=== PATIENT | female | born 1955 | race Caucasian/White ===

== ENCOUNTER 2017-05-08 03:31 | Observation (INO) | payer MEDICAID ==
[2017-05-08] MEDS ORDERED: Albuterol/Ipratropium 3.0-0.5 MG/3 ML Neb Soln NEB ONE (03:39)
--- NOTE | 2017-05-08 03:39 | EDM.PDOC ---
ED HPI GENERAL MEDICAL PROBLEM - General Chief Complaint: Respiratory Problem Stated Complaint: COUGHING, HEADACHE, RETAINING FLUID Time Seen by Provider: 05/08/17 03:37 - History of Present Illness INITIAL COMMENTS - FREE TEXT/NARRATIVE: HISTORY AND PHYSICAL: History of present illness: Patient 61-year-old white female was longtime smoker who presents with a concern of shortness of breath patient states she has history of lymphedema and is on a water pill and potassium she denies any history of COPD asthma or other lung or heart problems she denies chest pain nausea vomiting fever or chills Review of systems: As per history of present illness and below otherwise all systems reviewed and negative. Past medical history: As per history of present illness and as reviewed below otherwise noncontributory. Surgical history: As per history of present illness and as reviewed below otherwise noncontributory. Social history: No reported history of drug or alcohol abuse. Family history: As per history of present illness and as reviewed below otherwise noncontributory. Physical exam: HEENT: Atraumatic, normocephalic, pupils reactive, negative for conjunctival pallor or scleral icterus, mucous membranes moist, throat clear, neck supple, nontender, trachea midline. Lungs: Diminished bilaterally rare next story wheezing, breath sounds equal bilaterally, chest nontender. Heart: S1S2, regular, negative for clicks, rubs, or JVD. Abdomen: Soft, nondistended, nontender. Negative for masses or hepatosplenomegaly. Negative for costovertebral tenderness. Pelvis: Stable nontender. Genitourinary: Deferred. Rectal: Deferred. Extremities: Atraumatic, negative for cords or calf pain. Neurovascular unremarkable. 2-3+ pretibial edema inferiorly Neuro: Awake, alert, oriented. Cranial nerves II through XII unremarkable. Cerebellum unremarkable. Motor and sensory unremarkable throughout. Exam nonfocal. Diagnostics: CBC CMP PT/INR troponin BNP chest x-ray EKG Therapeutics: IV O2 monitor albuterol ipratropium nebulized Impression: #1 dyspnea Definitive disposition and diagnosis as appropriate pending reevaluation and review of above. - Related Data Allergies Allergy/AdvReac Type Severity Reaction Status Date / Time No Known Allergies Allergy Verified 05/08/17 03:44 Home Meds: Home Meds Furosemide [Lasix] 20 mg PO BIDDIURETIC 05/08/17 [History] Potassium Gluconate [Potassium] 99 mg PO 05/08/17 [History] ED ROS GENERAL - Review of Systems Review Of Systems: ROS reveals no pertinent complaints other than HPI. ED EXAM, GENERAL - Physical Exam Exam: See Below (See dictation) Course - Vital Signs Last Recorded V/S: Last Vital Signs Temp 36.4 C 05/08/17 03:31 Pulse 97 05/08/17 03:31 Resp 16 05/08/17 03:31 BP 158/79 H 05/08/17 03:31 Pulse Ox 92 L 05/08/17 03:31 - Orders/Labs/Meds Orders: Active Orders 24 hr Category Date Time Status EKG Documentation Completion [RC] STAT Care 05/08/17 03:37 Active Oxygen Therapy [RC] ASDIRECTED Care 05/08/17 03:37 Active RT Aerosol Therapy [RC] ASDIRECTED Care 05/08/17 03:39 Active Chest 1V Frontal [CR] Stat Exams 05/08/17 03:37 Taken Nicotine [Habitrol] Med 05/08/17 04:30 Active 7 mg TRDERM DAILY Medication Orders Nicotine (Habitrol) 7 mg TRDERM DAILY MADAI Labs: Laboratory Tests 05/08/17 05/08/17 05/08/17 Range/Units 03:40 03:40 03:40 WBC 11.02 H (4.0-11.0) K/uL RBC 4.98 (4.30-5.90) M/uL Hgb 15.1 (12.0-16.0) g/dL Hct 46.5 H (36.0-46.0) % MCV 93.4 (80.0-98.0) fL MCH 30.3 (27.0-32.0) pg MCHC 32.5 (31.0-37.0) g/dL RDW Std Deviation 50.7 (28.0-62.0) fl RDW Coeff of Misty 15 (11.0-15.0) % Plt Count 263 (150-400) K/uL MPV 9.20 (7.40-12.00) fL Neut % (Auto) 66.4 (48.0-80.0) % Lymph % (Auto) 24.5 (16.0-40.0) % Maury % (Auto) 7.4 (0.0-15.0) % Eos % (Auto) 1.5 (0.0-7.0) % Baso % (Auto) 0.2 (0.0-1.5) % Neut # (Auto) 7.3 H (1.4-5.7) K/uL Lymph # (Auto) 2.7 H (0.6-2.4) K/uL Maury # (Auto) 0.8 (0.0-0.8) K/uL Eos # (Auto) 0.2 (0.0-0.7) K/uL Baso # (Auto) 0.0 (0.0-0.1) K/uL Nucleated RBC % 0.0 /100WBC Nucleated RBCs # 0 K/uL INR 0.93 (0.86-1.11) D-Dimer, Quantitative 0.27 (0.0-0.52) mg/LFEU Sodium 142 (136-146) mmol/L Potassium 4.5 (3.5-5.1) mmol/L Chloride 108 (98-110) mmol/L Carbon Dioxide 26 (21-31) mmol/L BUN 11 (6.0-23.0) mg/dL Creatinine 0.8 (0.6-1.5) mg/dL Est Cr Clr Drug Dosing 65.38 mL/min Estimated GFR (MDRD) > 60.0 ml/min Glucose 101 (60-110) mg/dL Calcium 8.6 L (8.8-10.8) mg/dL Total Bilirubin 0.3 (0.1-1.5) mg/dL AST 20 (5-40) IU/L ALT 24 (8-54) IU/L Alkaline Phosphatase 98 (40-150) Troponin I (0.0-0.29) NG/ML B-Natriuretic Peptide (<100) PG/ML Total Protein 6.9 (6.0-8.0) g/dL Albumin 3.9 (3.5-5.0) g/dL Globulin 3.0 (2.0-3.5) g/dL Albumin/Globulin Ratio 1.3 (1.3-2.8) Amylase 41 (10-90) U/L Lipase 12 (7-80) U/L 05/08/17 05/08/17 Range/Units 03:40 03:40 WBC (4.0-11.0) K/uL RBC (4.30-5.90) M/uL Hgb (12.0-16.0) g/dL Hct (36.0-46.0) % MCV (80.0-98.0) fL MCH (27.0-32.0) pg MCHC (31.0-37.0) g/dL RDW Std Deviation (28.0-62.0) fl RDW Coeff of Misty (11.0-15.0) % Plt Count (150-400) K/uL MPV (7.40-12.00) fL Neut % (Auto) (48.0-80.0) % Lymph % (Auto) (16.0-40.0) % Maury % (Auto) (0.0-15.0) % Eos % (Auto) (0.0-7.0) % Baso % (Auto) (0.0-1.5) % Neut # (Auto) (1.4-5.7) K/uL Lymph # (Auto) (0.6-2.4) K/uL Maury # (Auto) (0.0-0.8) K/uL Eos # (Auto) (0.0-0.7) K/uL Baso # (Auto) (0.0-0.1) K/uL Nucleated RBC % /100WBC Nucleated RBCs # K/uL INR (0.86-1.11) D-Dimer, Quantitative (0.0-0.52) mg/LFEU Sodium (136-146) mmol/L Potassium (3.5-5.1) mmol/L Chloride (98-110) mmol/L Carbon Dioxide (21-31) mmol/L BUN (6.0-23.0) mg/dL Creatinine (0.6-1.5) mg/dL Est Cr Clr Drug Dosing mL/min Estimated GFR (MDRD) ml/min Glucose (60-110) mg/dL Calcium (8.8-10.8) mg/dL Total Bilirubin (0.1-1.5) mg/dL AST (5-40) IU/L ALT (8-54) IU/L Alkaline Phosphatase (40-150) Troponin I < 0.10 (0.0-0.29) NG/ML B-Natriuretic Peptide 60 (<100) PG/ML Total Protein (6.0-8.0) g/dL Albumin (3.5-5.0) g/dL Globulin (2.0-3.5) g/dL Albumin/Globulin Ratio (1.3-2.8) Amylase (10-90) U/L Lipase (7-80) U/L Meds: Medications Generic Name Dose Route Start Last Admin Trade Name Freq PRN Reason Stop Dose Admin Nicotine 7 mg 05/08/17 04:30 Habitrol TRDERM DAILY MADAI Discontinued Medications Generic Name Dose Route Start Last Admin Trade Name Freq PRN Reason Stop Dose Admin Albuterol/Ipratropium 3 ml 05/08/17 03:39 05/08/17 03:44 Duoneb 3.0-0.5 Mg/3 Ml NEB 05/08/17 03:40 3 ml ONETIME ONE Administration Albuterol/Ipratropium Confirm 05/08/17 03:40 05/08/17 03:45 Duoneb 3.0-0.5 Mg/3 Ml Administered 05/08/17 03:41 Not Given Dose 3 ml .ROUTE .STK-MED ONE Furosemide 40 mg 05/08/17 03:45 05/08/17 03:56 Lasix IVPUSH 05/08/17 03:46 40 mg NOW ONE Administration Departure - Departure Time of Disposition: 04:32 Disposition: Refer to Observation Condition: good Clinical Impression: Dyspnea - Discharge Information Forms: ED Department Discharge - My Orders Last 24 Hours: My Active Orders 05/08/17 03:37 EKG Documentation Completion [RC] STAT Oxygen Therapy [RC] ASDIRECTED Chest 1V Frontal [CR] Stat 05/08/17 03:39 RT Aerosol Therapy [RC] ASDIRECTED 05/08/17 04:30 Nicotine [Habitrol] 7 mg TRDERM DAILY - Assessment/Plan Last 24 Hours: My Active Orders 05/08/17 03:37 EKG Documentation Completion [RC] STAT Oxygen Therapy [RC] ASDIRECTED Chest 1V Frontal [CR] Stat 05/08/17 03:39 RT Aerosol Therapy [RC] ASDIRECTED 05/08/17 04:30 Nicotine [Habitrol] 7 mg TRDERM DAILY
[2017-05-08] MEDS ORDERED: Albuterol/Ipratropium 3.0-0.5 MG/3 ML Neb Soln ONE (03:40)
[2017-05-08] MEDS ORDERED: Furosemide 40 MG/4 ML VIAL IVPUSH ONE (03:45)
[2017-05-08 04:18] LABS: CHLORIDE,CL 108 mmol/L (98-110); SODIUM,NA 142 mmol/L (136-146)
[2017-05-08] MEDS: Nicotine 7 MG/24 Hr Patch TRDERM SCH ×2 (04:59→09:32)
[2017-05-08] MEDS ORDERED: Polyethylene Glycol 3350 Powder 17 GM Packet PO PRN (09:35)
[2017-05-08] MEDS ORDERED: Acetaminophen 325 MG Tab PO PRN (09:35)
[2017-05-08] MEDS ORDERED: Ondansetron 4 MG Tab.DIS PO PRN (09:35)
[2017-05-08] MEDS ORDERED: Azithromycin 250 MG Tab PO ONE (10:03)
[2017-05-08] MEDS ORDERED: Calcium Carbonate 500 MG Tab.Chew PO ONE (10:04)
[2017-05-08] MEDS: Potassium Chloride 20 MEQ Tab.ER PO SCH (10:23)
[2017-05-08] MEDS: methylPREDNISolone Sodium Succinate 125 MG/2 ML SDV IVPUSH SCH ×3 (10:23→20:52)
[2017-05-08] MEDS: Enoxaparin 40 MG/0.4 ML Syringe SUBCUT SCH ×2 (10:23→10:30)
[2017-05-08] MEDS: Albuterol/Ipratropium 3.0-0.5 MG/3 ML Neb Soln NEB SCH ×4 (10:30→21:53)
--- NOTE | 2017-05-08 10:59 | CR ---
EXAM DATE: 05/08/17 PATIENT'S AGE: 61 Patient: BOB HERNANDEZ Facility: [place], [place] Site . Site : 1955 Study: XRay Chest [id number]/8/2017 4:07:41 AM Ordering Physician: Doctor Guadalupe Final Report: INDICATION: Shortness of breath, cough. TECHNIQUE: Chest radiograph 1 view COMPARISON: None FINDINGS: Study somewhat limited by patient body habitus. Faint asymmetric patchy opacification suspected in the right lower lung zone. Heart and mediastinal contours within normal limits. No definite pleural effusion or pneumothorax. IMPRESSION: 1. Possible infiltrate or bronchitis involving right lower lung zone. Dictated by Jarred Triana MD @ 05/08/2017 4:22:46 AM Dictated by: Jarred Triana MD @ 05/08/2017 04:22:52 (Electronic Signature) Report Signed by Proxy. [email or web address]
[2017-05-08] MEDS: Nicotine 21 MG/24 Hr Patch TRDERM SCH (11:25)
--- NOTE | 2017-05-08 12:19 | PCM.HP ---
H&P History of Present Illness - General Date of Service: 05/08/17 Admit Problem/Dx: Dyspnea Source of Information: Patient, Family - History of Present Illness Initial Comments - Free Text/Narative: 61 yo female admitted 05/08/17 for dyspnea with pmh of lymphedema and correction smoking. Patient was brought in by daughter. States since last weekend has had increasing shortness of breath. Some cough with yellowish sputum and sinus congestion. Has a 41 pack year history of smoking. No history as per patient of COPD, asthma, other lung disease, or heart problems. Does take lasix for lymphemdema. Denies any chest pain, palpitations, orthopnea, or nocturnal dyspnea. Does get swelling in legs bilaterally which was worse before current illness. From [place] and has been seeing physician's there for her lymphedema. Has had EKG but no echocardiogram. Has no history of hypertension or other cardiac disease. Denies fever, chills, nausea, vomiting, diarrhea, sore throat. In ED CXR showed possible inbiltrate or bronchits RLL. Borderline leukocytosis of 11.02, normal BNP and D-dimer. Was given Lasix 40 and duoneb with some improvment in SOB but still requiring 2 L nc to maintain sats over 92% - Related Data Allergies/Adverse Reactions: Allergies Allergy/AdvReac Type Severity Reaction Status Date / Time No Known Allergies Allergy Verified 05/08/17 03:44 Home Medications: Home Meds Furosemide [Lasix] 20 mg PO BIDDIURETIC 05/08/17 [History] Potassium Gluconate [Potassium] 99 mg PO 05/08/17 [History] Past Medical History HEENT History: Reports: None Cardiovascular History: Reports: None Respiratory History: Reports: None Gastrointestinal History: Reports: None Genitourinary History: Reports: None Musculoskeletal History: Reports: None Neurological History: Reports: None Psychiatric History: Reports: None Endocrine/Metabolic History: Reports: Other (See Below) Other Endocrine/Metabolic History: lymphodema Hematologic History: Reports: None Immunologic History: Reports: None Oncologic (Cancer) History: Reports: None Dermatologic History: Reports: None - Infectious Disease History Infectious Disease History: Reports: Chicken Pox - Past Surgical History Head Surgeries/Procedures: Reports: None Cardiovascular Surgical History: Reports: None Respiratory Surgical History: Reports: None Female Surgical History: Reports: None Social & Family History - Family History Family Medical History: Noncontributory HEENT: Reports: None Cardiac: Reports: None Respiratory: Reports: None GI: Reports: None : Reports: None OBGYN: Reports: None Musculoskeletal: Reports: None Neurological: Reports: None Psychiatric: Reports: None Endocrine/Metabolic: Reports: None Hematologic: Reports: None Immunologic: Reports: None Dermatologic: Reports: None Oncologic: Reports: None - Tobacco Use Smoking Status *Q: Current Every Day Smoker Years of Tobacco use: 41 Packs/Tins Daily: 1.5 Second Hand Smoke Exposure: No - Caffeine Use Caffeine Use: Reports: Coffee, Soda, Tea - Recreational Drug Use Recreational Drug Use: No H&P Review of Systems - Review of Systems: Review Of Systems: See Below General: Reports: Fatigue. Denies: Fever, Chills, Night Sweats Pulmonary: Reports: Shortness of Breath, Wheezing, Cough, Sputum. Denies: Pleuritic Chest Pain, Hemoptysis Cardiovascular: Reports: Edema. Denies: Chest Pain, Palpitations, Orthopnea, PND, Syncope, Blood Pressure Problem Gastrointestinal: Denies: Abdominal Pain, Black Stool, Bloody Stool Genitourinary: Denies: Dysuria Musculoskeletal: Denies: Neck Pain, Leg Pain Skin: Denies: Cyanosis Psychiatric: Denies: Confusion Neurological: Denies: Confusion, Dizziness, Headache Hematologic/Lymphatic: Denies: Anemia Exam - Exam Exam: See Below - Vital Signs Vital Signs: Last Vital Signs Temp 36.4 C 05/08/17 08:00 Pulse 77 05/08/17 08:00 Resp 16 05/08/17 08:00 BP 127/70 05/08/17 08:00 Pulse Ox 91 L 05/08/17 09:35 Weight: 124.1 kg - Exam Quality Assessment: Supplemental Oxygen, DVT Prophylaxis General: Alert, Oriented, Cooperative HEENT: Conjunctiva Clear, EACs Clear, EOMI, Hearing Intact, Mucosa Moist & Amonate , Nares Patent, Normal Nasal Septum, Posterior Pharynx Clear, PERRLA Neck: Supple, Trachea Midline, 2 Lungs: Normal Respiratory Effort, Crackles, Rales Cardiovascular: Regular Rate, Regular Rhythm, Normal S1, Normal S2, Systolic Murmur Abdomen: Normal Bowel Sounds, Soft, Distention. No: Guarding, Rigidity, Rebound , Tenderness Back Exam: Normal Inspection, Full Range of Motion. No: CVA Tenderness (L), CVA Tenderness (R) Extremities: Normal Inspection, Normal Pulses, Edema (+2 to knees bilaterally) Peripheral Pulses: 2+: Radial (L), Radial (R), Posterior Tibial (L), Posterior Tibial (R), Dorsalis Pedis (L), Dorsalis Pedis (R) Skin: Warm, Dry, Intact Neurological: Cranial Nerves Intact, Reflexes Equal Bilateral Neuro Extensive - Mental Status: Alert, Oriented x3, Normal Mood/Affect, Normal Cognition Neuro Extensive - Motor, Sensory, Reflexes: CN II-XII Intact, Normal Gait, Normal Reflexes Psychiatric: Alert, Normal Affect, Normal Mood - Patient Data Result Diagrams: 05/08/17 03:40 05/08/17 03:40 *Q Meaningful Use (ADM) - VTE *Q VTE Criteria *Q: - Stroke *Q Stroke Criteria *Q: - AMI *Q AMI Criteria *Q: - Problem List (1) Lymphedema SNOMED Code(s): 988591435 ICD Code: I89.0 - LYMPHEDEMA, NOT ELSEWHERE CLASSIFIED Status: Chronic Priority: Medium Current Visit: Yes (2) Dyspnea SNOMED Code(s): 101308655 ICD Code: R06.00 - DYSPNEA, UNSPECIFIED Status: Acute Priority: High Current Visit: Yes Qualifiers: Dyspnea type: shortness of breath Qualified Code(s): R06.02 - Shortness of breath Problem List Initiated/Reviewed/Updated: Yes Orders Last 24hrs: Active Orders 24 hr Category Date Time Status Patient Status [ADT] Routine ADT 05/08/17 09:35 Active Antiembolic Devices [RC] PER UNIT ROUTINE Care 05/08/17 09:40 Active Oxygen Therapy [RC] PRN Care 05/08/17 09:35 Active RT Aerosol Therapy [RC] ASDIRECTED Care 05/08/17 09:40 Active Telemetry Monitoring [Cardiac Monitoring] [RC] . Care 05/08/17 06:08 Active DIRECTED Up With Assistance [RC] ASDIRECTED Care 05/08/17 09:35 Active VTE/DVT Education [RC] PER UNIT ROUTINE Care 05/08/17 09:35 Active Vital Signs [RC] Q4H Care 05/08/17 09:35 Active 2 Gram Sodium Diet [DIET] Diet 05/08/17 Lunch Active Echo Comp wo Cont [US] Routine Exams 05/08/17 09:49 Ordered BASIC METABOLIC PANEL,BMP [CHEM] DAILY Lab 05/09/17 05:00 Ordered BASIC METABOLIC PANEL,BMP [CHEM] DAILY Lab 05/10/17 05:00 Ordered BASIC METABOLIC PANEL,BMP [CHEM] DAILY Lab 05/11/17 05:00 Ordered CBC WITH AUTO DIFF [HEME] DAILY Lab 05/09/17 05:00 Ordered CBC WITH AUTO DIFF [HEME] DAILY Lab 05/10/17 05:00 Ordered CBC WITH AUTO DIFF [HEME] DAILY Lab 05/11/17 05:00 Ordered CULTURE SPUTUM + SMEAR [RM] Stat Lab 05/08/17 09:05 Ordered Acetaminophen [Tylenol] Med 05/08/17 09:35 Active 650 mg PO Q4H PRN Albuterol/Ipratropium [DuoNeb 3.0-0.5 MG/3 ML] Med 05/08/17 10:00 Active 3 ml NEB Q4HRRT Azithromycin [Zithromax] Med 05/09/17 09:45 Active 250 mg PO Q24H Enoxaparin [Lovenox] Med 05/08/17 10:06 Active 40 mg SUBCUT DAILY Furosemide [Lasix] Med 05/08/17 14:00 Active 20 mg PO BIDDIURETIC Nicotine [Habitrol] Med 05/08/17 11:30 Active 21 mg TRDERM Q24H Ondansetron [Zofran ODT] Med 05/08/17 09:35 Active 4 mg PO Q4H PRN Polyethylene Glycol 3350 [MiraLAX] Med 05/08/17 09:35 Active 17 gm PO DAILY PRN Potassium Chloride [Klor-Con M20] Med 05/08/17 10:00 Active 40 meq PO DAILY methylPREDNISolone Sod Succ [Solu-MEDROL] Med 05/08/17 09:45 Active 125 mg IVPUSH Q6H Sequential Compression Device [OM.PC] Per Unit Routine Oth 05/08/17 09:39 Ordered Resuscitation Status Routine Resus Stat 05/08/17 09:35 Ordered Medication Orders Acetaminophen (Tylenol) 650 mg PO Q4H PRN PRN Reason: Pain (Mild 1-3)/fever Albuterol/Ipratropium (Duoneb 3.0-0.5 Mg/3 Ml) 3 ml NEB Q4HRRT MADAI Last Admin: 05/08/17 10:30 Dose: 3 ml Azithromycin (Zithromax) 250 mg PO Q24H [facility] Enoxaparin Sodium (Lovenox) 40 mg SUBCUT DAILY [facility] Last Admin: 05/08/17 10:30 Dose: Not Given Furosemide (Lasix) 20 mg PO BIDDIURETIC MADAI Methylprednisolone Sodium Succinate (Solu-Medrol) 125 mg IVPUSH Q6H [facility] Last Admin: 05/08/17 10:23 Dose: 125 mg Nicotine (Habitrol) 21 mg TRDERM Q24H [facility] Last Admin: 05/08/17 11:25 Dose: 21 mg Ondansetron HCl (Zofran Odt) 4 mg PO Q4H PRN PRN Reason: nausea, able to take PO Polyethylene Glycol (Miralax) 17 gm PO DAILY PRN PRN Reason: Constipation Potassium Chloride (Klor-Con M20) 40 meq PO DAILY [facility] Last Admin: 05/08/17 10:23 Dose: 40 meq Assessment/Plan Comment:: 61 yo female admitted 05/08/17 for dyspnea with pmh of lymphedema and correction smoking. Dypnea: Most likely COPD exacerbation with terminologist smoker. No previous history of lung disease or PFT's. Sputum culture ordered. Will treat with duo- nebs, solumedrol, and azithromycin secondary to mild leukocytosis. Will get echocardiogram secondary to heart murmur and pedal edema. Lymphedema: Patient states this at norm or better than previous Cont. home lasix bid, try to get records from [place]. VTE: Patient refusing SCD and any pharmacologic prevention. Risks of blood clot with possibilty of explained to patient and she is in understanding.
[2017-05-08] MEDS ORDERED: Furosemide 20 MG Tab PO SCH (14:00)
[2017-05-08] MEDS: Nystatin Topical Powder 15 GM Bottle TOP SCH ×2 (16:00→22:57)
[2017-05-09] MEDS: Albuterol/Ipratropium 3.0-0.5 MG/3 ML Neb Soln NEB SCH ×3 (02:25→10:17)
[2017-05-09] MEDS: methylPREDNISolone Sodium Succinate 125 MG/2 ML SDV IVPUSH SCH ×2 (04:06→09:00)
[2017-05-09 04:58] LABS: CHLORIDE,CL 108 mmol/L (98-110); SODIUM,NA 142 mmol/L (136-146)
[2017-05-09] MEDS: Nystatin Topical Powder 15 GM Bottle TOP SCH (06:59)
[2017-05-09] MEDS ORDERED: Furosemide 40 MG Tab PO SCH (08:00)
[2017-05-09] MEDS ORDERED: Azithromycin 250 MG Tab PO SCH ×2 (09:00→09:45)
[2017-05-09] MEDS ORDERED: methylPREDNISolone Sodium Succinate 125 MG/2 ML SDV IVPUSH SCH (09:00)
[2017-05-09] MEDS ORDERED: Nicotine 7 MG/24 Hr Patch TRDERM SCH (09:00)
[2017-05-09] MEDS: Potassium Chloride 20 MEQ Tab.ER PO SCH (10:25)
[2017-05-09] MEDS: Enoxaparin 40 MG/0.4 ML Syringe SUBCUT SCH (10:28)
[2017-05-09] MEDS: Nicotine 21 MG/24 Hr Patch TRDERM SCH (10:33)
[2017-05-09 12:13] VITALS: BP 103/55
--- NOTE | 2017-05-10 15:36 | PCM.DCSUM1 ---
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 Brief History: Patient was brought in by daughter. Stated since previous weekend had increasing shortness of breath. Some cough with yellowish sputum and sinus congestion. Has a 41 pack year history of smoking currently smoking. No history as per patient of COPD, asthma, other lung disease, or heart problems. Does take lasix for lymphemdema. Denied any chest pain, palpitations , orthopnea, or nocturnal dyspnea. Does get swelling in legs bilaterally which was worse before current illness. From [place] and has been seeing physician's there for her lymphedema. Has had EKG but no echocardiogram. Has no history of hypertension or other cardiac disease. Denies fever, chills, nausea, vomiting, diarrhea, sore throat. 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 Patient was brought in by daughter. Stated since previous weekend had increasing shortness of breath. Some cough with yellowish sputum and sinus congestion. Has a 41 pack year history of smoking currently smoking. No history as per patient of COPD, asthma, other lung disease, or heart problems. Does take lasix for lymphemdema. Denied any chest pain, palpitations, orthopnea , or nocturnal dyspnea. Does get swelling in legs bilaterally which was worse before current illness. From [place] and has been seeing physician's there for her lymphedema. Has had EKG but no echocardiogram. Has no history of hypertension or other cardiac disease. Denies fever, chills, nausea, vomiting, diarrhea, sore throat. In ED CXR showed possible inbiltrate or bronchits RLL. Borderline leukocytosis of 11.02, normal BNP and D-dimer. Was given Lasix 40 and duoneb with some improvment in SOB but still requiring 2 L nc to maintain sats over 92% Patient was admitted for dyspnea suspect COPD. Patient was treated with duo nebs, Solu-Medrol, and azithromycin. Echocardiogram was performed but results were unavailable at time of discharge. This was performed secondary to her generalized edema which she stated was from a previous diagnosis of lymphedema. She had previous cardiac workup which was negative without echo done in [place] as per patient and daughter. She had no previous known cardiac disease and improved with respiratory treatments but may have a cardiac component as well. Suggest further followup with primary care. Patient was very adamant during her stay about smoking cessation. She "will smoke until I ". Smoking cessation resources were offered. On day of discharge, 05/09/17, patient was 94% on room air. 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 She was also scheduled for PCP followup and instructed to return to ED if she had any future respiratory distress. - Patient Instructions Diet: Usual Diet as Tolerated Activity: Rest and Relax Today Driving: Do Not Drive Showering/Bathing: May Shower Notify Provider of: Fever, Increased Pain, Swelling and Redness, Drainage, Nausea and/or Vomiting - Discharge Plan Prescriptions/Med Rec: Albuterol Sulfate [Proair Hfa] 8.5 gm IH Q4HR PRN #1 hfa.aer.ad PRN Reason: Shortness Of Breath Albuterol/Ipratropium [DuoNeb 3.0-0.5 MG/3 ML] 3 ml NEB Q4HRRT PRN #14 neb PRN Reason: Shortness Of Breath Azithromycin [Zithromax] 250 mg PO Q24H #3 tablet Nystatin/Triamcin [Nystatin-Triamcinolone Cream] 30 gm TP BID #1 cream..g. Prednisone [IJD: predniSONE] 20 mg PO WITHBREAKFAST #10 tab Home Medications: Home Meds Furosemide [Lasix] 20 mg PO BIDDIURETIC 05/08/17 [History] Potassium Gluconate [Potassium] 99 mg PO 05/08/17 [History] Albuterol Sulfate [Proair Hfa] 8.5 gm IH Q4HR PRN #1 hfa.aer.ad 05/09/17 [Rx] Albuterol/Ipratropium [DuoNeb 3.0-0.5 MG/3 ML] 3 ml NEB Q4HRRT PRN #14 neb 05/09 [Rx] Azithromycin [Zithromax] 250 mg PO Q24H #3 tablet 05/09/17 [Rx] Nystatin/Triamcin [Nystatin-Triamcinolone Cream] 30 gm TP BID #1 cream..g. 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 Patient was brought in by daughter. Stated since previous weekend had increasing shortness of breath. Some cough with yellowish sputum and sinus congestion. Has a 41 pack year history of smoking currently smoking. No history as per patient of COPD, asthma, other lung disease, or heart problems. Does take lasix for lymphemdema. Denied any chest pain, palpitations, orthopnea , or nocturnal dyspnea. Does get swelling in legs bilaterally which was worse before current illness. From [place] and has been seeing physician's there for her lymphedema. Has had EKG but no echocardiogram. Has no history of hypertension or other cardiac disease. Denies fever, chills, nausea, vomiting, diarrhea, sore throat. In ED CXR showed possible inbiltrate or bronchits RLL. Borderline leukocytosis of 11.02, normal BNP and D-dimer. Was given Lasix 40 and duoneb with some improvment in SOB but still requiring 2 L nc to maintain sats over 92% Patient was admitted for dyspnea suspect COPD. Patient was treated with duo nebs, Solu-Medrol, and azithromycin. Echocardiogram was performed but results were unavailable at time of discharge. This was performed secondary to her generalized edema which she stated was from a previous diagnosis of lymphedema. She had previous cardiac workup which was negative without echo done in [place] as per patient and daughter. She had no previous known cardiac disease and improved with respiratory treatments but may have a cardiac component as well. Suggest further followup with primary care. Patient was very adamant during her stay about smoking cessation. She "will smoke until I ". Smoking cessation resources were offered. On day of discharge, 05/09/17, patient was 94% on room air. 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 She was also scheduled for PCP followup and instructed to return to ED if she had any future respiratory distress. - Patient Data Vitals - Most Recent: Last Vital Signs Temp 36.8 C 05/09/17 12:11 Pulse 90 05/09/17 12:11 Resp 18 05/09/17 12:11 BP 103/55 L 05/09/17 12:11 Pulse Ox 96 05/09/17 12:11 Weight - Most Recent: 124.1 kg MELI Results - Last 24 hrs: Microbiology 05/08/17 10:50 Gram Stain - Final Sputum - Expectorated Sputum Culture - Final NORMAL RESPIRATORY JACQUELINE 2 DAYS Med Orders - Current: Current Medications Discontinued Medications Acetaminophen (Tylenol) 650 mg PO Q4H PRN PRN Reason: Pain (Mild 1-3)/fever Albuterol/Ipratropium (Duoneb 3.0-0.5 Mg/3 Ml) 3 ml NEB ONETIME ONE Stop: 05/08/17 03:40 Last Admin: 05/08/17 03:44 Dose: 3 ml Albuterol/Ipratropium (Duoneb 3.0-0.5 Mg/3 Ml) Confirm Administered Dose 3 ml .ROUTE .STK-MED ONE Stop: 05/08/17 03:41 Last Admin: 05/08/17 03:45 Dose: Not Given Albuterol/Ipratropium (Duoneb 3.0-0.5 Mg/3 Ml) 3 ml NEB Q4HRRT [facility] Last Admin: 05/09/17 10:17 Dose: 3 ml Azithromycin (Zithromax) 500 mg PO ONETIME ONE Stop: 05/08/17 10:04 Last Admin: 05/08/17 10:23 Dose: 500 mg Azithromycin (Zithromax) 250 mg PO Q24H MADAI Azithromycin (Zithromax) 250 mg PO Q24H [facility] Last Admin: 05/09/17 10:27 Dose: 250 mg Calcium Carbonate/Glycine (Tums) 1,000 mg PO ONETIME ONE Stop: 05/08/17 10:05 Last Admin: 05/08/17 10:23 Dose: 1,000 mg Enoxaparin Sodium (Lovenox) 40 mg SUBCUT DAILY [facility] Last Admin: 05/09/17 10:28 Dose: Not Given Furosemide (Lasix) 40 mg IVPUSH NOW ONE Stop: 05/08/17 03:46 Last Admin: 05/08/17 03:56 Dose: 40 mg Furosemide (Lasix) 20 mg PO BIDDIURETIC [facility] Last Admin: 05/08/17 14:08 Dose: 20 mg Furosemide (Lasix) 40 mg PO BIDDIURETIC [facility] Last Admin: 05/09/17 08:31 Dose: 40 mg Methylprednisolone Sodium Succinate (Solu-Medrol) 125 mg IVPUSH Q6H [facility] Last Admin: 05/09/17 04:06 Dose: 125 mg Methylprednisolone Sodium Succinate (Solu-Medrol) 125 mg IVPUSH Q6H [facility] Last Admin: 05/09/17 09:00 Dose: 125 mg Nicotine (Habitrol) 7 mg TRDERM DAILY [facility] Last Admin: 05/08/17 09:32 Dose: Not Given Nicotine (Habitrol) 7 mg TRDERM DAILY [facility] Nicotine (Habitrol) 21 mg TRDERM Q24H [facility] Last Admin: 05/09/17 10:33 Dose: 21 mg Nystatin (Nystop) 0 gm TOP TID [facility] Last Admin: 05/09/17 06:59 Dose: 1 applic Ondansetron HCl (Zofran Odt) 4 mg PO Q4H PRN PRN Reason: nausea, able to take PO Polyethylene Glycol (Miralax) 17 gm PO DAILY PRN PRN Reason: Constipation Potassium Chloride (Klor-Con M20) 40 meq PO DAILY MADAI Last Admin: 05/09/17 10:25 Dose: 40 meq *Q Meaningful Use (DIS) - VTE *Q VTE Criteria *Q: - Stroke *Q Stroke Criteria *Q: - AMI *Q AMI Criteria *Q:
--- NOTE | 2017-05-12 13:07 | ECHO ---
EXAM DATE: 05/08/17 PATIENT'S AGE: 61 The echocardiogram report can be seen in this patient's EMR (Electronic Medical Record) in the Reports section. BETH
== END 2017-05-09 12:35 | disposition home or self-care (01) ==
LOC: MW.ED 03:31 → MW.MS 05:01
PROVIDERS: ADMIT Internal Medicine; ATTEND Internal Medicine
DX: I89.0 Lymphedema, not elsewhere classified (principal); R06.00 Dyspnea, unspecified; F17.210 Nicotine dependence, cigarettes, uncomplicated; Z79.899 Other long term (current) drug therapy
CPT/HCPCS: 36415; 71010; 80048; 80053; 82150; 83690; 83880; 84484; 85025; 85379; 85610; 87070; 87205; 93005; 93306; 94640; 96374; 99285; A9270; J1940; J2930; 96375; 96376; G0378; J1650

== ENCOUNTER 2019-10-27 11:04 | Inpatient (IN) | payer MEDICAID ==
[2019-10-27] MEDS ORDERED: Sodium Chloride 0.9% 1,000 ML IV ONE (11:27)
--- NOTE | 2019-10-27 11:52 | EDM.PDOC ---
ED HPI GENERAL MEDICAL PROBLEM - General Chief Complaint: General Stated Complaint: SWOLLEN LEGS, BLISTERS ON THEM Time Seen by Provider: 10/27/19 11:05 Source of Information: Reports: Patient History Limitations: Reports: No Limitations - History of Present Illness INITIAL COMMENTS - FREE TEXT/NARRATIVE: HISTORY AND PHYSICAL: History of present illness: Patient is a 63-year-old female who presents to the ED today with concern of increasing shortness of breath, increasing swelling of her feet, and blisters that started to form on her lower legs. Patient states she saw the noodle press operator Dr. Darby earlier today and he stated she needed to be seen/evaluated in the ED. Patient states she has worsening shortness of breath when she lays back and better when she sits up. Patient states she has not had any falls or any trauma. Patient denies any other symptoms or concerns. Patient denies fever, chills, chest pain, shortness of breath, or cough. Denies headache, neck stiff ness, change in vision, syncope, or near syncope. Denies nausea, vomiting, abdominal pain, diarrhea, constipation, or dysuria. Has not noted any blood in urine or stool. Patient has been eating and drinking appropriately. Review of systems: As per history of present illness and below otherwise all systems reviewed and negative. Past medical history: As per history of present illness and as reviewed below otherwise noncontributory. Surgical history: As per history of present illness and as reviewed below otherwise noncontributory. Social history: See social history for further information Family history: As per history of present illness and as reviewed below otherwise noncontributory. Physical exam: Physical exam is limited due to body habitus. General: Patient is alert, oriented, and in no acute distress. Patient sitting comfortably on exam table. HEENT: Atraumatic, normocephalic, pupils equal and reactive bilaterally, negative for conjunctival pallor or scleral icterus, mucous membranes dry, TMs normal bilaterally, throat clear, neck supple, nontender, trachea midline. No drooling or trismus noted. No meningeal signs. No hot potato voice noted. Lungs: Clear to auscultation, breath sounds equal bilaterally, chest nontender. Heart: S1S2, regular rate and rhythm without overt murmur Abdomen: Soft, nondistended, nontender. Negative for masses or hepatosplenomegaly. Negative for costovertebral tenderness. Pelvis: Stable nontender. Genitourinary: Deferred. Rectal: Deferred. Skin: Intact, warm, dry. No lesions or rashes noted. Extremities: Negative for cords or calf pain. Neurovascular unremarkable. There are multiple various ulcers in various stages of healing on the bilateral shins with surrounding moderate amount of erythema. No pus or drainage noted. This area is severely painful to the touch. Dorsalis pedis and posterior tibial pulses are grossly intact bilaterally with capillary refill less than 2 seconds. 2+ nonpitting edema of the lower extremities. Neuro: Awake, alert, oriented. Cranial nerves II through XII unremarkable. Cerebellum unremarkable. Motor and sensory unremarkable throughout. Exam nonfocal. Notes: Patient was 86% O2 on room air. 2 L nasal cannula placed and 94% Dr. Nichole consulted on patient and will admit to observation with telemetry. Voices understanding and is agreeable to plan of care. Denies any further questions or concerns at this time. Diagnostics: CBC, CMP, UA, EKG, chest x-ray, troponin, BNP, PT/INR, bilateral tib-fib x-ray Therapeutics: Saline, Solu-Medrol, DuoNeb Impression: Hypoxia H/O COPD H/O CHF Plan: 1. Admit to observation to Dr. Nichole with telemetry Definitive disposition and diagnosis as appropriate pending reevaluation and review of above. bilat lower legs Pain Score (Numeric/FACES): 10 - Related Data Allergies Allergy/AdvReac Type Severity Reaction Status Date / Time No Known Allergies Allergy Verified 10/27/19 11:18 Home Meds: Home Meds Furosemide [Lasix] 20 mg PO BIDDIURETIC 05/08/17 [History] Potassium Gluconate [Potassium] 99 mg PO ASDIRECTED 05/08/17 [History] Albuterol Sulfate [Proair Hfa] 8.5 gm IH Q4HR PRN #1 hfa.aer.ad 05/09/17 [Rx] Albuterol/Ipratropium [DuoNeb 3.0-0.5 MG/3 ML] 3 ml NEB Q4HRRT PRN #14 neb 05/09 [Rx] Nystatin/Triamcin [Nystatin-Triamcinolone Cream] 30 gm TP BID #1 cream..g. 05/09 [Rx] Prednisone [IJD: predniSONE] 20 mg PO WITHBREAKFAST #10 tab 05/09/17 [Rx] Glycopyrrolate/Formoterol Fum [Bevespi Aerosphere Inhaler] 1 puff ASDIRECTED [History] Past Medical History HEENT History: Reports: None Cardiovascular History: Reports: Heart Failure, SOB on Exertion Respiratory History: Reports: COPD Gastrointestinal History: Reports: None Genitourinary History: Reports: None Musculoskeletal History: Reports: None Neurological History: Reports: None Psychiatric History: Reports: None Endocrine/Metabolic History: Reports: Other (See Below) Other Endocrine/Metabolic History: lymphodema Hematologic History: Reports: None Immunologic History: Reports: None Oncologic (Cancer) History: Reports: None Dermatologic History: Reports: None - Infectious Disease History Infectious Disease History: Reports: Chicken Pox - Past Surgical History Head Surgeries/Procedures: Reports: None Cardiovascular Surgical History: Reports: None Respiratory Surgical History: Reports: None Female Surgical History: Reports: Hysterectomy, Salpingo-Oophorectomy, Tubal Ligation Social & Family History - Family History Family Medical History: Noncontributory HEENT: Reports: None Cardiac: Reports: None Respiratory: Reports: None GI: Reports: None : Reports: None OBGYN: Reports: None Musculoskeletal: Reports: None Neurological: Reports: None Psychiatric: Reports: None Endocrine/Metabolic: Reports: None Hematologic: Reports: None Immunologic: Reports: None Dermatologic: Reports: None Oncologic: Reports: None - Tobacco Use Smoking Status *Q: Current Every Day Smoker Years of Tobacco use: 53 Packs/Tins Daily: 0.5 - Caffeine Use Caffeine Use: Reports: Coffee, Soda, Tea - Recreational Drug Use Recreational Drug Use: No ED ROS GENERAL - Review of Systems Review Of Systems: Comprehensive ROS is negative, except as noted in HPI. ED EXAM, GENERAL - Physical Exam Exam: See Below (see dictation) Course - Vital Signs Last Recorded V/S: Last Vital Signs Temp 98.1 F 10/27/19 11:17 Pulse 75 10/27/19 13:37 Resp 20 10/27/19 13:37 BP 152/72 H 10/27/19 13:37 Pulse Ox 93 L 10/27/19 13:37 - Orders/Labs/Meds Orders: Active Orders 24 hr Category Date Time Status Admission Status [Patient Status] [ADT] Stat ADT 10/27/19 13:29 Active EKG Documentation Completion [RC] STAT Care 10/27/19 11:27 Active RT Aerosol Therapy [RC] ASDIRECTED Care 10/27/19 12:19 Active CULTURE BLOOD [BC] Stat Lab 10/27/19 11:35 Received CULTURE BLOOD [BC] Stat Lab 10/27/19 12:11 Received Blood Culture x2 Reflex Set [OM.PC] Stat Oth 10/27/19 11:28 Ordered Labs: Laboratory Tests 10/27/19 10/27/19 10/27/19 Range/Units 11:35 11:35 11:35 WBC 10.03 (4.0-11.0) K/uL RBC 5.26 (4.30-5.90) M/uL Hgb 15.8 (12.0-16.0) g/dL Hct 49.5 H (36.0-46.0) % MCV 94.1 (80.0-98.0) fL MCH 30.0 (27.0-32.0) pg MCHC 31.9 (31.0-37.0) g/dL RDW Std Deviation 56.4 (28.0-62.0) fl RDW Coeff of Misty 17 H (11.0-15.0) % Plt Count 277 (150-400) K/uL MPV 9.20 (7.40-12.00) fL Neut % (Auto) 69.9 (48.0-80.0) % Lymph % (Auto) 21.3 (16.0-40.0) % [place] % (Auto) 5.5 (0.0-15.0) % Eos % (Auto) 2.9 (0.0-7.0) % Baso % (Auto) 0.4 (0.0-1.5) % Neut # (Auto) 7.0 H (1.4-5.7) K/uL Lymph # (Auto) 2.1 (0.6-2.4) K/uL [place] # (Auto) 0.6 (0.0-0.8) K/uL Eos # (Auto) 0.3 (0.0-0.7) K/uL Baso # (Auto) 0.0 (0.0-0.1) K/uL Nucleated RBC % 0.0 /100WBC Nucleated RBCs # 0 K/uL Lactate 1.6 (0.20-2.00) mmol/L Sodium 140 (136-145) mmol/L Potassium 4.4 (3.5-5.1) mmol/L Chloride 103 (98-107) mmol/L Carbon Dioxide 32.5 H (21.0-32.0) mmol/L BUN 18 (7.0-18.0) mg/dL Creatinine 1.3 H (0.6-1.0) mg/dL Est Cr Clr Drug Dosing 39.24 mL/min Estimated GFR (MDRD) 41.6 ml/min Glucose 95 (74-106) mg/dL Calcium 9.1 (8.5-10.1) mg/dL Total Bilirubin 0.2 (0.2-1.0) mg/dL AST 19 (15-37) IU/L ALT 22 (14-63) IU/L Alkaline Phosphatase 99 (46-116) U/L B-Natriuretic Peptide (<100) PG/ML Total Protein 7.1 (6.4-8.2) g/dL Albumin 3.0 L (3.4-5.0) g/dL Globulin 4.1 H (2.6-4.0) g/dL Albumin/Globulin Ratio 0.7 L (0.9-1.6) Urine Color Urine Appearance Urine pH (5.0-8.0) Ur Specific [place] (1.001-1.035) Urine Protein (NEGATIVE) mg/dL Urine Glucose (UA) (NEGATIVE) mg/dL Urine Ketones (NEGATIVE) mg/dL Urine Occult Blood (NEGATIVE) Urine Nitrite (NEGATIVE) Urine Bilirubin (NEGATIVE) Urine Urobilinogen (<2.0) EU/dL Ur Leukocyte Esterase (NEGATIVE) 10/27/19 10/27/19 Range/Units 11:35 13:10 WBC (4.0-11.0) K/uL RBC (4.30-5.90) M/uL Hgb (12.0-16.0) g/dL Hct (36.0-46.0) % MCV (80.0-98.0) fL MCH (27.0-32.0) pg MCHC (31.0-37.0) g/dL RDW Std Deviation (28.0-62.0) fl RDW Coeff of Misty (11.0-15.0) % Plt Count (150-400) K/uL MPV (7.40-12.00) fL Neut % (Auto) (48.0-80.0) % Lymph % (Auto) (16.0-40.0) % [place] % (Auto) (0.0-15.0) % Eos % (Auto) (0.0-7.0) % Baso % (Auto) (0.0-1.5) % Neut # (Auto) (1.4-5.7) K/uL Lymph # (Auto) (0.6-2.4) K/uL [place] # (Auto) (0.0-0.8) K/uL Eos # (Auto) (0.0-0.7) K/uL Baso # (Auto) (0.0-0.1) K/uL Nucleated RBC % /100WBC Nucleated RBCs # K/uL Lactate (0.20-2.00) mmol/L Sodium (136-145) mmol/L Potassium (3.5-5.1) mmol/L Chloride (98-107) mmol/L Carbon Dioxide (21.0-32.0) mmol/L BUN (7.0-18.0) mg/dL Creatinine (0.6-1.0) mg/dL Est Cr Clr Drug Dosing mL/min Estimated GFR (MDRD) ml/min Glucose (74-106) mg/dL Calcium (8.5-10.1) mg/dL Total Bilirubin (0.2-1.0) mg/dL AST (15-37) IU/L ALT (14-63) IU/L Alkaline Phosphatase (46-116) U/L B-Natriuretic Peptide 17 (<100) PG/ML Total Protein (6.4-8.2) g/dL Albumin (3.4-5.0) g/dL Globulin (2.6-4.0) g/dL Albumin/Globulin Ratio (0.9-1.6) Urine Color YELLOW Urine Appearance CLEAR Urine pH 5.5 (5.0-8.0) Ur Specific [place] 1.025 (1.001-1.035) Urine Protein NEGATIVE (NEGATIVE) mg/dL Urine Glucose (UA) NEGATIVE (NEGATIVE) mg/dL Urine Ketones NEGATIVE (NEGATIVE) mg/dL Urine Occult Blood NEGATIVE (NEGATIVE) Urine Nitrite NEGATIVE (NEGATIVE) Urine Bilirubin NEGATIVE (NEGATIVE) Urine Urobilinogen 0.2 (<2.0) EU/dL Ur Leukocyte Esterase NEGATIVE (NEGATIVE) Meds: Medications Discontinued Medications Generic Name Dose Route Start Last Admin Trade Name Freq PRN Reason Stop Dose Admin Albuterol/Ipratropium 3 ml 10/27/19 12:19 10/27/19 12:40 Duoneb 3.0-0.5 Mg/3 Ml NEB 10/27/19 12:20 3 ml ONETIME ONE Administration Sodium Chloride 1,000 mls @ 999 mls/hr 10/27/19 11:27 10/27/19 11:50 Normal Saline IV 10/27/19 12:27 100 mls/hr BOLUS ONE Administration Ketorolac Tromethamine 30 mg 10/27/19 13:23 10/27/19 13:30 Toradol IVPUSH 10/27/19 13:24 30 mg ONETIME ONE Administration Methylprednisolone Sodium Succinate 125 mg 10/27/19 12:19 10/27/19 13:30 Solu-Medrol IVPUSH 10/27/19 12:20 125 mg ONETIME ONE Administration Departure - Departure Time of Disposition: 13:31 Disposition: Refer to Observation Clinical Impression: Hypoxia, History of COPD, History of CHF (congestive heart failure) - Discharge Information Referrals: Dave Metzger MD [Primary Care Provider] - Forms: ED Department Discharge - My Orders Last 24 Hours: My Active Orders 10/27/19 11:27 EKG Documentation Completion [RC] STAT 10/27/19 11:28 Blood Culture x2 Reflex Set [OM.PC] Stat 10/27/19 11:35 CULTURE BLOOD [BC] Stat 10/27/19 12:11 CULTURE BLOOD [BC] Stat 10/27/19 12:19 RT Aerosol Therapy [RC] ASDIRECTED 10/27/19 13:29 Admission Status [Patient Status] [ADT] Stat - Assessment/Plan Last 24 Hours: My Active Orders 10/27/19 11:27 EKG Documentation Completion [RC] STAT 10/27/19 11:28 Blood Culture x2 Reflex Set [OM.PC] Stat 10/27/19 11:35 CULTURE BLOOD [BC] Stat 10/27/19 12:11 CULTURE BLOOD [BC] Stat 10/27/19 12:19 RT Aerosol Therapy [RC] ASDIRECTED 10/27/19 13:29 Admission Status [Patient Status] [ADT] Stat
[2019-10-27 12:19] LABS: CARBON DIOXIDE,CO2 32.5 mmol/L (21.0-32.0); POTASSIUM,K 4.4 mmol/L (3.5-5.1)
[2019-10-27] MEDS ORDERED: methylPREDNISolone Sodium Succinate 125 MG/2 ML SDV IVPUSH ONE (12:19)
[2019-10-27] MEDS ORDERED: Albuterol/Ipratropium 3.0-0.5 MG/3 ML Neb Soln NEB ONE (12:19)
--- NOTE | 2019-10-27 12:51 | CR ---
EXAM DATE: 10/27/19 PATIENT'S AGE: 63 Right tibia and fibula: Two views of the right tibia and fibula were obtained. Comparison: No previous study. Plantar spur is seen. Spur is noted at the attachment of the Achilles tendon to the calcaneus. No fracture or other bony abnormality is seen. Impression: 1. Calcaneal spurs. 2. No additional abnormality is appreciated on right tibia and fibula study. Diagnostic code #2 This report was dictated in [place] Standard Time Report Signed by Proxy. BETH
--- NOTE | 2019-10-27 13:02 | CR ---
EXAM DATE: 10/27/19 PATIENT'S AGE: 63 Chest: Portable view of the chest was obtained. Comparison: Prior chest x-ray of 05/08/17. Heart size and mediastinum are normal. Lungs show no acute parenchymal change. Bony structures are grossly intact. Impression: 1. Nothing acute is appreciated on portable chest x-ray. Diagnostic code #1 This report was dictated in [place] Standard Time Report Signed by Proxy. [facility]
--- NOTE | 2019-10-27 13:04 | CR ---
EXAM DATE: 10/27/19 PATIENT'S AGE: 63 Left tibia and fibula: Two views of the left tibia and fibula were obtained. Comparison: No prior left tibia and fibula exam. Spur is noted off the plantar margin the calcaneus. Smaller spur noted at the attachment of the Achilles tendon to the calcaneus. Spurring is also noted at the tarsometatarsal joint which is seen on the lateral view. No fracture or other bony abnormality is appreciated. Impression: 1. Calcaneal spurs. Spurring at the tarsometatarsal joints. 2. Left tibia and fibula study is otherwise unremarkable. Diagnostic code #2 This report was dictated in [place] Standard Time Report Signed by Proxy. BETH
[2019-10-27] MEDS ORDERED: Ketorolac 30 MG/ML SDV IVPUSH ONE (13:23)
[2019-10-27] MEDS ORDERED: Acetaminophen 325 MG Tab PO PRN (14:57)
[2019-10-27] MEDS ORDERED: Ondansetron 4 MG/2 ML SDV IVPUSH PRN (14:57)
[2019-10-27] MEDS ORDERED: Furosemide 40 MG/4 ML VIAL IVPUSH ONE (15:11)
[2019-10-27] MEDS ORDERED: cefTRIAXone 1 GM in Premix Bag 1 BAG IV SCH (15:15)
--- NOTE | 2019-10-27 15:15 | PCM.HP.2 ---
<Taylor Batista M - Last Filed: 10/27/19 18:51> H&P History of Present Illness - General Date of Service: 10/27/19 Admit Problem/Dx: Admission Diagnosis/Problem Admission Diagnosis/Problem Hypoxia Source of Information: Patient History Limitations: Reports: No Limitations - History of Present Illness Initial Comments - Free Text/Narative: This 63 year old female with pmh of COPD, morbid obesity venous insufficiency, and tobacco dependence presented to the ED today with complaints of worsening shortness of breath. She reports she was at Dr Castano office today for debridement of her leg ulcers and they noticed she had worsened SOB and they urged her to be evaluated in the ED. She reports she had a cold about 1 month ago, with significant phlegm production, color was yellow to green and towards the end of her cold she noted some blood streaked phlegm but none for a while. She notes she had a fever then, but has been ok now. Reports she gets SOB with lying flat, which is a normal for her. She is not on oxygen at home. Uses inhalers for COPD as prescribed. Reports she was started on Lasix for leg edema , but has not taken it today. Feels legs are more swollen than normal. She denies recent fevers or chills, no chest pain. Reports shortness of breath is slightly worse. Cough is at baseline, productive with yellow sputum. She denies abdominal pain or urinary concerns. She reports she continues to smoke, 1/3-1/2 ppd. No alcohol or recreational drug use, no vaping. In the ED, CBC WNL. BUN 18 Cr 1.3, Bicarb 32.5. CXR negative. EKG SR with PAC, no ST segment changes. She was given Duonebs and Solu-medrol in the ED. Tib/fib xrays bilaterally obtained, no acute concerns. I spoke with Dr Harrison, who feels she may also have cellulitis of her left lower extremity. He recommended dressing changes daily with Silvadene along with antibiotics. He returns to town Friday if he is needed for further cares. bilat lower legs Pain Score (Numeric/FACES): 10 - Related Data Allergies/Adverse Reactions: Allergies Allergy/AdvReac Type Severity Reaction Status Date / Time No Known Allergies Allergy Verified 10/27/19 15:17 Home Medications: Home Meds Furosemide [Lasix] 60 mg PO BIDDIURETIC 05/08/17 [History] Albuterol Sulfate [Proair Hfa] 8.5 gm IH BID PRN 10/27/19 [History] Albuterol/Ipratropium [DuoNeb 3.0-0.5 MG/3 ML] 3 ml NEB BID 10/27/19 [History] Glycopyrrolate/Formoterol Fum [Bevespi Aerosphere Inhaler] 1 puff BID 10/27/19 [ History] predniSONE [Prednisone] 99 mg PO DAILY 10/27/19 [History] Past Medical History HEENT History: Reports: None Cardiovascular History: Reports: Heart Failure, PVD, SOB on Exertion. Denies: Afib, Blood Clots/VTE/DVT Respiratory History: Reports: COPD. Denies: Sleep Apnea Gastrointestinal History: Reports: None. Denies: GERD, GI Bleed Genitourinary History: Reports: None Musculoskeletal History: Reports: None Neurological History: Reports: None. Denies: CVA Psychiatric History: Reports: None Endocrine/Metabolic History: Reports: Other (See Below) Other Endocrine/Metabolic History: lymphedema Hematologic History: Reports: None Immunologic History: Reports: None Oncologic (Cancer) History: Reports: None Dermatologic History: Reports: None - Infectious Disease History Infectious Disease History: Reports: Chicken Pox - Past Surgical History Head Surgeries/Procedures: Reports: None Cardiovascular Surgical History: Reports: None Respiratory Surgical History: Reports: None Female Surgical History: Reports: Hysterectomy, Salpingo-Oophorectomy, Tubal Ligation Social & Family History - Family History Family Medical History: Noncontributory HEENT: Reports: None Cardiac: Reports: None Respiratory: Reports: None GI: Reports: None : Reports: None OBGYN: Reports: None Musculoskeletal: Reports: None Neurological: Reports: None Psychiatric: Reports: None Endocrine/Metabolic: Reports: None Hematologic: Reports: None Immunologic: Reports: None Dermatologic: Reports: None Oncologic: Reports: None - Tobacco Use Smoking Status *Q: Current Every Day Smoker Years of Tobacco use: 53 Packs/Tins Daily: 0.5 - Caffeine Use Caffeine Use: Reports: Coffee, Soda, Tea - Alcohol Use Alcohol Use History: No - Recreational Drug Use Recreational Drug Use: No - Living Situation & Occupation Living situation: Reports: H&P Review of Systems - Review of Systems: Review Of Systems: See Below General: Reports: No Symptoms. Denies: Fever, Chills, Malaise Pulmonary: Reports: Shortness of Breath, Wheezing, Cough Cardiovascular: Reports: Edema (legs). Denies: Chest Pain, Palpitations Gastrointestinal: Reports: No Symptoms Genitourinary: Reports: No Symptoms. Denies: Dysuria, Frequency Musculoskeletal: Reports: No Symptoms. Denies: Neck Pain Skin: Reports: No Symptoms Psychiatric: Reports: No Symptoms Neurological: Reports: No Symptoms Hematologic/Lymphatic: Reports: No Symptoms Immunologic: Reports: No Symptoms Exam - Exam Exam: See Below - Vital Signs Vital Signs: Last Vital Signs Temp 97.1 F 10/27/19 14:59 Pulse 79 10/27/19 14:59 Resp 17 10/27/19 14:59 BP 139/71 10/27/19 14:59 Pulse Ox 92 L 10/27/19 14:59 Weight: 129.274 kg - Exam General: Alert, Oriented HEENT: Conjunctiva Clear, Mucosa Moist & [place], Posterior Pharynx Clear Neck: JVD Lungs: Decreased Breath Sounds, Crackles, Wheezing. No: Normal Respiratory Effort (dyspnea) Cardiovascular: Regular Rate, Regular Rhythm GI/Abdominal Exam: Normal Bowel Sounds, Soft, Non-Tender Extremities: Normal Range of Motion, Pedal Edema (+2 non pitting edema, L greater than R) Skin: Wound (lateral zafar and lower anterior zafar. Anterior zafar appears to have some purulence with surrounding erythema.) Neuro Extensive - Mental Status: Alert, Oriented x3 Neuro Extensive - Motor, Sensory, Reflexes: CN II-XII Intact Psychiatric: Alert, Normal Affect, Normal Mood - Patient Data Lab Results Last 24 hrs: Laboratory Results - last 24 hr 10/27/19 10/27/19 10/27/19 Range/Units 11:35 11:35 11:35 WBC 10.03 (4.0-11.0) K/uL RBC 5.26 (4.30-5.90) M/uL Hgb 15.8 (12.0-16.0) g/dL Hct 49.5 H (36.0-46.0) % MCV 94.1 (80.0-98.0) fL MCH 30.0 (27.0-32.0) pg MCHC 31.9 (31.0-37.0) g/dL RDW Std Deviation 56.4 (28.0-62.0) fl RDW Coeff of Misty 17 H (11.0-15.0) % Plt Count 277 (150-400) K/uL MPV 9.20 (7.40-12.00) fL Neut % (Auto) 69.9 (48.0-80.0) % Lymph % (Auto) 21.3 (16.0-40.0) % [place] % (Auto) 5.5 (0.0-15.0) % Eos % (Auto) 2.9 (0.0-7.0) % Baso % (Auto) 0.4 (0.0-1.5) % Neut # (Auto) 7.0 H (1.4-5.7) K/uL Lymph # (Auto) 2.1 (0.6-2.4) K/uL [place] # (Auto) 0.6 (0.0-0.8) K/uL Eos # (Auto) 0.3 (0.0-0.7) K/uL Baso # (Auto) 0.0 (0.0-0.1) K/uL Nucleated RBC % 0.0 /100WBC Nucleated RBCs # 0 K/uL Lactate 1.6 (0.20-2.00) mmol/L Sodium 140 (136-145) mmol/L Potassium 4.4 (3.5-5.1) mmol/L Chloride 103 (98-107) mmol/L Carbon Dioxide 32.5 H (21.0-32.0) mmol/L BUN 18 (7.0-18.0) mg/dL Creatinine 1.3 H (0.6-1.0) mg/dL Est Cr Clr Drug Dosing 39.24 mL/min Estimated GFR (MDRD) 41.6 ml/min Glucose 95 (74-106) mg/dL Calcium 9.1 (8.5-10.1) mg/dL Total Bilirubin 0.2 (0.2-1.0) mg/dL AST 19 (15-37) IU/L ALT 22 (14-63) IU/L Alkaline Phosphatase 99 (46-116) U/L B-Natriuretic Peptide (<100) PG/ML Total Protein 7.1 (6.4-8.2) g/dL Albumin 3.0 L (3.4-5.0) g/dL Globulin 4.1 H (2.6-4.0) g/dL Albumin/Globulin Ratio 0.7 L (0.9-1.6) Urine Color Urine Appearance Urine pH (5.0-8.0) Ur Specific [place] (1.001-1.035) Urine Protein (NEGATIVE) mg/dL Urine Glucose (UA) (NEGATIVE) mg/dL Urine Ketones (NEGATIVE) mg/dL Urine Occult Blood (NEGATIVE) Urine Nitrite (NEGATIVE) Urine Bilirubin (NEGATIVE) Urine Urobilinogen (<2.0) EU/dL Ur Leukocyte Esterase (NEGATIVE) 10/27/19 10/27/19 Range/Units 11:35 13:10 WBC (4.0-11.0) K/uL RBC (4.30-5.90) M/uL Hgb (12.0-16.0) g/dL Hct (36.0-46.0) % MCV (80.0-98.0) fL MCH (27.0-32.0) pg MCHC (31.0-37.0) g/dL RDW Std Deviation (28.0-62.0) fl RDW Coeff of Misty (11.0-15.0) % Plt Count (150-400) K/uL MPV (7.40-12.00) fL Neut % (Auto) (48.0-80.0) % Lymph % (Auto) (16.0-40.0) % [place] % (Auto) (0.0-15.0) % Eos % (Auto) (0.0-7.0) % Baso % (Auto) (0.0-1.5) % Neut # (Auto) (1.4-5.7) K/uL Lymph # (Auto) (0.6-2.4) K/uL [place] # (Auto) (0.0-0.8) K/uL Eos # (Auto) (0.0-0.7) K/uL Baso # (Auto) (0.0-0.1) K/uL Nucleated RBC % /100WBC Nucleated RBCs # K/uL Lactate (0.20-2.00) mmol/L Sodium (136-145) mmol/L Potassium (3.5-5.1) mmol/L Chloride (98-107) mmol/L Carbon Dioxide (21.0-32.0) mmol/L BUN (7.0-18.0) mg/dL Creatinine (0.6-1.0) mg/dL Est Cr Clr Drug Dosing mL/min Estimated GFR (MDRD) ml/min Glucose (74-106) mg/dL Calcium (8.5-10.1) mg/dL Total Bilirubin (0.2-1.0) mg/dL AST (15-37) IU/L ALT (14-63) IU/L Alkaline Phosphatase (46-116) U/L B-Natriuretic Peptide 17 (<100) PG/ML Total Protein (6.4-8.2) g/dL Albumin (3.4-5.0) g/dL Globulin (2.6-4.0) g/dL Albumin/Globulin Ratio (0.9-1.6) Urine Color YELLOW Urine Appearance CLEAR Urine pH 5.5 (5.0-8.0) Ur Specific [place] 1.025 (1.001-1.035) Urine Protein NEGATIVE (NEGATIVE) mg/dL Urine Glucose (UA) NEGATIVE (NEGATIVE) mg/dL Urine Ketones NEGATIVE (NEGATIVE) mg/dL Urine Occult Blood NEGATIVE (NEGATIVE) Urine Nitrite NEGATIVE (NEGATIVE) Urine Bilirubin NEGATIVE (NEGATIVE) Urine Urobilinogen 0.2 (<2.0) EU/dL Ur Leukocyte Esterase NEGATIVE (NEGATIVE) Result Diagrams: 10/27/19 11:35 10/27/19 11:35 EKG INTERPRETATION EKG Date: 10/27/19 Rate (Beats/Min): 70 P-Wave: Present QRS: Normal ST-T: Normal QT: Normal - Problem List (1) Acute respiratory failure SNOMED Code(s): 81125557 ICD Code: J96.00 - ACUTE RESPIRATORY FAILURE, UNSP W HYPOXIA OR HYPERCAPNIA Status: Acute Current Visit: Yes Qualifiers: Respiratory failure complication: hypoxia Qualified Code(s): J96.01 - Acute respiratory failure with hypoxia (2) CHF exacerbation SNOMED Code(s): 662441335, 50609158069590 ICD Code: I50.9 - HEART FAILURE, UNSPECIFIED Status: Acute Current Visit : Yes Qualifiers: Heart failure type: unspecified Qualified Code(s): I50.9 - Heart failure, unspecified (3) COPD (chronic obstructive pulmonary disease) SNOMED Code(s): 75630676 ICD Code: J44.9 - CHRONIC OBSTRUCTIVE PULMONARY DISEASE, UNSPECIFIED Status : Acute Current Visit: Yes (4) Cellulitis SNOMED Code(s): 287580425 ICD Code: L03.90 - CELLULITIS, UNSPECIFIED Status: Acute Current Visit: Yes Qualifiers: Site of cellulitis: extremity Laterality: left (5) Hypoxia SNOMED Code(s): 374323560 ICD Code: R09.02 - HYPOXEMIA Status: Acute Current Visit: Yes (6) Tobacco dependence SNOMED Code(s): 86264525 ICD Code: F17.200 - NICOTINE DEPENDENCE, UNSPECIFIED, UNCOMPLICATED Status : Chronic Current Visit: Yes (7) Obesity SNOMED Code(s): 501865029, 747361568 ICD Code: E66.9 - OBESITY, UNSPECIFIED Status: Chronic Current Visit: Yes Problem List Initiated/Reviewed/Updated: Yes Orders Last 24hrs: Active Orders 24 hr Category Date Time Status Admission Status [Patient Status] [ADT] Stat ADT 10/27/19 13:29 Active Height and Weight [RC] DAILY Care 10/27/19 14:57 Ordered Intake and Output Strict [RC] ASDIRECTED Care 10/27/19 14:57 Ordered Oxygen Therapy [RC] PRN Care 10/27/19 14:57 Ordered RT Aerosol Therapy [RC] ASDIRECTED Care 10/27/19 12:19 Active RT Aerosol Therapy [RC] ASDIRECTED Care 10/27/19 15:07 Ordered Telemetry Monitoring [Cardiac Monitoring] [RC] . Care 10/27/19 14:15 Ordered DIRECTED Up With Assistance [RC] ASDIRECTED Care 10/27/19 14:57 Ordered VTE/DVT Education [RC] PER UNIT ROUTINE Care 10/27/19 14:57 Ordered Vital Signs [RC] Q4H Care 10/27/19 14:57 Ordered 2 Gram Sodium Diet [DIET] Diet 10/27/19 Lunch Ordered Echo Comp wo Cont [US] Urgent Exams 10/27/19 14:44 Ordered Venous Doppler Lwr Ext Bi [US] Urgent Exams 10/27/19 14:44 Ordered BASIC METABOLIC PANEL,BMP [CHEM] AM Lab 10/28/19 05:11 Ordered CBC WITH AUTO DIFF [HEME] AM Lab 10/28/19 05:11 Ordered CULTURE BLOOD [BC] Stat Lab 10/27/19 11:35 Received CULTURE BLOOD [BC] Stat Lab 10/27/19 12:11 Received CULTURE SPUTUM + SMEAR [RM] Stat Lab 10/27/19 14:57 Ordered MAGNESIUM [CHEM] AM Lab 10/28/19 05:11 Ordered Acetaminophen [Tylenol] Med 10/27/19 14:57 Ordered 650 mg PO Q4H PRN Albuterol/Ipratropium [DuoNeb 3.0-0.5 MG/3 ML] Med 10/27/19 18:00 Ordered 3 ml NEB Q4HRRT Azithromycin [Zithromax] Med 10/27/19 15:15 Ordered 500 mg PO Q24H Furosemide [Lasix] Med 10/27/19 15:11 Once 40 mg IVPUSH NOW ONE Ondansetron [Zofran] Med 10/27/19 14:57 Ordered 4 mg IVPUSH Q4H PRN cefTRIAXone [Rocephin in Dextrose,Iso-Osm 1 GM/50 ML] 1 Med 10/27/19 15:15 Ordered gm Premix Bag 1 bag IV Q24H methylPREDNISolone Sod Succ [Solu-MEDROL] Med 10/27/19 20:30 Ordered 40 mg IVPUSH Q8H Blood Culture x2 Reflex Set [OM.PC] Stat Oth 10/27/19 11:28 Ordered Resuscitation Status Routine Resus Stat 10/27/19 14:57 Ordered Medication Orders Acetaminophen (Tylenol) 650 mg PO Q4H PRN PRN Reason: Pain (Mild 1-3)/fever Albuterol/Ipratropium (Duoneb 3.0-0.5 Mg/3 Ml) 3 ml NEB Q4HRRT MADAI Azithromycin (Zithromax) 500 mg PO Q24H [facility]AD[facility] Furosemide (Lasix) 40 mg IVPUSH NOW ONE Stop: 10/27/19 15:12 Ceftriaxone Sodium/Dextrose 1 (gm/ Premix) 50 mls @ 100 mls/hr IV Q24H [facility]AD[facility] Methylprednisolone Sodium Succinate (Solu-Medrol) 40 mg IVPUSH Q8H MDAAI Ondansetron HCl (Zofran) 4 mg IVPUSH Q4H PRN PRN Reason: Nausea Assessment/Plan Comment:: This 63 year old female admitted with acute hypoxic respiratory failure secondary to CHF and COPD exacerbation along with cellulitis of L lower extremity. 1.CHF: acute on chronic. Worsening swelling, will give Lasix 40 mg IV now and monitor diuresis. Strict I/O, daily weights, Low Na diet. Will obtain ECHO and monitor. Mild elevation in Cr, may be due to fluid overload. Monitor in am. Monitor on telemetry. 2.COPD exacerbation: Last O2 room air at baseline in clinic was 86% in May. 86 % on arrival to ED, may be acute on chronic respiratory failure. Oxygen to supplement, keep sats 88%. Add Solu-medrol 40 mg IV Q8hr, Duonebs every 4 hours. Encourage IS. CXR clear, will add Azithromycin PO. Continue home inhalers. 3.Cellulitis L lower extremity: Worsening edema and erythema. Will Add Vancomycin for now BC pending from ED. No leukocytosis. Obtain Doppler studies bilaterally to rule out DVT. Obtain A1c. VTE prophylaxis: Heparin. Dispo: 2 days - Mortality Measure Prognosis:: Good <Lynette Nichole - Last Filed: 10/28/19 20:09> H&P History of Present Illness - General Admit Problem/Dx: Admission Diagnosis/Problem Admission Diagnosis/Problem Hypoxia Exam - Vital Signs Vital Signs: Last Vital Signs Temp 36.7 C 10/28/19 16:00 Pulse 92 10/28/19 16:00 Resp 18 10/28/19 16:00 BP 124/60 10/28/19 16:00 Pulse Ox 94 L 10/28/19 16:00 - Patient Data Lab Results Last 24 hrs: Laboratory Results - last 24 hr 10/28/19 10/28/19 10/28/19 Range/Units 05:31 05:31 05:31 WBC 15.23 H (4.0-11.0) K/uL RBC 5.56 (4.30-5.90) M/uL Hgb 16.8 H (12.0-16.0) g/dL Hct 53.5 H (36.0-46.0) % MCV 96.2 (80.0-98.0) fL MCH 30.2 (27.0-32.0) pg MCHC 31.4 (31.0-37.0) g/dL RDW Std Deviation 57.2 (28.0-62.0) fl RDW Coeff of Misty 16 H (11.0-15.0) % Plt Count 266 (150-400) K/uL MPV 9.30 (7.40-12.00) fL Neut % (Auto) 91.8 H (48.0-80.0) % Lymph % (Auto) 5.9 L (16.0-40.0) % [place] % (Auto) 2.2 (0.0-15.0) % Eos % (Auto) 0.0 (0.0-7.0) % Baso % (Auto) 0.1 (0.0-1.5) % Neut # (Auto) 14.0 H (1.4-5.7) K/uL Lymph # (Auto) 0.9 (0.6-2.4) K/uL [place] # (Auto) 0.3 (0.0-0.8) K/uL Eos # (Auto) 0.0 (0.0-0.7) K/uL Baso # (Auto) 0.0 (0.0-0.1) K/uL Nucleated RBC % 0.0 /100WBC Nucleated RBCs # 0 K/uL Sodium 141 (136-145) mmol/L Potassium 4.6 (3.5-5.1) mmol/L Chloride 104 (98-107) mmol/L Carbon Dioxide 27.5 (21.0-32.0) mmol/L BUN 24 H (7.0-18.0) mg/dL Creatinine 1.3 H (0.6-1.0) mg/dL Est Cr Clr Drug Dosing 40.89 mL/min Estimated GFR (MDRD) 41.6 ml/min Glucose 152 H (74-106) mg/dL Hemoglobin A1c 5.6 (4.5-6.2) % Calcium 8.9 (8.5-10.1) mg/dL Magnesium 2.3 (1.8-2.4) mg/dL Triglycerides 78 (0-200) mg/dL Cholesterol 197 (50-200) mg/dL LDL Cholesterol, Calc 118 (60-180) mg/dL VLDL Cholesterol 15 (5-55) mg/dL HDL Cholesterol 63 H (40-60) mg/dL Cholesterol/HDL Ratio 3.1 L (3.3-6.0) Vancomycin Trough (5.0-10.0) ug/mL 10/28/19 Range/Units 15:20 WBC (4.0-11.0) K/uL RBC (4.30-5.90) M/uL Hgb (12.0-16.0) g/dL Hct (36.0-46.0) % MCV (80.0-98.0) fL MCH (27.0-32.0) pg MCHC (31.0-37.0) g/dL RDW Std Deviation (28.0-62.0) fl RDW Coeff of Misty (11.0-15.0) % Plt Count (150-400) K/uL MPV (7.40-12.00) fL Neut % (Auto) (48.0-80.0) % Lymph % (Auto) (16.0-40.0) % [place] % (Auto) (0.0-15.0) % Eos % (Auto) (0.0-7.0) % Baso % (Auto) (0.0-1.5) % Neut # (Auto) (1.4-5.7) K/uL Lymph # (Auto) (0.6-2.4) K/uL [place] # (Auto) (0.0-0.8) K/uL Eos # (Auto) (0.0-0.7) K/uL Baso # (Auto) (0.0-0.1) K/uL Nucleated RBC % /100WBC Nucleated RBCs # K/uL Sodium (136-145) mmol/L Potassium (3.5-5.1) mmol/L Chloride (98-107) mmol/L Carbon Dioxide (21.0-32.0) mmol/L BUN (7.0-18.0) mg/dL Creatinine (0.6-1.0) mg/dL Est Cr Clr Drug Dosing mL/min Estimated GFR (MDRD) ml/min Glucose (74-106) mg/dL Hemoglobin A1c (4.5-6.2) % Calcium (8.5-10.1) mg/dL Magnesium (1.8-2.4) mg/dL Triglycerides (0-200) mg/dL Cholesterol (50-200) mg/dL LDL Cholesterol, Calc (60-180) mg/dL VLDL Cholesterol (5-55) mg/dL HDL Cholesterol (40-60) mg/dL Cholesterol/HDL Ratio (3.3-6.0) Vancomycin Trough 9.7 (5.0-10.0) ug/mL Result Diagrams: 10/28/19 05:31 10/28/19 05:31 Joe Results Last 24 hrs: Microbiology 10/27/19 12:11 Aerobic Blood Culture - Preliminary Blood - Venous - Lab Draw NO GROWTH AFTER 1 DAY Anaerobic Blood Culture - Preliminary NO GROWTH AFTER 1 DAY 10/27/19 11:35 Aerobic Blood Culture - Preliminary Blood - Venous NO GROWTH AFTER 1 DAY Anaerobic Blood Culture - Preliminary NO GROWTH AFTER 1 DAY 10/27/19 17:40 Gram Stain - Preliminary Sputum - Expectorated Orders Last 24hrs: Active Orders 24 hr Category Date Time Status Wound Care [RC] BID Care 10/28/19 21:00 Active Consult to Physical Therapy [PT Evaluation and Cons 10/28/19 11:07 Active Treatment] [CONS] Routine Echo Comp wo Cont [US] Urgent Exams 10/28/19 Taken CBC WITH AUTO DIFF [HEME] AM Lab 10/29/19 05:11 Ordered COMPREHENSIVE METABOLIC PN,CMP [CHEM] AM Lab 10/29/19 05:11 Ordered VANCOMYCIN TROUGH [CHEM] Timed Lab 10/30/19 16:15 Ordered Albuterol/Ipratropium [DuoNeb 3.0-0.5 MG/3 ML] Med 10/28/19 18:00 Active 3 ml NEB Q6HRRT Furosemide [Lasix] Med 10/28/19 14:00 Active 40 mg PO BIDDIURETIC Morphine Med 10/28/19 11:06 Active 2 mg IVPUSH Q6H PRN Patient's Own Medication [Ptom] Med 10/27/19 21:00 Active 1 each INH BID Piperacillin/Tazobactam [Piperacil-Tazobact] 3.375 gm Med 10/28/19 11:00 Active Sodium Chloride 0.9% [Normal Saline] 50 ml IV Q8H methylPREDNISolone Sod Succ [Solu-MEDROL] Med 10/28/19 21:00 Active 40 mg IVPUSH BID Medication Orders Acetaminophen (Tylenol) 650 mg PO Q4H PRN PRN Reason: Pain (Mild 1-3)/fever Last Admin: 10/28/19 10:12 Dose: 650 mg Albuterol/Ipratropium (Duoneb 3.0-0.5 Mg/3 Ml) 3 ml NEB Q6HRRT [facility] Last Admin: 10/28/19 17:14 Dose: 3 ml Azithromycin (Zithromax) 500 mg PO Q24H [facility] Last Admin: 10/28/19 14:47 Dose: 500 mg Admin: 10/27/19 15:48 Dose: 500 mg Furosemide (Lasix) 40 mg PO BIDDIURETIC [facility] Last Admin: 10/28/19 14:47 Dose: 40 mg Vancomycin HCl 1.25 gm/ Sodium (Chloride) 250 mls @ 166.667 mls/hr IV Q12H [facility] Last Admin: 10/28/19 17:07 Dose: 166.667 mls/hr Infusion: 10/28/19 06:11 Dose: 166.667 mls/hr Admin: 10/28/19 04:41 Dose: 166.667 mls/hr Infusion: 10/27/19 18:04 Dose: 166.667 mls/hr Admin: 10/27/19 16:34 Dose: 166.667 mls/hr Piperacillin Sod/Tazobactam (Sod 3.375 gm/ Sodium Chloride) 50 mls @ 100 mls/ hr IV Q8H [facility] Last Admin: 10/28/19 19:15 Dose: 100 mls/hr Infusion: 10/28/19 11:52 Dose: 100 mls/hr Admin: 10/28/19 11:22 Dose: 100 mls/hr Methylprednisolone Sodium Succinate (Solu-Medrol) 40 mg IVPUSH BID [facility] Morphine Sulfate (Morphine) 2 mg IVPUSH Q6H PRN PRN Reason: Pain Nicotine (Habitrol) 14 mg TRDERM DAILY [facility] Last Admin: 10/28/19 08:05 Dose: 14 mg Admin: 10/27/19 16:34 Dose: 14 mg Ondansetron HCl (Zofran) 4 mg IVPUSH Q4H PRN PRN Reason: Nausea Glycopyrrolate/Formoterol Fum [ Bevespi Aerosphere Inhaler] 1 each INH BID [facility] Last Admin: 10/28/19 08:23 Dose: 1 each Admin: 10/27/19 21:15 Dose: 1 each Silver Sulfadiazine (Silvadene 1% Cream 400 Gm) 0 gm TOP DAILY [facility] Last Admin: 10/28/19 08:04 Dose: 400 g Admin: 10/27/19 17:04 Dose: 400 g Vancomycin HCl (Pharmacy To Dose - Vancomycin) 1 dose .XX ASDIRECTED MADAI
[2019-10-27] MEDS: Azithromycin 250 MG Tab PO SCH (15:48)
[2019-10-27] MEDS: Nicotine 14 MG/24 Hr Patch TRDERM SCH (16:34)
--- NOTE | 2019-10-27 17:03 | US ---
INDICATION: Edema and erythema TECHNIQUE: : Ultrasound venous duplex lower extremity bilateral. Compression venous exam was performed using duenas-scale, color Doppler, and spectral Doppler imaging. COMPARISON: None available FINDINGS: Some of the grayscale images are limited. Sonographic imaging demonstrates the common femoral, deep femoral, superficial femoral, popliteal, posterior tibial and greater saphenous veins to be fully compressible with normal color Doppler blood flow in both lower extremities. IMPRESSION: No definite sonographic evidence of a deep venous thrombosis in the bilateral lower extremities. Dictated by Darryl Saavedra MD @ 10/27/2019 5:01:46 PM Dictated by: Darryl Saavedra MD @ 10/27/2019 17:02:02 (Electronically Signed)
[2019-10-27] MEDS: Silver Sulfadiazine 1% Crm 400 GM Jar TOP SCH (17:04)
[2019-10-27] MEDS: Albuterol/Ipratropium 3.0-0.5 MG/3 ML Neb Soln NEB SCH ×2 (17:18→21:16)
[2019-10-27] MEDS: methylPREDNISolone Sodium Succinate 40 MG/1 ML SDV IVPUSH SCH ×2 (21:04→21:05)
[2019-10-27] MEDS: Glycopyrrolate/Formoterol Fum [Bevespi Aerosphere Inhaler] INH SCH (21:15)
[2019-10-28] MEDS: Albuterol/Ipratropium 3.0-0.5 MG/3 ML Neb Soln NEB SCH ×4 (01:43→17:14)
[2019-10-28] MEDS: methylPREDNISolone Sodium Succinate 40 MG/1 ML SDV IVPUSH SCH ×2 (04:37→22:12)
[2019-10-28 06:03] LABS: CARBON DIOXIDE,CO2 27.5 mmol/L (21.0-32.0); POTASSIUM,K 4.6 mmol/L (3.5-5.1)
[2019-10-28 06:06] LABS: HEMOGLOBIN A1C 5.6 % (4.5-6.2)
[2019-10-28] MEDS: Glycopyrrolate/Formoterol Fum [Bevespi Aerosphere Inhaler] INH SCH ×3 (08:04→22:17)
[2019-10-28] MEDS: Silver Sulfadiazine 1% Crm 400 GM Jar TOP SCH (08:04)
[2019-10-28] MEDS: Nicotine 14 MG/24 Hr Patch TRDERM SCH (08:05)
[2019-10-28] MEDS ORDERED: Morphine 2 MG/ML Syringe IVPUSH PRN (11:06)
[2019-10-28] MEDS: Piperacillin/Tazobactam 3.375 GM in Sodium Chloride 0.9% 50 ML IV SCH ×2 (11:22→19:15)
[2019-10-28] MEDS: Azithromycin 250 MG Tab PO SCH (14:47)
[2019-10-28] MEDS: Furosemide 40 MG Tab PO SCH (14:47)
--- NOTE | 2019-10-28 17:02 | PCM.PN ---
<Trell Darling M - Last Filed: 10/28/19 16:56> - General Info Date of Service: 10/28/19 Subjective Update: Reports feeling better this morning and shortness of breath improving. Tolerating PO diet well and having bowel movements yesterday. Per nurse, large amount of drainage noted during wound dressing changes. - Patient Data Vitals - Most Recent: Last Vital Signs Temp 97.4 F 10/28/19 12:00 Pulse 83 10/28/19 12:00 Resp 20 10/28/19 12:00 BP 140/64 10/28/19 12:00 Pulse Ox 94 L 10/28/19 12:00 Weight - Most Recent: 134.8 kg I&O - Last 24 Hours: Intake & Output 10/28/19 10/28/19 10/28/19 06:59 14:59 22:59 Intake Total 250 50 Balance 250 50 Lab Results Last 24 Hours: Laboratory Results - last 24 hr 10/28/19 10/28/19 10/28/19 Range/Units 05:31 05:31 05:31 WBC 15.23 H (4.0-11.0) K/uL RBC 5.56 (4.30-5.90) M/uL Hgb 16.8 H (12.0-16.0) g/dL Hct 53.5 H (36.0-46.0) % MCV 96.2 (80.0-98.0) fL MCH 30.2 (27.0-32.0) pg MCHC 31.4 (31.0-37.0) g/dL RDW Std Deviation 57.2 (28.0-62.0) fl RDW Coeff of Misty 16 H (11.0-15.0) % Plt Count 266 (150-400) K/uL MPV 9.30 (7.40-12.00) fL Neut % (Auto) 91.8 H (48.0-80.0) % Lymph % (Auto) 5.9 L (16.0-40.0) % [place] % (Auto) 2.2 (0.0-15.0) % Eos % (Auto) 0.0 (0.0-7.0) % Baso % (Auto) 0.1 (0.0-1.5) % Neut # (Auto) 14.0 H (1.4-5.7) K/uL Lymph # (Auto) 0.9 (0.6-2.4) K/uL [place] # (Auto) 0.3 (0.0-0.8) K/uL Eos # (Auto) 0.0 (0.0-0.7) K/uL Baso # (Auto) 0.0 (0.0-0.1) K/uL Nucleated RBC % 0.0 /100WBC Nucleated RBCs # 0 K/uL Sodium 141 (136-145) mmol/L Potassium 4.6 (3.5-5.1) mmol/L Chloride 104 (98-107) mmol/L Carbon Dioxide 27.5 (21.0-32.0) mmol/L BUN 24 H (7.0-18.0) mg/dL Creatinine 1.3 H (0.6-1.0) mg/dL Est Cr Clr Drug Dosing 40.89 mL/min Estimated GFR (MDRD) 41.6 ml/min Glucose 152 H (74-106) mg/dL Hemoglobin A1c 5.6 (4.5-6.2) % Calcium 8.9 (8.5-10.1) mg/dL Magnesium 2.3 (1.8-2.4) mg/dL Triglycerides 78 (0-200) mg/dL Cholesterol 197 (50-200) mg/dL LDL Cholesterol, Calc 118 (60-180) mg/dL VLDL Cholesterol 15 (5-55) mg/dL HDL Cholesterol 63 H (40-60) mg/dL Cholesterol/HDL Ratio 3.1 L (3.3-6.0) Joe Results Last 24 Hours: Microbiology 10/27/19 12:11 Aerobic Blood Culture - Preliminary Blood - Venous - Lab Draw NO GROWTH AFTER 1 DAY Anaerobic Blood Culture - Preliminary NO GROWTH AFTER 1 DAY 10/27/19 11:35 Aerobic Blood Culture - Preliminary Blood - Venous NO GROWTH AFTER 1 DAY Anaerobic Blood Culture - Preliminary NO GROWTH AFTER 1 DAY 10/27/19 17:40 Gram Stain - Preliminary Sputum - Expectorated Med Orders - Current: Current Medications Acetaminophen (Tylenol) 650 mg PO Q4H PRN PRN Reason: Pain (Mild 1-3)/fever Last Admin: 10/28/19 10:12 Dose: 650 mg Albuterol/Ipratropium (Duoneb 3.0-0.5 Mg/3 Ml) 3 ml NEB Q6HRRT [facility] Azithromycin (Zithromax) 500 mg PO Q24H [facility] Last Admin: 10/28/19 14:47 Dose: 500 mg Furosemide (Lasix) 40 mg PO BIDDIURETIC [facility] Last Admin: 10/28/19 14:47 Dose: 40 mg Vancomycin HCl 1.25 gm/ Sodium (Chloride) 250 mls @ 166.667 mls/hr IV Q12H [facility] Last Admin: 10/28/19 04:41 Dose: 166.667 mls/hr Piperacillin Sod/Tazobactam (Sod 3.375 gm/ Sodium Chloride) 50 mls @ 100 mls/ hr IV Q8H [facility] Last Admin: 10/28/19 11:22 Dose: 100 mls/hr Methylprednisolone Sodium Succinate (Solu-Medrol) 40 mg IVPUSH BID [facility] Morphine Sulfate (Morphine) 2 mg IVPUSH Q6H PRN PRN Reason: Pain Nicotine (Habitrol) 14 mg TRDERM DAILY [facility] Last Admin: 10/28/19 08:05 Dose: 14 mg Ondansetron HCl (Zofran) 4 mg IVPUSH Q4H PRN PRN Reason: Nausea Glycopyrrolate/Formoterol Fum [ Bevespi Aerosphere Inhaler] 1 each INH BID [facility] Last Admin: 10/28/19 08:23 Dose: 1 each Silver Sulfadiazine (Silvadene 1% Cream 400 Gm) 0 gm TOP DAILY [facility] Last Admin: 10/28/19 08:04 Dose: 400 g Vancomycin HCl (Pharmacy To Dose - Vancomycin) 1 dose .XX ASDIRECTED [facility] Discontinued Medications Albuterol/Ipratropium (Duoneb 3.0-0.5 Mg/3 Ml) 3 ml NEB ONETIME ONE Stop: 10/27/19 12:20 Last Admin: 10/27/19 12:40 Dose: 3 ml Albuterol/Ipratropium (Duoneb 3.0-0.5 Mg/3 Ml) 3 ml NEB Q4HRRT [facility] Last Admin: 10/28/19 09:13 Dose: 3 ml Furosemide (Lasix) 40 mg IVPUSH NOW ONE Stop: 10/27/19 15:12 Last Admin: 10/27/19 15:48 Dose: 40 mg Sodium Chloride (Normal Saline) 1,000 mls @ 999 mls/hr IV BOLUS ONE Stop: 10/27/19 12:27 Last Admin: 10/27/19 11:50 Dose: 100 mls/hr Ceftriaxone Sodium/Dextrose 1 (gm/ Premix) 50 mls @ 100 mls/hr IV Q24H [facility] Last Admin: 10/27/19 15:47 Dose: Not Given Ketorolac Tromethamine (Toradol) 30 mg IVPUSH ONETIME ONE Stop: 10/27/19 13:24 Last Admin: 10/27/19 13:30 Dose: 30 mg Methylprednisolone Sodium Succinate (Solu-Medrol) 125 mg IVPUSH ONETIME ONE Stop: 10/27/19 12:20 Last Admin: 10/27/19 13:30 Dose: 125 mg Methylprednisolone Sodium Succinate (Solu-Medrol) 40 mg IVPUSH Q8H [facility] Last Admin: 10/28/19 04:37 Dose: 40 mg - Exam General: Alert, Oriented, Cooperative, No Acute Distress Lungs: Crackles (mild) Cardiovascular: Regular Rate, Regular Rhythm GI/Abdominal Exam: Normal Bowel Sounds, Soft, Non-Tender, Other (morbid obesity) Extremities: Other (ulcer dressings c/d/i bilaterally.) - Problem List Review Problem List Initiated/Reviewed/Updated: Yes - My Orders Last 24 Hours: My Active Orders 10/28/19 11:00 Piperacillin/Tazobactam [Piperacil-Tazobact] 3.375 gm Sodium Chloride 0.9% [ Normal Saline] 50 ml IV Q8H 10/28/19 11:06 Morphine 2 mg IVPUSH Q6H PRN 10/28/19 11:07 Consult to Physical Therapy [PT Evaluation and Treatment] [CONS] Routine 10/28/19 14:00 Furosemide [Lasix] 40 mg PO BIDDIURETIC 10/28/19 18:00 Albuterol/Ipratropium [DuoNeb 3.0-0.5 MG/3 ML] 3 ml NEB Q6HRRT 10/28/19 21:00 methylPREDNISolone Sod Succ [Solu-MEDROL] 40 mg IVPUSH BID 10/29/19 05:11 CBC WITH AUTO DIFF [HEME] AM COMPREHENSIVE METABOLIC PN,CMP [CHEM] AM - Plan Plan:: Assessment: 1. Acute hypoxic respiratory failure 2. COPD exacerbation in the setting of #1. 3. CHF exacerbation in the setting of #1. 4. Cellulitis of left lower extremity. Plan: 1. For acute hypoxic respiratory failure, this appears to be more likely secondary to COPD exacerbation, however, patient does have clinical findings of CHF exacerbation. Will start lasix IV 40 mg BID, low salt diet, fluid restrict. ECHO pending. Will also continue supplemental oxygen to maintain O2 sat > 88%. IV solumedrol 40mg BID, duonebs q6h, incentive spirometry. Attempt to wean off oxygen. Continue azithromycin. 2. For cellulitis L lower extremity, will continue vancomycin and add zosyn for broad spectrum coverage of chronic venous ulcers. Blood cultures negative.Ultrasound ruled out DVT. <Lynette Nichole - Last Filed: 10/28/19 20:13> - Patient Data Vitals - Most Recent: Last Vital Signs Temp 36.7 C 10/28/19 16:00 Pulse 92 10/28/19 16:00 Resp 18 10/28/19 16:00 BP 124/60 10/28/19 16:00 Pulse Ox 94 L 10/28/19 16:00 I&O - Last 24 Hours: Intake & Output 10/28/19 10/28/19 10/28/19 06:59 14:59 22:59 Intake Total 581 56 6720 Output Total 1200 Balance 250 50 460 Lab Results Last 24 Hours: Laboratory Results - last 24 hr 10/28/19 10/28/19 10/28/19 Range/Units 05:31 05:31 05:31 WBC 15.23 H (4.0-11.0) K/uL RBC 5.56 (4.30-5.90) M/uL Hgb 16.8 H (12.0-16.0) g/dL Hct 53.5 H (36.0-46.0) % MCV 96.2 (80.0-98.0) fL MCH 30.2 (27.0-32.0) pg MCHC 31.4 (31.0-37.0) g/dL RDW Std Deviation 57.2 (28.0-62.0) fl RDW Coeff of Misty 16 H (11.0-15.0) % Plt Count 266 (150-400) K/uL MPV 9.30 (7.40-12.00) fL Neut % (Auto) 91.8 H (48.0-80.0) % Lymph % (Auto) 5.9 L (16.0-40.0) % [place] % (Auto) 2.2 (0.0-15.0) % Eos % (Auto) 0.0 (0.0-7.0) % Baso % (Auto) 0.1 (0.0-1.5) % Neut # (Auto) 14.0 H (1.4-5.7) K/uL Lymph # (Auto) 0.9 (0.6-2.4) K/uL [place] # (Auto) 0.3 (0.0-0.8) K/uL Eos # (Auto) 0.0 (0.0-0.7) K/uL Baso # (Auto) 0.0 (0.0-0.1) K/uL Nucleated RBC % 0.0 /100WBC Nucleated RBCs # 0 K/uL Sodium 141 (136-145) mmol/L Potassium 4.6 (3.5-5.1) mmol/L Chloride 104 (98-107) mmol/L Carbon Dioxide 27.5 (21.0-32.0) mmol/L BUN 24 H (7.0-18.0) mg/dL Creatinine 1.3 H (0.6-1.0) mg/dL Est Cr Clr Drug Dosing 40.89 mL/min Estimated GFR (MDRD) 41.6 ml/min Glucose 152 H (74-106) mg/dL Hemoglobin A1c 5.6 (4.5-6.2) % Calcium 8.9 (8.5-10.1) mg/dL Magnesium 2.3 (1.8-2.4) mg/dL Triglycerides 78 (0-200) mg/dL Cholesterol 197 (50-200) mg/dL LDL Cholesterol, Calc 118 (60-180) mg/dL VLDL Cholesterol 15 (5-55) mg/dL HDL Cholesterol 63 H (40-60) mg/dL Cholesterol/HDL Ratio 3.1 L (3.3-6.0) Vancomycin Trough (5.0-10.0) ug/mL 10/28/19 Range/Units 15:20 WBC (4.0-11.0) K/uL RBC (4.30-5.90) M/uL Hgb (12.0-16.0) g/dL Hct (36.0-46.0) % MCV (80.0-98.0) fL MCH (27.0-32.0) pg MCHC (31.0-37.0) g/dL RDW Std Deviation (28.0-62.0) fl RDW Coeff of Misty (11.0-15.0) % Plt Count (150-400) K/uL MPV (7.40-12.00) fL Neut % (Auto) (48.0-80.0) % Lymph % (Auto) (16.0-40.0) % [place] % (Auto) (0.0-15.0) % Eos % (Auto) (0.0-7.0) % Baso % (Auto) (0.0-1.5) % Neut # (Auto) (1.4-5.7) K/uL Lymph # (Auto) (0.6-2.4) K/uL [place] # (Auto) (0.0-0.8) K/uL Eos # (Auto) (0.0-0.7) K/uL Baso # (Auto) (0.0-0.1) K/uL Nucleated RBC % /100WBC Nucleated RBCs # K/uL Sodium (136-145) mmol/L Potassium (3.5-5.1) mmol/L Chloride (98-107) mmol/L Carbon Dioxide (21.0-32.0) mmol/L BUN (7.0-18.0) mg/dL Creatinine (0.6-1.0) mg/dL Est Cr Clr Drug Dosing mL/min Estimated GFR (MDRD) ml/min Glucose (74-106) mg/dL Hemoglobin A1c (4.5-6.2) % Calcium (8.5-10.1) mg/dL Magnesium (1.8-2.4) mg/dL Triglycerides (0-200) mg/dL Cholesterol (50-200) mg/dL LDL Cholesterol, Calc (60-180) mg/dL VLDL Cholesterol (5-55) mg/dL HDL Cholesterol (40-60) mg/dL Cholesterol/HDL Ratio (3.3-6.0) Vancomycin Trough 9.7 (5.0-10.0) ug/mL Joe Results Last 24 Hours: Microbiology 10/27/19 12:11 Aerobic Blood Culture - Preliminary Blood - Venous - Lab Draw NO GROWTH AFTER 1 DAY Anaerobic Blood Culture - Preliminary NO GROWTH AFTER 1 DAY 10/27/19 11:35 Aerobic Blood Culture - Preliminary Blood - Venous NO GROWTH AFTER 1 DAY Anaerobic Blood Culture - Preliminary NO GROWTH AFTER 1 DAY 10/27/19 17:40 Gram Stain - Preliminary Sputum - Expectorated Med Orders - Current: Current Medications Acetaminophen (Tylenol) 650 mg PO Q4H PRN PRN Reason: Pain (Mild 1-3)/fever Last Admin: 10/28/19 10:12 Dose: 650 mg Albuterol/Ipratropium (Duoneb 3.0-0.5 Mg/3 Ml) 3 ml NEB Q6HRRT [facility] Last Admin: 10/28/19 17:14 Dose: 3 ml Azithromycin (Zithromax) 500 mg PO Q24H [facility] Last Admin: 10/28/19 14:47 Dose: 500 mg Furosemide (Lasix) 40 mg PO BIDDIURETIC [facility] Last Admin: 10/28/19 14:47 Dose: 40 mg Vancomycin HCl 1.25 gm/ Sodium (Chloride) 250 mls @ 166.667 mls/hr IV Q12H [facility] Last Admin: 10/28/19 17:07 Dose: 166.667 mls/hr Piperacillin Sod/Tazobactam (Sod 3.375 gm/ Sodium Chloride) 50 mls @ 100 mls/ hr IV Q8H [facility] Last Admin: 10/28/19 19:15 Dose: 100 mls/hr Methylprednisolone Sodium Succinate (Solu-Medrol) 40 mg IVPUSH BID [facility] Morphine Sulfate (Morphine) 2 mg IVPUSH Q6H PRN PRN Reason: Pain Nicotine (Habitrol) 14 mg TRDERM DAILY [facility] Last Admin: 10/28/19 08:05 Dose: 14 mg Ondansetron HCl (Zofran) 4 mg IVPUSH Q4H PRN PRN Reason: Nausea Glycopyrrolate/Formoterol Fum [ Bevespi Aerosphere Inhaler] 1 each INH BID [facility] Last Admin: 10/28/19 08:23 Dose: 1 each Silver Sulfadiazine (Silvadene 1% Cream 400 Gm) 0 gm TOP DAILY [facility] Last Admin: 10/28/19 08:04 Dose: 400 g Vancomycin HCl (Pharmacy To Dose - Vancomycin) 1 dose .XX ASDIRECTED [facility] Discontinued Medications Albuterol/Ipratropium (Duoneb 3.0-0.5 Mg/3 Ml) 3 ml NEB ONETIME ONE Stop: 10/27/19 12:20 Last Admin: 10/27/19 12:40 Dose: 3 ml Albuterol/Ipratropium (Duoneb 3.0-0.5 Mg/3 Ml) 3 ml NEB Q4HRRT [facility] Last Admin: 10/28/19 09:13 Dose: 3 ml Furosemide (Lasix) 40 mg IVPUSH NOW ONE Stop: 10/27/19 15:12 Last Admin: 10/27/19 15:48 Dose: 40 mg Sodium Chloride (Normal Saline) 1,000 mls @ 999 mls/hr IV BOLUS ONE Stop: 10/27/19 12:27 Last Admin: 10/27/19 11:50 Dose: 100 mls/hr Ceftriaxone Sodium/Dextrose 1 (gm/ Premix) 50 mls @ 100 mls/hr IV Q24H [facility] Last Admin: 10/27/19 15:47 Dose: Not Given Ketorolac Tromethamine (Toradol) 30 mg IVPUSH ONETIME ONE Stop: 10/27/19 13:24 Last Admin: 10/27/19 13:30 Dose: 30 mg Methylprednisolone Sodium Succinate (Solu-Medrol) 125 mg IVPUSH ONETIME ONE Stop: 10/27/19 12:20 Last Admin: 10/27/19 13:30 Dose: 125 mg Methylprednisolone Sodium Succinate (Solu-Medrol) 40 mg IVPUSH Q8H [facility] Last Admin: 10/28/19 04:37 Dose: 40 mg - Plan Plan:: I have seen and evaluated the patient and agree with the residents note unless specified in my note
[2019-10-29] MEDS: Albuterol/Ipratropium 3.0-0.5 MG/3 ML Neb Soln NEB SCH ×3 (00:31→23:51)
[2019-10-29] MEDS ORDERED: HYDROmorphone 1 MG/ML Syringe IVPUSH ONE (01:26)
[2019-10-29] MEDS: Piperacillin/Tazobactam 3.375 GM in Sodium Chloride 0.9% 50 ML IV SCH ×3 (03:15→19:36)
[2019-10-29 07:07] LABS: CARBON DIOXIDE,CO2 28.2 mmol/L (21.0-32.0)
[2019-10-29] MEDS: Furosemide 40 MG Tab PO SCH ×2 (08:54→13:45)
[2019-10-29] MEDS: methylPREDNISolone Sodium Succinate 40 MG/1 ML SDV IVPUSH SCH (08:54)
[2019-10-29] MEDS: Nicotine 14 MG/24 Hr Patch TRDERM SCH (08:55)
[2019-10-29] MEDS: oxyCODONE 5 MG Tab PO PRN ×2 (09:04→19:34)
[2019-10-29] MEDS: Silver Sulfadiazine 1% Crm 400 GM Jar TOP SCH (09:07)
[2019-10-29] MEDS: Glycopyrrolate/Formoterol Fum [Bevespi Aerosphere Inhaler] INH SCH ×2 (10:08→21:05)
--- NOTE | 2019-10-29 11:33 | PCM.PN ---
- General Info Date of Service: 10/29/19 Admission Dx/Problem (Free Text): Admission Diagnosis/Problem Admission Diagnosis/Problem Hypoxia Subjective Update: Doing better today, breathing has improved and is near baseline. Legs are better but continue to have pain especially with dressing changes. No chest pain. Functional Status: Reports: Tolerating Diet, Ambulating, Urinating. Denies: Pain Controlled - Review of Systems HEENT: Reports: No Symptoms. Denies: Headaches, Sore Throat Pulmonary: Reports: Shortness of Breath (at baseline.) Cardiovascular: Reports: Edema. Denies: Chest Pain Gastrointestinal: Reports: No Symptoms. Denies: Abdominal Pain, Nausea, Vomiting Genitourinary: Reports: No Symptoms. Denies: Dysuria, Frequency Skin: Reports: Other (leg wounds) Neurological: Reports: No Symptoms Psychiatric: Reports: No Symptoms - Patient Data Vitals - Most Recent: Last Vital Signs Temp 97.3 F 10/29/19 08:00 Pulse 86 10/29/19 08:00 Resp 16 10/29/19 08:00 BP 147/67 H 10/29/19 08:00 Pulse Ox 92 L 10/29/19 08:00 Weight - Most Recent: 138.3 kg I&O - Last 24 Hours: Intake & Output 10/28/19 10/29/19 10/29/19 22:59 06:59 14:59 Intake Total 1660 1090 50 Output Total 1200 1250 Balance 460 -160 50 Lab Results Last 24 Hours: Laboratory Results - last 24 hr 10/28/19 10/29/19 10/29/19 Range/Units 15:20 06:21 06:21 WBC 13.45 H (4.0-11.0) K/uL RBC 4.83 (4.30-5.90) M/uL Hgb 14.3 (12.0-16.0) g/dL Hct 46.4 H (36.0-46.0) % MCV 96.1 (80.0-98.0) fL MCH 29.6 (27.0-32.0) pg MCHC 30.8 L (31.0-37.0) g/dL RDW Std Deviation 59.6 (28.0-62.0) fl RDW Coeff of Misty 17 H (11.0-15.0) % Plt Count 249 (150-400) K/uL MPV 9.00 (7.40-12.00) fL Neut % (Auto) 88.3 H (48.0-80.0) % Lymph % (Auto) 7.6 L (16.0-40.0) % [place] % (Auto) 4.0 (0.0-15.0) % Eos % (Auto) 0.0 (0.0-7.0) % Baso % (Auto) 0.1 (0.0-1.5) % Neut # (Auto) 11.9 H (1.4-5.7) K/uL Lymph # (Auto) 1.0 (0.6-2.4) K/uL [place] # (Auto) 0.5 (0.0-0.8) K/uL Eos # (Auto) 0.0 (0.0-0.7) K/uL Baso # (Auto) 0.0 (0.0-0.1) K/uL Nucleated RBC % 0.0 /100WBC Nucleated RBCs # 0 K/uL Sodium 139 (136-145) mmol/L Potassium 5.0 (3.5-5.1) mmol/L Chloride 104 (98-107) mmol/L Carbon Dioxide 28.2 (21.0-32.0) mmol/L BUN 26 H (7.0-18.0) mg/dL Creatinine 1.2 H (0.6-1.0) mg/dL Est Cr Clr Drug Dosing 44.30 mL/min Estimated GFR (MDRD) 45.7 ml/min Glucose 176 H (74-106) mg/dL Calcium 8.0 L (8.5-10.1) mg/dL Total Bilirubin 0.2 (0.2-1.0) mg/dL AST 15 (15-37) IU/L ALT 27 (14-63) IU/L Alkaline Phosphatase 89 (46-116) U/L Total Protein 6.6 (6.4-8.2) g/dL Albumin 2.8 L (3.4-5.0) g/dL Globulin 3.8 (2.6-4.0) g/dL Albumin/Globulin Ratio 0.7 L (0.9-1.6) Vancomycin Trough 9.7 (5.0-10.0) ug/mL Joe Results Last 24 Hours: Microbiology 10/27/19 17:40 Gram Stain - Final Sputum - Expectorated Sputum Culture - Final Normal Respiratory Laury 10/27/19 12:11 Aerobic Blood Culture - Preliminary Blood - Venous - Lab Draw NO GROWTH AFTER 1 DAY Anaerobic Blood Culture - Preliminary NO GROWTH AFTER 1 DAY 10/27/19 11:35 Aerobic Blood Culture - Preliminary Blood - Venous NO GROWTH AFTER 1 DAY Anaerobic Blood Culture - Preliminary NO GROWTH AFTER 1 DAY Med Orders - Current: Current Medications Acetaminophen (Tylenol) 650 mg PO Q4H PRN PRN Reason: Pain (Mild 1-3)/fever Last Admin: 10/28/19 10:12 Dose: 650 mg Albuterol/Ipratropium (Duoneb 3.0-0.5 Mg/3 Ml) 3 ml NEB Q6HRRT [facility] Last Admin: 10/29/19 06:11 Dose: 3 ml Azithromycin (Zithromax) 500 mg PO Q24H [facility] Last Admin: 10/28/19 14:47 Dose: 500 mg Furosemide (Lasix) 40 mg PO BIDDIURETIC [facility] Last Admin: 10/29/19 08:54 Dose: 40 mg Hydromorphone HCl (Dilaudid) 0.5 mg IVPUSH Q6H PRN PRN Reason: severe pain Vancomycin HCl 1.25 gm/ Sodium (Chloride) 250 mls @ 166.667 mls/hr IV Q12H [facility] Last Admin: 10/29/19 03:57 Dose: 166.667 mls/hr Piperacillin Sod/Tazobactam (Sod 3.375 gm/ Sodium Chloride) 50 mls @ 100 mls/ hr IV Q8H [facility] Last Admin: 10/29/19 10:35 Dose: 100 mls/hr Methylprednisolone Sodium Succinate (Solu-Medrol) 40 mg IVPUSH BID [facility] Last Admin: 10/29/19 08:54 Dose: 40 mg Nicotine (Habitrol) 14 mg TRDERM DAILY [facility] Last Admin: 10/29/19 08:55 Dose: 14 mg Ondansetron HCl (Zofran) 4 mg IVPUSH Q4H PRN PRN Reason: Nausea Oxycodone HCl (Oxycodone) 5 - 10 mg PO Q4H PRN PRN Reason: Pain Last Admin: 10/29/19 09:04 Dose: 10 mg Glycopyrrolate/Formoterol Fum [ Bevespi Aerosphere Inhaler] 1 each INH BID [facility] Last Admin: 10/29/19 10:08 Dose: 1 each Silver Sulfadiazine (Silvadene 1% Cream 400 Gm) 0 gm TOP DAILY [facility] Last Admin: 10/29/19 09:07 Dose: 400 g Vancomycin HCl (Pharmacy To Dose - Vancomycin) 1 dose .XX ASDIRECTED [facility] Discontinued Medications Albuterol/Ipratropium (Duoneb 3.0-0.5 Mg/3 Ml) 3 ml NEB ONETIME ONE Stop: 10/27/19 12:20 Last Admin: 10/27/19 12:40 Dose: 3 ml Albuterol/Ipratropium (Duoneb 3.0-0.5 Mg/3 Ml) 3 ml NEB Q4HRRT [facility] Last Admin: 10/28/19 09:13 Dose: 3 ml Furosemide (Lasix) 40 mg IVPUSH NOW ONE Stop: 10/27/19 15:12 Last Admin: 10/27/19 15:48 Dose: 40 mg Hydromorphone HCl (Dilaudid) 1 mg IVPUSH ONETIME ONE Stop: 10/29/19 01:27 Last Admin: 10/29/19 02:28 Dose: 1 mg Sodium Chloride (Normal Saline) 1,000 mls @ 999 mls/hr IV BOLUS ONE Stop: 10/27/19 12:27 Last Admin: 10/27/19 11:50 Dose: 100 mls/hr Ceftriaxone Sodium/Dextrose 1 (gm/ Premix) 50 mls @ 100 mls/hr IV Q24H [facility] Last Admin: 10/27/19 15:47 Dose: Not Given Ketorolac Tromethamine (Toradol) 30 mg IVPUSH ONETIME ONE Stop: 10/27/19 13:24 Last Admin: 10/27/19 13:30 Dose: 30 mg Methylprednisolone Sodium Succinate (Solu-Medrol) 125 mg IVPUSH ONETIME ONE Stop: 10/27/19 12:20 Last Admin: 10/27/19 13:30 Dose: 125 mg Methylprednisolone Sodium Succinate (Solu-Medrol) 40 mg IVPUSH Q8H [facility] Last Admin: 10/28/19 04:37 Dose: 40 mg Morphine Sulfate (Morphine) 2 mg IVPUSH Q6H PRN PRN Reason: Pain Last Admin: 10/28/19 22:20 Dose: 2 mg - Exam Quality Assessment: Supplemental Oxygen General: Alert, Oriented, Cooperative, No Acute Distress Lungs: Clear to Auscultation, Normal Respiratory Effort, Wheezing (scant wheezing) Cardiovascular: Regular Rate, Regular Rhythm GI/Abdominal Exam: Normal Bowel Sounds, Soft, Non-Tender, Other (obeses abdomen) Extremities: Normal Inspection, Pedal Edema (+1 non pitting edema, shiny taught skin.) Wound/Incisions: Erythema Improving (Bilateral lower legs improving slowly, drainage to ulcers improved today with expanded coverage. Continue dressing changes.) Neurological: No New Focal Deficit Psy/Mental Status: Alert, Normal Affect, Normal Mood - Problem List & Annotations (1) Cellulitis SNOMED Code(s): 370602241 Code(s): L03.90 - CELLULITIS, UNSPECIFIED Status: Acute Current Visit: Yes Qualifiers: Site of cellulitis: extremity Laterality: unspecified laterality (2) Acute respiratory failure SNOMED Code(s): 09210109 Code(s): J96.00 - ACUTE RESPIRATORY FAILURE, UNSP W HYPOXIA OR HYPERCAPNIA Status: Resolved Current Visit: Yes Qualifiers: Respiratory failure complication: hypoxia Qualified Code(s): J96.01 - Acute respiratory failure with hypoxia (3) CHF exacerbation SNOMED Code(s): 229675991, 69955893514995 Code(s): I50.9 - HEART FAILURE, UNSPECIFIED Status: Resolved Current Visit: Yes Qualifiers: Heart failure type: unspecified Qualified Code(s): I50.9 - Heart failure, unspecified (4) COPD (chronic obstructive pulmonary disease) SNOMED Code(s): 81067200 Code(s): J44.9 - CHRONIC OBSTRUCTIVE PULMONARY DISEASE, UNSPECIFIED Status : Chronic Current Visit: Yes (5) Hypoxia SNOMED Code(s): 415197306 Code(s): R09.02 - HYPOXEMIA Status: Acute Current Visit: Yes (6) Tobacco dependence SNOMED Code(s): 57644066 Code(s): F17.200 - NICOTINE DEPENDENCE, UNSPECIFIED, UNCOMPLICATED Status: Chronic Current Visit: Yes (7) Obesity SNOMED Code(s): 502346098, [id number] Code(s): E66.9 - OBESITY, UNSPECIFIED Status: Chronic Current Visit: Yes - Problem List Review Problem List Initiated/Reviewed/Updated: Yes - My Orders Last 24 Hours: My Active Orders 10/28/19 21:00 Wound Care [RC] BID 10/29/19 08:42 oxyCODONE 5 - 10 mg PO Q4H PRN 10/29/19 08:43 HYDROmorphone [Dilaudid] 0.5 mg IVPUSH Q6H PRN 10/29/19 09:13 Patient Status [ADT] Stat Consult to Wound Care Services [CONS] Routine - Plan Plan:: This 63 year old female admitted with acute hypoxic respiratory failure secondary to CHF and COPD exacerbation along with cellulitis of L lower extremity. 1. Cellulitis L lower extremity: IMprovement today, but needs more IV antibiotics and daily dressing changes. Continue Vancomycin fand ZOsyn. Monitor. BC negative. Leukocytosis likely secondary to steroids. NO DM. Consult wound care. 2.COPD exacerbation: reports breathing is at baseline, reports she came to the ED because her legs NOT due to her breathing and was confused why we made such a big deal out of her breathing. She again feels at baseline. Past oxygen sats in clinic at baseline have been 86%, she likely needs home O2. Oxygen to supplement, keep sats 88%. PO Prednisone. Duonebs every 4 hours. Encourage IS. Continue Azithromycin PO for today. Continue home inhalers. 3. CHF: Stable. Continue Lasix PO BID. Strict I/O, daily weights, Low Na diet. ECHO pending. Monitor on telemetry. VTE prophylaxis: Heparin. Dispo: Make inpatient due to continued need of IV antibiotics and dressing changes., likely 2 -3 days
[2019-10-29] MEDS: Heparin Sodium 5,000 Units/ML Vial SUBCUT SCH ×2 (12:12→18:57)
[2019-10-29] MEDS: Azithromycin 250 MG Tab PO SCH (14:54)
[2019-10-29] MEDS: HYDROmorphone 1 MG/ML Syringe IVPUSH PRN (23:44)
[2019-10-30] MEDS: Albuterol/Ipratropium 3.0-0.5 MG/3 ML Neb Soln NEB SCH ×2 (01:51→06:37)
[2019-10-30] MEDS: oxyCODONE 5 MG Tab PO PRN (03:19)
[2019-10-30] MEDS: Piperacillin/Tazobactam 3.375 GM in Sodium Chloride 0.9% 50 ML IV SCH (03:20)
[2019-10-30] MEDS: Heparin Sodium 5,000 Units/ML Vial SUBCUT SCH ×3 (03:21→20:30)
[2019-10-30 06:52] LABS: CARBON DIOXIDE,CO2 31.4 mmol/L (21.0-32.0); POTASSIUM,K 3.8 mmol/L (3.5-5.1)
[2019-10-30] MEDS: Nicotine 14 MG/24 Hr Patch TRDERM SCH (08:20)
[2019-10-30] MEDS: predniSONE 20 MG Tab PO SCH (08:20)
[2019-10-30] MEDS: Furosemide 40 MG Tab PO SCH ×2 (08:20→14:13)
--- NOTE | 2019-10-30 09:16 | PCM.PN ---
<Trell Darling - Last Filed: 10/30/19 12:13> - General Info Date of Service: 10/30/19 Subjective Update: Denies shortness of breath, tolerating PO, has been ambulating. - Patient Data Vitals - Most Recent: Last Vital Signs Temp 97.0 F 10/30/19 03:57 Pulse 65 10/30/19 03:57 Resp 19 10/30/19 03:57 BP 128/71 10/30/19 03:57 Pulse Ox 94 L 10/30/19 03:57 Weight - Most Recent: 138.3 kg I&O - Last 24 Hours: Intake & Output 10/29/19 10/30/19 10/30/19 22:59 06:59 14:59 Intake Total 300 800 Output Total 1900 Balance 300 -1100 Lab Results Last 24 Hours: Laboratory Results - last 24 hr 10/30/19 10/30/19 Range/Units 06:20 06:20 WBC 11.90 H (4.0-11.0) K/uL RBC 4.95 (4.30-5.90) M/uL Hgb 14.5 (12.0-16.0) g/dL Hct 47.1 H (36.0-46.0) % MCV 95.2 (80.0-98.0) fL MCH 29.3 (27.0-32.0) pg MCHC 30.8 L (31.0-37.0) g/dL RDW Std Deviation 58.5 (28.0-62.0) fl RDW Coeff of Misty 17 H (11.0-15.0) % Plt Count 243 (150-400) K/uL MPV 9.10 (7.40-12.00) fL Neut % (Auto) 65.5 (48.0-80.0) % Lymph % (Auto) 26.1 (16.0-40.0) % [place] % (Auto) 7.4 (0.0-15.0) % Eos % (Auto) 0.8 (0.0-7.0) % Baso % (Auto) 0.2 (0.0-1.5) % Neut # (Auto) 7.8 H (1.4-5.7) K/uL Lymph # (Auto) 3.1 H (0.6-2.4) K/uL [place] # (Auto) 0.9 H (0.0-0.8) K/uL Eos # (Auto) 0.1 (0.0-0.7) K/uL Baso # (Auto) 0.0 (0.0-0.1) K/uL Nucleated RBC % 0.0 /100WBC Nucleated RBCs # 0 K/uL Sodium 142 (136-145) mmol/L Potassium 3.8 (3.5-5.1) mmol/L Chloride 104 (98-107) mmol/L Carbon Dioxide 31.4 (21.0-32.0) mmol/L BUN 24 H (7.0-18.0) mg/dL Creatinine 1.1 H (0.6-1.0) mg/dL Est Cr Clr Drug Dosing 48.33 mL/min Estimated GFR (MDRD) 50.5 ml/min Glucose 101 (74-106) mg/dL Calcium 8.1 L (8.5-10.1) mg/dL Joe Results Last 24 Hours: Microbiology 10/27/19 12:11 Aerobic Blood Culture - Preliminary Blood - Venous - Lab Draw NO GROWTH AFTER 2 DAYS Anaerobic Blood Culture - Preliminary NO GROWTH AFTER 2 DAYS 10/27/19 11:35 Aerobic Blood Culture - Preliminary Blood - Venous NO GROWTH AFTER 2 DAYS Anaerobic Blood Culture - Preliminary NO GROWTH AFTER 2 DAYS 10/27/19 17:40 Gram Stain - Final Sputum - Expectorated Sputum Culture - Final Normal Respiratory Laury Med Orders - Current: Current Medications Acetaminophen (Tylenol) 650 mg PO Q4H PRN PRN Reason: Pain (Mild 1-3)/fever Last Admin: 10/28/19 10:12 Dose: 650 mg Albuterol/Ipratropium (Duoneb 3.0-0.5 Mg/3 Ml) 3 ml NEB Q6HRRT [facility] Last Admin: 10/30/19 06:37 Dose: 3 ml Azithromycin (Zithromax) 500 mg PO Q24H [facility] Last Admin: 10/29/19 14:54 Dose: 500 mg Furosemide (Lasix) 40 mg PO BIDDIURETIC [facility] Last Admin: 10/30/19 08:20 Dose: 40 mg Heparin Sodium (Porcine) (Heparin Sodium) 5,000 units SUBCUT Q8H [facility] Last Admin: 10/30/19 03:21 Dose: 5,000 units Hydromorphone HCl (Dilaudid) 0.5 mg IVPUSH Q6H PRN PRN Reason: severe pain Last Admin: 10/29/19 23:44 Dose: 0.5 mg Vancomycin HCl 1.25 gm/ Sodium (Chloride) 250 mls @ 166.667 mls/hr IV Q12H [facility] Last Admin: 10/30/19 04:08 Dose: 166.667 mls/hr Piperacillin Sod/Tazobactam (Sod 3.375 gm/ Sodium Chloride) 50 mls @ 100 mls/ hr IV Q8H [facility] Last Admin: 10/30/19 03:20 Dose: 100 mls/hr Nicotine (Habitrol) 14 mg TRDERM DAILY [facility] Last Admin: 10/30/19 08:20 Dose: 14 mg Ondansetron HCl (Zofran) 4 mg IVPUSH Q4H PRN PRN Reason: Nausea Oxycodone HCl (Oxycodone) 5 - 10 mg PO Q4H PRN PRN Reason: Pain Last Admin: 10/30/19 03:19 Dose: 10 mg Glycopyrrolate/Formoterol Fum [ Bevespi Aerosphere Inhaler] 1 each INH BID [facility] Last Admin: 10/29/19 21:05 Dose: 1 each Prednisone (Prednisone) 40 mg PO WITHBREAKFAST [facility] Last Admin: 10/30/19 08:20 Dose: 40 mg Silver Sulfadiazine (Silvadene 1% Cream 400 Gm) 0 gm TOP DAILY [facility] Last Admin: 10/29/19 09:07 Dose: 400 g Vancomycin HCl (Pharmacy To Dose - Vancomycin) 1 dose .XX ASDIRECTED [facility] Discontinued Medications Albuterol/Ipratropium (Duoneb 3.0-0.5 Mg/3 Ml) 3 ml NEB ONETIME ONE Stop: 10/27/19 12:20 Last Admin: 10/27/19 12:40 Dose: 3 ml Albuterol/Ipratropium (Duoneb 3.0-0.5 Mg/3 Ml) 3 ml NEB Q4HRRT [facility] Last Admin: 10/28/19 09:13 Dose: 3 ml Furosemide (Lasix) 40 mg IVPUSH NOW ONE Stop: 10/27/19 15:12 Last Admin: 10/27/19 15:48 Dose: 40 mg Hydromorphone HCl (Dilaudid) 1 mg IVPUSH ONETIME ONE Stop: 10/29/19 01:27 Last Admin: 10/29/19 02:28 Dose: 1 mg Sodium Chloride (Normal Saline) 1,000 mls @ 999 mls/hr IV BOLUS ONE Stop: 10/27/19 12:27 Last Admin: 10/27/19 11:50 Dose: 100 mls/hr Ceftriaxone Sodium/Dextrose 1 (gm/ Premix) 50 mls @ 100 mls/hr IV Q24H [facility] Last Admin: 10/27/19 15:47 Dose: Not Given Ketorolac Tromethamine (Toradol) 30 mg IVPUSH ONETIME ONE Stop: 10/27/19 13:24 Last Admin: 10/27/19 13:30 Dose: 30 mg Methylprednisolone Sodium Succinate (Solu-Medrol) 125 mg IVPUSH ONETIME ONE Stop: 10/27/19 12:20 Last Admin: 10/27/19 13:30 Dose: 125 mg Methylprednisolone Sodium Succinate (Solu-Medrol) 40 mg IVPUSH Q8H [facility] Last Admin: 10/28/19 04:37 Dose: 40 mg Methylprednisolone Sodium Succinate (Solu-Medrol) 40 mg IVPUSH BID [facility] Last Admin: 10/29/19 08:54 Dose: 40 mg Morphine Sulfate (Morphine) 2 mg IVPUSH Q6H PRN PRN Reason: Pain Last Admin: 10/28/19 22:20 Dose: 2 mg - Exam General: Alert, Oriented, Cooperative, No Acute Distress Lungs: Clear to Auscultation Cardiovascular: Regular Rate, Regular Rhythm GI/Abdominal Exam: Normal Bowel Sounds, Soft, Non-Tender, No Distention Extremities: Other (dressings on bilateral legs c/d/i) - Problem List Review Problem List Initiated/Reviewed/Updated: Yes - Plan Plan:: Assessment and Plan: 1. Cellulitis of bilateral lower extremities: Discontinue Vancomycin and zosyn. Will start PO clindamycin. Dressing changes BID. Wound care on board. Blood cultures were negative. Leukocytosis has improved. 2. COPD exacerbation: Supplemental oxygen to maintain oxygen sat > 88%. Continue PO Prednisone, duonebs prn and IS. Continue Azithromycin PO. Continue home inhalers. Will do home oxygen evaluation. 3. CHF: Patient on lasix PO 40 BID. Continue strict I/O, daily weights. ECHO is pending. VTE prophylaxis: Heparin. <Lynette Nichole - Last Filed: 10/31/19 13:23> - Patient Data Vitals - Most Recent: Last Vital Signs Temp 36.6 C 10/31/19 12:00 Pulse 74 10/31/19 12:00 Resp 18 10/31/19 12:00 BP 116/66 10/31/19 12:00 Pulse Ox 93 L 10/31/19 12:00 I&O - Last 24 Hours: Intake & Output 10/30/19 10/31/19 10/31/19 22:59 06:59 14:59 Intake Total 490 Output Total 1400 Balance -910 Lab Results Last 24 Hours: Laboratory Results - last 24 hr 10/30/19 10/31/19 10/31/19 Range/Units 16:20 05:50 05:50 WBC 11.36 H (4.0-11.0) K/uL RBC 4.79 (4.30-5.90) M/uL Hgb 14.3 (12.0-16.0) g/dL Hct 45.8 (36.0-46.0) % MCV 95.6 (80.0-98.0) fL MCH 29.9 (27.0-32.0) pg MCHC 31.2 (31.0-37.0) g/dL RDW Std Deviation 58.1 (28.0-62.0) fl RDW Coeff of Misty 17 H (11.0-15.0) % Plt Count 251 (150-400) K/uL MPV 9.20 (7.40-12.00) fL Neut % (Auto) 63.6 (48.0-80.0) % Lymph % (Auto) 26.8 (16.0-40.0) % [place] % (Auto) 8.1 (0.0-15.0) % Eos % (Auto) 1.2 (0.0-7.0) % Baso % (Auto) 0.3 (0.0-1.5) % Neut # (Auto) 7.2 H (1.4-5.7) K/uL Lymph # (Auto) 3.0 H (0.6-2.4) K/uL [place] # (Auto) 0.9 H (0.0-0.8) K/uL Eos # (Auto) 0.1 (0.0-0.7) K/uL Baso # (Auto) 0.0 (0.0-0.1) K/uL Nucleated RBC % 0.0 /100WBC Nucleated RBCs # 0 K/uL Sodium 143 (136-145) mmol/L Potassium 4.1 (3.5-5.1) mmol/L Chloride 104 (98-107) mmol/L Carbon Dioxide 33.3 H (21.0-32.0) mmol/L BUN 28 H (7.0-18.0) mg/dL Creatinine 1.1 H (0.6-1.0) mg/dL Est Cr Clr Drug Dosing 48.33 mL/min Estimated GFR (MDRD) 50.5 ml/min Glucose 82 (74-106) mg/dL Calcium 8.2 L (8.5-10.1) mg/dL Vancomycin Trough 15.1 H (5.0-10.0) ug/mL Joe Results Last 24 Hours: Microbiology 10/27/19 12:11 Aerobic Blood Culture - Preliminary Blood - Venous - Lab Draw NO GROWTH AFTER 4 DAYS Anaerobic Blood Culture - Preliminary NO GROWTH AFTER 4 DAYS 10/27/19 11:35 Aerobic Blood Culture - Preliminary Blood - Venous NO GROWTH AFTER 4 DAYS Anaerobic Blood Culture - Preliminary NO GROWTH AFTER 4 DAYS Med Orders - Current: Current Medications Acetaminophen (Tylenol) 650 mg PO Q4H PRN PRN Reason: Pain (Mild 1-3)/fever Last Admin: 10/28/19 10:12 Dose: 650 mg Albuterol (Ventolin Hfa) 0 gm INH BID PRN PRN Reason: Shortness of Breath Albuterol/Ipratropium (Duoneb 3.0-0.5 Mg/3 Ml) 3 ml NEB Q6HRRT PRN PRN Reason: Shortness of Breath Last Admin: 10/30/19 11:54 Dose: 3 ml Azithromycin (Zithromax) 500 mg PO Q24H [facility] Last Admin: 10/30/19 15:19 Dose: 500 mg Clindamycin HCl (Cleocin) 450 mg PO Q6H [facility] Last Admin: 10/31/19 10:40 Dose: 450 mg Furosemide (Lasix) 40 mg PO BIDDIURETIC [facility] Last Admin: 10/31/19 08:40 Dose: 40 mg Heparin Sodium (Porcine) (Heparin Sodium) 5,000 units SUBCUT Q8H [facility] Last Admin: 10/31/19 12:19 Dose: 5,000 units Hydromorphone HCl (Dilaudid) 0.5 mg IVPUSH Q6H PRN PRN Reason: severe pain Last Admin: 10/30/19 22:43 Dose: 0.5 mg Nicotine (Habitrol) 14 mg TRDERM DAILY [facility] Last Admin: 10/31/19 08:40 Dose: 14 mg Ondansetron HCl (Zofran) 4 mg IVPUSH Q4H PRN PRN Reason: Nausea Oxycodone HCl (Oxycodone) 5 - 10 mg PO Q4H PRN PRN Reason: Pain Last Admin: 10/31/19 09:08 Dose: 5 mg Glycopyrrolate/Formoterol Fum [ Bevespi Aerosphere Inhaler] 1 each INH BID [facility] Last Admin: 10/31/19 08:43 Dose: 1 each Prednisone (Prednisone) 40 mg PO WITHBREAKFAST [facility] Last Admin: 10/31/19 08:40 Dose: 40 mg Silver Sulfadiazine (Silvadene 1% Cream 400 Gm) 0 gm TOP DAILY [facility] Last Admin: 10/31/19 09:10 Dose: 1 g Discontinued Medications Albuterol/Ipratropium (Duoneb 3.0-0.5 Mg/3 Ml) 3 ml NEB ONETIME ONE Stop: 10/27/19 12:20 Last Admin: 10/27/19 12:40 Dose: 3 ml Albuterol/Ipratropium (Duoneb 3.0-0.5 Mg/3 Ml) 3 ml NEB Q4HRRT [facility] Last Admin: 10/28/19 09:13 Dose: 3 ml Albuterol/Ipratropium (Duoneb 3.0-0.5 Mg/3 Ml) 3 ml NEB Q6HRRT [facility] Last Admin: 10/30/19 06:37 Dose: 3 ml Furosemide (Lasix) 40 mg IVPUSH NOW ONE Stop: 10/27/19 15:12 Last Admin: 10/27/19 15:48 Dose: 40 mg Hydromorphone HCl (Dilaudid) 1 mg IVPUSH ONETIME ONE Stop: 10/29/19 01:27 Last Admin: 10/29/19 02:28 Dose: 1 mg Sodium Chloride (Normal Saline) 1,000 mls @ 999 mls/hr IV BOLUS ONE Stop: 10/27/19 12:27 Last Admin: 10/27/19 11:50 Dose: 100 mls/hr Ceftriaxone Sodium/Dextrose 1 (gm/ Premix) 50 mls @ 100 mls/hr IV Q24H [facility] Last Admin: 10/27/19 15:47 Dose: Not Given Vancomycin HCl 1.25 gm/ Sodium (Chloride) 250 mls @ 166.667 mls/hr IV Q12H [facility] Last Admin: 10/30/19 04:08 Dose: 166.667 mls/hr Piperacillin Sod/Tazobactam (Sod 3.375 gm/ Sodium Chloride) 50 mls @ 100 mls/ hr IV Q8H [facility] Last Admin: 10/30/19 03:20 Dose: 100 mls/hr Ketorolac Tromethamine (Toradol) 30 mg IVPUSH ONETIME ONE Stop: 10/27/19 13:24 Last Admin: 10/27/19 13:30 Dose: 30 mg Methylprednisolone Sodium Succinate (Solu-Medrol) 125 mg IVPUSH ONETIME ONE Stop: 10/27/19 12:20 Last Admin: 10/27/19 13:30 Dose: 125 mg Methylprednisolone Sodium Succinate (Solu-Medrol) 40 mg IVPUSH Q8H [facility] Last Admin: 10/28/19 04:37 Dose: 40 mg Methylprednisolone Sodium Succinate (Solu-Medrol) 40 mg IVPUSH BID [facility] Last Admin: 10/29/19 08:54 Dose: 40 mg Morphine Sulfate (Morphine) 2 mg IVPUSH Q6H PRN PRN Reason: Pain Last Admin: 10/28/19 22:20 Dose: 2 mg Vancomycin HCl (Pharmacy To Dose - Vancomycin) 1 dose .XX ASDIRECTED [facility] - Problem List & Annotations (1) Cellulitis SNOMED Code(s): 236870937 Code(s): L03.90 - CELLULITIS, UNSPECIFIED Status: Acute Current Visit: Yes Qualifiers: Site of cellulitis: extremity Laterality: unspecified laterality (2) History of CHF (congestive heart failure) SNOMED Code(s): 790866080 Code(s): Z86.79 - PERSONAL HISTORY OF OTHER DISEASES OF THE CIRCULATORY SYSTEM Status: Acute Current Visit: Yes (3) History of COPD SNOMED Code(s): 676781450 Code(s): Z87.09 - PERSONAL HISTORY OF OTHER DISEASES OF THE RESPIRATORY SYSTEM Status: Acute Current Visit: Yes (4) Obesity SNOMED Code(s): 046240077, 110784222 Code(s): E66.9 - OBESITY, UNSPECIFIED Status: Chronic Current Visit: Yes (5) Tobacco dependence SNOMED Code(s): 04895864 Code(s): F17.200 - NICOTINE DEPENDENCE, UNSPECIFIED, UNCOMPLICATED Status: Chronic Current Visit: Yes (6) Acute respiratory failure SNOMED Code(s): 04561690 Code(s): J96.00 - ACUTE RESPIRATORY FAILURE, UNSP W HYPOXIA OR HYPERCAPNIA Status: Resolved Current Visit: Yes Qualifiers: Respiratory failure complication: hypoxia Qualified Code(s): J96.01 - Acute respiratory failure with hypoxia - My Orders Last 24 Hours: My Active Orders 10/31/19 11:52 Ready for Discharge [RC] PER UNIT ROUTINE - Plan Plan:: I have seen and evaluated the patient and agree with the residents note unless specified in my note
[2019-10-30] MEDS ORDERED: Albuterol/Ipratropium 3.0-0.5 MG/3 ML Neb Soln NEB PRN (10:33)
[2019-10-30] MEDS ORDERED: Albuterol 8 GM Inhaler INH PRN (10:38)
[2019-10-30] MEDS: HYDROmorphone 1 MG/ML Syringe IVPUSH PRN ×2 (10:45→22:43)
[2019-10-30] MEDS: Silver Sulfadiazine 1% Crm 400 GM Jar TOP SCH (11:13)
[2019-10-30] MEDS: Glycopyrrolate/Formoterol Fum [Bevespi Aerosphere Inhaler] INH SCH ×2 (11:14→20:31)
[2019-10-30] MEDS: Clindamycin HCl 150 MG Cap PO SCH ×3 (11:16→22:40)
[2019-10-30] MEDS: Azithromycin 250 MG Tab PO SCH (15:19)
[2019-10-31] MEDS: Heparin Sodium 5,000 Units/ML Vial SUBCUT SCH ×2 (02:48→12:19)
[2019-10-31] MEDS: oxyCODONE 5 MG Tab PO PRN ×2 (02:55→09:08)
[2019-10-31] MEDS: Clindamycin HCl 150 MG Cap PO SCH ×2 (03:57→10:40)
[2019-10-31 06:46] LABS: CARBON DIOXIDE,CO2 33.3 mmol/L (21.0-32.0); POTASSIUM,K 4.1 mmol/L (3.5-5.1)
[2019-10-31] MEDS: Furosemide 40 MG Tab PO SCH ×2 (08:40→13:41)
[2019-10-31] MEDS: predniSONE 20 MG Tab PO SCH (08:40)
[2019-10-31] MEDS: Nicotine 14 MG/24 Hr Patch TRDERM SCH (08:40)
[2019-10-31] MEDS: Glycopyrrolate/Formoterol Fum [Bevespi Aerosphere Inhaler] INH SCH (08:43)
[2019-10-31] MEDS: Silver Sulfadiazine 1% Crm 400 GM Jar TOP SCH (09:10)
--- NOTE | 2019-10-31 11:19 | PCM.DCSUM1 ---
Discharge Summary - Hospital Course Free Text/Narrative:: This 63 year old female with pmh of COPD, morbid obesity venous insufficiency, and tobacco dependence presented to the ED today with complaints of worsening shortness of breath. She reports she was at Dr Castano office today for debridement of her leg ulcers and they noticed she had worsened SOB and they urged her to be evaluated in the ED.In the ED, CBC WNL. BUN 18 Cr 1.3, Bicarb 32.5. CXR negative. EKG SR with PAC, no ST segment changes. She was given Duonebs and Solu-medrol in the ED. Tib/fib X-rays bilaterally obtained, no acute concerns. Patient was started on board spectrum antibiotics due to concern of worsening b/l leg wounds with foul smelling purulent drainage. Patient was also treated for mild exacerbation of COPD with steroids and breathing treatments. Patient was evaluated for home O2 for which she qualified. Patients wounds have significantly improved, with improvement in her WBC count as well. and was switched to PO clindamycin. Patient is being discharged to home with home health for frequent wound care. - Discharge Data Discharge Date: 10/31/19 Discharge Disposition: Home, W Home Health Agency 06 Condition: Fair - Referral to Home Health Date of Face to Face Encounter: 10/31/19 (discharged on weekend so face to face not possible) Reason for Homebound Status: b/l lower extremity wounds, obesity Primary Care Physician: Dave Metzger MD Skilled Need: wound care - Discharge Diagnosis/Problem(s) (1) Cellulitis SNOMED Code(s): 037530105 ICD Code: L03.90 - CELLULITIS, UNSPECIFIED Status: Acute Current Visit: Yes Qualifiers: Site of cellulitis: extremity Laterality: unspecified laterality (2) History of CHF (congestive heart failure) SNOMED Code(s): 134205865 ICD Code: Z86.79 - PERSONAL HISTORY OF OTHER DISEASES OF THE CIRCULATORY SYSTEM Status: Acute Current Visit: Yes (3) History of COPD SNOMED Code(s): 527647749 ICD Code: Z87.09 - PERSONAL HISTORY OF OTHER DISEASES OF THE RESPIRATORY SYSTEM Status: Acute Current Visit: Yes (4) Obesity SNOMED Code(s): 910755900, 221170656 ICD Code: E66.9 - OBESITY, UNSPECIFIED Status: Chronic Current Visit: Yes (5) Tobacco dependence SNOMED Code(s): 87060011 ICD Code: F17.200 - NICOTINE DEPENDENCE, UNSPECIFIED, UNCOMPLICATED Status : Chronic Current Visit: Yes (6) Acute respiratory failure SNOMED Code(s): 19549432 ICD Code: J96.00 - ACUTE RESPIRATORY FAILURE, UNSP W HYPOXIA OR HYPERCAPNIA Status: Resolved Current Visit: Yes Qualifiers: Respiratory failure complication: hypoxia Qualified Code(s): J96.01 - Acute respiratory failure with hypoxia - Patient Summary/Data Consults: Consultations 10/28/19 11:07 Consult to Physical Therapy [PT Evaluation and Treatment] [CONS] Routine 10/29/19 09:13 Consult to Wound Care Services [CONS] Routine - Patient Instructions Diet: Heart Healthy Diet Fluid Restriction: 1500 mL Activity: As Tolerated Driving: May Drive Today Showering/Bathing: Shower in AM (keep dressing and wounds dry ) Wound/Incision Care: Keep Operative Site/Wound Site Clean and Dry, Change Dressing Daily Notify Provider of: Fever, Increased Pain, Swelling and Redness, Drainage, Nausea and/or Vomiting - Discharge Plan *PRESCRIPTION DRUG MONITORING PROGRAM REVIEWED*: Not Applicable *COPY OF PRESCRIPTION DRUG MONITORING REPORT IN PATIENT DAGMAR: Not Applicable Prescriptions/Med Rec: Acetaminophen [Tylenol] 650 mg PO Q4H PRN #30 tablet PRN Reason: Pain (Mild 1-3)/fever Clindamycin HCl [Cleocin] 450 mg PO Q6H #10 cap Nicotine [Habitrol] 14 mg TRDERM DAILY #15 patch Home Medications: Home Meds Furosemide [Lasix] 60 mg PO BIDDIURETIC 05/08/17 [History] Albuterol Sulfate [Proair Hfa] 8.5 gm IH BID PRN 10/27/19 [History] Albuterol/Ipratropium [DuoNeb 3.0-0.5 MG/3 ML] 3 ml NEB BID 10/27/19 [History] Glycopyrrolate/Formoterol Fum [Bevespi Aerosphere Inhaler] 1 puff BID 10/27/19 [ History] predniSONE [Prednisone] 99 mg PO DAILY 10/27/19 [History] Acetaminophen [Tylenol] 650 mg PO Q4H PRN #30 tablet 10/31/19 [Rx] Clindamycin HCl [Cleocin] 450 mg PO Q6H #10 cap 10/31/19 [Rx] Nicotine [Habitrol] 14 mg TRDERM DAILY #15 patch 10/31/19 [Rx] Patient Handouts: Hypoxia, Clindamycin capsules, Acetaminophen tablets or caplets, Nicotine skin patches Referrals: Dave Metzger MD [Primary Care Provider] - (Follow up in 1 week.Please call clinic on Friday11/01/19.) - Discharge Summary/Plan Comment DC Time >30 min.: No - Patient Data Vitals - Most Recent: Last Vital Signs Temp 36.2 C 10/31/19 08:00 Pulse 62 10/31/19 08:00 Resp 18 10/31/19 08:00 BP 127/70 10/31/19 08:00 Pulse Ox 93 L 10/31/19 08:00 Weight - Most Recent: 138.289 kg I&O - Last 24 hours: Intake & Output 10/30/19 10/31/19 10/31/19 22:59 06:59 14:59 Intake Total 490 Output Total 1400 Balance -910 Lab Results - Last 24 hrs: Laboratory Results - last 24 hr 10/30/19 10/31/19 10/31/19 Range/Units 16:20 05:50 05:50 WBC 11.36 H (4.0-11.0) K/uL RBC 4.79 (4.30-5.90) M/uL Hgb 14.3 (12.0-16.0) g/dL Hct 45.8 (36.0-46.0) % MCV 95.6 (80.0-98.0) fL MCH 29.9 (27.0-32.0) pg MCHC 31.2 (31.0-37.0) g/dL RDW Std Deviation 58.1 (28.0-62.0) fl RDW Coeff of Misty 17 H (11.0-15.0) % Plt Count 251 (150-400) K/uL MPV 9.20 (7.40-12.00) fL Neut % (Auto) 63.6 (48.0-80.0) % Lymph % (Auto) 26.8 (16.0-40.0) % [place] % (Auto) 8.1 (0.0-15.0) % Eos % (Auto) 1.2 (0.0-7.0) % Baso % (Auto) 0.3 (0.0-1.5) % Neut # (Auto) 7.2 H (1.4-5.7) K/uL Lymph # (Auto) 3.0 H (0.6-2.4) K/uL [place] # (Auto) 0.9 H (0.0-0.8) K/uL Eos # (Auto) 0.1 (0.0-0.7) K/uL Baso # (Auto) 0.0 (0.0-0.1) K/uL Nucleated RBC % 0.0 /100WBC Nucleated RBCs # 0 K/uL Sodium 143 (136-145) mmol/L Potassium 4.1 (3.5-5.1) mmol/L Chloride 104 (98-107) mmol/L Carbon Dioxide 33.3 H (21.0-32.0) mmol/L BUN 28 H (7.0-18.0) mg/dL Creatinine 1.1 H (0.6-1.0) mg/dL Est Cr Clr Drug Dosing 48.33 mL/min Estimated GFR (MDRD) 50.5 ml/min Glucose 82 (74-106) mg/dL Calcium 8.2 L (8.5-10.1) mg/dL Vancomycin Trough 15.1 H (5.0-10.0) ug/mL [facility] Results - Last 24 hrs: Microbiology 10/27/19 12:11 Aerobic Blood Culture - Preliminary Blood - Venous - Lab Draw NO GROWTH AFTER 3 DAYS Anaerobic Blood Culture - Preliminary NO GROWTH AFTER 3 DAYS 10/27/19 11:35 Aerobic Blood Culture - Preliminary Blood - Venous NO GROWTH AFTER 3 DAYS Anaerobic Blood Culture - Preliminary NO GROWTH AFTER 3 DAYS Med Orders - Current: Current Medications Acetaminophen (Tylenol) 650 mg PO Q4H PRN PRN Reason: Pain (Mild 1-3)/fever Last Admin: 10/28/19 10:12 Dose: 650 mg Albuterol (Ventolin Hfa) 0 gm INH BID PRN PRN Reason: Shortness of Breath Albuterol/Ipratropium (Duoneb 3.0-0.5 Mg/3 Ml) 3 ml NEB Q6HRRT PRN PRN Reason: Shortness of Breath Last Admin: 10/30/19 11:54 Dose: 3 ml Azithromycin (Zithromax) 500 mg PO Q24H [facility] Last Admin: 10/30/19 15:19 Dose: 500 mg Clindamycin HCl (Cleocin) 450 mg PO Q6H [facility] Last Admin: 10/31/19 10:40 Dose: 450 mg Furosemide (Lasix) 40 mg PO BIDDIURETIC [facility] Last Admin: 10/31/19 08:40 Dose: 40 mg Heparin Sodium (Porcine) (Heparin Sodium) 5,000 units SUBCUT Q8H [facility] Last Admin: 10/31/19 02:48 Dose: 5,000 units Hydromorphone HCl (Dilaudid) 0.5 mg IVPUSH Q6H PRN PRN Reason: severe pain Last Admin: 10/30/19 22:43 Dose: 0.5 mg Nicotine (Habitrol) 14 mg TRDERM DAILY [facility] Last Admin: 10/31/19 08:40 Dose: 14 mg Ondansetron HCl (Zofran) 4 mg IVPUSH Q4H PRN PRN Reason: Nausea Oxycodone HCl (Oxycodone) 5 - 10 mg PO Q4H PRN PRN Reason: Pain Last Admin: 10/31/19 09:08 Dose: 5 mg Glycopyrrolate/Formoterol Fum [ Bevespi Aerosphere Inhaler] 1 each INH BID [facility] Last Admin: 10/31/19 08:43 Dose: 1 each Prednisone (Prednisone) 40 mg PO WITHBREAKFAST [facility] Last Admin: 10/31/19 08:40 Dose: 40 mg Silver Sulfadiazine (Silvadene 1% Cream 400 Gm) 0 gm TOP DAILY [facility] Last Admin: 10/31/19 09:10 Dose: 1 g Discontinued Medications Albuterol/Ipratropium (Duoneb 3.0-0.5 Mg/3 Ml) 3 ml NEB ONETIME ONE Stop: 10/27/19 12:20 Last Admin: 10/27/19 12:40 Dose: 3 ml Albuterol/Ipratropium (Duoneb 3.0-0.5 Mg/3 Ml) 3 ml NEB Q4HRRT [facility] Last Admin: 10/28/19 09:13 Dose: 3 ml Albuterol/Ipratropium (Duoneb 3.0-0.5 Mg/3 Ml) 3 ml NEB Q6HRRT [facility] Last Admin: 10/30/19 06:37 Dose: 3 ml Furosemide (Lasix) 40 mg IVPUSH NOW ONE Stop: 10/27/19 15:12 Last Admin: 10/27/19 15:48 Dose: 40 mg Hydromorphone HCl (Dilaudid) 1 mg IVPUSH ONETIME ONE Stop: 10/29/19 01:27 Last Admin: 10/29/19 02:28 Dose: 1 mg Sodium Chloride (Normal Saline) 1,000 mls @ 999 mls/hr IV BOLUS ONE Stop: 10/27/19 12:27 Last Admin: 10/27/19 11:50 Dose: 100 mls/hr Ceftriaxone Sodium/Dextrose 1 (gm/ Premix) 50 mls @ 100 mls/hr IV Q24H [facility] Last Admin: 10/27/19 15:47 Dose: Not Given Vancomycin HCl 1.25 gm/ Sodium (Chloride) 250 mls @ 166.667 mls/hr IV Q12H [facility] Last Admin: 10/30/19 04:08 Dose: 166.667 mls/hr Piperacillin Sod/Tazobactam (Sod 3.375 gm/ Sodium Chloride) 50 mls @ 100 mls/ hr IV Q8H [facility] Last Admin: 10/30/19 03:20 Dose: 100 mls/hr Ketorolac Tromethamine (Toradol) 30 mg IVPUSH ONETIME ONE Stop: 10/27/19 13:24 Last Admin: 10/27/19 13:30 Dose: 30 mg Methylprednisolone Sodium Succinate (Solu-Medrol) 125 mg IVPUSH ONETIME ONE Stop: 10/27/19 12:20 Last Admin: 10/27/19 13:30 Dose: 125 mg Methylprednisolone Sodium Succinate (Solu-Medrol) 40 mg IVPUSH Q8H [facility] Last Admin: 10/28/19 04:37 Dose: 40 mg Methylprednisolone Sodium Succinate (Solu-Medrol) 40 mg IVPUSH BID [facility] Last Admin: 10/29/19 08:54 Dose: 40 mg Morphine Sulfate (Morphine) 2 mg IVPUSH Q6H PRN PRN Reason: Pain Last Admin: 10/28/19 22:20 Dose: 2 mg Vancomycin HCl (Pharmacy To Dose - Vancomycin) 1 dose .XX ASDIRECTED [facility]
[2019-10-31 12:52] VITALS: BP 116/66; PULSE 74
--- NOTE | 2019-11-02 16:42 | ECHO ---
The echocardiogram repot can be seen in this patient's EMR (Electronic Medical Record) in the REPORTS section. The echocardiogram report has also been scanned into PACS and can be seen there as well. [facility]
== END 2019-10-31 14:00 | disposition home health service (06) | DRG 602 ==
LOC: MW.ED 11:04 → MW.MS 13:50 → OBSVTOIN 10-29 09:13 → MW.MS 10-29 10:33
PROVIDERS: ADMIT Student in an Organized Health Care Education/Training Program; ATTEND Student in an Organized Health Care Education/Training Program
DX: L03.116 Cellulitis of left lower limb (principal); J96.01 Acute respiratory failure with hypoxia; L97.929 Non-pressure chronic ulcer of unspecified part of left lower leg with unspecified severity; J44.1 Chronic obstructive pulmonary disease with (acute) exacerbation; Z68.43 Body mass index [BMI] 50.0-59.9, adult; L97.919 Non-pressure chronic ulcer of unspecified part of right lower leg with unspecified severity; L03.115 Cellulitis of right lower limb; I50.9 Heart failure, unspecified; E66.01 Morbid (severe) obesity due to excess calories; I87.2 Venous insufficiency (chronic) (peripheral); F17.210 Nicotine dependence, cigarettes, uncomplicated; I73.9 Peripheral vascular disease, unspecified; I89.0 Lymphedema, not elsewhere classified; Z90.710 Acquired absence of both cervix and uterus; Z98.51 Tubal ligation status; Z79.52 Long term (current) use of systemic steroids; Z79.899 Other long term (current) drug therapy; Z99.81 Dependence on supplemental oxygen
CPT/HCPCS: 36415; 71045; 71045-26; 73590-26-LT; 73590-26-RT; 73590-LT; 73590-RT; 80048; 80053; 80061; 80202; 81003; 83036; 83605; 83735; 83880; 85025; 87040; 87070; 87205; 93005; 93306; 93970; 93970-26; 94640; 96374; 96375; 97161-GP; 99285; 99285-25; A9270-GY; J1170; J1644; J1885; J1940; J2270; J2543; J2920; J2930; J3370; J7030; J7050; J7620-GY

== ENCOUNTER 2020-03-21 09:24 | Emergency (ER) | payer MEDICAID ==
[2020-03-21 10:32] LABS: CARBON DIOXIDE,CO2 34.5 mmol/L (21.0-32.0); POTASSIUM,K 4.2 mmol/L (3.5-5.1)
--- NOTE | 2020-03-21 10:45 | EDM.PDOC ---
ED HPI GENERAL MEDICAL PROBLEM - General Chief Complaint: General Stated Complaint: INFECTION Time Seen by Provider: 03/21/20 09:30 Source of Information: Reports: Patient History Limitations: Reports: No Limitations - History of Present Illness INITIAL COMMENTS - FREE TEXT/NARRATIVE: 64-year-old female presents to the emergency room complaining of pain in her mastectomy sites. Patient states it is not draining like she did before. Patient concerned with possible infection. Onset: Today Location: Reports: Head Severity: Mild Worsens with: Reports: None Associated Symptoms: Reports: No Other Symptoms bilateral breast Pain Score (Numeric/FACES): 9 - Related Data Allergies Allergy/AdvReac Type Severity Reaction Status Date / Time latex Allergy Rash Verified 03/21/20 09:44 Home Meds: Home Meds Furosemide [Lasix] 60 mg PO BIDDIURETIC 05/08/17 [History] Albuterol Sulfate [Proair Hfa] 8.5 gm IH BID PRN 10/27/19 [History] Albuterol/Ipratropium [DuoNeb 3.0-0.5 MG/3 ML] 3 ml NEB BID 10/27/19 [History] Glycopyrrolate/Formoterol Fum [Bevespi Aerosphere Inhaler] 1 puff BID 10/27/19 [ History] predniSONE [Prednisone] 99 mg PO DAILY 10/27/19 [History] Acetaminophen [Tylenol] 650 mg PO Q4H PRN #30 tablet 10/31/19 [Rx] Nicotine [Habitrol] 14 mg TRDERM DAILY #15 patch 10/31/19 [Rx] clindamycin HCL [Cleocin] 450 mg PO Q6H #10 cap 10/31/19 [Rx] Past Medical History HEENT History: Reports: None Cardiovascular History: Reports: Heart Failure, PVD, SOB on Exertion Respiratory History: Reports: COPD Gastrointestinal History: Reports: None Genitourinary History: Reports: None SEED ANALYST History: Reports: Other SEED ANALYST History: tubali ligation, 3 pregnancies Musculoskeletal History: Reports: None Neurological History: Reports: None Psychiatric History: Reports: None Endocrine/Metabolic History: Reports: Other (See Below) Other Endocrine/Metabolic History: lymphedema Hematologic History: Reports: None Immunologic History: Reports: None Oncologic (Cancer) History: Reports: None Dermatologic History: Reports: None Other Dermatologic History: lower leg open ulcers - Infectious Disease History Infectious Disease History: Reports: None - Past Surgical History Head Surgeries/Procedures: Reports: None Cardiovascular Surgical History: Reports: None Respiratory Surgical History: Reports: None Female Surgical History: Reports: Hysterectomy, Mastectomy, Salpingo- Oophorectomy, Tubal Ligation Social & Family History - Family History Family Medical History: Noncontributory HEENT: Reports: None Cardiac: Reports: None Respiratory: Reports: None Other Respiratory Family Hisory: Aunt, hardening of the lungs. GI: Reports: None : Reports: None OBGYN: Reports: None Musculoskeletal: Reports: None Other Musculoskeletal Family History: Mother, aunt Neurological: Reports: None Psychiatric: Reports: None Endocrine/Metabolic: Reports: None Hematologic: Reports: None Immunologic: Reports: None Dermatologic: Reports: None Oncologic: Reports: None - Tobacco Use Smoking Status *Q: Current Every Day Smoker Years of Tobacco use: 40 Packs/Tins Daily: 0.2 - Caffeine Use Caffeine Use: Reports: Coffee, Soda, Tea Other Caffeine Use: 3 cups - Recreational Drug Use Recreational Drug Use: No - Living Situation & Occupation Living situation: Reports: ED ROS GENERAL - Review of Systems Review Of Systems: See Below Constitutional: Reports: No Symptoms HEENT: Reports: No Symptoms Respiratory: Reports: No Symptoms, Cough Cardiovascular: Reports: No Symptoms Endocrine: Reports: No Symptoms GI/Abdominal: Reports: No Symptoms : Reports: No Symptoms Musculoskeletal: Reports: No Symptoms Skin: Reports: No Symptoms, Erythema, Wound (Wound is healing) Neurological: Reports: No Symptoms Psychiatric: Reports: No Symptoms Hematologic/Lymphatic: Reports: No Symptoms Immunologic: Reports: No Symptoms ED EXAM, GENERAL - Physical Exam Exam: See Below Exam Limited By: No Limitations General Appearance: Alert, WD/WN, No Apparent Distress Eye Exam: Bilateral Eye: Normal Fundi, Normal Inspection Ears: Normal External Exam, Normal Canal, Hearing Grossly Normal, Normal TMs Ear Exam: Bilateral Ear: Auricle Normal, Canal Normal, TM normal Nose: Normal Inspection, Normal Mucosa, No Blood Throat/Mouth: Normal Inspection, Normal Lips, Normal Teeth, Normal Oropharynx, Normal Voice Head: Atraumatic, Normocephalic Neck: Normal Inspection, Supple, Non-Tender Respiratory/Chest: No Respiratory Distress, Lungs Clear Cardiovascular: Normal Peripheral Pulses, Regular Rate, Rhythm, No JVD GI/Abdominal: No Distention (Female) Exam: Deferred Neurological: Alert, Oriented, CN II-XII Intact, Normal Cognition, Normal Gait, Normal Reflexes Psychiatric: Normal Affect, Normal Mood Skin Exam: Warm, Dry, Intact, Normal Color Lymphatic: No Adenopathy Course - Vital Signs Text/Narrative:: Patient's wounds appear to be healing well. No signs of infection patient has a normal CBC. I have discussed the case with the patient's surgeon. Have arranged an appointment to see Dr. Darling on Friday for follow-up. I have talking to the patient's daughter about her case. Patient will be discharged home. Healing wounds VAC responding correctly Last Recorded V/S: Last Vital Signs Temp 96.9 F 03/21/20 09:46 Pulse 85 03/21/20 09:46 Resp 18 03/21/20 09:46 BP 147/86 H 03/21/20 09:46 Pulse Ox 97 03/21/20 09:46 - Orders/Labs/Meds Labs: Laboratory Tests 03/21/20 03/21/20 Range/Units 09:59 09:59 WBC 10.44 (4.0-11.0) K/uL RBC 4.08 L (4.30-5.90) M/uL Hgb 12.3 (12.0-16.0) g/dL Hct 40.1 (36.0-46.0) % MCV 98.3 H (80.0-98.0) fL MCH 30.1 (27.0-32.0) pg MCHC 30.7 L (31.0-37.0) g/dL RDW Std Deviation 55.2 (28.0-62.0) fl RDW Coeff of Misty 15 (11.0-15.0) % Plt Count 329 (150-400) K/uL MPV 9.30 (7.40-12.00) fL Neut % (Auto) 63.5 (48.0-80.0) % Lymph % (Auto) 26.5 (16.0-40.0) % Milam % (Auto) 7.3 (0.0-15.0) % Eos % (Auto) 2.4 (0.0-7.0) % Baso % (Auto) 0.3 (0.0-1.5) % Neut # (Auto) 6.6 H (1.4-5.7) K/uL Lymph # (Auto) 2.8 H (0.6-2.4) K/uL Milam # (Auto) 0.8 (0.0-0.8) K/uL Eos # (Auto) 0.3 (0.0-0.7) K/uL Baso # (Auto) 0.0 (0.0-0.1) K/uL Nucleated RBC % 0.0 /100WBC Nucleated RBCs # 0 K/uL Sodium 145 (136-145) mmol/L Potassium 4.2 (3.5-5.1) mmol/L Chloride 104 (98-107) mmol/L Carbon Dioxide 34.5 H (21.0-32.0) mmol/L BUN 13 (7.0-18.0) mg/dL Creatinine 1.1 H (0.6-1.0) mg/dL Est Cr Clr Drug Dosing 45.79 mL/min Estimated GFR (MDRD) 50.3 ml/min Glucose 169 H (74-106) mg/dL Calcium 8.7 (8.5-10.1) mg/dL Total Bilirubin 0.3 (0.2-1.0) mg/dL AST 16 (15-37) IU/L ALT 25 (14-63) IU/L Alkaline Phosphatase 96 (46-116) U/L Total Protein 6.6 (6.4-8.2) g/dL Albumin 2.8 L (3.4-5.0) g/dL Globulin 3.8 (2.6-4.0) g/dL Albumin/Globulin Ratio 0.7 L (0.9-1.6) Departure - Departure Time of Disposition: 10:51 Disposition: Home, Self-Care 01 Condition: Good Clinical Impression: Encounter for post surgical wound check - Discharge Information Instructions: Sutured Wound Care Referrals: Madelyn Frazier MD [Physician] - 03/27/20 9:30 am Forms: ED Department Discharge Additional Instructions: 1. Patient is to follow-up with Dr. Darling on Friday. Her graph II. Return to the emergency room for fever chills shortness of breath. Sepsis Event Note - Evaluation Sepsis Screening Result: No Definite Risk - Focused Exam Vital Signs: Vital Signs Temp Pulse Resp BP Pulse Ox 03/21/20 09:46 96.9 F 85 18 147/86 H 97 Date Exam was Performed: 03/21/20 Time Exam was Performed: 10:38
[2020-03-21 14:48] VITALS: BP 110/64; PULSE 72
== END 2020-03-21 11:15 | disposition home or self-care (01) ==
LOC: MW.ED 09:24
DX: Z48.817 Encounter for surgical aftercare following surgery on the skin and subcutaneous tissue (principal); F17.210 Nicotine dependence, cigarettes, uncomplicated; Z91.040 Latex allergy status; J44.9 Chronic obstructive pulmonary disease, unspecified
CPT/HCPCS: 36415; 80053; 85025; 99282; 99283

== ENCOUNTER 2020-04-23 08:34 | Emergency (ER) | payer MEDICAID ==
--- NOTE | 2020-04-23 08:51 | EDM.PDOC ---
ED HPI GENERAL MEDICAL PROBLEM - General Chief Complaint: General Stated Complaint: BLOCKAGE IN WOUND PUMP Time Seen by Provider: 04/23/20 08:37 Source of Information: Reports: Patient History Limitations: Reports: No Limitations - History of Present Illness INITIAL COMMENTS - FREE TEXT/NARRATIVE: 64-year-old female with history of breast cancer status post bilateral mastectomy and left sided wound VAC presents with wound vac pump malfunction today. Pump was reading "blockage" today. She feels like there is a leak. She normally has wound VAC dressing change Friday/Friday/Friday with physical therapy, her last dressing change was Friday. Her next dressing changes on Friday due to . ROS: A 10-point review of systems, other than pertinent positives and negatives as stated per HPI, is otherwise negative PHYSICAL EXAM General: AOx4, GCS = 15, No distress, obese HEENT: dry mucous membrane Neck: supple, no meningismus, no Kernig or Brudzinski Cardiac: S1S2 RRR Chest wall: wound vac to left midaxillary space; separate Allevyn dressing to left mastectomy site poorly adhesed at the lateral edge. Respiratory: CTAB, no crackles or rales, no wheezing Abdomen: Soft, nontender, no rebound or guarding, nondistended, no pulsatile mass. Back: nontender Musculoskeletal: NVI distally, no deformity Neuro: No focal deficits. MEDICAL DECISION MAKING: I reviewed the patients past medical records, lab and radiographic findings. I discussed the case with family members. My differential diagnosis included: wound vac pump malfunction, post op infection. Onset: Today under arms, thighs bilaterally Pain Score (Numeric/FACES): 7 - Related Data Allergies Allergy/AdvReac Type Severity Reaction Status Date / Time latex Allergy Rash Verified 04/23/20 08:42 Home Meds: Home Meds Furosemide [Lasix] 60 mg PO BIDDIURETIC 05/08/17 [History] Albuterol Sulfate [Proair Hfa] 8.5 gm IH BID PRN 10/27/19 [History] Albuterol/Ipratropium [DuoNeb 3.0-0.5 MG/3 ML] 3 ml NEB BID 10/27/19 [History] Glycopyrrolate/Formoterol Fum [Bevespi Aerosphere Inhaler] 1 puff BID 10/27/19 [ History] Acetaminophen [Tylenol] 650 mg PO Q4H PRN #30 tablet 10/31/19 [Rx] Nicotine [Habitrol] 14 mg TRDERM DAILY #15 patch 10/31/19 [Rx] Budesonide/Formoterol Fumarate [Symbicort 160-4.5 Mcg Inhaler] 6 gm INH ASDIRECTED 04/23/20 [History] Past Medical History HEENT History: Reports: None Cardiovascular History: Reports: Heart Failure, PVD, SOB on Exertion Respiratory History: Reports: COPD Gastrointestinal History: Reports: None Genitourinary History: Reports: None CONFERENCE ASSISTANT History: Reports: Other CONFERENCE ASSISTANT History: tubali ligation, 3 pregnancies Musculoskeletal History: Reports: None Neurological History: Reports: None Psychiatric History: Reports: None Endocrine/Metabolic History: Reports: Other (See Below) Other Endocrine/Metabolic History: lymphedema Hematologic History: Reports: None Immunologic History: Reports: None Oncologic (Cancer) History: Reports: Breast Dermatologic History: Reports: None Other Dermatologic History: lower leg open ulcers - Infectious Disease History Infectious Disease History: Reports: None - Past Surgical History Female Surgical History: Reports: Hysterectomy, Mastectomy, Salpingo- Oophorectomy, Tubal Ligation Oncologic Surgical History: Reports: Mastectomy Social & Family History - Family History Family Medical History: Noncontributory HEENT: Reports: None Cardiac: Reports: None Respiratory: Reports: None Other Respiratory Family Hisory: Aunt, hardening of the lungs. GI: Reports: None : Reports: None OBGYN: Reports: None Musculoskeletal: Reports: None Other Musculoskeletal Family History: Mother, aunt Neurological: Reports: None Psychiatric: Reports: None Endocrine/Metabolic: Reports: None Hematologic: Reports: None Immunologic: Reports: None Dermatologic: Reports: None Oncologic: Reports: None - Caffeine Use Caffeine Use: Reports: Coffee, Soda, Tea Other Caffeine Use: 3 cups - Living Situation & Occupation Living situation: Reports: ED ROS GENERAL - Review of Systems Review Of Systems: See Below (See dictation) ED EXAM, GENERAL - Physical Exam Exam: See Below (See dictation) Course - Vital Signs Last Recorded V/S: Last Vital Signs Temp 95.4 F L 04/23/20 08:45 Pulse 97 04/23/20 08:45 Resp 20 04/23/20 08:45 BP 137/71 04/23/20 08:45 Pulse Ox 97 04/23/20 08:45 - Re-Assessments/Exams Free Text/Narrative Re-Assessment/Exam: 04/23/20 10:19 After vac dressing reenforcement and allevyn dressing change, and a prolonged observation period in the ER, the patient improved clinically and is stable for discharge. I performed a repeat examination and the patient has not demonstrated any new abnormal findings. Patient exhibits normal vital signs and has exhibited a normal gait. I advised the patient to return to the ER for reevaluation if symptoms worsened, and to follow up with PT for wound care on Friday. Departure - Departure Time of Disposition: 10:20 Disposition: Home, Self-Care 01 Condition: Good Clinical Impression: Encounter for management of wound VAC, Encounter for wound care - Discharge Information *PRESCRIPTION DRUG MONITORING PROGRAM REVIEWED*: No *COPY OF PRESCRIPTION DRUG MONITORING REPORT IN PATIENT DAGMAR: No Instructions: Negative Pressure Wound Therapy Dressing Care Referrals: Dave Metzger MD [Primary Care Provider] - Forms: ED Department Discharge Additional Instructions: The following information is given to patients seen in the emergency department who are being discharged to home. This information is to outline your options for follow-up care. We provide all patients seen in our emergency department with a follow-up referral. The need for follow-up, as well as the timing and circumstances, are variable depending upon the specifics of your emergency department visit. If you don't have a primary care physician on staff, we will provide you with a referral. We always advise you to contact your personal physician following an emergency department visit to inform them of the circumstance of the visit and for follow-up with them and/or the need for any referrals to a consulting specialist. The emergency department will also refer you to a specialist when appropriate. This referral assures that you have the opportunity for follow-up care with a specialist. All of these measure are taken in an effort to provide you with optimal care, which includes your follow-up. Under all circumstances we always encourage you to contact your private physician who remains a resource for coordinating your care. When calling for follow-up care, please make the office aware that this follow-up is from your recent emergency room visit. If for any reason you are refused follow-up, please contact the Emergency Department at and asked to speak to the emergency department charge nurse. Care Plan Goals: Please follow-up with wound care [place]. If you have any questions or concerns return to the Emergency room. It is okay to reinforce dressing as needed. Sepsis Event Note - Focused Exam Vital Signs: Vital Signs Temp Pulse Resp BP Pulse Ox 04/23/20 08:45 95.4 F L 97 20 137/71 97 Date Exam was Performed: 04/23/20 Time Exam was Performed: 10:19
[2020-04-23 10:35] VITALS: BP 138/78; PULSE 78
== END 2020-04-23 10:15 | disposition home or self-care (01) ==
LOC: MW.ED 08:34
DX: T85.698A Other mechanical complication of other specified internal prosthetic devices, implants and grafts, initial encounter (principal); J44.9 Chronic obstructive pulmonary disease, unspecified; I50.9 Heart failure, unspecified; Z91.040 Latex allergy status; Z79.899 Other long term (current) drug therapy
CPT/HCPCS: 99282

== ENCOUNTER 2021-05-31 17:11 | Inpatient (IN) | payer MEDICAID ==
[2021-05-31] MEDS ORDERED: Albuterol/Ipratropium 3.0-0.5 MG/3 ML Neb Soln ONE (17:28)
[2021-05-31] MEDS ORDERED: methylPREDNISolone Sodium Succinate 125 MG/2 ML SDV IVPUSH ONE (17:33)
[2021-05-31] MEDS ORDERED: Albuterol/Ipratropium 3.0-0.5 MG/3 ML Neb Soln NEB ONE ×5 (17:34→19:17)
--- NOTE | 2021-05-31 18:23 | CR ---
Indication: Hypoxia Technique: Chest 1 view Comparison: N October 27, 2019 one Findings/Impression: Cardiovascular and mediastinum: Heart size and vasculature are normal in caliber and appearance. Mediastinum is within normal limits. Lungs and pleural space: Slightly increased interstitial markings may reflect edema or infection. No sign of pleural effusion. No pneumothorax. Bones and soft tissues: No significant findings. Dictated by Amanda Motley MD @ 05/31/2021 6:21:[address] Amanda Motley @ May 31 2021 6:21PM
[2021-05-31 18:27] LABS: BLOOD UREA NITROGEN,BUN 14 mg/dL (7.0-18.0); CARBON DIOXIDE,CO2 33.2 mmol/L (21.0-32.0); CHLORIDE,CL 104 mmol/L (98-107); GLUCOSE RANDOM 107 mg/dL (74-106); POTASSIUM,K 3.7 mmol/L (3.5-5.1); SODIUM,NA 142 mmol/L (136-145)
[2021-05-31] MEDS ORDERED: Azithromycin 250 MG Tab PO STA (19:17)
[2021-05-31] MEDS ORDERED: Furosemide 20 MG/2 ML VIAL IVPUSH ONE (19:18)
--- NOTE | 2021-05-31 21:15 | EDM.PDOC ---
ED HPI GENERAL MEDICAL PROBLEM - General Chief Complaint: Respiratory Problem Stated Complaint: UNKOWN TAKEN BACK RIGHT AWAY Time Seen by Provider: 05/31/21 17:31 - History of Present Illness INITIAL COMMENTS - FREE TEXT/NARRATIVE: CHIEF COMPLAINT(S): "Not getting enough air." HISTORY OF PRESENT ILLNESS: This is a 65-year-old and with a past medical history of COPD on 4 L nasal cannula, CHF who comes to the emergency department with a chief complaint of "not getting enough air. The patient states that for the last 2 weeks she has been increasingly getting more short of breath. She states that she has been taking her Lasix however there is swelling in her abdomen and her lower extremity seems to be worsening. She states that she has had increased production of cough. She denies any chest pain, abdominal pain, nausea or vomiting. She states that she is still smoking tobacco. She denies any recent travel, recent surgery, prior history of DVT or PE. She states that she has increased exertional dyspnea, orthopnea. She denies any other symptoms. REVIEW OF SYSTEMS: Constitutional: Denies fever, chills. Eyes: Denies eye pain Ears, Nose, Mouth, & Throat: Denies earache Cardiovascular: Positive for increased edema. Denies chest pain Respiratory: Positive for shortness of breath and increased productive cough. Gastrointestinal: Denies Nausea, vomiting, diarrhea, hematochezia. Genitourinary: Denies hematuria Skin:Denies a rash MSK: Denies joint pain Neurological: Denies blurred vision, numbness, tingling, weakness psychiatric: Denies depression PAST MEDICAL HISTORY: As per history of present illness and as reviewed below otherwise noncontributory. SURGICAL HISTORY: As per history of present illness and as reviewed below otherwise noncontributory. SOCIAL HISTORY: As per history of present illness and as reviewed below otherwise noncontributory. FAMILY HISTORY: As per history of present illness and as reviewed below otherwise noncontributory. EXAMINATION OF ORGAN SYSTEMS/BODY AREAS: Constitutional: Blood pressure was 140/60, heart rate 73, respiratory rate 24 with an oxygen saturation of 73% on room air. General: Morbidly obese woman who is in a moderate amount of respiratory di stress Psychiatric: Appropriate mood and affect. Eyes: No scleral icterus or conjunctival erythema ENMT: Moist mucous membranes. No pharyngeal erythema Cardiovascular: Regular, rate, and rhythm. No gallops, murmurs, or rubs. Bilateral upper extremity pulses symmetric and intact. 3+ bilateral lower extremity pitting edema up to the abdomen Respiratory: The patient is speaking in 1-2 word sentences. Minimal breath sounds heard. Mild expiratory wheezing. Gastrointestinal: Obese abdomen with edema of the abdomen wall. Nontender. No rebound or guarding. Normoactive bowel sounds Genitourinary: No suprapubic tenderness Musculoskeletal: Normal range of motion. Skin: Bilateral lower extremity legs are weeping given the edema Neurological: Alert, GCS 15 MEDICAL DECISION MAKING AND COURSE IN THE ED WITH INTERPRETATION/REVIEW OF DIAGNOSTIC STUDIES: This is a 65-year-old woman with a past medical he of COPD on 3 to 4 L nasal cannula, CHF who comes to the emergency department with wors ening dyspnea who is severely edematous, hypoxic on room air, tachypneic with minimal breath sounds. At this time we will provide the patient with 1 DuoNeb treatment, Solu-Medrol, and azithromycin. Patient was placed on surveillance monitor and pulse oximetry. monitor and storage bin tender at this time did reveal sinus rhythm and pulse oximetry with good waveform with 4 L nasal cannula was 88%. We did obtain an EKG which did not reveal any acute signs of ischemia. At this time we will obtain CBC, BMP, troponin, BNP and Covid swab. Will obtain a chest x-ray. We will reevaluate after initial DuoNeb treatment. After initial DuoNeb treatment the patient still was having difficulty breathing. Therefore at this time I did discuss with her that I would like to place her on BiPAP. She was amenable to this plan. We will provide her with an additional 2 DuoNeb's via BiPAP. Will obtain an ABG. AB.39/62/30/38 : Likely venous sample with normal pH otherwise. Laboratory: CBC reveals a leukocytosis of 11.14 otherwise unremarkable. CMP reveals metabolic alkalosis with a bicarbonate of 33.2 and an elevated creatinine at 1.1. Hyperglycemia at 107. Troponin is negative. BNP is 51. Covid is positive. The radiological images were viewed by myself along with reading the report from the radiologist. Chest x-ray reveals slightly increased interstitial markings which may reflect edema or infection. Otherwise no acute cardiopulmonary process. After additional 2 DuoNeb treatments the patient's oxygen on BiPAP was now 100% with good waveform. We will keep the patient on BiPAP at this time and reevaluate for work of breathing. After period of observation the patient was able to be transitioned off of BiPAP and on 4 L nasal cannula the patient's oxygen was 94 to 95%. This is the patient's home oxygen level. I did discuss with her at this time that given the edema I would like to provide her with 40 mg of IV Lasix as I do believe this is a mixed picture. She was amenable to this plan. I did discuss with her that I like to admit her to the hospital for COPD exacerbation and CHF exacerbation. She was amenable to this plan. I contacted Dr. Zendejas who accepted the patient for admission DISPOSITION: The patient was admitted to the hospital in stable yet serious condition CONDITION: Serious PROCEDURES: Cardiac monitoring interpretation, pulse oximetry interpretation FINAL IMPRESSION(S)/DIAGNOSES: Acute hypoxic respiratory failure requiring noninvasive positive pressure ventilation secondary to COPD versus CHF 2. Acute COPD exacerbation 3. Acute CHF exacerbation 3. Acute COVID-19 infection Critical Care Procedure Note Authorized and performed by: Romario Hughes M.D. Critical Care Time: 80 minutes Due to a high probability of clinically significant, life threatening deterioration, the patient required my highest level of preparedness to intervene emergently and I personally spent this critical care time directly and personally managing the patient. This critical care time included obtaining a history, examining the patient, pulse oximetry; ordering and review of studies; arranging urgent treatment with development of a management plan; evaluation of a patients reponse to treatment; frequent assessment; and discussions with other providers. This critical care time was performed to assess and manage the high probability of imminent, life threatening deterioration that could result in multiorgan failure. It was exclusive of separate billable procedures and treating other patients. Please see MDM section and rest of the note for further information on patient assessment and treatment. Please see MDM section and rest of the note for further information on patient assessment and treatment. Romario Hughes M.D. legs Pain Score (Numeric/FACES): 8 - Related Data Allergies Allergy/AdvReac Type Severity Reaction Status Date / Time latex Allergy Mild Rash Verified 06/01/21 06:50 Home Meds: Home Meds Furosemide [Lasix] 60 mg PO BIDDIURETIC 05/08/17 [History] Albuterol Sulfate [Proair Hfa] 8.5 gm IH BID PRN 10/27/19 [History] Albuterol/Ipratropium [DuoNeb 3.0-0.5 MG/3 ML] 3 ml NEB BID 10/27/19 [History] Glycopyrrolate/Formoterol Fum [Bevespi Aerosphere Inhaler] 1 puff BID 10/27/19 [History] Acetaminophen [Tylenol] 650 mg PO Q4H PRN #30 tablet 10/31/19 [Rx] Nicotine [Habitrol] 14 mg TRDERM DAILY #15 patch 10/31/19 [Rx] Budesonide/Formoterol Fumarate [Symbicort 160-4.5 Mcg Inhaler] 6 gm INH ASDIRECTED 04/23/20 [History] Past Medical History HEENT History: Reports: None Cardiovascular History: Reports: Heart Failure, PVD, SOB on Exertion Respiratory History: Reports: COPD Gastrointestinal History: Reports: None Genitourinary History: Reports: None FERMENTOLOGIST History: Reports: Other FERMENTOLOGIST History: tubali ligation, 3 pregnancies Musculoskeletal History: Reports: None Neurological History: Reports: None Psychiatric History: Reports: None Endocrine/Metabolic History: Reports: Other (See Below) Other Endocrine/Metabolic History: lymphedema Hematologic History: Reports: None Immunologic History: Reports: None Oncologic (Cancer) History: Reports: Breast Dermatologic History: Reports: None Other Dermatologic History: lower leg open ulcers - Infectious Disease History Infectious Disease History: Reports: FAP-Ohzghvsisn-Opaivzjpo Enterobacteriaceae, Measles, Mumps, Rubella - Past Surgical History Head Surgeries/Procedures: Reports: None Cardiovascular Surgical History: Reports: None Respiratory Surgical History: Reports: None Female Surgical History: Reports: Hysterectomy, Mastectomy, Salpingo- Oophorectomy, Tubal Ligation Endocrine Surgical History: Reports: None Oncologic Surgical History: Reports: Mastectomy Social & Family History - Family History Family Medical History: No Pertinent Family History HEENT: Reports: None Cardiac: Reports: None Respiratory: Reports: None Other Respiratory Family Hisory: Aunt, hardening of the lungs. GI: Reports: None : Reports: None OBGYN: Reports: None Musculoskeletal: Reports: None Other Musculoskeletal Family History: Mother, aunt Neurological: Reports: None Psychiatric: Reports: None Endocrine/Metabolic: Reports: None Hematologic: Reports: None Immunologic: Reports: None Dermatologic: Reports: None Oncologic: Reports: None - Caffeine Use Caffeine Use: Reports: Coffee, Soda, Tea Other Caffeine Use: 3 cups - Living Situation & Occupation Living situation: Reports: ED ROS GENERAL - Review of Systems Review Of Systems: See Below ED EXAM, GENERAL - Physical Exam Exam: See Below Course - Vital Signs Last Recorded V/S: Last Vital Signs Temp 36.3 C 06/01/21 05:00 Pulse 85 05/31/21 22:01 Resp 23 H 06/01/21 06:00 BP 125/75 06/01/21 05:00 Pulse Ox 90 L 06/01/21 07:00 - Orders/Labs/Meds Orders: Active Orders 24 hr Category Date Time Status Admission Status [Patient Status] [ADT] Stat ADT 05/31/21 20:13 Active Medication Orders Albuterol/Ipratropium (Albuterol/Ipratropium 3.0-0.5 Mg/3 Ml Neb Soln) 3 ml NEB BID MADAI Albuterol/Ipratropium (Albuterol/Ipratropium 3.0-0.5 Mg/3 Ml Neb Soln) 3 ml NEB Q4HRRT [facility] Last Admin: 06/01/21 05:05 Dose: 3 ml Documented by: Admin: 06/01/21 01:38 Dose: 3 ml Documented by: JORGELEVA Azithromycin (Azithromycin 250 Mg Tab) 500 mg PO Q24H [facility] Budesonide/Formoterol Fumarate (Budesonide/Formoterol 160-4.5 Mcg/Puff 6 Gm Inhaler) 0 gm INH DAILY [facility] Furosemide (Furosemide 40 Mg/4 Ml Vial) 60 mg IVPUSH BIDDIURETIC MADAI Heparin Sodium (Porcine) (Heparin Sodium 5,000 Units/Ml Vial) 5,000 units SUBCUT Q8H [facility] Last Admin: 06/01/21 01:44 Dose: Not Given Documented by: APOLEVA Methylprednisolone Sodium Succinate (Methylprednisolone Sodium Succinate 125 Mg/2 Ml Sdv) 125 mg IVPUSH Q8H MADAI Nicotine (Nicotine 14 Mg/24 Hr Patch) 14 mg TRDERM DAILY [facility] Last Admin: 06/01/21 01:33 Dose: 14 mg Documented by: JORGELEANAT Nystatin (Nystatin Topical Powder 15 Gm Bottle) 1 gm TOP TID [facility] Last Admin: 06/01/21 05:03 Dose: 1 applic Documented by: JOAN Labs: Laboratory Tests 05/31/21 05/31/21 05/31/21 Range/Units 17:58 17:58 17:58 WBC 11.14 H (4.0-11.0) K/uL RBC 4.41 (4.30-5.90) M/uL Hgb 12.8 (12.0-16.0) g/dL Hct 41.9 (36.0-46.0) % MCV 95.0 (80.0-98.0) fL MCH 29.0 (27.0-32.0) pg MCHC 30.5 L (31.0-37.0) g/dL RDW Std Deviation 60.5 (28.0-62.0) fl RDW Coeff of Misty 18 H (11.0-15.0) % Plt Count 264 (150-400) K/uL MPV 9.80 (7.40-12.00) fL Neut % (Auto) 73.4 (48.0-80.0) % Lymph % (Auto) 17.6 (16.0-40.0) % [place] % (Auto) 7.7 (0.0-15.0) % Eos % (Auto) 1.0 (0.0-7.0) % Baso % (Auto) 0.3 (0.0-1.5) % Neut # (Auto) 8.2 H (1.4-5.7) K/uL Lymph # (Auto) 2.0 (0.6-2.4) K/uL [place] # (Auto) 0.9 H (0.0-0.8) K/uL Eos # (Auto) 0.1 (0.0-0.7) K/uL Baso # (Auto) 0.0 (0.0-0.1) K/uL Nucleated RBC % 0.0 /100WBC Nucleated RBCs # 0 K/uL ABG pH (7.35-7.45) ABG pCO2 (35-45) mmHG ABG pO2 (80-105) mmHG ABG HCO3 (22-26) mEq/L ABG Total CO2 (23-27) mmol/L ABG Base Excess (-2.0-3.0) Sodium 142 (136-145) mmol/L Potassium 3.7 (3.5-5.1) mmol/L Chloride 104 (98-107) mmol/L Carbon Dioxide 33.2 H (21.0-32.0) mmol/L BUN 14 (7.0-18.0) mg/dL Creatinine 1.1 H (0.6-1.0) mg/dL Est Cr Clr Drug Dosing 45.20 mL/min Estimated GFR (MDRD) 50.2 ml/min Glucose 107 H (74-106) mg/dL Calcium 8.5 (8.5-10.1) mg/dL Magnesium 2.2 (1.8-2.4) mg/dL Troponin I < 0.050 (0.000-0.056) ng/mL B-Natriuretic Peptide 51 (<100) PG/ML SARS-CoV-2 RNA (WENDY) (NEGATIVE) 05/31/21 05/31/21 Range/Units 18:10 19:35 WBC (4.0-11.0) K/uL RBC (4.30-5.90) M/uL Hgb (12.0-16.0) g/dL Hct (36.0-46.0) % MCV (80.0-98.0) fL MCH (27.0-32.0) pg MCHC (31.0-37.0) g/dL RDW Std Deviation (28.0-62.0) fl RDW Coeff of Misty (11.0-15.0) % Plt Count (150-400) K/uL MPV (7.40-12.00) fL Neut % (Auto) (48.0-80.0) % Lymph % (Auto) (16.0-40.0) % [place] % (Auto) (0.0-15.0) % Eos % (Auto) (0.0-7.0) % Baso % (Auto) (0.0-1.5) % Neut # (Auto) (1.4-5.7) K/uL Lymph # (Auto) (0.6-2.4) K/uL [place] # (Auto) (0.0-0.8) K/uL Eos # (Auto) (0.0-0.7) K/uL Baso # (Auto) (0.0-0.1) K/uL Nucleated RBC % /100WBC Nucleated RBCs # K/uL ABG pH 7.39 (7.35-7.45) ABG pCO2 62 H (35-45) mmHG ABG pO2 < 30 L* (80-105) mmHG ABG HCO3 38 H (22-26) mEq/L ABG Total CO2 34.4 H (23-27) mmol/L ABG Base Excess 10.2 H (-2.0-3.0) Sodium (136-145) mmol/L Potassium (3.5-5.1) mmol/L Chloride (98-107) mmol/L Carbon Dioxide (21.0-32.0) mmol/L BUN (7.0-18.0) mg/dL Creatinine (0.6-1.0) mg/dL Est Cr Clr Drug Dosing mL/min Estimated GFR (MDRD) ml/min Glucose (74-106) mg/dL Calcium (8.5-10.1) mg/dL Magnesium (1.8-2.4) mg/dL Troponin I (0.000-0.056) ng/mL B-Natriuretic Peptide (<100) PG/ML SARS-CoV-2 RNA (WENDY) POSITIVE H (NEGATIVE) Meds: Medications Generic Name Dose Route Start Last Admin Trade Name Freq PRN Reason Stop Dose Admin Albuterol/Ipratropium 3 ml 06/01/21 09:00 Albuterol/Ipratropium 3.0-0.5 Mg/3 Ml Neb Soln NEB BID MADAI Albuterol/Ipratropium 3 ml 06/01/21 02:00 06/01/21 05:05 Albuterol/Ipratropium 3.0-0.5 Mg/3 Ml Neb Soln NEB 3 ml Q4HRRT MADAI Administration Azithromycin 500 mg 06/01/21 19:00 Azithromycin 250 Mg Tab PO Q24H MADAI Budesonide/Formoterol Fumarate 0 gm 06/01/21 09:00 Budesonide/Formoterol 160-4.5 Mcg/Puff 6 Gm Inhaler INH DAILY MADAI Furosemide 60 mg 06/01/21 08:00 Furosemide 40 Mg/4 Ml Vial IVPUSH BIDDIURETIC MADAI Heparin Sodium (Porcine) 5,000 units 06/01/21 01:00 06/01/21 01:44 Heparin Sodium 5,000 Units/Ml Vial SUBCUT Not Given Q8H MADAI Methylprednisolone Sodium Succinate 125 mg 06/01/21 09:00 Methylprednisolone Sodium Succinate 125 Mg/2 Ml Sdv IVPUSH Q8H MADAI Nicotine 14 mg 06/01/21 00:45 06/01/21 01:33 Nicotine 14 Mg/24 Hr Patch TRDERM 14 mg DAILY MADAI Administration Nystatin 1 gm 06/01/21 06:00 06/01/21 05:03 Nystatin Topical Powder 15 Gm Bottle TOP 1 applic TID MADAI Administration Discontinued Medications Generic Name Dose Route Start Last Admin Trade Name Jono PRN Reason Stop Dose Admin Albuterol/Ipratropium Confirm 05/31/21 17:28 05/31/21 18:00 Albuterol/Ipratropium 3.0-0.5 Mg/3 Ml Neb Soln Administered 05/31/21 17:29 3 ml Dose Administration 3 ml .ROUTE .STK-MED ONE Albuterol/Ipratropium 3 ml 05/31/21 17:34 05/31/21 18:00 Albuterol/Ipratropium 3.0-0.5 Mg/3 Ml Neb Soln NEB 05/31/21 17:35 3 ml ONETIME ONE Administration Albuterol/Ipratropium 3 ml 05/31/21 17:46 05/31/21 18:01 Albuterol/Ipratropium 3.0-0.5 Mg/3 Ml Neb Soln NEB 05/31/21 17:47 3 ml ONETIME ONE Administration Albuterol/Ipratropium 3 ml 05/31/21 17:47 05/31/21 18:01 Albuterol/Ipratropium 3.0-0.5 Mg/3 Ml Neb Soln NEB 05/31/21 17:48 Not Given ONETIME ONE Albuterol/Ipratropium 3 ml 05/31/21 17:47 05/31/21 18:01 Albuterol/Ipratropium 3.0-0.5 Mg/3 Ml Neb Soln NEB 05/31/21 17:48 3 ml ONETIME ONE Administration Albuterol/Ipratropium 3 ml 05/31/21 19:17 05/31/21 19:37 Albuterol/Ipratropium 3.0-0.5 Mg/3 Ml Neb Soln NEB 05/31/21 19:18 3 ml ONETIME ONE Administration Azithromycin 500 mg 05/31/21 19:17 05/31/21 19:36 Azithromycin 250 Mg Tab PO 05/31/21 19:18 500 mg ONETIME STA Administration Furosemide 40 mg 05/31/21 19:18 05/31/21 19:37 Furosemide 20 Mg/2 Ml Vial IVPUSH 05/31/21 19:19 40 mg ONETIME ONE Administration Methylprednisolone Sodium Succinate 125 mg 05/31/21 17:33 05/31/21 17:59 Methylprednisolone Sodium Succinate 125 Mg/2 Ml Sdv IVPUSH 05/31/21 17:34 125 mg ONETIME ONE Administration Methylprednisolone Sodium Succinate 125 mg 06/01/21 01:00 06/01/21 01:35 Methylprednisolone Sodium Succinate 125 Mg/2 Ml Sdv IVPUSH 06/01/21 01:01 125 mg NOW ONE Administration Departure - Departure Time of Disposition: 20:13 Disposition: Admitted As Inpatient 68 Condition: Poor Clinical Impression: COPD exacerbation, CHF exacerbation, COVID - Discharge Information *PRESCRIPTION DRUG MONITORING PROGRAM REVIEWED*: No *COPY OF PRESCRIPTION DRUG MONITORING REPORT IN PATIENT DAGMAR: No Sepsis Event Note (ED) - Evaluation Sepsis Screening Result: No Definite Risk - My Orders Last 24 Hours: My Active Orders 05/31/21 20:13 Admission Status [Patient Status] [ADT] Stat - Assessment/Plan Last 24 Hours: My Active Orders 05/31/21 20:13 Admission Status [Patient Status] [ADT] Stat
--- NOTE | 2021-06-01 00:56 | PCM.HP.2 ---
H&P History of Present Illness - General Date of Service: 06/01/21 Admit Problem/Dx: Admission Diagnosis/Problem Admission Diagnosis/Problem Exacerbation of chronic obstructive pulmonary disease associated with volcanic smog exposure - History of Present Illness Initial Comments - Free Text/Narative: 65 yo female with pmh of COPD, CHF, on home O2 who presents to the ED with several week history of worsening shortness of breath, wheezing, and productive cough. Patient reports increased swelling of her legs. She stopped taking all of her medications a few weeks ago except her lasix which she takes 80mg once a day at 3 am. Patient denies any fevers, myalgias, or nausea. Initially patient was sating in the 70s and was in some respiratory distress. She was given duonebs, solumedrol, and BIPAP with improvement in her breathing and she was placed back on simple nasal canula. CXR showed no acute pathology. Patient has been vaccinated in March. She tested positive for COVID today. Patient does not believe she is infected with COVID as she has no fever. legs Pain Score (Numeric/FACES): 8 - Related Data Allergies/Adverse Reactions: Allergies Allergy/AdvReac Type Severity Reaction Status Date / Time latex Allergy Mild Rash Verified 06/01/21 06:50 Home Medications: Home Meds Furosemide [Lasix] 60 mg PO BIDDIURETIC 05/08/17 [History] Albuterol Sulfate [Proair Hfa] 8.5 gm IH BID PRN 10/27/19 [History] Albuterol/Ipratropium [DuoNeb 3.0-0.5 MG/3 ML] 3 ml NEB BID 10/27/19 [History] Glycopyrrolate/Formoterol Fum [Bevespi Aerosphere Inhaler] 1 puff BID 10/27/19 [History] Acetaminophen [Tylenol] 650 mg PO Q4H PRN #30 tablet 10/31/19 [Rx] Nicotine [Habitrol] 14 mg TRDERM DAILY #15 patch 10/31/19 [Rx] Budesonide/Formoterol Fumarate [Symbicort 160-4.5 Mcg Inhaler] 6 gm INH ASDIRECTED 04/23/20 [History] Past Medical History HEENT History: Reports: None Other HEENT History: uses reading glasses Cardiovascular History: Reports: Heart Failure, PVD, SOB on Exertion Respiratory History: Reports: COPD, Other (See Below) Other Respiratory History: home O2 3-4 L via [place] Gastrointestinal History: Reports: None Genitourinary History: Reports: None, UTI, Recurrent 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: Other OB/BYN History: tubali ligation, 3 pregnancies Musculoskeletal History: Reports: None Neurological History: Reports: None Psychiatric History: Reports: Depression Endocrine/Metabolic History: Reports: Obesity/BMI 30+, Other (See Below) Other Endocrine/Metabolic History: lymphedema Hematologic History: Reports: None Immunologic History: Reports: None Oncologic (Cancer) History: Reports: Breast Dermatologic History: Reports: None Other Dermatologic History: lower leg open ulcers - Infectious Disease History Infectious Disease History: Reports: MLL-Komtmyolpn-Gsewisbsu Enterobacteriaceae, Measles, Mumps, Rubella - Past Surgical History Head Surgeries/Procedures: Reports: None Cardiovascular Surgical History: Reports: None Respiratory Surgical History: Reports: None Female Surgical History: Reports: Hysterectomy, Mastectomy, Salpingo- Oophorectomy, Tubal Ligation Endocrine Surgical History: Reports: None Oncologic Surgical History: Reports: Mastectomy Social & Family History - Family History Family Medical History: No Pertinent Family History HEENT: Reports: None Cardiac: Reports: None Respiratory: Reports: None Other Respiratory Family Hisory: Aunt, hardening of the lungs. GI: Reports: None : Reports: None OBGYN: Reports: None Musculoskeletal: Reports: None Other Musculoskeletal Family History: Mother, aunt Neurological: Reports: None Psychiatric: Reports: None Endocrine/Metabolic: Reports: None Hematologic: Reports: None Immunologic: Reports: None Dermatologic: Reports: None Oncologic: Reports: None - Tobacco Use Tobacco Use Status *Q: Current Every Day Tobacco User Years of Tobacco use: 45 Packs/Tins Daily: 0.5 Used Tobacco, but Quit: No Second Hand Smoke Exposure: No - Caffeine Use Caffeine Use: Reports: Soda Other Caffeine Use: 3 cups - Recreational Drug Use Recreational Drug Use: No - Living Situation & Occupation Living situation: Reports: H&P Review of Systems - Review of Systems: Review Of Systems: Comprehensive ROS is negative, except as noted in HPI. Exam - Exam Exam: See Below - Vital Signs Vital Signs: Last Vital Signs Temp 37.9 C 05/31/21 17:26 Pulse 85 05/31/21 22:01 Resp 18 05/31/21 22:01 BP 142/66 H 05/31/21 22:01 Pulse Ox 92 L 05/31/21 22:01 Weight: 136 kg - Exam General: Alert, Oriented HEENT: Mucosa Moist & [place] Lungs: Decreased Breath Sounds, Wheezing Cardiovascular: Regular Rate, Regular Rhythm GI/Abdominal Exam: Normal Bowel Sounds, Soft, Non-Tender Extremities: Non-Tender, Pedal Edema (+2), Other (venous stasis changes) Skin: Rash (canadial rash under abdominal panus) Neurological: No: Focal Deficit - Patient Data Lab Results Last 24 hrs: Laboratory Results - last 24 hr 05/31/21 05/31/21 05/31/21 Range/Units 17:58 17:58 17:58 WBC 11.14 H (4.0-11.0) K/uL RBC 4.41 (4.30-5.90) M/uL Hgb 12.8 (12.0-16.0) g/dL Hct 41.9 (36.0-46.0) % MCV 95.0 (80.0-98.0) fL MCH 29.0 (27.0-32.0) pg MCHC 30.5 L (31.0-37.0) g/dL RDW Std Deviation 60.5 (28.0-62.0) fl RDW Coeff of Misty 18 H (11.0-15.0) % Plt Count 264 (150-400) K/uL MPV 9.80 (7.40-12.00) fL Neut % (Auto) 73.4 (48.0-80.0) % Lymph % (Auto) 17.6 (16.0-40.0) % [place] % (Auto) 7.7 (0.0-15.0) % Eos % (Auto) 1.0 (0.0-7.0) % Baso % (Auto) 0.3 (0.0-1.5) % Neut # (Auto) 8.2 H (1.4-5.7) K/uL Lymph # (Auto) 2.0 (0.6-2.4) K/uL [place] # (Auto) 0.9 H (0.0-0.8) K/uL Eos # (Auto) 0.1 (0.0-0.7) K/uL Baso # (Auto) 0.0 (0.0-0.1) K/uL Nucleated RBC % 0.0 /100WBC Nucleated RBCs # 0 K/uL ABG pH (7.35-7.45) ABG pCO2 (35-45) mmHG ABG pO2 (80-105) mmHG ABG HCO3 (22-26) mEq/L ABG Total CO2 (23-27) mmol/L ABG Base Excess (-2.0-3.0) Sodium 142 (136-145) mmol/L Potassium 3.7 (3.5-5.1) mmol/L Chloride 104 (98-107) mmol/L Carbon Dioxide 33.2 H (21.0-32.0) mmol/L BUN 14 (7.0-18.0) mg/dL Creatinine 1.1 H (0.6-1.0) mg/dL Est Cr Clr Drug Dosing 45.20 mL/min Estimated GFR (MDRD) 50.2 ml/min Glucose 107 H (74-106) mg/dL Calcium 8.5 (8.5-10.1) mg/dL Magnesium 2.2 (1.8-2.4) mg/dL Troponin I < 0.050 (0.000-0.056) ng/mL B-Natriuretic Peptide 51 (<100) PG/ML SARS-CoV-2 RNA (WENDY) (NEGATIVE) 05/31/21 05/31/21 Range/Units 18:10 19:35 WBC (4.0-11.0) K/uL RBC (4.30-5.90) M/uL Hgb (12.0-16.0) g/dL Hct (36.0-46.0) % MCV (80.0-98.0) fL MCH (27.0-32.0) pg MCHC (31.0-37.0) g/dL RDW Std Deviation (28.0-62.0) fl RDW Coeff of Misty (11.0-15.0) % Plt Count (150-400) K/uL MPV (7.40-12.00) fL Neut % (Auto) (48.0-80.0) % Lymph % (Auto) (16.0-40.0) % [place] % (Auto) (0.0-15.0) % Eos % (Auto) (0.0-7.0) % Baso % (Auto) (0.0-1.5) % Neut # (Auto) (1.4-5.7) K/uL Lymph # (Auto) (0.6-2.4) K/uL [place] # (Auto) (0.0-0.8) K/uL Eos # (Auto) (0.0-0.7) K/uL Baso # (Auto) (0.0-0.1) K/uL Nucleated RBC % /100WBC Nucleated RBCs # K/uL ABG pH 7.39 (7.35-7.45) ABG pCO2 62 H (35-45) mmHG ABG pO2 < 30 L* (80-105) mmHG ABG HCO3 38 H (22-26) mEq/L ABG Total CO2 34.4 H (23-27) mmol/L ABG Base Excess 10.2 H (-2.0-3.0) Sodium (136-145) mmol/L Potassium (3.5-5.1) mmol/L Chloride (98-107) mmol/L Carbon Dioxide (21.0-32.0) mmol/L BUN (7.0-18.0) mg/dL Creatinine (0.6-1.0) mg/dL Est Cr Clr Drug Dosing mL/min Estimated GFR (MDRD) ml/min Glucose (74-106) mg/dL Calcium (8.5-10.1) mg/dL Magnesium (1.8-2.4) mg/dL Troponin I (0.000-0.056) ng/mL B-Natriuretic Peptide (<100) PG/ML SARS-CoV-2 RNA (WENDY) POSITIVE H (NEGATIVE) Result Diagrams: 06/01/21 05:02 06/01/21 05:02 Sepsis Event Note - Evaluation Sepsis Screening Result: No Definite Risk - Focused Exam Vital Signs: Vital Signs Temp Pulse Resp BP Pulse Ox 05/31/21 22:01 85 18 142/66 H 92 L 05/31/21 20:45 76 20 150/71 H 94 L 05/31/21 18:36 72 18 137/68 95 05/31/21 17:26 37.9 C 73 24 H 140/60 73 L Problem List Initiated/Reviewed/Updated: Yes Orders Last 24hrs: Active Orders 24 hr Category Date Time Status Admission Status [Patient Status] [ADT] Stat ADT 05/31/21 20:13 Active Nurse Communication: Isolation [RC] ASDIRECTED Care 05/31/21 23:37 Active RT Aerosol Therapy [RC] ASDIRECTED Care 06/01/21 00:44 Ordered RT Aerosol Therapy [RC] ASDIRECTED Care 06/01/21 00:45 Ordered RT BiPAP/CPAP [RC] ASDIRECTED Care 05/31/21 18:13 Active RT Post Treatment Assessment [RC] Click to Edit Care 06/01/21 00:44 Ordered RT Pre-Treatment Assessment [RC] Click to Edit Care 06/01/21 00:44 Ordered Telemetry Monitoring [Cardiac Monitoring] [RC] . Care 05/31/21 22:19 Active DIRECTED Albuterol/Ipratropium [DuoNeb 3.0-0.5 MG/3 ML] Med 06/01/21 09:00 Ordered 3 ml NEB BID Albuterol/Ipratropium [DuoNeb 3.0-0.5 MG/3 ML] Med 06/01/21 02:00 Ordered 3 ml NEB Q4HRRT Azithromycin [Zithromax] Med 06/01/21 19:00 Ordered 500 mg PO Q24H Budesonide/Formoterol [Symbicort 160-4.5 MCG] Med 06/01/21 09:00 Ordered 6 gm INH DAILY Nicotine [Habitrol] Med 06/01/21 00:45 Ordered 14 mg TRDERM DAILY methylPREDNISolone Sod Succ [Solu-MEDROL] Med 06/01/21 00:45 Ordered 125 mg IVPUSH Q8H Isolation [COMM] Routine Oth 05/31/21 23:37 Active Medication Orders Albuterol/Ipratropium (Albuterol/Ipratropium 3.0-0.5 Mg/3 Ml Neb Soln) 3 ml NEB BID MADAI Albuterol/Ipratropium (Albuterol/Ipratropium 3.0-0.5 Mg/3 Ml Neb Soln) 3 ml NEB Q4HRRT MADAI Budesonide/Formoterol Fumarate (Budesonide/Formoterol 160-4.5 Mcg/Puff 6 Gm Inhaler) 0 gm INH DAILY MADAI Nicotine (Nicotine 14 Mg/24 Hr Patch) 14 mg TRDERM DAILY MADAI Assessment/Plan Comment:: 65 yo female admitted for acute on chronic respiratory failure from COPD exacerbation and CHF exacerbation. Acute respiratory failure: Patient desats when sleeping: will place on BiPAP overnight COPD exacerbation: treated with solumedrol, duonebs, and azithromycin CHF exacerbation: will get echocardiogram, lasix IV BID Positive COVID test: I explained to the patient that given her vaccination she may not be as symptomatic from the infection. I explained that it is better to start treatment for COVID early but she refuses all treatment for COVID. She also refuses retesting to confirm diagnosis. Patient is quite discerning over which therapies she is willing to take even for non covid related issues. Will order CT of the chest.
[2021-06-01] MEDS ORDERED: methylPREDNISolone Sodium Succinate 125 MG/2 ML SDV IVPUSH ONE (01:00)
[2021-06-01] MEDS: Nicotine 14 MG/24 Hr Patch TRDERM SCH ×2 (01:33→10:00)
[2021-06-01] MEDS: Albuterol/Ipratropium 3.0-0.5 MG/3 ML Neb Soln NEB SCH ×6 (01:38→21:13)
[2021-06-01] MEDS: Heparin Sodium 5,000 Units/ML Vial SUBCUT SCH ×3 (01:44→16:57)
[2021-06-01] MEDS: Nystatin Topical Powder 15 GM Bottle TOP SCH ×3 (05:03→21:13)
--- NOTE | 2021-06-01 05:32 | PN ---
[facility] Physician - Brief Progress [id number]/02/2021 05:20[facility] Vaishnavi nicolas, [place] - MWN (SHARA) - MWN BOB HAGERDate of Service 06/01/2021 05:20HPI/Events of Note Brief eICU Admit [id number] yof with hx of COPD, CHF Presents with SOB, Hypoxemia, COVID +veO/E Seen on cameraVSS, NADO2 sat 86% on BiPAPDVT Prophylaxis: Hep SQGI Prophylaxis: n/aIssuesCOPD excerb ationChronic hypercapneic respiratory failureAcute HypoxemiaCOVID +veCT chest ordered (pt refusing Rx ), was vaccinatedAbx, Inhalers, steroidsBiPAP - FiO2 to be adjustedVery hypoxemicCT angio - needed to excluded PEGet dopplers of legs (won't need CT if positive)Would strongly consider empiric anticoagu lation - pt hesitant to therapies (already refused Hep SQ) - bedside to consent / orderHx of CHFPt is DNR/DNICase reviewed with bedside teamCall with questionsWill followInterventions Major-Respiratory failure - evaluation and management
--- NOTE | 2021-06-01 05:39 | PCM.EKG ---
#1 Interpretation EKG Date: 05/31/21 Time: 17:22 Rhythm: Other (Sinus Arrythmia) Rate (Beats/Min): 83 [place]: Normal P-Wave: Present QRS: Normal ST-T: Normal QT: Normal Comparison: No Change (10/27/19) EKG Interpretation Comments: Sinus Arrhythmia
[2021-06-01 06:27] LABS: CARBON DIOXIDE,CO2 35.6 mmol/L (21.0-32.0); POTASSIUM,K 4.3 mmol/L (3.5-5.1)
[2021-06-01] MEDS: Furosemide 40 MG/4 ML VIAL IVPUSH SCH ×2 (07:58→14:46)
[2021-06-01] MEDS: methylPREDNISolone Sodium Succinate 125 MG/2 ML SDV IVPUSH SCH ×2 (08:03→16:14)
[2021-06-01] MEDS ORDERED: Albuterol/Ipratropium 3.0-0.5 MG/3 ML Neb Soln NEB SCH (09:00)
[2021-06-01] MEDS ORDERED: Budesonide/Formoterol 160-4.5 MCG/Puff 6 GM Inhaler INH SCH (09:00)
--- NOTE | 2021-06-01 12:25 | PCM.PN ---
- General Info Date of Service: 06/01/21 - Review of Systems Systems Review Comment:: patient reports shortness of breath, report embarassment as wet the floor as unable to get to toilet after given lasix. - Patient Data Vitals - Most Recent: Last Vital Signs Temp 36 C L 06/01/21 12:00 Pulse 85 05/31/21 22:01 Resp 18 06/01/21 12:00 BP 105/69 06/01/21 12:00 Pulse Ox 93 L 06/01/21 12:00 Weight - Most Recent: 134.626 kg I&O - Last 24 Hours: Intake & Output 05/31/21 06/01/21 06/01/21 22:59 06:59 14:59 Intake Total 400 Output Total 350 Balance 50 Lab Results Last 24 Hours: Laboratory Results - last 24 hr 05/31/21 05/31/21 05/31/21 Range/Units 17:58 17:58 17:58 WBC 11.14 H (4.0-11.0) K/uL RBC 4.41 (4.30-5.90) M/uL Hgb 12.8 (12.0-16.0) g/dL Hct 41.9 (36.0-46.0) % MCV 95.0 (80.0-98.0) fL MCH 29.0 (27.0-32.0) pg MCHC 30.5 L (31.0-37.0) g/dL RDW Std Deviation 60.5 (28.0-62.0) fl RDW Coeff of Misty 18 H (11.0-15.0) % Plt Count 264 (150-400) K/uL MPV 9.80 (7.40-12.00) fL Neut % (Auto) 73.4 (48.0-80.0) % Lymph % (Auto) 17.6 (16.0-40.0) % [place] % (Auto) 7.7 (0.0-15.0) % Eos % (Auto) 1.0 (0.0-7.0) % Baso % (Auto) 0.3 (0.0-1.5) % Neut # (Auto) 8.2 H (1.4-5.7) K/uL Lymph # (Auto) 2.0 (0.6-2.4) K/uL [place]atte # (Auto) 0.9 H (0.0-0.8) K/uL Eos # (Auto) 0.1 (0.0-0.7) K/uL Baso # (Auto) 0.0 (0.0-0.1) K/uL Nucleated RBC % 0.0 /100WBC Nucleated RBCs # 0 K/uL ABG pH (7.35-7.45) ABG pCO2 (35-45) mmHG ABG pO2 (80-105) mmHG ABG HCO3 (22-26) mEq/L ABG Total CO2 (23-27) mmol/L ABG Base Excess (-2.0-3.0) Sodium 142 (136-145) mmol/L Potassium 3.7 (3.5-5.1) mmol/L Chloride 104 (98-107) mmol/L Carbon Dioxide 33.2 H (21.0-32.0) mmol/L BUN 14 (7.0-18.0) mg/dL Creatinine 1.1 H (0.6-1.0) mg/dL Est Cr Clr Drug Dosing 45.20 mL/min Estimated GFR (MDRD) 50.2 ml/min Glucose 107 H (74-106) mg/dL Calcium 8.5 (8.5-10.1) mg/dL Magnesium 2.2 (1.8-2.4) mg/dL Total Bilirubin (0.2-1.0) mg/dL AST (15-37) IU/L ALT (14-63) IU/L Alkaline Phosphatase (46-116) U/L Troponin I < 0.050 (0.000-0.056) ng/mL B-Natriuretic Peptide 51 (<100) PG/ML Total Protein (6.4-8.2) g/dL Albumin (3.4-5.0) g/dL Globulin (2.6-4.0) g/dL Albumin/Globulin Ratio (0.9-1.6) SARS-CoV-2 RNA (WENDY) (NEGATIVE) 05/31/21 05/31/21 06/01/21 Range/Units 18:10 19:35 05:02 WBC 10.48 (4.0-11.0) K/uL RBC 4.67 (4.30-5.90) M/uL Hgb 13.5 (12.0-16.0) g/dL Hct 45.2 (36.0-46.0) % MCV 96.8 (80.0-98.0) fL MCH 28.9 (27.0-32.0) pg MCHC 29.9 L (31.0-37.0) g/dL RDW Std Deviation 61.7 (28.0-62.0) fl RDW Coeff of Misty 18 H (11.0-15.0) % Plt Count 272 (150-400) K/uL MPV 9.90 (7.40-12.00) fL Neut % (Auto) 91.4 H (48.0-80.0) % Lymph % (Auto) 6.0 L (16.0-40.0) % [place] % (Auto) 2.5 (0.0-15.0) % Eos % (Auto) 0.0 (0.0-7.0) % Baso % (Auto) 0.1 (0.0-1.5) % Neut # (Auto) 9.6 H (1.4-5.7) K/uL Lymph # (Auto) 0.6 (0.6-2.4) K/uL [place] # (Auto) 0.3 (0.0-0.8) K/uL Eos # (Auto) 0.0 (0.0-0.7) K/uL Baso # (Auto) 0.0 (0.0-0.1) K/uL Nucleated RBC % 0.5 /100WBC Nucleated RBCs # 0 K/uL ABG pH 7.39 (7.35-7.45) ABG pCO2 62 H (35-45) mmHG ABG pO2 < 30 L* (80-105) mmHG ABG HCO3 38 H (22-26) mEq/L ABG Total CO2 34.4 H (23-27) mmol/L ABG Base Excess 10.2 H (-2.0-3.0) Sodium (136-145) mmol/L Potassium (3.5-5.1) mmol/L Chloride (98-107) mmol/L Carbon Dioxide (21.0-32.0) mmol/L BUN (7.0-18.0) mg/dL Creatinine (0.6-1.0) mg/dL Est Cr Clr Drug Dosing mL/min Estimated GFR (MDRD) ml/min Glucose (74-106) mg/dL Calcium (8.5-10.1) mg/dL Magnesium (1.8-2.4) mg/dL Total Bilirubin (0.2-1.0) mg/dL AST (15-37) IU/L ALT (14-63) IU/L Alkaline Phosphatase (46-116) U/L Troponin I (0.000-0.056) ng/mL B-Natriuretic Peptide (<100) PG/ML Total Protein (6.4-8.2) g/dL Albumin (3.4-5.0) g/dL Globulin (2.6-4.0) g/dL Albumin/Globulin Ratio (0.9-1.6) SARS-CoV-2 RNA (WENDY) POSITIVE H (NEGATIVE) 06/01/21 Range/Units 05:02 WBC (4.0-11.0) K/uL RBC (4.30-5.90) M/uL Hgb (12.0-16.0) g/dL Hct (36.0-46.0) % MCV (80.0-98.0) fL MCH (27.0-32.0) pg MCHC (31.0-37.0) g/dL RDW Std Deviation (28.0-62.0) fl RDW Coeff of Misty (11.0-15.0) % Plt Count (150-400) K/uL MPV (7.40-12.00) fL Neut % (Auto) (48.0-80.0) % Lymph % (Auto) (16.0-40.0) % [place] % (Auto) (0.0-15.0) % Eos % (Auto) (0.0-7.0) % Baso % (Auto) (0.0-1.5) % Neut # (Auto) (1.4-5.7) K/uL Lymph # (Auto) (0.6-2.4) K/uL [place]atte # (Auto) (0.0-0.8) K/uL Eos # (Auto) (0.0-0.7) K/uL Baso # (Auto) (0.0-0.1) K/uL Nucleated RBC % /100WBC Nucleated RBCs # K/uL ABG pH (7.35-7.45) ABG pCO2 (35-45) mmHG ABG pO2 (80-105) mmHG ABG HCO3 (22-26) mEq/L ABG Total CO2 (23-27) mmol/L ABG Base Excess (-2.0-3.0) Sodium 144 (136-145) mmol/L Potassium 4.3 (3.5-5.1) mmol/L Chloride 104 (98-107) mmol/L Carbon Dioxide 35.6 H (21.0-32.0) mmol/L BUN 17 (7.0-18.0) mg/dL Creatinine 1.4 H (0.6-1.0) mg/dL Est Cr Clr Drug Dosing 35.52 mL/min Estimated GFR (MDRD) 38.0 ml/min Glucose 160 H (74-106) mg/dL Calcium 8.6 (8.5-10.1) mg/dL Magnesium (1.8-2.4) mg/dL Total Bilirubin 0.3 (0.2-1.0) mg/dL AST 21 (15-37) IU/L ALT 58 (14-63) IU/L Alkaline Phosphatase 108 (46-116) U/L Troponin I (0.000-0.056) ng/mL B-Natriuretic Peptide (<100) PG/ML Total Protein 6.9 (6.4-8.2) g/dL Albumin 2.7 L (3.4-5.0) g/dL Globulin 4.2 H (2.6-4.0) g/dL Albumin/Globulin Ratio 0.6 L (0.9-1.6) SARS-CoV-2 RNA (WENDY) (NEGATIVE) Med Orders - Current: Current Medications Albuterol/Ipratropium (Albuterol/Ipratropium 3.0-0.5 Mg/3 Ml Neb Soln) 3 ml NEB Q4HRRT [facility] Last Admin: 06/01/21 10:00 Dose: 3 ml Documented by: Azithromycin (Azithromycin 250 Mg Tab) 500 mg PO Q24H [facility] Furosemide (Furosemide 40 Mg/4 Ml Vial) 60 mg IVPUSH BIDDIURETIC [facility]AD[facility] Last Admin: 06/01/21 07:58 Dose: 60 mg Documented by: Heparin Sodium (Porcine) (Heparin Sodium 5,000 Units/Ml Vial) 5,000 units SUBCUT Q8H [facility] Last Admin: 06/01/21 08:02 Dose: Not Given Documented by: Methylprednisolone Sodium Succinate (Methylprednisolone Sodium Succinate 125 Mg/2 Ml Sdv) 125 mg IVPUSH Q8H [facility] Last Admin: 06/01/21 08:03 Dose: 125 mg Documented by: Nicotine (Nicotine 14 Mg/24 Hr Patch) 14 mg TRDERM DAILY [facility] Last Admin: 06/01/21 10:00 Dose: 14 mg Documented by: Nystatin (Nystatin Topical Powder 15 Gm Bottle) 1 gm TOP TID [facility] Last Admin: 06/01/21 05:03 Dose: 1 applic Documented by: Budesonide/Formoterol 160-4.5 Mcg/Puff 6 Gm Inhaler 1 each INH DAILY [facility] Discontinued Medications Albuterol/Ipratropium (Albuterol/Ipratropium 3.0-0.5 Mg/3 Ml Neb Soln) Confirm Administered Dose 3 ml .ROUTE .STK-MED ONE Stop: 05/31/21 17:29 Last Admin: 05/31/21 18:00 Dose: 3 ml Documented by: Albuterol/Ipratropium (Albuterol/Ipratropium 3.0-0.5 Mg/3 Ml Neb Soln) 3 ml NEB ONETIME ONE Stop: 05/31/21 17:35 Last Admin: 05/31/21 18:00 Dose: 3 ml Documented by: Albuterol/Ipratropium (Albuterol/Ipratropium 3.0-0.5 Mg/3 Ml Neb Soln) 3 ml NEB ONETIME ONE Stop: 05/31/21 17:47 Last Admin: 05/31/21 18:01 Dose: 3 ml Documented by: Albuterol/Ipratropium (Albuterol/Ipratropium 3.0-0.5 Mg/3 Ml Neb Soln) 3 ml NEB ONETIME ONE Stop: 05/31/21 17:48 Last Admin: 05/31/21 18:01 Dose: Not Given Documented by: Albuterol/Ipratropium (Albuterol/Ipratropium 3.0-0.5 Mg/3 Ml Neb Soln) 3 ml NEB ONETIME ONE Stop: 05/31/21 17:48 Last Admin: 05/31/21 18:01 Dose: 3 ml Documented by: Albuterol/Ipratropium (Albuterol/Ipratropium 3.0-0.5 Mg/3 Ml Neb Soln) 3 ml NEB ONETIME ONE Stop: 05/31/21 19:18 Last Admin: 05/31/21 19:37 Dose: 3 ml Documented by: Albuterol/Ipratropium (Albuterol/Ipratropium 3.0-0.5 Mg/3 Ml Neb Soln) 3 ml NEB BID [facility] Last Admin: 06/01/21 10:24 Dose: Not Given Documented by: Azithromycin (Azithromycin 250 Mg Tab) 500 mg PO ONETIME STA Stop: 05/31/21 19:18 Last Admin: 05/31/21 19:36 Dose: 500 mg Documented by: Budesonide/Formoterol Fumarate (Budesonide/Formoterol 160-4.5 Mcg/Puff 6 Gm Inhaler) 0 gm INH DAILY [facility] Last Admin: 06/01/21 10:25 Dose: Not Given Documented by: Furosemide (Furosemide 20 Mg/2 Ml Vial) 40 mg IVPUSH ONETIME ONE Stop: 05/31/21 19:19 Last Admin: 05/31/21 19:37 Dose: 40 mg Documented by: Methylprednisolone Sodium Succinate (Methylprednisolone Sodium Succinate 125 Mg /2 Ml Sdv) 125 mg IVPUSH ONETIME ONE Stop: 05/31/21 17:34 Last Admin: 05/31/21 17:59 Dose: 125 mg Documented by: Methylprednisolone Sodium Succinate (Methylprednisolone Sodium Succinate 125 Mg/2 Ml Sdv) 125 mg IVPUSH NOW ONE Stop: 06/01/21 01:01 Last Admin: 06/01/21 01:35 Dose: 125 mg Documented by: - Exam General: Alert, Oriented Lungs: Decreased Breath Sounds, Wheezing GI/Abdominal Exam: Soft, Non-Tender, No Distention Extremities: Non-Tender, No Pedal Edema Skin: Warm, Dry, Intact Neurological: No New Focal Deficit - Patient Data Lab Results Last 24 hrs: Laboratory Results - last 24 hr 05/31/21 05/31/21 05/31/21 Range/Units 17:58 17:58 17:58 WBC 11.14 H (4.0-11.0) K/uL RBC 4.41 (4.30-5.90) M/uL Hgb 12.8 (12.0-16.0) g/dL Hct 41.9 (36.0-46.0) % MCV 95.0 (80.0-98.0) fL MCH 29.0 (27.0-32.0) pg MCHC 30.5 L (31.0-37.0) g/dL RDW Std Deviation 60.5 (28.0-62.0) fl RDW Coeff of Misty 18 H (11.0-15.0) % Plt Count 264 (150-400) K/uL MPV 9.80 (7.40-12.00) fL Neut % (Auto) 73.4 (48.0-80.0) % Lymph % (Auto) 17.6 (16.0-40.0) % [place] % (Auto) 7.7 (0.0-15.0) % Eos % (Auto) 1.0 (0.0-7.0) % Baso % (Auto) 0.3 (0.0-1.5) % Neut # (Auto) 8.2 H (1.4-5.7) K/uL Lymph # (Auto) 2.0 (0.6-2.4) K/uL [place] # (Auto) 0.9 H (0.0-0.8) K/uL Eos # (Auto) 0.1 (0.0-0.7) K/uL Baso # (Auto) 0.0 (0.0-0.1) K/uL Nucleated RBC % 0.0 /100WBC Nucleated RBCs # 0 K/uL ABG pH (7.35-7.45) ABG pCO2 (35-45) mmHG ABG pO2 (80-105) mmHG ABG HCO3 (22-26) mEq/L ABG Total CO2 (23-27) mmol/L ABG Base Excess (-2.0-3.0) Sodium 142 (136-145) mmol/L Potassium 3.7 (3.5-5.1) mmol/L Chloride 104 (98-107) mmol/L Carbon Dioxide 33.2 H (21.0-32.0) mmol/L BUN 14 (7.0-18.0) mg/dL Creatinine 1.1 H (0.6-1.0) mg/dL Est Cr Clr Drug Dosing 45.20 mL/min Estimated GFR (MDRD) 50.2 ml/min Glucose 107 H (74-106) mg/dL Calcium 8.5 (8.5-10.1) mg/dL Magnesium 2.2 (1.8-2.4) mg/dL Total Bilirubin (0.2-1.0) mg/dL AST (15-37) IU/L ALT (14-63) IU/L Alkaline Phosphatase (46-116) U/L Troponin I < 0.050 (0.000-0.056) ng/mL B-Natriuretic Peptide 51 (<100) PG/ML Total Protein (6.4-8.2) g/dL Albumin (3.4-5.0) g/dL Globulin (2.6-4.0) g/dL Albumin/Globulin Ratio (0.9-1.6) SARS-CoV-2 RNA (WENDY) (NEGATIVE) 05/31/21 05/31/21 06/01/21 Range/Units 18:10 19:35 05:02 WBC 10.48 (4.0-11.0) K/uL RBC 4.67 (4.30-5.90) M/uL Hgb 13.5 (12.0-16.0) g/dL Hct 45.2 (36.0-46.0) % MCV 96.8 (80.0-98.0) fL MCH 28.9 (27.0-32.0) pg MCHC 29.9 L (31.0-37.0) g/dL RDW Std Deviation 61.7 (28.0-62.0) fl RDW Coeff of Misty 18 H (11.0-15.0) % Plt Count 272 (150-400) K/uL MPV 9.90 (7.40-12.00) fL Neut % (Auto) 91.4 H (48.0-80.0) % Lymph % (Auto) 6.0 L (16.0-40.0) % [place] % (Auto) 2.5 (0.0-15.0) % Eos % (Auto) 0.0 (0.0-7.0) % Baso % (Auto) 0.1 (0.0-1.5) % Neut # (Auto) 9.6 H (1.4-5.7) K/uL Lymph # (Auto) 0.6 (0.6-2.4) K/uL [place] # (Auto) 0.3 (0.0-0.8) K/uL Eos # (Auto) 0.0 (0.0-0.7) K/uL Baso # (Auto) 0.0 (0.0-0.1) K/uL Nucleated RBC % 0.5 /100WBC Nucleated RBCs # 0 K/uL ABG pH 7.39 (7.35-7.45) ABG pCO2 62 H (35-45) mmHG ABG pO2 < 30 L* (80-105) mmHG ABG HCO3 38 H (22-26) mEq/L ABG Total CO2 34.4 H (23-27) mmol/L ABG Base Excess 10.2 H (-2.0-3.0) Sodium (136-145) mmol/L Potassium (3.5-5.1) mmol/L Chloride (98-107) mmol/L Carbon Dioxide (21.0-32.0) mmol/L BUN (7.0-18.0) mg/dL Creatinine (0.6-1.0) mg/dL Est Cr Clr Drug Dosing mL/min Estimated GFR (MDRD) ml/min Glucose (74-106) mg/dL Calcium (8.5-10.1) mg/dL Magnesium (1.8-2.4) mg/dL Total Bilirubin (0.2-1.0) mg/dL AST (15-37) IU/L ALT (14-63) IU/L Alkaline Phosphatase (46-116) U/L Troponin I (0.000-0.056) ng/mL B-Natriuretic Peptide (<100) PG/ML Total Protein (6.4-8.2) g/dL Albumin (3.4-5.0) g/dL Globulin (2.6-4.0) g/dL Albumin/Globulin Ratio (0.9-1.6) SARS-CoV-2 RNA (WENDY) POSITIVE H (NEGATIVE) 06/01/21 Range/Units 05:02 WBC (4.0-11.0) K/uL RBC (4.30-5.90) M/uL Hgb (12.0-16.0) g/dL Hct (36.0-46.0) % MCV (80.0-98.0) fL MCH (27.0-32.0) pg MCHC (31.0-37.0) g/dL RDW Std Deviation (28.0-62.0) fl RDW Coeff of Misty (11.0-15.0) % Plt Count (150-400) K/uL MPV (7.40-12.00) fL Neut % (Auto) (48.0-80.0) % Lymph % (Auto) (16.0-40.0) % [place] % (Auto) (0.0-15.0) % Eos % (Auto) (0.0-7.0) % Baso % (Auto) (0.0-1.5) % Neut # (Auto) (1.4-5.7) K/uL Lymph # (Auto) (0.6-2.4) K/uL [place]atte # (Auto) (0.0-0.8) K/uL Eos # (Auto) (0.0-0.7) K/uL Baso # (Auto) (0.0-0.1) K/uL Nucleated RBC % /100WBC Nucleated RBCs # K/uL ABG pH (7.35-7.45) ABG pCO2 (35-45) mmHG ABG pO2 (80-105) mmHG ABG HCO3 (22-26) mEq/L ABG Total CO2 (23-27) mmol/L ABG Base Excess (-2.0-3.0) Sodium 144 (136-145) mmol/L Potassium 4.3 (3.5-5.1) mmol/L Chloride 104 (98-107) mmol/L Carbon Dioxide 35.6 H (21.0-32.0) mmol/L BUN 17 (7.0-18.0) mg/dL Creatinine 1.4 H (0.6-1.0) mg/dL Est Cr Clr Drug Dosing 35.52 mL/min Estimated GFR (MDRD) 38.0 ml/min Glucose 160 H (74-106) mg/dL Calcium 8.6 (8.5-10.1) mg/dL Magnesium (1.8-2.4) mg/dL Total Bilirubin 0.3 (0.2-1.0) mg/dL AST 21 (15-37) IU/L ALT 58 (14-63) IU/L Alkaline Phosphatase 108 (46-116) U/L Troponin I (0.000-0.056) ng/mL B-Natriuretic Peptide (<100) PG/ML Total Protein 6.9 (6.4-8.2) g/dL Albumin 2.7 L (3.4-5.0) g/dL Globulin 4.2 H (2.6-4.0) g/dL Albumin/Globulin Ratio 0.6 L (0.9-1.6) SARS-CoV-2 RNA (WENDY) (NEGATIVE) Result Diagrams: 06/01/21 05:02 06/01/21 05:02 Sepsis Event Note - Evaluation Sepsis Screening Result: No Definite Risk - Focused Exam Vital Signs: Vital Signs Temp Resp BP BP Pulse Ox Pulse Ox Pulse Ox 06/01/21 12:00 36 C L 18 105/69 93 L 06/01/21 11:00 20 106/59 L 06/01/21 10:00 19 113/89 92 L 06/01/21 09:00 16 115/99 H 92 L 06/01/21 08:00 36.1 C 20 132/71 92 L 06/01/21 07:00 90 L 06/01/21 06:00 23 H 93 L 06/01/21 05:00 36.3 C 19 125/75 89 L 06/01/21 04:00 19 94 L 06/01/21 03:00 20 96 06/01/21 02:00 17 94 L 06/01/21 01:24 96 06/01/21 01:00 36.4 C 24 H 116/44 L 85 L 85 L - Problem List Review Problem List Initiated/Reviewed/Updated: Yes - My Orders Last 24 Hours: My Active Orders 05/31/21 22:19 Telemetry Monitoring [Cardiac Monitoring] [RC] Q8H 05/31/21 23:37 Isolation [COMM] Routine 06/01/21 00:44 RT Post Treatment Assessment [RC] Click to Edit RT Pre-Treatment Assessment [RC] Click to Edit 06/01/21 00:45 RT Aerosol Therapy [RC] ASDIRECTED Nicotine [Habitrol] 14 mg TRDERM DAILY 06/01/21 01:00 Up ad Adelita [RC] ASDIRECTED VTE/DVT Education [RC] PER UNIT ROUTINE Vital Signs [RC] Q1H Heparin Sodium 5,000 units SUBCUT Q8H Sequential Compression Device [OM.PC] Per Unit Routine Resuscitation Status Routine 06/01/21 01:01 Antiembolic Devices [RC] Q12H 06/01/21 01:02 Echo Comp wo Cont [US] Routine 06/01/21 01:05 Transfer Patient (Change bed) [ADT] Routine Chest PE [Ang Chest] [CT] Stat 06/01/21 01:24 RT BiPAP/CPAP [RC] ASDIRECTED Supplemental O2 [Oxygen Therapy] [RC] ASDIRECTED 06/01/21 02:00 Albuterol/Ipratropium [DuoNeb 3.0-0.5 MG/3 ML] 3 ml NEB Q4HRRT 06/01/21 06:00 Nystatin [Nystop] 1 gm TOP TID 06/01/21 Breakfast Regular Diet [DIET] 06/01/21 08:00 Furosemide [Lasix] 60 mg IVPUSH BIDDIURETIC 06/01/21 09:00 methylPREDNISolone Sod Succ [Solu-MEDROL] 125 mg IVPUSH Q8H 06/01/21 09:16 Patient's Own Medication [Ptom] 1 each INH DAILY 06/01/21 19:00 Azithromycin [Zithromax] 500 mg PO Q24H - Plan Plan:: 65 yo female admitted for acute on chronic respiratory failure from COPD exacerbation and CHF exacerbation. Acute respiratory failure: on heated high flow COPD exacerbation: treated with solumedrol, duonebs, and azithromycin CHF exacerbation: echocardiogram pending, lasix IV BID Positive COVID test: patient still refusing treatment for COVID Patient has a phobia of needles and has been refusing dvt ppx, patient had refused CT angio of the chest due to requiring larger IV. She does agree to CT scan now but was visibly trembling due to her fear. After some encouragement she appears to be relaxed now.
--- NOTE | 2021-06-01 13:48 | US ---
INDICATION: Leg pain and swelling. TECHNIQUE: Ultrasound venous duplex lower extremity bilateral. Compression venous exam was performed using duenas-scale, color Doppler, and spectral Doppler imaging. COMPARISON: 10/27/2019 FINDINGS: Sonographic imaging demonstrates the common femoral, deep femoral, superficial femoral, popliteal, posterior tibial and greater saphenous veins to be fully compressible with normal color Doppler blood flow in both lower extremities. IMPRESSION: Normal bilateral lower extremity venous ultrasound, no sign of deep venous thrombosis. Dictated by Cass Spencer MD @ 06/01/2021 1:47:[address] Cass Spencer @ Jun 01 2021 1:47PM
[2021-06-01] MEDS ORDERED: Iopamidol 755 MG/ML 500 ML Multipack Bottle IVPUSH ONE (14:24)
--- NOTE | 2021-06-01 14:57 | CT ---
INDICATION: COPD. COVID positive. COMPARISON: May 08, 2020 TECHNIQUE: : CT examination of the chest was performed with the uneventful intravenous administration of 68 cc of Isovue 370 while thin axial sections were obtained from above the apices of the lungs to the lung bases. Please note that all CT scans at this facility use dose modulation, iterative reconstruction, and/or weight-based dosing when appropriate to reduce radiation dose to as low as reasonably achievable. FINDINGS: : HEART and MEDIASTINUM: Heart size normal. Prominent mediastinal lymph nodes more notable due to their number than their size. Stable since May 08, 2020. These are likely benign/reactive. No significant pericardial fluid PULMONARY ARTERIAL CIRCULATION: There is no visible intraluminal filling defect to suggest pulmonary embolus. LUNGS: Minimal biapical pleural parenchymal nodularity which is unchanged and likely fibrotic. There is bibasilar atelectasis best seen posteriorly at the bases but also involving the right middle lobe and lingula. There is patchy ground-glass. This appears somewhat favors multifocal atelectasis due to hypoventilation. The possibility of this representing COVID related lung disease or another inflammatory disorder is not excluded but felt less likely. There is no focal consolidation, infiltrate or mass PLEURAL SPACES: There is no pleural effusion, pneumothorax or pleural based mass. VISUALIZED UPPER ABDOMEN: Hepatic steatosis. 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 OSSEOUS STRUCTURES: Age-appropriate appearance. No acute fracture or destructive process. TUBES and LINES: None. IMPRESSION: 1. There is no finding of pulmonary embolus. 2. Prominent mediastinal lymph nodes unchanged, likely reactive. 3. Patchy multifocal ground-glass. This is mild and favored to represent multifocal atelectasis in the setting of hypoventilation rather than a diffuse inflammatory process. No focal consolidation, infiltrate or mass. No pleural effusion. Minimal linear basilar atelectasis 4. Hepatic steatosis. 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 Dictated by Austin Lawson MD @ 06/01/2021 2:56:[address] Austin Lawson @ Jun 01 2021 2:56PM
[2021-06-01 15:16] VITALS: PULSE 78
[2021-06-01] MEDS: Azithromycin 250 MG Tab PO SCH (18:39)
[2021-06-02] MEDS: methylPREDNISolone Sodium Succinate 125 MG/2 ML SDV IVPUSH SCH ×2 (00:50→08:00)
[2021-06-02] MEDS: Albuterol/Ipratropium 3.0-0.5 MG/3 ML Neb Soln NEB SCH ×6 (01:06→21:01)
[2021-06-02] MEDS: Heparin Sodium 5,000 Units/ML Vial SUBCUT SCH ×3 (01:07→18:05)
[2021-06-02] MEDS: Nystatin Topical Powder 15 GM Bottle TOP SCH ×3 (05:05→21:09)
[2021-06-02 05:38] LABS: CARBON DIOXIDE,CO2 34.9 mmol/L (21.0-32.0); POTASSIUM,K 3.9 mmol/L (3.5-5.1)
[2021-06-02] MEDS: Furosemide 40 MG/4 ML VIAL IVPUSH SCH ×2 (08:00→13:32)
[2021-06-02] MEDS: Budesonide/Formoterol 160-4.5 MCG/Puff 6 GM Inhaler INH SCH (08:02)
[2021-06-02] MEDS: Nicotine 14 MG/24 Hr Patch TRDERM SCH (09:03)
[2021-06-02] MEDS ORDERED: 50% Dextrose in Water 50 ML Syringe IVPUSH PRN (11:54)
[2021-06-02] MEDS ORDERED: Glucagon,Human Recombinant 1 MG Vial IM PRN (11:54)
--- NOTE | 2021-06-02 11:57 | PCM.PN ---
- General Info Date of Service: 06/02/21 - Review of Systems Systems Review Comment:: feeling better, shortness of breath has improved - Patient Data Vitals - Most Recent: Last Vital Signs Temp 36.6 C 06/02/21 08:00 Pulse 78 06/01/21 14:15 Resp 13 06/02/21 09:00 BP 100/65 06/02/21 08:00 Pulse Ox 94 L 06/02/21 09:00 Weight - Most Recent: 134.626 kg I&O - Last 24 Hours: Intake & Output 06/01/21 06/02/21 06/02/21 22:59 06:59 14:59 Intake Total 1700 620 Output Total 1500 1200 Balance 200 -580 Lab Results Last 24 Hours: Laboratory Results - last 24 hr 06/02/21 06/02/21 Range/Units 05:10 05:10 WBC 14.07 H (4.0-11.0) K/uL RBC 4.61 (4.30-5.90) M/uL Hgb 13.3 (12.0-16.0) g/dL Hct 44.1 (36.0-46.0) % MCV 95.7 (80.0-98.0) fL MCH 28.9 (27.0-32.0) pg MCHC 30.2 L (31.0-37.0) g/dL RDW Std Deviation 58.7 (28.0-62.0) fl RDW Coeff of Misty 17 H (11.0-15.0) % Plt Count 271 (150-400) K/uL MPV 9.80 (7.40-12.00) fL Neut % (Auto) 91.0 H (48.0-80.0) % Lymph % (Auto) 5.1 L (16.0-40.0) % Hanson % (Auto) 3.9 (0.0-15.0) % Eos % (Auto) 0.0 (0.0-7.0) % Baso % (Auto) 0.0 (0.0-1.5) % Neut # (Auto) 12.8 H (1.4-5.7) K/uL Lymph # (Auto) 0.7 (0.6-2.4) K/uL Hanson # (Auto) 0.6 (0.0-0.8) K/uL Eos # (Auto) 0.0 (0.0-0.7) K/uL Baso # (Auto) 0.0 (0.0-0.1) K/uL Nucleated RBC % 0.0 /100WBC Nucleated RBCs # 0 K/uL Sodium 138 (136-145) mmol/L Potassium 3.9 (3.5-5.1) mmol/L Chloride 101 (98-107) mmol/L Carbon Dioxide 34.9 H (21.0-32.0) mmol/L BUN 28 H (7.0-18.0) mg/dL Creatinine 1.1 H (0.6-1.0) mg/dL Est Cr Clr Drug Dosing 45.20 mL/min Estimated GFR (MDRD) 50.2 ml/min Glucose 250 H (74-106) mg/dL Calcium 8.6 (8.5-10.1) mg/dL Total Bilirubin 0.2 (0.2-1.0) mg/dL AST 15 (15-37) IU/L ALT 46 (14-63) IU/L Alkaline Phosphatase 118 H (46-116) U/L Total Protein 6.5 (6.4-8.2) g/dL Albumin 2.6 L (3.4-5.0) g/dL Globulin 3.9 (2.6-4.0) g/dL Albumin/Globulin Ratio 0.7 L (0.9-1.6) Med Orders - Current: Current Medications Albuterol/Ipratropium (Albuterol/Ipratropium 3.0-0.5 Mg/3 Ml Neb Soln) 3 ml NEB Q4HRRT [facility] Last Admin: 06/02/21 09:55 Dose: 3 ml Documented by: Azithromycin (Azithromycin 250 Mg Tab) 500 mg PO Q24H [facility] Last Admin: 06/01/21 18:39 Dose: 500 mg Documented by: Dextrose/Water (50% Dextrose In Water 50 Ml Syringe) 50 ml IVPUSH ASDIRECTED PRN PRN Reason: Hypoglycemia Furosemide (Furosemide 40 Mg/4 Ml Vial) 60 mg IVPUSH BIDDIURETIC [facility] Last Admin: 06/02/21 08:00 Dose: 60 mg Documented by: Glucagon (Glucagon,Human Recombinant 1 Mg Vial) 1 mg IM ASDIRECTED PRN PRN Reason: Hypoglycemia Heparin Sodium (Porcine) (Heparin Sodium 5,000 Units/Ml Vial) 5,000 units SUBCUT Q8H [facility] Last Admin: 06/02/21 08:35 Dose: Not Given Documented by: Insulin Aspart (Insulin Aspart 100 Units/Ml 3 Ml Pen) 0 unit SUBCUT TIDAC [facility]; Protocol Methylprednisolone Sodium Succinate (Methylprednisolone Sodium Succinate 125 Mg/2 Ml Sdv) 125 mg IVPUSH DAILY [facility] Nicotine (Nicotine 14 Mg/24 Hr Patch) 14 mg TRDERM DAILY [facility] Last Admin: 06/02/21 09:03 Dose: 14 mg Documented by: Nystatin (Nystatin Topical Powder 15 Gm Bottle) 1 gm TOP TID [facility] Last Admin: 06/02/21 05:05 Dose: 1 applic Documented by: Budesonide/Formoterol 160-4.5 Mcg/Puff 6 Gm Inhaler 1 each INH DAILY [facility] Last Admin: 06/02/21 08:02 Dose: 1 each Documented by: Discontinued Medications Albuterol/Ipratropium (Albuterol/Ipratropium 3.0-0.5 Mg/3 Ml Neb Soln) Confirm Administered Dose 3 ml .ROUTE .STK-MED ONE Stop: 05/31/21 17:29 Last Admin: 05/31/21 18:00 Dose: 3 ml Documented by: Albuterol/Ipratropium (Albuterol/Ipratropium 3.0-0.5 Mg/3 Ml Neb Soln) 3 ml NEB ONETIME ONE Stop: 05/31/21 17:35 Last Admin: 05/31/21 18:00 Dose: 3 ml Documented by: Albuterol/Ipratropium (Albuterol/Ipratropium 3.0-0.5 Mg/3 Ml Neb Soln) 3 ml NEB ONETIME ONE Stop: 05/31/21 17:47 Last Admin: 05/31/21 18:01 Dose: 3 ml Documented by: Albuterol/Ipratropium (Albuterol/Ipratropium 3.0-0.5 Mg/3 Ml Neb Soln) 3 ml NEB ONETIME ONE Stop: 05/31/21 17:48 Last Admin: 05/31/21 18:01 Dose: Not Given Documented by: Albuterol/Ipratropium (Albuterol/Ipratropium 3.0-0.5 Mg/3 Ml Neb Soln) 3 ml NEB ONETIME ONE Stop: 05/31/21 17:48 Last Admin: 05/31/21 18:01 Dose: 3 ml Documented by: Albuterol/Ipratropium (Albuterol/Ipratropium 3.0-0.5 Mg/3 Ml Neb Soln) 3 ml NEB ONETIME ONE Stop: 05/31/21 19:18 Last Admin: 05/31/21 19:37 Dose: 3 ml Documented by: Albuterol/Ipratropium (Albuterol/Ipratropium 3.0-0.5 Mg/3 Ml Neb Soln) 3 ml NEB BID [facility] Last Admin: 06/01/21 10:24 Dose: Not Given Documented by: Azithromycin (Azithromycin 250 Mg Tab) 500 mg PO ONETIME STA Stop: 05/31/21 19:18 Last Admin: 05/31/21 19:36 Dose: 500 mg Documented by: Budesonide/Formoterol Fumarate (Budesonide/Formoterol 160-4.5 Mcg/Puff 6 Gm Inhaler) 0 gm INH DAILY [facility] Last Admin: 06/01/21 10:25 Dose: Not Given Documented by: Furosemide (Furosemide 20 Mg/2 Ml Vial) 40 mg IVPUSH ONETIME ONE Stop: 05/31/21 19:19 Last Admin: 05/31/21 19:37 Dose: 40 mg Documented by: Iopamidol (Iopamidol 755 Mg/Ml 500 Ml Multipack Bottle) 68 ml IVPUSH ONETIME ONE Stop: 06/01/21 14:25 Last Admin: 06/01/21 14:24 Dose: 68 ml Documented by: Methylprednisolone Sodium Succinate (Methylprednisolone Sodium Succinate 125 Mg/2 Ml Sdv) 125 mg IVPUSH ONETIME ONE Stop: 05/31/21 17:34 Last Admin: 05/31/21 17:59 Dose: 125 mg Documented by: Methylprednisolone Sodium Succinate (Methylprednisolone Sodium Succinate 125 Mg/2 Ml Sdv) 125 mg IVPUSH Q8H [facility] Last Admin: 06/02/21 08:00 Dose: 125 mg Documented by: Methylprednisolone Sodium Succinate (Methylprednisolone Sodium Succinate 125 Mg/2 Ml Sdv) 125 mg IVPUSH NOW ONE Stop: 06/01/21 01:01 Last Admin: 06/01/21 01:35 Dose: 125 mg Documented by: - Exam General: Alert, Oriented Lungs: Normal Respiratory Effort, Wheezing Cardiovascular: Regular Rate, Regular Rhythm GI/Abdominal Exam: Soft, Non-Tender, No Distention Extremities: Non-Tender, Pedal Edema (+1) Skin: Warm, Dry, Intact Neurological: No New Focal Deficit - Patient Data Lab Results Last 24 hrs: Laboratory Results - last 24 hr 06/02/21 06/02/21 Range/Units 05:10 05:10 WBC 14.07 H (4.0-11.0) K/uL RBC 4.61 (4.30-5.90) M/uL Hgb 13.3 (12.0-16.0) g/dL Hct 44.1 (36.0-46.0) % MCV 95.7 (80.0-98.0) fL MCH 28.9 (27.0-32.0) pg MCHC 30.2 L (31.0-37.0) g/dL RDW Std Deviation 58.7 (28.0-62.0) fl RDW Coeff of Misty 17 H (11.0-15.0) % Plt Count 271 (150-400) K/uL MPV 9.80 (7.40-12.00) fL Neut % (Auto) 91.0 H (48.0-80.0) % Lymph % (Auto) 5.1 L (16.0-40.0) % Hanson % (Auto) 3.9 (0.0-15.0) % Eos % (Auto) 0.0 (0.0-7.0) % Baso % (Auto) 0.0 (0.0-1.5) % Neut # (Auto) 12.8 H (1.4-5.7) K/uL Lymph # (Auto) 0.7 (0.6-2.4) K/uL Hanson # (Auto) 0.6 (0.0-0.8) K/uL Eos # (Auto) 0.0 (0.0-0.7) K/uL Baso # (Auto) 0.0 (0.0-0.1) K/uL Nucleated RBC % 0.0 /100WBC Nucleated RBCs # 0 K/uL Sodium 138 (136-145) mmol/L Potassium 3.9 (3.5-5.1) mmol/L Chloride 101 (98-107) mmol/L Carbon Dioxide 34.9 H (21.0-32.0) mmol/L BUN 28 H (7.0-18.0) mg/dL Creatinine 1.1 H (0.6-1.0) mg/dL Est Cr Clr Drug Dosing 45.20 mL/min Estimated GFR (MDRD) 50.2 ml/min Glucose 250 H (74-106) mg/dL Calcium 8.6 (8.5-10.1) mg/dL Total Bilirubin 0.2 (0.2-1.0) mg/dL AST 15 (15-37) IU/L ALT 46 (14-63) IU/L Alkaline Phosphatase 118 H (46-116) U/L Total Protein 6.5 (6.4-8.2) g/dL Albumin 2.6 L (3.4-5.0) g/dL Globulin 3.9 (2.6-4.0) g/dL Albumin/Globulin Ratio 0.7 L (0.9-1.6) Result Diagrams: 06/02/21 05:10 06/02/21 05:10 Sepsis Event Note - Evaluation Sepsis Screening Result: Sepsis Risk - Focused Exam Vital Signs: Vital Signs Temp Resp BP Pulse Ox 06/02/21 09:00 13 94 L 06/02/21 08:00 36.6 C 20 100/65 94 L 06/02/21 07:00 20 91 L 06/02/21 06:00 21 H 88 L 06/02/21 05:00 21 H 131/66 91 L 06/02/21 04:00 36.3 C 18 129/58 L 89 L 06/02/21 03:00 13 134/60 91 L 06/02/21 02:00 17 135/59 L 89 L 06/02/21 01:00 20 118/63 93 L 06/02/21 00:00 19 89 L - Problem List Review Problem List Initiated/Reviewed/Updated: Yes - My Orders Last 24 Hours: My Active Orders 06/01/21 16:10 EKG 12 Lead [EKG Documentation Completion] [RC] STAT 06/01/21 19:00 Azithromycin [Zithromax] 500 mg PO Q24H 06/02/21 09:31 Transfer Patient (Change bed) [ADT] Routine Telemetry Monitoring [Cardiac Monitoring] [RC] . DIRECTED 06/02/21 11:54 Blood Glucose Check, Bedside [RC] TIDAC Dextrose 50% in Water 50 ml IVPUSH ASDIRECTED PRN Glucagon,Human Recombinant [GlucaGen] 1 mg IM ASDIRECTED PRN 06/02/21 Dinner [employer] Diet [DIET] 06/02/21 17:00 Insulin Aspart [NovoLOG] See Protocol SUBCUT TIDAC 06/03/21 05:11 BASIC METABOLIC PANEL,BMP [CHEM] AM CBC WITH AUTO DIFF [HEME] AM 06/03/21 09:00 methylPREDNISolone Sod Succ [Solu-MEDROL] 125 mg IVPUSH DAILY - Plan Plan:: 65 yo female admitted for acute on chronic respiratory failure from COPD exacerbation and CHF exacerbation. Acute respiratory failure: resolving, down to 4 L NC which is her baseline at home COPD exacerbation: continue solumedrol, duonebs, and azithromycin CHF exacerbation: echocardiogram, pending lasix IV BID COVID+ test: patient does not want any additional therapy but is willing to quarantine at home dispo: likely home tomorrow.
[2021-06-02] MEDS: Insulin Aspart 100 Units/ML 3 ML Pen SUBCUT SCH ×2 (12:24→18:03)
[2021-06-02] MEDS: Azithromycin 250 MG Tab PO SCH (18:07)
[2021-06-03] MEDS: Albuterol/Ipratropium 3.0-0.5 MG/3 ML Neb Soln NEB SCH ×3 (01:50→09:52)
[2021-06-03] MEDS: Heparin Sodium 5,000 Units/ML Vial SUBCUT SCH ×2 (01:50→08:07)
[2021-06-03] MEDS: Nystatin Topical Powder 15 GM Bottle TOP SCH (05:00)
[2021-06-03 05:50] LABS: POTASSIUM,K 4.3 mmol/L (3.5-5.1)
[2021-06-03] MEDS: Furosemide 40 MG/4 ML VIAL IVPUSH SCH (08:04)
[2021-06-03] MEDS: Nicotine 14 MG/24 Hr Patch TRDERM SCH (08:05)
[2021-06-03] MEDS: Insulin Aspart 100 Units/ML 3 ML Pen SUBCUT SCH ×2 (08:06→11:30)
[2021-06-03] MEDS: Budesonide/Formoterol 160-4.5 MCG/Puff 6 GM Inhaler INH SCH (08:12)
[2021-06-03] MEDS ORDERED: methylPREDNISolone Sodium Succinate 125 MG/2 ML SDV IVPUSH SCH (09:00)
[2021-06-03 11:29] VITALS: BP 128/75
--- NOTE | 2021-06-03 12:15 | PCM.DCSUM1 ---
Discharge Summary - Discharge Data Discharge Date: 06/03/21 Discharge Disposition: Home, Self-Care 01 Condition: Good - Referral to Home Health Primary Care Physician: PCP None - Patient Summary/Data Hospital Course: 65 yo female with pmh of COPD, CHF, on home O2 who was admitted for COPD exacerbation and CHF exacerbation. She presents with several week history of worsening shortness of breath, wheezing, and productive cough. Patient also reports increased swelling of her legs. In the ED patient was sating in the 70s and was in some respiratory distress. She was given duonebs, solumedrol, and BIPAP with improvement in her breathing and she was placed back on simple nasal canula. CXR showed no acute pathology. Patient has been vaccinated in March. She tested positive for COVID on admission. Leg dopplars were negative for DVT. CT PE study was negative for PE. It did report mild patchy ground glass opacities but radiologist thought this was more likley due to atelectasis than COVID. Patient refused any treatment specifically for COVID. She was given lasix, solumedrol and was eventually weaned of night time BIPAP back to her baseline oxygen requirements of 3L NC. Today she is requesting discharge. She is to be discharged home to finish a course of azithromycin and prednisone. She is to follow up with Dr. Metzger. - Patient Instructions Diet: Diabetic Diet Activity: As Tolerated - Discharge Plan *PRESCRIPTION DRUG MONITORING PROGRAM REVIEWED*: No *COPY OF PRESCRIPTION DRUG MONITORING REPORT IN PATIENT DAGMAR: No Prescriptions/Med Rec: predniSONE [Prednisone] 50 mg PO DAILY #4 tablet Azithromycin [Zithromax] 500 mg PO Q24H #3 tablet Home Medications: Home Meds Furosemide [Lasix] 60 mg PO BIDDIURETIC 05/08/17 [History] Albuterol Sulfate [Proair Hfa] 8.5 gm IH BID PRN 10/27/19 [History] Albuterol/Ipratropium [DuoNeb 3.0-0.5 MG/3 ML] 3 ml NEB BID 10/27/19 [History] Glycopyrrolate/Formoterol Fum [Bevespi Aerosphere Inhaler] 1 puff BID 10/27/19 [History] Acetaminophen [Tylenol] 650 mg PO Q4H PRN #30 tablet 10/31/19 [Rx] Nicotine [Habitrol] 14 mg TRDERM DAILY #15 patch 12/01/19 [Rx] Budesonide/Formoterol Fumarate [Symbicort 160-4.5 Mcg Inhaler] 6 gm INH ASDIRECTED 04/23/20 [History] Azithromycin [Zithromax] 500 mg PO Q24H #3 tablet 06/03/21 [Rx] predniSONE [Prednisone] 50 mg PO DAILY #4 tablet 06/03/21 [Rx] Patient Handouts: Hypoxia, COVID-19 Frequently Asked Questions, Chronic Obstructive Pulmonary Disease, [id number], COVID-19: How to Protect Yourself and Others - CDC, COVID-19: Quarantine vs. Isolation - [facility] Referrals: Dave Metzger MD [Physician] - (Please call the number provided to make an appointment with your PCP.) - Discharge Summary/Plan Comment DC Time >30 min.: No - Patient Data Vitals - Most Recent: Last Vital Signs Temp 35.9 C L 06/03/21 11:28 Pulse 78 06/01/21 14:15 Resp 18 06/03/21 11:28 BP 128/75 06/03/21 11:28 Pulse Ox 93 L 06/03/21 11:28 Weight - Most Recent: 136.803 kg I&O - Last 24 hours: Intake & Output 06/02/21 06/03/21 06/03/21 22:59 06:59 14:59 Intake Total 1660 600 950 Output Total 2200 700 1550 Balance -540 -100 -600 Lab Results - Last 24 hrs: Laboratory Results - last 24 hr 06/02/21 06/03/21 06/03/21 Range/Units 12:17 05:05 05:05 WBC 14.24 H (4.0-11.0) K/uL RBC 4.85 (4.30-5.90) M/uL Hgb 14.2 (12.0-16.0) g/dL Hct 45.9 (36.0-46.0) % MCV 94.6 (80.0-98.0) fL MCH 29.3 (27.0-32.0) pg MCHC 30.9 L (31.0-37.0) g/dL RDW Std Deviation 58.6 (28.0-62.0) fl RDW Coeff of Misty 17 H (11.0-15.0) % Plt Count 264 (150-400) K/uL MPV 10.10 (7.40-12.00) fL Neut % (Auto) 72.9 (48.0-80.0) % Lymph % (Auto) 15.0 L (16.0-40.0) % Chase % (Auto) 11.9 (0.0-15.0) % Eos % (Auto) 0.1 (0.0-7.0) % Baso % (Auto) 0.1 (0.0-1.5) % Neut # (Auto) 10.4 H (1.4-5.7) K/uL Lymph # (Auto) 2.1 (0.6-2.4) K/uL Chase # (Auto) 1.7 H (0.0-0.8) K/uL Eos # (Auto) 0.0 (0.0-0.7) K/uL Baso # (Auto) 0.0 (0.0-0.1) K/uL Nucleated RBC % 0.0 /100WBC Nucleated RBCs # 0 K/uL Sodium 144 (136-145) mmol/L Potassium 4.3 (3.5-5.1) mmol/L Chloride 102 (98-107) mmol/L Carbon Dioxide 37.0 H (21.0-32.0) mmol/L BUN 34 H (7.0-18.0) mg/dL Creatinine 1.0 (0.6-1.0) mg/dL Est Cr Clr Drug Dosing 49.72 mL/min Estimated GFR (MDRD) 56.0 ml/min Glucose 122 H (74-106) mg/dL POC Glucose 281 H (70-99) mg/dL Calcium 8.4 L (8.5-10.1) mg/dL 06/03/21 06/03/21 Range/Units 07:57 11:25 WBC (4.0-11.0) K/uL RBC (4.30-5.90) M/uL Hgb (12.0-16.0) g/dL Hct (36.0-46.0) % MCV (80.0-98.0) fL MCH (27.0-32.0) pg MCHC (31.0-37.0) g/dL RDW Std Deviation (28.0-62.0) fl RDW Coeff of Misty (11.0-15.0) % Plt Count (150-400) K/uL MPV (7.40-12.00) fL Neut % (Auto) (48.0-80.0) % Lymph % (Auto) (16.0-40.0) % Chase % (Auto) (0.0-15.0) % Eos % (Auto) (0.0-7.0) % Baso % (Auto) (0.0-1.5) % Neut # (Auto) (1.4-5.7) K/uL Lymph # (Auto) (0.6-2.4) K/uL Chase # (Auto) (0.0-0.8) K/uL Eos # (Auto) (0.0-0.7) K/uL Baso # (Auto) (0.0-0.1) K/uL Nucleated RBC % /100WBC Nucleated RBCs # K/uL Sodium (136-145) mmol/L Potassium (3.5-5.1) mmol/L Chloride (98-107) mmol/L Carbon Dioxide (21.0-32.0) mmol/L BUN (7.0-18.0) mg/dL Creatinine (0.6-1.0) mg/dL Est Cr Clr Drug Dosing mL/min Estimated GFR (MDRD) ml/min Glucose (74-106) mg/dL POC Glucose 123 H 178 H (70-99) mg/dL Calcium (8.5-10.1) mg/dL Med Orders - Current: Current Medications Albuterol/Ipratropium (Albuterol/Ipratropium 3.0-0.5 Mg/3 Ml Neb Soln) 3 ml NEB Q4HRRT [facility] Last Admin: 06/03/21 09:52 Dose: 3 ml Documented by: Azithromycin (Azithromycin 250 Mg Tab) 500 mg PO Q24H [facility] Last Admin: 06/02/21 18:07 Dose: 500 mg Documented by: Dextrose/Water (50% Dextrose In Water 50 Ml Syringe) 50 ml IVPUSH ASDIRECTED PRN PRN Reason: Hypoglycemia Furosemide (Furosemide 40 Mg/4 Ml Vial) 60 mg IVPUSH BIDDIURETIC [facility] Last Admin: 06/03/21 08:04 Dose: 60 mg Documented by: Glucagon (Glucagon,Human Recombinant 1 Mg Vial) 1 mg IM ASDIRECTED PRN PRN Reason: Hypoglycemia Heparin Sodium (Porcine) (Heparin Sodium 5,000 Units/Ml Vial) 5,000 units SUBCUT Q8H [facility] Last Admin: 06/03/21 08:07 Dose: Not Given Documented by: Insulin Aspart (Insulin Aspart 100 Units/Ml 3 Ml Pen) 0 unit SUBCUT TIDAC [facility]; Protocol Last Admin: 06/03/21 11:30 Dose: 1 units Documented by: Methylprednisolone Sodium Succinate (Methylprednisolone Sodium Succinate 125 Mg/2 Ml Sdv) 125 mg IVPUSH DAILY [facility] Last Admin: 06/03/21 08:03 Dose: 125 mg Documented by: Nicotine (Nicotine 14 Mg/24 Hr Patch) 14 mg TRDERM DAILY [facility] Last Admin: 06/03/21 08:05 Dose: 14 mg Documented by: Nystatin (Nystatin Topical Powder 15 Gm Bottle) 1 gm TOP TID [facility] Last Admin: 06/03/21 05:00 Dose: 1 applic Documented by: Budesonide/Formoterol 160-4.5 Mcg/Puff 6 Gm Inhaler 1 each INH DAILY [facility] Last Admin: 06/03/21 08:12 Dose: 1 each Documented by: Discontinued Medications Albuterol/Ipratropium (Albuterol/Ipratropium 3.0-0.5 Mg/3 Ml Neb Soln) Confirm Administered Dose 3 ml .ROUTE .STK-MED ONE Stop: 05/31/21 17:29 Last Admin: 05/31/21 18:00 Dose: 3 ml Documented by: Albuterol/Ipratropium (Albuterol/Ipratropium 3.0-0.5 Mg/3 Ml Neb Soln) 3 ml NEB ONETIME ONE Stop: 05/31/21 17:35 Last Admin: 05/31/21 18:00 Dose: 3 ml Documented by: Albuterol/Ipratropium (Albuterol/Ipratropium 3.0-0.5 Mg/3 Ml Neb Soln) 3 ml NEB ONETIME ONE Stop: 05/31/21 17:47 Last Admin: 05/31/21 18:01 Dose: 3 ml Documented by: Albuterol/Ipratropium (Albuterol/Ipratropium 3.0-0.5 Mg/3 Ml Neb Soln) 3 ml NEB ONETIME ONE Stop: 05/31/21 17:48 Last Admin: 05/31/21 18:01 Dose: Not Given Documented by: Albuterol/Ipratropium (Albuterol/Ipratropium 3.0-0.5 Mg/3 Ml Neb Soln) 3 ml NEB ONETIME ONE Stop: 05/31/21 17:48 Last Admin: 05/31/21 18:01 Dose: 3 ml Documented by: Albuterol/Ipratropium (Albuterol/Ipratropium 3.0-0.5 Mg/3 Ml Neb Soln) 3 ml NEB ONETIME ONE Stop: 05/31/21 19:18 Last Admin: 05/31/21 19:37 Dose: 3 ml Documented by: Albuterol/Ipratropium (Albuterol/Ipratropium 3.0-0.5 Mg/3 Ml Neb Soln) 3 ml NEB BID [facility] Last Admin: 06/01/21 10:24 Dose: Not Given Documented by: Azithromycin (Azithromycin 250 Mg Tab) 500 mg PO ONETIME STA Stop: 05/31/21 19:18 Last Admin: 05/31/21 19:36 Dose: 500 mg Documented by: Budesonide/Formoterol Fumarate (Budesonide/Formoterol 160-4.5 Mcg/Puff 6 Gm Inhaler) 0 gm INH DAILY [facility] Last Admin: 06/01/21 10:25 Dose: Not Given Documented by: Furosemide (Furosemide 20 Mg/2 Ml Vial) 40 mg IVPUSH ONETIME ONE Stop: 05/31/21 19:19 Last Admin: 05/31/21 19:37 Dose: 40 mg Documented by: Iopamidol (Iopamidol 755 Mg/Ml 500 Ml Multipack Bottle) 68 ml IVPUSH ONETIME ONE Stop: 06/01/21 14:25 Last Admin: 06/01/21 14:24 Dose: 68 ml Documented by: Methylprednisolone Sodium Succinate (Methylprednisolone Sodium Succinate 125 Mg/2 Ml Sdv) 125 mg IVPUSH ONETIME ONE Stop: 05/31/21 17:34 Last Admin: 05/31/21 17:59 Dose: 125 mg Documented by: Methylprednisolone Sodium Succinate (Methylprednisolone Sodium Succinate 125 Mg/2 Ml Sdv) 125 mg IVPUSH Q8H [facility] Last Admin: 06/02/21 08:00 Dose: 125 mg Documented by: Methylprednisolone Sodium Succinate (Methylprednisolone Sodium Succinate 125 Mg/2 Ml Sdv) 125 mg IVPUSH NOW ONE Stop: 06/01/21 01:01 Last Admin: 06/01/21 01:35 Dose: 125 mg Documented by:
== END 2021-06-03 13:25 | disposition home or self-care (01) | DRG 291 ==
LOC: MW.ED 17:11 → MW.ICU 20:28
PROVIDERS: ADMIT Internal Medicine; ATTEND Internal Medicine
PROC: 5A09357 Assistance with Respiratory Ventilation, Less than 24 Consecutive Hours, Continuous Positive Airway Pressure (ICD-10-PCS; principal; 2021-05-31)
PROC: 8E0ZXY6 Isolation (ICD-10-PCS; 2021-05-31)
DX: I50.9 Heart failure, unspecified (principal); U07.1 COVID-19; J96.21 Acute and chronic respiratory failure with hypoxia; J44.1 Chronic obstructive pulmonary disease with (acute) exacerbation; Z68.43 Body mass index [BMI] 50.0-59.9, adult; I73.9 Peripheral vascular disease, unspecified; F32.9 Major depressive disorder, single episode, unspecified; E66.9 Obesity, unspecified; Z66 Do not resuscitate; F17.210 Nicotine dependence, cigarettes, uncomplicated; Z79.899 Other long term (current) drug therapy; Z79.52 Long term (current) use of systemic steroids; Z91.040 Latex allergy status; Z87.440 Personal history of urinary (tract) infections; Z98.51 Tubal ligation status; Z85.3 Personal history of malignant neoplasm of breast; Z90.710 Acquired absence of both cervix and uterus; Z90.10 Acquired absence of unspecified breast and nipple
CPT/HCPCS: 36415; 36600; 71045; 71045-26; 71275; 71275-26; 80048; 80053; 82803; 82947; 83735; 83880; 84484; 85025; 93005; 93306; 93970; 93970-26; 94640; 94660; 96374; 96375; 99291; 99292; A9270-GY; J1815-GY; J1940; J2930; J7620-GY; Q9967; U0002

== ENCOUNTER 2021-07-11 18:35 | Inpatient (IN) | payer MEDICAID ==
[2021-07-11] MEDS ORDERED: Sodium Chloride 0.9% 2.5 ML Syringe FLUSH PRN (18:53)
[2021-07-11] MEDS ORDERED: Sodium Chloride 0.9% 10 ML Syringe FLUSH PRN (18:53)
[2021-07-11] MEDS ORDERED: methylPREDNISolone Sodium Succinate 125 MG/2 ML SDV IVPUSH ONE (18:55)
[2021-07-11] MEDS ORDERED: Albuterol/Ipratropium 3.0-0.5 MG/3 ML Neb Soln NEB ONE ×3 (18:55→19:36)
[2021-07-11 19:31] LABS: BLOOD UREA NITROGEN,BUN 15 mg/dL (7.0-18.0); CARBON DIOXIDE,CO2 33.8 mmol/L (21.0-32.0); CHLORIDE,CL 101 mmol/L (98-107); GLUCOSE RANDOM 127 mg/dL (74-106); POTASSIUM,K 4.5 mmol/L (3.5-5.1); SODIUM,NA 141 mmol/L (136-145)
[2021-07-11] MEDS ORDERED: Furosemide 40 MG/4 ML VIAL IVPUSH ONE (19:36)
--- NOTE | 2021-07-11 20:09 | CR ---
INDICATION: Shortness of breath, hypoxia TECHNIQUE: Chest radiograph 1 view COMPARISON: 05/31/2021 FINDINGS: The sensitivity and specificity of the exam are severely limited by the patient`s body habitus. Mediastinum: The mediastinum is normal in appearance. Moderate cardiomegaly is present without change. Lung: Prominence of the pulmonary interstitium is noted bilaterally with mild pulmonary vascular congestion. Minimal left basilar atelectasis is noted without change. No sign of pleural effusion seen. No pneumothorax is identified. Bone and Soft tissue: Unremarkable for age. IMPRESSIONS: 1. Prominence of the pulmonary interstitium is noted bilaterally with mild pulmonary vascular congestion. Findings may be due to interstitial edema. 2. Moderate cardiomegaly is present without change. Dictated by Chris Shane MD @ 07/11/2021 8:07:40 PM Dictated by: Chris Shane MD @ 07/11/2021 20:07:45 (Electronically Signed)
--- NOTE | 2021-07-11 21:28 | EDM.PDOC ---
ED HPI GENERAL MEDICAL PROBLEM - General Chief Complaint: Respiratory Problem Stated Complaint: SHORTNESS OF BREATH, LOSS OF APETITE Time Seen by Provider: 07/11/21 18:44 Source of Information: Reports: Patient History Limitations: Reports: No Limitations - History of Present Illness INITIAL COMMENTS - FREE TEXT/NARRATIVE: HISTORY AND PHYSICAL: History of present illness: Patient is a 65-year-old female, with a history of COPD on 4 L nasal cannula at home, congestive heart failure, and positive COVID-19 diagnosis on 05/31/2021, who presents emergency room today with concern of shortness of breath x2 days. Patient states she has been taking her medication at home but has been using her oxygen intermittently which she is supposed to be using continuously. Patient states that she has been coughing ever since her discharge last from the emergency room. Patient states that she was doing well following discharge until yesterday when her symptoms began to worsen again and feels similar to her past emergency room visit. Patient denies any other symptoms or concerns. Patient denies fever, chills, chest pain. Denies headache, neck stiff ness, change in vision, syncope, or near syncope. Denies nausea, vomiting, abdominal pain, diarrhea, constipation, or dysuria. Has not noted any blood in urine or stool. Review of systems: As per history of present illness and below otherwise all systems reviewed and negative. Past medical history: As per history of present illness and as reviewed below otherwise noncontributory. Surgical history: As per history of present illness and as reviewed below otherwise noncontributory. Social history: See social history for further information Family history: As per history of present illness and as reviewed below otherwise noncontributory. Physical exam: General: Patient is alert, oriented, and in acute respiratory distress. Patient sitting on exam table, patient is hypoxic to 32% on room air with respiratory rate of 24, heart rate increased to 105. Blood pressure 125/59. HEENT: Atraumatic, normocephalic, pupils equal and reactive bilaterally, negative for conjunctival pallor or scleral icterus, mucous membranes dry, throat clear, neck supple, nontender, trachea midline. No drooling or trismus noted. No meningeal signs. No hot potato voice noted. Lungs: The patient is speaking in 1-2 word sentences with difficulties breathing. She does have markedly decreased breath sounds bilaterally with mild expiratory wheezing bilaterally. No stridor noted but patient is using accessory muscles with increased respiratory effort. Heart: S1S2, regular rate and rhythm without overt murmur Abdomen: Soft, nondistended, nontender. Negative for masses or hepatosplenomegaly. Negative for costovertebral tenderness. Pelvis: Stable nontender. Genitourinary: Deferred. Rectal: Deferred. Skin: Intact, warm, dry. No lesions or rashes noted. Extremities: Atraumatic, negative for cords or calf pain. Neurovascular unrema rkable. Neuro: Awake, alert, oriented. Cranial nerves II through XII unremarkable. Cerebellum unremarkable. Motor and sensory unremarkable throughout. Exam nonfocal. Notes: Patient is a 65-year-old female, with a history of COPD on 4 L nasal cannula, congestive heart failure who presents emergency room today secondary to worsening dyspnea x2 days. Upon arrival to the ED, patient is severely hypoxic to 32% on room air with a good Pleth and an increased respiratory rate of 24 with signs of respiratory duress stressed on exam with the ability to only speak 1-2 words with breathlessness and use of a sensory muscle use with increased respiratory effort. Patient was placed immediately on 15 L nonrebreather and her oxygen quickly increased to 96%. Will initiate DuoNeb, provide Solu-Medrol, and closely reassess patient. Patient also placed on home health assistant and pulse oximetry. Will obtain cardiac evaluation. Upon chart review from 05/31/21 patient had presented to the emergency room with hypoxia and was stabilized on BiPAP and admitted to the hospitalist with acute COPD the exacerbation, acute CHF exacerbation, and acute COVID-19 infection. See ER provider's dictation for specific details from this visit. After initial DuoNeb treatment, patient was still having difficulties with breathing with increased effort as well as only able to speak 1-2 words despite her oxygen now being 96 to 100%. Therefore, I did discuss with patient I would like to place her on BiPAP. She is amendable to this plan. Patient provided total of 3 duo nebs. ABG is obtained. See Dr. Sepulveda's dictation for specific EKG interpretation. However, normal sinus rhythm without STEMI. CBC shows a mild leukocytosis of 14.79 with hematocrit mildly elevated at 46.4. Mild derangements of remainder of CBC are unremarkable. D-dimer is within normal limits. (Patient did have an angiography of the chest on 06/01/2021 which shows no pulmonary embolism. Prominent mediastinal lymph nodes. Patchy multifocal groundglass). CMP shows an elevation in carbon dioxide at 33.8, mildly elevated glucose at 127 otherwise remainder of CMP is unremarkable. Troponin negative. ABG does show a pH of 7.32 concerning for acidosis. PCO2 is elevated at 66 indicating respiratory cause with partial compensation of bicarbonate elevation at 34. ABG was obtained just before BiPAP was initiated. Chest x-ray shows prominence of pulmonary interstitium noted bilaterally with mild pulmonary vascular congestion, findings may be due to interstitial edema. Moderate cardiomegaly. Upon reevaluation of patient on BiPAP, she was able to tolerate BiPAP well and has improvement of her respiratory effort and her respiratory rate has now decreased to approximately 18-20. Patient is resting comfortably on exam table. Patient remains otherwise vitally stable. I did call and speak to the hospitalist on-call, Dr. Zendejas, and thoroughly discussed patient's case. Will admit to inpatient ICU to Dr. Zendejas. Voices understanding and is agreeable to plan of care. Denies any further questions or concerns at this time. Diagnostics: EKG, CBC, CMP, D-dimer, ABG, troponin, BNP, chest x-ray Therapeutics: DuoNeb x3, Solumedrol 125mg IV, Lasix 40mg IV Impression: Acute COPD exacerbation with hypercarbia/hypoxia Acute respiratory failure Plan: Admit to the ICU to Dr. Zendejas inpatient Critical care time is exclusive of billable procedures and the time to perform these procedures. Critical care time was used to prevent vital system organ failure and deterioration. Critical care time includes bedside management and high-complexity decision making requiring my highest level of mental preparedness and attention. This includes reviewing the patient's chart and prior medical records, ordering and reviewing interpreting laboratory studies and imaging results, interpretation of vital signs and EKG, pulse oximetry, and discussion with the admitting team along with nursing staff. Patient presented with multiple critical lab values/vital signs that required immediate intervention, acute respiratory failure requiring Bipap and immediate transfer to the ICU for additional close monitoring and continuation of treatmen t CC Time: 60 minutes Definitive disposition and diagnosis as appropriate pending reevaluation and review of above. - Related Data Allergies Allergy/AdvReac Type Severity Reaction Status Date / Time latex Allergy Mild Rash Verified 07/12/21 00:20 Home Meds: Home Meds Furosemide [Lasix] 60 mg PO BIDDIURETIC 05/08/17 [History] Albuterol Sulfate [Proair Hfa] 8.5 gm IH BID PRN 10/27/19 [History] Albuterol/Ipratropium [DuoNeb 3.0-0.5 MG/3 ML] 3 ml NEB BID 10/27/19 [History] Glycopyrrolate/Formoterol Fum [Bevespi Aerosphere Inhaler] 1 puff BID 10/27/19 [History] Acetaminophen [Tylenol] 650 mg PO Q4H PRN #30 tablet 10/31/19 [Rx] Nicotine [Habitrol] 14 mg TRDERM DAILY #15 patch 10/31/19 [Rx] Budesonide/Formoterol Fumarate [Symbicort 160-4.5 Mcg Inhaler] 2 puff INH BID 04/23/20 [History] Azithromycin [Zithromax] 500 mg PO Q24H #3 tablet 06/03/21 [Rx] predniSONE [Prednisone] 50 mg PO DAILY #4 tablet 06/03/21 [Rx] Past Medical History HEENT History: Reports: None Other HEENT History: uses reading glasses Cardiovascular History: Reports: Heart Failure, PVD, SOB on Exertion Respiratory History: Reports: COPD, Other (See Below) Other Respiratory History: home O2 3-4 L via [place] Gastrointestinal History: Reports: None Genitourinary History: Reports: None, UTI, Recurrent [employer] [place] History: Reports: Other [employer] [place] History: tubali ligation, 3 pregnancies Musculoskeletal History: Reports: None Neurological History: Reports: None Psychiatric History: Reports: Depression Endocrine/Metabolic History: Reports: Obesity/BMI 30+, Other (See Below) Other Endocrine/Metabolic History: lymphedema Hematologic History: Reports: None Immunologic History: Reports: None Oncologic (Cancer) History: Reports: Breast Dermatologic History: Reports: None Other Dermatologic History: lower leg open ulcers - Infectious Disease History Infectious Disease History: Reports: KTI-[id number]-Tddynukiz Enterobacteriaceae, Measles, Mumps, Rubella - Past Surgical History Head Surgeries/Procedures: Reports: None Cardiovascular Surgical History: Reports: None Respiratory Surgical History: Reports: None Female Surgical History: Reports: Hysterectomy, Mastectomy, Salpingo- Oophorectomy, Tubal Ligation Endocrine Surgical History: Reports: None Oncologic Surgical History: Reports: Mastectomy Social & Family History - Family History Family Medical History: No Pertinent Family History HEENT: Reports: None Cardiac: Reports: None Respiratory: Reports: None Other Respiratory Family Hisory: Aunt, hardening of the lungs. GI: Reports: None : Reports: None OBGYN: Reports: None Musculoskeletal: Reports: None Other Musculoskeletal Family History: Mother, aunt Neurological: Reports: None Psychiatric: Reports: None Endocrine/Metabolic: Reports: None Hematologic: Reports: None Immunologic: Reports: None Dermatologic: Reports: None Oncologic: Reports: None - Caffeine Use Caffeine Use: Reports: Soda Other Caffeine Use: 3 cups - Living Situation & Occupation Living situation: Reports: ED ROS GENERAL - Review of Systems Review Of Systems: Comprehensive ROS is negative, except as noted in HPI. ED EXAM, GENERAL - Physical Exam Exam: See Below (see dictation) Course - Vital Signs Last Recorded V/S: Last Vital Signs Temp 98.2 F 07/12/21 12:00 Pulse 105 H 07/11/21 18:46 Resp 19 07/12/21 13:00 BP 120/50 L 07/12/21 13:00 Pulse Ox 91 L 07/12/21 13:00 - Orders/Labs/Meds Orders: Active Orders 24 hr Category Date Time Status BIPAP Adult [RT BiPAP/CPAP] [RC] ASDIRECTED Care 07/11/21 19:36 Active Cardiac Monitoring [RC] . DIRECTED Care 07/11/21 18:53 Active RT Aerosol Therapy [RC] ASDIRECTED Care 07/11/21 18:55 Active RT Aerosol Therapy [RC] ASDIRECTED Care 07/11/21 19:36 Active RT Aerosol Therapy [RC] ASDIRECTED Care 07/11/21 19:36 Active Sodium Chloride 0.9% [Saline Flush] Med 07/11/21 18:53 Active 10 ml FLUSH ASDIRECTED PRN Sodium Chloride 0.9% [Saline Flush] Med 07/11/21 18:53 Active 2.5 ml FLUSH ASDIRECTED PRN Saline Lock Insert [OM.PC] Stat Oth 07/11/21 18:53 Ordered Medication Orders Albuterol/Ipratropium (Albuterol/Ipratropium 3.0-0.5 Mg/3 Ml Neb Soln) 3 ml NEB Q6HRRT MADAI Last Admin: 07/12/21 12:46 Dose: 3 ml Documented by: Admin: 07/12/21 06:18 Dose: 3 ml Documented by: Admin: 07/12/21 00:18 Dose: 3 ml Documented by: LEXII Azithromycin (Azithromycin 250 Mg Tab) 500 mg PO Q24H [facility] Last Admin: 07/12/21 13:23 Dose: 500 mg Documented by: KLUDEEP Furosemide (Furosemide 40 Mg/4 Ml Vial) 40 mg IVPUSH BIDDIURETIC [facility] Last Admin: 07/12/21 14:55 Dose: 40 mg Documented by: Admin: 07/12/21 07:49 Dose: 40 mg Documented by: KULDEEP Heparin Sodium (Porcine) (Heparin Sodium 5,000 Units/Ml Vial) 5,000 units SUBCUT Q8H [facility] Last Admin: 07/12/21 10:25 Dose: 5,000 units Documented by: KULDEEP Methylprednisolone Sodium Succinate (Methylprednisolone Sodium Succinate 40 Mg/1 Ml Sdv) 40 mg IVPUSH Q8H [facility] Last Admin: 07/12/21 13:22 Dose: 40 mg Documented by: Admin: 07/12/21 04:41 Dose: 40 mg Documented by: LEXII Nystatin (Nystatin Topical Powder 15 Gm Bottle) 0 gm TOP TID [facility] Last Admin: 07/12/21 14:55 Dose: 1 applic Documented by: KULDEEP Budesonide/Formoterol 160-4.5 Mcg/Puff 6 Gm Inhaler 2 each INH BIDRT [facility] Last Admin: 07/12/21 08:39 Dose: Not Given Documented by: KULDEEP Sodium Chloride (Sodium Chloride 0.9% 10 Ml Syringe) 10 ml FLUSH ASDIRECTED PRN PRN Reason: Keep Vein Open Last Admin: 07/11/21 19:03 Dose: 10 ml Documented by: ANGELO Sodium Chloride (Sodium Chloride 0.9% 2.5 Ml Syringe) 2.5 ml FLUSH ASDIRECTED PRN PRN Reason: Keep Vein Open Last Admin: 07/11/21 19:02 Dose: 2.5 ml Documented by: ANGELO Labs: Laboratory Tests 07/11/21 07/11/21 07/11/21 Range/Units 18:55 18:55 18:55 WBC 14.79 H (4.0-11.0) K/uL RBC 4.86 (4.30-5.90) M/uL Hgb 14.5 (12.0-16.0) g/dL Hct 46.4 H (36.0-46.0) % MCV 95.5 (80.0-98.0) fL MCH 29.8 (27.0-32.0) pg MCHC 31.3 (31.0-37.0) g/dL RDW Std Deviation 59.7 (28.0-62.0) fl RDW Coeff of Misty 17 H (11.0-15.0) % Plt Count 296 (150-400) K/uL MPV 9.50 (7.40-12.00) fL Neut % (Auto) 76.3 (48.0-80.0) % Lymph % (Auto) 16.6 (16.0-40.0) % [place] % (Auto) 6.5 (0.0-15.0) % Eos % (Auto) 0.3 (0.0-7.0) % Baso % (Auto) 0.3 (0.0-1.5) % Neut # (Auto) 11.3 H (1.4-5.7) K/uL Lymph # (Auto) 2.5 H (0.6-2.4) K/uL [place] # (Auto) 1.0 H (0.0-0.8) K/uL Eos # (Auto) 0.0 (0.0-0.7) K/uL Baso # (Auto) 0.1 (0.0-0.1) K/uL Nucleated RBC % 0.0 /100WBC Nucleated RBCs # 0 K/uL D-Dimer, Quantitative (0.0-0.50) mg/L FEU ABG pH (7.35-7.45) ABG pCO2 (35-45) mmHG ABG pO2 (80-105) mmHG ABG HCO3 (22-26) mEq/L ABG Total CO2 (23-27) mmol/L ABG Base Excess (-2.0-3.0) Sodium 141 (136-145) mmol/L Potassium 4.5 (3.5-5.1) mmol/L Chloride 101 (98-107) mmol/L Carbon Dioxide 33.8 H (21.0-32.0) mmol/L BUN 15 (7.0-18.0) mg/dL Creatinine 1.0 (0.6-1.0) mg/dL Est Cr Clr Drug Dosing 53.91 mL/min Estimated GFR (MDRD) 56.0 ml/min Glucose 127 H (74-106) mg/dL Lactic Acid (0.4-2.0) mmol/L Calcium 8.6 (8.5-10.1) mg/dL Total Bilirubin 0.4 (0.2-1.0) mg/dL AST 16 (15-37) IU/L ALT 38 (14-63) IU/L Alkaline Phosphatase 103 (46-116) U/L Troponin I < 0.050 (0.000-0.056) ng/mL B-Natriuretic Peptide 37 (<100) PG/ML Total Protein 6.9 (6.4-8.2) g/dL Albumin 3.3 L (3.4-5.0) g/dL Globulin 3.6 (2.6-4.0) g/dL Albumin/Globulin Ratio 0.9 (0.9-1.6) SARS-CoV-2 RNA (WENDY) (NEGATIVE) 07/11/21 07/11/21 07/11/21 Range/Units 18:55 18:55 18:55 WBC (4.0-11.0) K/uL RBC (4.30-5.90) M/uL Hgb (12.0-16.0) g/dL Hct (36.0-46.0) % MCV (80.0-98.0) fL MCH (27.0-32.0) pg MCHC (31.0-37.0) g/dL RDW Std Deviation (28.0-62.0) fl RDW Coeff of Misty (11.0-15.0) % Plt Count (150-400) K/uL MPV (7.40-12.00) fL Neut % (Auto) (48.0-80.0) % Lymph % (Auto) (16.0-40.0) % [place] % (Auto) (0.0-15.0) % Eos % (Auto) (0.0-7.0) % Baso % (Auto) (0.0-1.5) % Neut # (Auto) (1.4-5.7) K/uL Lymph # (Auto) (0.6-2.4) K/uL [place] # (Auto) (0.0-0.8) K/uL Eos # (Auto) (0.0-0.7) K/uL Baso # (Auto) (0.0-0.1) K/uL Nucleated RBC % /100WBC Nucleated RBCs # K/uL D-Dimer, Quantitative 0.37 (0.0-0.50) mg/L FEU ABG pH (7.35-7.45) ABG pCO2 (35-45) mmHG ABG pO2 (80-105) mmHG ABG HCO3 (22-26) mEq/L ABG Total CO2 (23-27) mmol/L ABG Base Excess (-2.0-3.0) Sodium (136-145) mmol/L Potassium (3.5-5.1) mmol/L Chloride (98-107) mmol/L Carbon Dioxide (21.0-32.0) mmol/L BUN (7.0-18.0) mg/dL Creatinine (0.6-1.0) mg/dL Est Cr Clr Drug Dosing mL/min Estimated GFR (MDRD) ml/min Glucose (74-106) mg/dL Lactic Acid 1.4 (0.4-2.0) mmol/L Calcium (8.5-10.1) mg/dL Total Bilirubin (0.2-1.0) mg/dL AST (15-37) IU/L ALT (14-63) IU/L Alkaline Phosphatase (46-116) U/L Troponin I (0.000-0.056) ng/mL B-Natriuretic Peptide (<100) PG/ML Total Protein (6.4-8.2) g/dL Albumin (3.4-5.0) g/dL Globulin (2.6-4.0) g/dL Albumin/Globulin Ratio (0.9-1.6) SARS-CoV-2 RNA (WENDY) NEGATIVE (NEGATIVE) 07/11/21 Range/Units 20:09 WBC (4.0-11.0) K/uL RBC (4.30-5.90) M/uL Hgb (12.0-16.0) g/dL Hct (36.0-46.0) % MCV (80.0-98.0) fL MCH (27.0-32.0) pg MCHC (31.0-37.0) g/dL RDW Std Deviation (28.0-62.0) fl RDW Coeff of Misty (11.0-15.0) % Plt Count (150-400) K/uL MPV (7.40-12.00) fL Neut % (Auto) (48.0-80.0) % Lymph % (Auto) (16.0-40.0) % [place] % (Auto) (0.0-15.0) % Eos % (Auto) (0.0-7.0) % Baso % (Auto) (0.0-1.5) % Neut # (Auto) (1.4-5.7) K/uL Lymph # (Auto) (0.6-2.4) K/uL [place] # (Auto) (0.0-0.8) K/uL Eos # (Auto) (0.0-0.7) K/uL Baso # (Auto) (0.0-0.1) K/uL Nucleated RBC % /100WBC Nucleated RBCs # K/uL D-Dimer, Quantitative (0.0-0.50) mg/L FEU ABG pH 7.32 L (7.35-7.45) ABG pCO2 66 H (35-45) mmHG ABG pO2 71 L (80-105) mmHG ABG HCO3 34 H (22-26) mEq/L ABG Total CO2 30.2 H (23-27) mmol/L ABG Base Excess 5.2 H (-2.0-3.0) Sodium (136-145) mmol/L Potassium (3.5-5.1) mmol/L Chloride (98-107) mmol/L Carbon Dioxide (21.0-32.0) mmol/L BUN (7.0-18.0) mg/dL Creatinine (0.6-1.0) mg/dL Est Cr Clr Drug Dosing mL/min Estimated GFR (MDRD) ml/min Glucose (74-106) mg/dL Lactic Acid (0.4-2.0) mmol/L Calcium (8.5-10.1) mg/dL Total Bilirubin (0.2-1.0) mg/dL AST (15-37) IU/L ALT (14-63) IU/L Alkaline Phosphatase (46-116) U/L Troponin I (0.000-0.056) ng/mL B-Natriuretic Peptide (<100) PG/ML Total Protein (6.4-8.2) g/dL Albumin (3.4-5.0) g/dL Globulin (2.6-4.0) g/dL Albumin/Globulin Ratio (0.9-1.6) SARS-CoV-2 RNA (WENDY) (NEGATIVE) Meds: Medications Generic Name Dose Route Start Last Admin Trade Name Freq PRN Reason Stop Dose Admin Albuterol/Ipratropium 3 ml 07/12/21 00:00 07/12/21 12:46 Albuterol/Ipratropium 3.0-0.5 Mg/3 Ml Neb Soln NEB 3 ml Q6HRRT MADAI Administration Azithromycin 500 mg 07/12/21 13:15 07/12/21 13:23 Azithromycin 250 Mg Tab PO 500 mg Q24H MADAI Administration Furosemide 40 mg 07/12/21 08:00 07/12/21 14:55 Furosemide 40 Mg/4 Ml Vial IVPUSH 40 mg BIDDIURETIC MADAI Administration Heparin Sodium (Porcine) 5,000 units 07/12/21 09:45 07/12/21 10:25 Heparin Sodium 5,000 Units/Ml Vial SUBCUT 5,000 units Q8H MADAI Administration Methylprednisolone Sodium Succinate 40 mg 07/12/21 05:00 07/12/21 13:22 Methylprednisolone Sodium Succinate 40 Mg/1 Ml Sdv IVPUSH 40 mg Q8H MADAI Administration Nystatin 0 gm 07/12/21 14:00 07/12/21 14:55 Nystatin Topical Powder 15 Gm Bottle TOP 1 applic TID MADAI Administration Budesonide/ 2 each 07/12/21 07:45 07/12/21 08:39 Formoterol 160-4.5 INH Not Given Mcg/Puff 6 Gm BIDRT MADAI Inhaler Sodium Chloride 10 ml 07/11/21 18:53 07/11/21 19:03 Sodium Chloride 0.9% 10 Ml Syringe FLUSH 10 ml ASDIRECTED PRN Administration Keep Vein Open Sodium Chloride 2.5 ml 07/11/21 18:53 07/11/21 19:02 Sodium Chloride 0.9% 2.5 Ml Syringe FLUSH 2.5 ml ASDIRECTED PRN Administration Keep Vein Open Discontinued Medications Generic Name Dose Route Start Last Admin Trade Name Freq PRN Reason Stop Dose Admin Albuterol/Ipratropium 3 ml 07/11/21 18:55 07/11/21 19:02 Albuterol/Ipratropium 3.0-0.5 Mg/3 Ml Neb Solshannan NEB 07/11/21 18:56 3 ml ONETIME ONE Administration Albuterol/Ipratropium 3 ml 07/11/21 19:36 07/11/21 19:47 Albuterol/Ipratropium 3.0-0.5 Mg/3 Ml Neb Soln NEB 07/11/21 19:37 3 ml ONETIME ONE Administration Albuterol/Ipratropium 3 ml 07/11/21 19:36 07/11/21 19:47 Albuterol/Ipratropium 3.0-0.5 Mg/3 Ml Neb Solshannan [facility] 07/11/21 19:37 3 ml ONETIME ONE Administration Azithromycin 500 mg 07/13/21 09:00 Azithromycin 250 Mg Tab PO Q24H [facility] Furosemide 40 mg 07/11/21 19:36 07/11/21 19:47 Furosemide 40 Mg/4 Ml Vial IVPUSH 07/11/21 19:37 40 mg NOW ONE Administration Methylprednisolone Sodium Succinate 125 mg 07/11/21 18:55 07/11/21 19:02 Methylprednisolone Sodium Succinate 125 Mg/2 Ml Sdv IVPUSH 07/11/21 18:56 125 mg ONETIME ONE Administration Methylprednisolone Sodium Succinate 40 mg 07/11/21 05:00 07/12/21 00:20 Methylprednisolone Sodium Succinate 40 Mg/1 Ml Sdv IVPUSH Not Given Q8H [facility] Departure - Departure Time of Disposition: 15:59 Disposition: Admitted As Inpatient 68 Clinical Impression: COPD exacerbation Acute respiratory failure Qualifiers: Respiratory failure complication: hypoxia and hypercapnia Qualified Code(s): J96.01 - Acute respiratory failure with hypoxia; J96.02 - Acute respiratory failure with hypercapnia - Discharge Information - My Orders Last 24 Hours: My Active Orders 07/11/21 18:53 Cardiac Monitoring [RC] . DIRECTED Sodium Chloride 0.9% [Saline Flush] 10 ml FLUSH ASDIRECTED PRN Sodium Chloride 0.9% [Saline Flush] 2.5 ml FLUSH ASDIRECTED PRN Saline Lock Insert [OM.PC] Stat 07/11/21 18:55 RT Aerosol Therapy [RC] ASDIRECTED 07/11/21 19:36 BIPAP Adult [RT BiPAP/CPAP] [RC] ASDIRECTED RT Aerosol Therapy [RC] ASDIRECTED RT Aerosol Therapy [RC] ASDIRECTED - Assessment/Plan Last 24 Hours: My Active Orders 07/11/21 18:53 Cardiac Monitoring [RC] . DIRECTED Sodium Chloride 0.9% [Saline Flush] 10 ml FLUSH ASDIRECTED PRN Sodium Chloride 0.9% [Saline Flush] 2.5 ml FLUSH ASDIRECTED PRN Saline Lock Insert [OM.PC] Stat 07/11/21 18:55 RT Aerosol Therapy [RC] ASDIRECTED 07/11/21 19:36 BIPAP Adult [RT BiPAP/CPAP] [RC] ASDIRECTED RT Aerosol Therapy [RC] ASDIRECTED RT Aerosol Therapy [RC] ASDIRECTED
--- NOTE | 2021-07-11 23:00 | PCM.HP.2 ---
H&P History of Present Illness - General Date of Service: 07/11/21 Admit Problem/Dx: Admission Diagnosis/Problem Admission Diagnosis/Problem Hypoxia - History of Present Illness Initial Comments - Free Text/Narative: 65 yo female who was admitted for CHF and COPD exacerbation last month. She had been vaccinated for COVID and tested positive for COVID during that admission. She presents to the clinic today with three day history of shortness of breath, cough and wheezing. She was noted to be in some respiratory distress in the ED and placed on Bipap. She was given solumedrol and lasix and did have improv ement in her work of breathing. - Related Data Allergies/Adverse Reactions: Allergies Allergy/AdvReac Type Severity Reaction Status Date / Time latex Allergy Mild Rash Verified 07/12/21 00:20 Home Medications: Home Meds Furosemide [Lasix] 60 mg PO BIDDIURETIC 05/08/17 [History] Albuterol Sulfate [Proair Hfa] 8.5 gm IH BID PRN 10/27/19 [History] Albuterol/Ipratropium [DuoNeb 3.0-0.5 MG/3 ML] 3 ml NEB BID 10/27/19 [History] Glycopyrrolate/Formoterol Fum [Bevespi Aerosphere Inhaler] 1 puff BID 10/27/19 [History] Acetaminophen [Tylenol] 650 mg PO Q4H PRN #30 tablet 10/31/19 [Rx] Nicotine [Habitrol] 14 mg TRDERM DAILY #15 patch 10/31/19 [Rx] Budesonide/Formoterol Fumarate [Symbicort 160-4.5 Mcg Inhaler] 2 puff INH BID 04/23/20 [History] Azithromycin [Zithromax] 500 mg PO Q24H #3 tablet 06/03/21 [Rx] predniSONE [Prednisone] 50 mg PO DAILY #4 tablet 06/03/21 [Rx] Past Medical History HEENT History: Reports: None Other HEENT History: uses reading glasses Cardiovascular History: Reports: Heart Failure, PVD, SOB on Exertion Respiratory History: Reports: COPD, Other (See Below) Other Respiratory History: home O2 3-4 L via [place] Gastrointestinal History: Reports: None Genitourinary History: Reports: None, UTI, Recurrent 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 OB/BYN History: tubali ligation, 3 pregnancies Musculoskeletal History: Reports: None Neurological History: Reports: None Psychiatric History: Reports: Depression Endocrine/Metabolic History: Reports: Obesity/BMI 30+, Other (See Below) Other Endocrine/Metabolic History: lymphedema Hematologic History: Reports: None Immunologic History: Reports: None Oncologic (Cancer) History: Reports: Breast Dermatologic History: Reports: None Other Dermatologic History: lower leg open ulcers - Infectious Disease History Infectious Disease History: Reports: WAP-Blfdbiyupb-Feravsktc Enterobacteriaceae, Measles, Mumps, Rubella - Past Surgical History Head Surgeries/Procedures: Reports: None Cardiovascular Surgical History: Reports: None Respiratory Surgical History: Reports: None Female Surgical History: Reports: Hysterectomy, Mastectomy, Salpingo- Oophorectomy, Tubal Ligation Endocrine Surgical History: Reports: None Oncologic Surgical History: Reports: Mastectomy Social & Family History - Family History Family Medical History: No Pertinent Family History HEENT: Reports: None Cardiac: Reports: None Respiratory: Reports: None Other Respiratory Family Hisory: Aunt, hardening of the lungs. GI: Reports: None : Reports: None OBGYN: Reports: None Musculoskeletal: Reports: None Other Musculoskeletal Family History: Mother, aunt Neurological: Reports: None Psychiatric: Reports: None Endocrine/Metabolic: Reports: None Hematologic: Reports: None Immunologic: Reports: None Dermatologic: Reports: None Oncologic: Reports: None - Caffeine Use Caffeine Use: Reports: Soda Other Caffeine Use: 3 cups - Living Situation & Occupation Living situation: Reports: H&P Review of Systems - Review of Systems: Review Of Systems: Comprehensive ROS is negative, except as noted in HPI. Exam - Exam Exam: See Below - Vital Signs Vital Signs: Last Vital Signs Temp 36.3 C 07/11/21 18:46 Pulse 105 H 07/11/21 18:46 Resp 24 H 07/11/21 18:46 BP 125/59 L 07/11/21 18:46 Pulse Ox 93 L 07/11/21 19:13 Weight: 126.552 kg - Exam General: Alert, Oriented HEENT: Mucosa Moist & [place] Neck: Supple Lungs: Normal Respiratory Effort, Rhonchi, Wheezing Cardiovascular: Regular Rate, Regular Rhythm GI/Abdominal Exam: Normal Bowel Sounds, Soft, Non-Tender Extremities: Pedal Edema (+1) Skin: Warm, Dry, Intact Neurological: No: Focal Deficit - Patient Data Lab Results Last 24 hrs: Laboratory Results - last 24 hr 07/11/21 07/11/21 07/11/21 Range/Units 18:55 18:55 18:55 WBC 14.79 H (4.0-11.0) K/uL RBC 4.86 (4.30-5.90) M/uL Hgb 14.5 (12.0-16.0) g/dL Hct 46.4 H (36.0-46.0) % MCV 95.5 (80.0-98.0) fL MCH 29.8 (27.0-32.0) pg MCHC 31.3 (31.0-37.0) g/dL RDW Std Deviation 59.7 (28.0-62.0) fl RDW Coeff of Misty 17 H (11.0-15.0) % Plt Count 296 (150-400) K/uL MPV 9.50 (7.40-12.00) fL Neut % (Auto) 76.3 (48.0-80.0) % Lymph % (Auto) 16.6 (16.0-40.0) % Craig % (Auto) 6.5 (0.0-15.0) % Eos % (Auto) 0.3 (0.0-7.0) % Baso % (Auto) 0.3 (0.0-1.5) % Neut # (Auto) 11.3 H (1.4-5.7) K/uL Lymph # (Auto) 2.5 H (0.6-2.4) K/uL Craig # (Auto) 1.0 H (0.0-0.8) K/uL Eos # (Auto) 0.0 (0.0-0.7) K/uL Baso # (Auto) 0.1 (0.0-0.1) K/uL Nucleated RBC % 0.0 /100WBC Nucleated RBCs # 0 K/uL D-Dimer, Quantitative (0.0-0.50) mg/L FEU ABG pH (7.35-7.45) ABG pCO2 (35-45) mmHG ABG pO2 (80-105) mmHG ABG HCO3 (22-26) mEq/L ABG Total CO2 (23-27) mmol/L ABG Base Excess (-2.0-3.0) Sodium 141 (136-145) mmol/L Potassium 4.5 (3.5-5.1) mmol/L Chloride 101 (98-107) mmol/L Carbon Dioxide 33.8 H (21.0-32.0) mmol/L BUN 15 (7.0-18.0) mg/dL Creatinine 1.0 (0.6-1.0) mg/dL Est Cr Clr Drug Dosing 53.91 mL/min Estimated GFR (MDRD) 56.0 ml/min Glucose 127 H (74-106) mg/dL Lactic Acid (0.4-2.0) mmol/L Calcium 8.6 (8.5-10.1) mg/dL Total Bilirubin 0.4 (0.2-1.0) mg/dL AST 16 (15-37) IU/L ALT 38 (14-63) IU/L Alkaline Phosphatase 103 (46-116) U/L Troponin I < 0.050 (0.000-0.056) ng/mL B-Natriuretic Peptide 37 (<100) PG/ML Total Protein 6.9 (6.4-8.2) g/dL Albumin 3.3 L (3.4-5.0) g/dL Globulin 3.6 (2.6-4.0) g/dL Albumin/Globulin Ratio 0.9 (0.9-1.6) SARS-CoV-2 RNA (WENDY) (NEGATIVE) 07/11/21 07/11/21 07/11/21 Range/Units 18:55 18:55 18:55 WBC (4.0-11.0) K/uL RBC (4.30-5.90) M/uL Hgb (12.0-16.0) g/dL Hct (36.0-46.0) % MCV (80.0-98.0) fL MCH (27.0-32.0) pg MCHC (31.0-37.0) g/dL RDW Std Deviation (28.0-62.0) fl RDW Coeff of Misty (11.0-15.0) % Plt Count (150-400) K/uL MPV (7.40-12.00) fL Neut % (Auto) (48.0-80.0) % Lymph % (Auto) (16.0-40.0) % Craig % (Auto) (0.0-15.0) % Eos % (Auto) (0.0-7.0) % Baso % (Auto) (0.0-1.5) % Neut # (Auto) (1.4-5.7) K/uL Lymph # (Auto) (0.6-2.4) K/uL Craig # (Auto) (0.0-0.8) K/uL Eos # (Auto) (0.0-0.7) K/uL Baso # (Auto) (0.0-0.1) K/uL Nucleated RBC % /100WBC Nucleated RBCs # K/uL D-Dimer, Quantitative 0.37 (0.0-0.50) mg/L FEU ABG pH (7.35-7.45) ABG pCO2 (35-45) mmHG ABG pO2 (80-105) mmHG ABG HCO3 (22-26) mEq/L ABG Total CO2 (23-27) mmol/L ABG Base Excess (-2.0-3.0) Sodium (136-145) mmol/L Potassium (3.5-5.1) mmol/L Chloride (98-107) mmol/L Carbon Dioxide (21.0-32.0) mmol/L BUN (7.0-18.0) mg/dL Creatinine (0.6-1.0) mg/dL Est Cr Clr Drug Dosing mL/min Estimated GFR (MDRD) ml/min Glucose (74-106) mg/dL Lactic Acid 1.4 (0.4-2.0) mmol/L Calcium (8.5-10.1) mg/dL Total Bilirubin (0.2-1.0) mg/dL AST (15-37) IU/L ALT (14-63) IU/L Alkaline Phosphatase (46-116) U/L Troponin I (0.000-0.056) ng/mL B-Natriuretic Peptide (<100) PG/ML Total Protein (6.4-8.2) g/dL Albumin (3.4-5.0) g/dL Globulin (2.6-4.0) g/dL Albumin/Globulin Ratio (0.9-1.6) SARS-CoV-2 RNA (WENDY) NEGATIVE (NEGATIVE) 08/11/21 Range/Units 20:09 WBC (4.0-11.0) K/uL RBC (4.30-5.90) M/uL Hgb (12.0-16.0) g/dL Hct (36.0-46.0) % MCV (80.0-98.0) fL MCH (27.0-32.0) pg MCHC (31.0-37.0) g/dL RDW Std Deviation (28.0-62.0) fl RDW Coeff of Misty (11.0-15.0) % Plt Count (150-400) K/uL MPV (7.40-12.00) fL Neut % (Auto) (48.0-80.0) % Lymph % (Auto) (16.0-40.0) % Craig % (Auto) (0.0-15.0) % Eos % (Auto) (0.0-7.0) % Baso % (Auto) (0.0-1.5) % Neut # (Auto) (1.4-5.7) K/uL Lymph # (Auto) (0.6-2.4) K/uL Craig # (Auto) (0.0-0.8) K/uL Eos # (Auto) (0.0-0.7) K/uL Baso # (Auto) (0.0-0.1) K/uL Nucleated RBC % /100WBC Nucleated RBCs # K/uL D-Dimer, Quantitative (0.0-0.50) mg/L FEU ABG pH 7.32 L (7.35-7.45) ABG pCO2 66 H (35-45) mmHG ABG pO2 71 L (80-105) mmHG ABG HCO3 34 H (22-26) mEq/L ABG Total CO2 30.2 H (23-27) mmol/L ABG Base Excess 5.2 H (-2.0-3.0) Sodium (136-145) mmol/L Potassium (3.5-5.1) mmol/L Chloride (98-107) mmol/L Carbon Dioxide (21.0-32.0) mmol/L BUN (7.0-18.0) mg/dL Creatinine (0.6-1.0) mg/dL Est Cr Clr Drug Dosing mL/min Estimated GFR (MDRD) ml/min Glucose (74-106) mg/dL Lactic Acid (0.4-2.0) mmol/L Calcium (8.5-10.1) mg/dL Total Bilirubin (0.2-1.0) mg/dL AST (15-37) IU/L ALT (14-63) IU/L Alkaline Phosphatase (46-116) U/L Troponin I (0.000-0.056) ng/mL B-Natriuretic Peptide (<100) PG/ML Total Protein (6.4-8.2) g/dL Albumin (3.4-5.0) g/dL Globulin (2.6-4.0) g/dL Albumin/Globulin Ratio (0.9-1.6) SARS-CoV-2 RNA (WENDY) (NEGATIVE) Result Diagrams: 07/12/21 05:11 07/12/21 05:11 Sepsis Event Note - Focused Exam Vital Signs: Vital Signs Temp Pulse Resp BP Pulse Ox 07/11/21 19:13 93 L 07/11/21 19:07 100 07/11/21 19:00 100 07/11/21 18:55 98 07/11/21 18:50 87 L 07/11/21 18:46 36.3 C 105 H 24 H 125/59 L 32 L Problem List Initiated/Reviewed/Updated: Yes Orders Last 24hrs: Active Orders 24 hr Category Date Time Status Admission Status [Patient Status] [ADT] Stat ADT 07/11/21 21:03 Active BIPAP Adult [RT BiPAP/CPAP] [RC] ASDIRECTED Care 07/11/21 19:36 Active Cardiac Monitoring [RC] . DIRECTED Care 07/11/21 18:53 Active RT Aerosol Therapy [RC] ASDIRECTED Care 07/11/21 18:55 Active RT Aerosol Therapy [RC] ASDIRECTED Care 07/11/21 19:36 Active RT Aerosol Therapy [RC] ASDIRECTED Care 07/11/21 19:36 Active Sodium Chloride 0.9% [Saline Flush] Med 07/11/21 18:53 Active 10 ml FLUSH ASDIRECTED PRN Sodium Chloride 0.9% [Saline Flush] Med 07/11/21 18:53 Active 2.5 ml FLUSH ASDIRECTED PRN Saline Lock Insert [OM.PC] Stat Oth 07/11/21 18:53 Ordered Medication Orders Sodium Chloride (Sodium Chloride 0.9% 10 Ml Syringe) 10 ml FLUSH ASDIRECTED PRN PRN Reason: Keep Vein Open Last Admin: 07/11/21 19:03 Dose: 10 ml Documented by: ANGELO Sodium Chloride (Sodium Chloride 0.9% 2.5 Ml Syringe) 2.5 ml FLUSH ASDIRECTED PRN PRN Reason: Keep Vein Open Last Admin: 07/11/21 19:02 Dose: 2.5 ml Documented by: ANGELO Assessment/Plan Comment:: 65 yo female admitted for acute hypoxic respiratory failure with COPD and CHF exacerbation. COPD: will treat with solumedrol, duonebs and azithromycin CHF: will diuresis with lasix, bipap prn
--- NOTE | 2021-07-11 23:17 | PN ---
THC Physician - Brief Progress [id number]/11/2021 23:11[facility] Vaishnavi Stanley, GRAYSON - MWN (SHARA) - MWN BOB HAGERDate of Service 07/11/2021 23:11HPI/Events of Note Case discussed with RN. 65 year old F with CHF/COPD/PVD and previous COVID infection, admit sanjuana with SOB. Treated with O2 therapy/steroids and lasix diuresis. Bedisde team starting BiPAP for improved resp support.Recs include: hemodynamic monitoring, diuresis as tolerated, consider echo when availabele, HHF/BiPAP PRN, encourage self proning as tolerated, steroids, defer antiviral therapy t o primary service, GI and DVT prophylaxis,consider ID eval, replace lytes as needed, glycemic monitor ing, pain control, neuro checks.Interventions Minor-Communication with other healthcare providers and /or family
[2021-07-12] MEDS: Albuterol/Ipratropium 3.0-0.5 MG/3 ML Neb Soln NEB SCH ×5 (00:18→17:20)
[2021-07-12] MEDS: methylPREDNISolone Sodium Succinate 40 MG/1 ML SDV IVPUSH SCH ×5 (00:19→20:02)
[2021-07-12 06:19] LABS: CARBON DIOXIDE,CO2 33.1 mmol/L (21.0-32.0); POTASSIUM,K 4.4 mmol/L (3.5-5.1)
[2021-07-12] MEDS: Furosemide 40 MG/4 ML VIAL IVPUSH SCH ×2 (07:49→14:55)
[2021-07-12] MEDS: Budesonide/Formoterol 160-4.5 MCG/Puff 6 GM Inhaler INH SCH ×2 (08:39→20:02)
[2021-07-12] MEDS: Heparin Sodium 5,000 Units/ML Vial SUBCUT SCH ×2 (10:25→17:47)
--- NOTE | 2021-07-12 12:06 | PCM.PN ---
- General Info Date of Service: 07/12/21 Admission Dx/Problem (Free Text): Admission Diagnosis/Problem Admission Diagnosis/Problem Hypoxia Subjective Update: 65-year-old female with a history of COPD, CHF, morbid obesity and venous insufficiency admitted for acute hypoxic respiratory failure secondary to COPD and CHF exacerbation. Overnight patient was on BiPAP and this morning is tolerating nasal cannula. She states she feels better in regards to her breathing. She denies chest pain, palpitations, cough, fevers, chills, abdominal pain, nausea, vomiting or diarrhea. - Review of Systems General: Denies: Fever, Chills HEENT: Reports: No Symptoms Pulmonary: Reports: Shortness of Breath. Denies: Cough, Sputum, Hemoptysis Cardiovascular: Reports: Dyspnea on Exertion. Denies: Chest Pain, Palpitations Gastrointestinal: Denies: Abdominal Pain, Constipation Genitourinary: Denies: Dysuria Skin: Reports: Dryness Neurological: Reports: No Symptoms - Patient Data Vitals - Most Recent: Last Vital Signs Temp 98.1 F 07/12/21 08:00 Pulse 105 H 07/11/21 18:46 Resp 17 07/12/21 10:00 BP 122/63 07/12/21 10:00 Pulse Ox 92 L 07/12/21 10:00 Weight - Most Recent: 281 lb 8 oz I&O - Last 24 Hours: Intake & Output 07/11/21 07/12/21 07/12/21 22:59 06:59 14:59 Intake Total 450 Output Total 750 Balance -300 Lab Results Last 24 Hours: Laboratory Results - last 24 hr 07/11/21 07/11/21 07/11/21 Range/Units 18:55 18:55 18:55 WBC 14.79 H (4.0-11.0) K/uL RBC 4.86 (4.30-5.90) M/uL Hgb 14.5 (12.0-16.0) g/dL Hct 46.4 H (36.0-46.0) % MCV 95.5 (80.0-98.0) fL MCH 29.8 (27.0-32.0) pg MCHC 31.3 (31.0-37.0) g/dL RDW Std Deviation 59.7 (28.0-62.0) fl RDW Coeff of Misty 17 H (11.0-15.0) % Plt Count 296 (150-400) K/uL MPV 9.50 (7.40-12.00) fL Neut % (Auto) 76.3 (48.0-80.0) % Lymph % (Auto) 16.6 (16.0-40.0) % [place] % (Auto) 6.5 (0.0-15.0) % Eos % (Auto) 0.3 (0.0-7.0) % Baso % (Auto) 0.3 (0.0-1.5) % Neut # (Auto) 11.3 H (1.4-5.7) K/uL Lymph # (Auto) 2.5 H (0.6-2.4) K/uL [place] # (Auto) 1.0 H (0.0-0.8) K/uL Eos # (Auto) 0.0 (0.0-0.7) K/uL Baso # (Auto) 0.1 (0.0-0.1) K/uL Nucleated RBC % 0.0 /100WBC Nucleated RBCs # 0 K/uL D-Dimer, Quantitative (0.0-0.50) mg/L FEU ABG pH (7.35-7.45) ABG pCO2 (35-45) mmHG ABG pO2 (80-105) mmHG ABG HCO3 (22-26) mEq/L ABG Total CO2 (23-27) mmol/L ABG Base Excess (-2.0-3.0) Sodium 141 (136-145) mmol/L Potassium 4.5 (3.5-5.1) mmol/L Chloride 101 (98-107) mmol/L Carbon Dioxide 33.8 H (21.0-32.0) mmol/L BUN 15 (7.0-18.0) mg/dL Creatinine 1.0 (0.6-1.0) mg/dL Est Cr Clr Drug Dosing 53.91 mL/min Estimated GFR (MDRD) 56.0 ml/min Glucose 127 H (74-106) mg/dL Lactic Acid (0.4-2.0) mmol/L Calcium 8.6 (8.5-10.1) mg/dL Phosphorus (2.6-4.7) mg/dL Magnesium (1.8-2.4) mg/dL Total Bilirubin 0.4 (0.2-1.0) mg/dL AST 16 (15-37) IU/L ALT 38 (14-63) IU/L Alkaline Phosphatase 103 (46-116) U/L Troponin I < 0.050 (0.000-0.056) ng/mL B-Natriuretic Peptide 37 (<100) PG/ML Total Protein 6.9 (6.4-8.2) g/dL Albumin 3.3 L (3.4-5.0) g/dL Globulin 3.6 (2.6-4.0) g/dL Albumin/Globulin Ratio 0.9 (0.9-1.6) SARS-CoV-2 RNA (WENDY) (NEGATIVE) 07/11/21 07/11/21 07/11/21 Range/Units 18:55 18:55 18:55 WBC (4.0-11.0) K/uL RBC (4.30-5.90) M/uL Hgb (12.0-16.0) g/dL Hct (36.0-46.0) % MCV (80.0-98.0) fL MCH (27.0-32.0) pg MCHC (31.0-37.0) g/dL RDW Std Deviation (28.0-62.0) fl RDW Coeff of Misty (11.0-15.0) % Plt Count (150-400) K/uL MPV (7.40-12.00) fL Neut % (Auto) (48.0-80.0) % Lymph % (Auto) (16.0-40.0) % [place] % (Auto) (0.0-15.0) % Eos % (Auto) (0.0-7.0) % Baso % (Auto) (0.0-1.5) % Neut # (Auto) (1.4-5.7) K/uL Lymph # (Auto) (0.6-2.4) K/uL [place] # (Auto) (0.0-0.8) K/uL Eos # (Auto) (0.0-0.7) K/uL Baso # (Auto) (0.0-0.1) K/uL Nucleated RBC % /100WBC Nucleated RBCs # K/uL D-Dimer, Quantitative 0.37 (0.0-0.50) mg/L FEU ABG pH (7.35-7.45) ABG pCO2 (35-45) mmHG ABG pO2 (80-105) mmHG ABG HCO3 (22-26) mEq/L ABG Total CO2 (23-27) mmol/L ABG Base Excess (-2.0-3.0) Sodium (136-145) mmol/L Potassium (3.5-5.1) mmol/L Chloride (98-107) mmol/L Carbon Dioxide (21.0-32.0) mmol/L BUN (7.0-18.0) mg/dL Creatinine (0.6-1.0) mg/dL Est Cr Clr Drug Dosing mL/min Estimated GFR (MDRD) ml/min Glucose (74-106) mg/dL Lactic Acid 1.4 (0.4-2.0) mmol/L Calcium (8.5-10.1) mg/dL Phosphorus (2.6-4.7) mg/dL Magnesium (1.8-2.4) mg/dL Total Bilirubin (0.2-1.0) mg/dL AST (15-37) IU/L ALT (14-63) IU/L Alkaline Phosphatase (46-116) U/L Troponin I (0.000-0.056) ng/mL B-Natriuretic Peptide (<100) PG/ML Total Protein (6.4-8.2) g/dL Albumin (3.4-5.0) g/dL Globulin (2.6-4.0) g/dL Albumin/Globulin Ratio (0.9-1.6) SARS-CoV-2 RNA (WENDY) NEGATIVE (NEGATIVE) 07/11/21 07/12/21 07/12/21 Range/Units 20:09 05:11 05:11 WBC 13.20 H (4.0-11.0) K/uL RBC 4.80 (4.30-5.90) M/uL Hgb 14.2 (12.0-16.0) g/dL Hct 45.9 (36.0-46.0) % MCV 95.6 (80.0-98.0) fL MCH 29.6 (27.0-32.0) pg MCHC 30.9 L (31.0-37.0) g/dL RDW Std Deviation 58.4 (28.0-62.0) fl RDW Coeff of Misty 17 H (11.0-15.0) % Plt Count 255 (150-400) K/uL MPV 9.60 (7.40-12.00) fL Neut % (Auto) 86.9 H (48.0-80.0) % Lymph % (Auto) 10.2 L (16.0-40.0) % [place] % (Auto) 2.7 (0.0-15.0) % Eos % (Auto) 0.0 (0.0-7.0) % Baso % (Auto) 0.2 (0.0-1.5) % Neut # (Auto) 11.5 H (1.4-5.7) K/uL Lymph # (Auto) 1.3 (0.6-2.4) K/uL [place] # (Auto) 0.4 (0.0-0.8) K/uL Eos # (Auto) 0.0 (0.0-0.7) K/uL Baso # (Auto) 0.0 (0.0-0.1) K/uL Nucleated RBC % 0.0 /100WBC Nucleated RBCs # 0 K/uL D-Dimer, Quantitative (0.0-0.50) mg/L FEU ABG pH 7.32 L (7.35-7.45) ABG pCO2 66 H (35-45) mmHG ABG pO2 71 L (80-105) mmHG ABG HCO3 34 H (22-26) mEq/L ABG Total CO2 30.2 H (23-27) mmol/L ABG Base Excess 5.2 H (-2.0-3.0) Sodium 141 (136-145) mmol/L Potassium 4.4 (3.5-5.1) mmol/L Chloride 101 (98-107) mmol/L Carbon Dioxide 33.1 H (21.0-32.0) mmol/L BUN 17 (7.0-18.0) mg/dL Creatinine 1.1 H (0.6-1.0) mg/dL Est Cr Clr Drug Dosing 49.27 mL/min Estimated GFR (MDRD) 50.2 ml/min Glucose 180 H (74-106) mg/dL Lactic Acid (0.4-2.0) mmol/L Calcium 8.4 L (8.5-10.1) mg/dL Phosphorus 3.8 (2.6-4.7) mg/dL Magnesium 2.2 (1.8-2.4) mg/dL Total Bilirubin (0.2-1.0) mg/dL AST (15-37) IU/L ALT (14-63) IU/L Alkaline Phosphatase (46-116) U/L Troponin I (0.000-0.056) ng/mL B-Natriuretic Peptide (<100) PG/ML Total Protein (6.4-8.2) g/dL Albumin (3.4-5.0) g/dL Globulin (2.6-4.0) g/dL Albumin/Globulin Ratio (0.9-1.6) SARS-CoV-2 RNA (WENDY) (NEGATIVE) Med Orders - Current: Current Medications Albuterol/Ipratropium (Albuterol/Ipratropium 3.0-0.5 Mg/3 Ml Neb Soln) 3 ml NEB Q6HRRT [facility] Last Admin: 07/12/21 06:18 Dose: 3 ml Documented by: Azithromycin (Azithromycin 250 Mg Tab) 500 mg PO Q24H [facility] Furosemide (Furosemide 40 Mg/4 Ml Vial) 40 mg IVPUSH BIDDIURETIC [facility] Last Admin: 07/12/21 07:49 Dose: 40 mg Documented by: Heparin Sodium (Porcine) (Heparin Sodium 5,000 Units/Ml Vial) 5,000 units SUBCUT Q8H [facility] Last Admin: 07/12/21 10:25 Dose: 5,000 units Documented by: Methylprednisolone Sodium Succinate (Methylprednisolone Sodium Succinate 40 Mg/1 Ml Sdv) 40 mg IVPUSH Q8H [facility] Last Admin: 07/12/21 04:41 Dose: 40 mg Documented by: Nystatin (Nystatin Topical Powder 15 Gm Bottle) 0 gm TOP TID [facility] Budesonide/Formoterol 160-4.5 Mcg/Puff 6 Gm Inhaler 2 each INH BIDRT [facility] Last Admin: 07/12/21 08:39 Dose: Not Given Documented by: Sodium Chloride (Sodium Chloride 0.9% 10 Ml Syringe) 10 ml FLUSH ASDIRECTED PRN PRN Reason: Keep Vein Open Last Admin: 07/11/21 19:03 Dose: 10 ml Documented by: Sodium Chloride (Sodium Chloride 0.9% 2.5 Ml Syringe) 2.5 ml FLUSH ASDIRECTED PRN PRN Reason: Keep Vein Open Last Admin: 07/11/21 19:02 Dose: 2.5 ml Documented by: Discontinued Medications Albuterol/Ipratropium (Albuterol/Ipratropium 3.0-0.5 Mg/3 Ml Neb Soln) 3 ml NEB ONETIME ONE Stop: 07/11/21 18:56 Last Admin: 07/11/21 19:02 Dose: 3 ml Documented by: Albuterol/Ipratropium (Albuterol/Ipratropium 3.0-0.5 Mg/3 Ml Neb Soln) 3 ml NEB ONETIME ONE Stop: 07/11/21 19:37 Last Admin: 07/11/21 19:47 Dose: 3 ml Documented by: Albuterol/Ipratropium (Albuterol/Ipratropium 3.0-0.5 Mg/3 Ml Neb Soln) 3 ml NEB ONETIME ONE Stop: 07/11/21 19:37 Last Admin: 07/11/21 19:47 Dose: 3 ml Documented by: Furosemide (Furosemide 40 Mg/4 Ml Vial) 40 mg IVPUSH NOW ONE Stop: 07/11/21 19:37 Last Admin: 07/11/21 19:47 Dose: 40 mg Documented by: Methylprednisolone Sodium Succinate (Methylprednisolone Sodium Succinate 125 Mg/2 Ml Sdv) 125 mg IVPUSH ONETIME ONE Stop: 07/11/21 18:56 Last Admin: 07/11/21 19:02 Dose: 125 mg Documented by: Methylprednisolone Sodium Succinate (Methylprednisolone Sodium Succinate 40 Mg/1 Ml Sdv) 40 mg IVPUSH Q8H [facility] Last Admin: 07/12/21 00:20 Dose: Not Given Documented by: - Exam Quality Assessment: Supplemental Oxygen General: Alert, Oriented, Cooperative HEENT: Pupils Equal Neck: Supple, No JVD Lungs: Decreased Breath Sounds, Crackles Cardiovascular: Regular Rate, Regular Rhythm, No Murmurs GI/Abdominal Exam: Normal Bowel Sounds, Soft, Non-Tender Extremities: Leg Pain, Redness (Chronic venous stasis changes.). No: Increased Warmth Peripheral Pulses: 2+: Dorsalis Pedis (L), Dorsalis Pedis (R) Wound/Incisions: No Drainage, Erythema Neurological: No New Focal Deficit - Patient Data Lab Results Last 24 hrs: Laboratory Results - last 24 hr 07/11/21 07/11/21 07/11/21 Range/Units 18:55 18:55 18:55 WBC 14.79 H (4.0-11.0) K/uL RBC 4.86 (4.30-5.90) M/uL Hgb 14.5 (12.0-16.0) g/dL Hct 46.4 H (36.0-46.0) % MCV 95.5 (80.0-98.0) fL MCH 29.8 (27.0-32.0) pg MCHC 31.3 (31.0-37.0) g/dL RDW Std Deviation 59.7 (28.0-62.0) fl RDW Coeff of Misty 17 H (11.0-15.0) % Plt Count 296 (150-400) K/uL MPV 9.50 (7.40-12.00) fL Neut % (Auto) 76.3 (48.0-80.0) % Lymph % (Auto) 16.6 (16.0-40.0) % [place] % (Auto) 6.5 (0.0-15.0) % Eos % (Auto) 0.3 (0.0-7.0) % Baso % (Auto) 0.3 (0.0-1.5) % Neut # (Auto) 11.3 H (1.4-5.7) K/uL Lymph # (Auto) 2.5 H (0.6-2.4) K/uL [place] # (Auto) 1.0 H (0.0-0.8) K/uL Eos # (Auto) 0.0 (0.0-0.7) K/uL Baso # (Auto) 0.1 (0.0-0.1) K/uL Nucleated RBC % 0.0 /100WBC Nucleated RBCs # 0 K/uL D-Dimer, Quantitative (0.0-0.50) mg/L FEU ABG pH (7.35-7.45) ABG pCO2 (35-45) mmHG ABG pO2 (80-105) mmHG ABG HCO3 (22-26) mEq/L ABG Total CO2 (23-27) mmol/L ABG Base Excess (-2.0-3.0) Sodium 141 (136-145) mmol/L Potassium 4.5 (3.5-5.1) mmol/L Chloride 101 (98-107) mmol/L Carbon Dioxide 33.8 H (21.0-32.0) mmol/L BUN 15 (7.0-18.0) mg/dL Creatinine 1.0 (0.6-1.0) mg/dL Est Cr Clr Drug Dosing 53.91 mL/min Estimated GFR (MDRD) 56.0 ml/min Glucose 127 H (74-106) mg/dL Lactic Acid (0.4-2.0) mmol/L Calcium 8.6 (8.5-10.1) mg/dL Phosphorus (2.6-4.7) mg/dL Magnesium (1.8-2.4) mg/dL Total Bilirubin 0.4 (0.2-1.0) mg/dL AST 16 (15-37) IU/L ALT 38 (14-63) IU/L Alkaline Phosphatase 103 (46-116) U/L Troponin I < 0.050 (0.000-0.056) ng/mL B-Natriuretic Peptide 37 (<100) PG/ML Total Protein 6.9 (6.4-8.2) g/dL Albumin 3.3 L (3.4-5.0) g/dL Globulin 3.6 (2.6-4.0) g/dL Albumin/Globulin Ratio 0.9 (0.9-1.6) SARS-CoV-2 RNA (WENDY) (NEGATIVE) 07/11/21 07/11/21 07/11/21 Range/Units 18:55 18:55 18:55 WBC (4.0-11.0) K/uL RBC (4.30-5.90) M/uL Hgb (12.0-16.0) g/dL Hct (36.0-46.0) % MCV (80.0-98.0) fL MCH (27.0-32.0) pg MCHC (31.0-37.0) g/dL RDW Std Deviation (28.0-62.0) fl RDW Coeff of Misty (11.0-15.0) % Plt Count (150-400) K/uL MPV (7.40-12.00) fL Neut % (Auto) (48.0-80.0) % Lymph % (Auto) (16.0-40.0) % [place] % (Auto) (0.0-15.0) % Eos % (Auto) (0.0-7.0) % Baso % (Auto) (0.0-1.5) % Neut # (Auto) (1.4-5.7) K/uL Lymph # (Auto) (0.6-2.4) K/uL [place] # (Auto) (0.0-0.8) K/uL Eos # (Auto) (0.0-0.7) K/uL Baso # (Auto) (0.0-0.1) K/uL Nucleated RBC % /100WBC Nucleated RBCs # K/uL D-Dimer, Quantitative 0.37 (0.0-0.50) mg/L FEU ABG pH (7.35-7.45) ABG pCO2 (35-45) mmHG ABG pO2 (80-105) mmHG ABG HCO3 (22-26) mEq/L ABG Total CO2 (23-27) mmol/L ABG Base Excess (-2.0-3.0) Sodium (136-145) mmol/L Potassium (3.5-5.1) mmol/L Chloride (98-107) mmol/L Carbon Dioxide (21.0-32.0) mmol/L BUN (7.0-18.0) mg/dL Creatinine (0.6-1.0) mg/dL Est Cr Clr Drug Dosing mL/min Estimated GFR (MDRD) ml/min Glucose (74-106) mg/dL Lactic Acid 1.4 (0.4-2.0) mmol/L Calcium (8.5-10.1) mg/dL Phosphorus (2.6-4.7) mg/dL Magnesium (1.8-2.4) mg/dL Total Bilirubin (0.2-1.0) mg/dL AST (15-37) IU/L ALT (14-63) IU/L Alkaline Phosphatase (46-116) U/L Troponin I (0.000-0.056) ng/mL B-Natriuretic Peptide (<100) PG/ML Total Protein (6.4-8.2) g/dL Albumin (3.4-5.0) g/dL Globulin (2.6-4.0) g/dL Albumin/Globulin Ratio (0.9-1.6) SARS-CoV-2 RNA (WENDY) NEGATIVE (NEGATIVE) 07/11/21 07/12/21 07/12/21 Range/Units 20:09 05:11 05:11 WBC 13.20 H (4.0-11.0) K/uL RBC 4.80 (4.30-5.90) M/uL Hgb 14.2 (12.0-16.0) g/dL Hct 45.9 (36.0-46.0) % MCV 95.6 (80.0-98.0) fL MCH 29.6 (27.0-32.0) pg MCHC 30.9 L (31.0-37.0) g/dL RDW Std Deviation 58.4 (28.0-62.0) fl RDW Coeff of Misty 17 H (11.0-15.0) % Plt Count 255 (150-400) K/uL MPV 9.60 (7.40-12.00) fL Neut % (Auto) 86.9 H (48.0-80.0) % Lymph % (Auto) 10.2 L (16.0-40.0) % [place] % (Auto) 2.7 (0.0-15.0) % Eos % (Auto) 0.0 (0.0-7.0) % Baso % (Auto) 0.2 (0.0-1.5) % Neut # (Auto) 11.5 H (1.4-5.7) K/uL Lymph # (Auto) 1.3 (0.6-2.4) K/uL [place] # (Auto) 0.4 (0.0-0.8) K/uL Eos # (Auto) 0.0 (0.0-0.7) K/uL Baso # (Auto) 0.0 (0.0-0.1) K/uL Nucleated RBC % 0.0 /100WBC Nucleated RBCs # 0 K/uL D-Dimer, Quantitative (0.0-0.50) mg/L FEU ABG pH 7.32 L (7.35-7.45) ABG pCO2 66 H (35-45) mmHG ABG pO2 71 L (80-105) mmHG ABG HCO3 34 H (22-26) mEq/L ABG Total CO2 30.2 H (23-27) mmol/L ABG Base Excess 5.2 H (-2.0-3.0) Sodium 141 (136-145) mmol/L Potassium 4.4 (3.5-5.1) mmol/L Chloride 101 (98-107) mmol/L Carbon Dioxide 33.1 H (21.0-32.0) mmol/L BUN 17 (7.0-18.0) mg/dL Creatinine 1.1 H (0.6-1.0) mg/dL Est Cr Clr Drug Dosing 49.27 mL/min Estimated GFR (MDRD) 50.2 ml/min Glucose 180 H (74-106) mg/dL Lactic Acid (0.4-2.0) mmol/L Calcium 8.4 L (8.5-10.1) mg/dL Phosphorus 3.8 (2.6-4.7) mg/dL Magnesium 2.2 (1.8-2.4) mg/dL Total Bilirubin (0.2-1.0) mg/dL AST (15-37) IU/L ALT (14-63) IU/L Alkaline Phosphatase (46-116) U/L Troponin I (0.000-0.056) ng/mL B-Natriuretic Peptide (<100) PG/ML Total Protein (6.4-8.2) g/dL Albumin (3.4-5.0) g/dL Globulin (2.6-4.0) g/dL Albumin/Globulin Ratio (0.9-1.6) SARS-CoV-2 RNA (WENDY) (NEGATIVE) Result Diagrams: 07/12/21 05:11 07/12/21 05:11 Sepsis Event Note - Evaluation Sepsis Screening Result: Possible Sepsis Risk - Focused Exam Vital Signs: Vital Signs Temp Resp BP Pulse Ox 07/12/21 10:00 17 122/63 92 L 07/12/21 09:00 18 125/65 93 L 07/12/21 08:00 98.1 F 13 126/62 92 L 07/12/21 07:00 25 H 95 07/12/21 06:00 24 H 139/52 L 92 L 07/12/21 05:00 23 H 93 L 07/12/21 04:00 97.2 F 23 H 118/54 L 91 L 07/12/21 03:00 22 H 113/53 L 92 L 07/12/21 02:00 24 H 115/45 L 91 L - Problem List Review Problem List Initiated/Reviewed/Updated: Yes - My Orders Last 24 Hours: My Active Orders 07/12/21 Lunch 2 Gram Sodium Diet [DIET] - Plan Plan:: 65-year-old female with acute hypoxic respiratory failure secondary to COPD and CHF exacerbation. We will continue the patient on Solu-Medrol, duo nebs and azithromycin. Continue Lasix 40 mg twice daily. DVT prophylaxis with heparin 5000 every 8 hours. Encourage incentive spirometry. BiPAP at night as needed.
[2021-07-12] MEDS ORDERED: Azithromycin 250 MG Tab PO SCH (13:15)
[2021-07-12] MEDS: Nystatin Topical Powder 15 GM Bottle TOP SCH ×2 (14:55→22:27)
[2021-07-12] MEDS: FORMOTEROL INH SCH (20:49)
[2021-07-12] MEDS: BUDESONIDE INH SCH (20:49)
[2021-07-13] MEDS: Albuterol/Ipratropium 3.0-0.5 MG/3 ML Neb Soln NEB SCH ×3 (00:15→11:33)
[2021-07-13] MEDS: Heparin Sodium 5,000 Units/ML Vial SUBCUT SCH ×2 (02:11→09:03)
[2021-07-13] MEDS: methylPREDNISolone Sodium Succinate 40 MG/1 ML SDV IVPUSH SCH (05:22)
[2021-07-13] MEDS: Nystatin Topical Powder 15 GM Bottle TOP SCH (05:52)
[2021-07-13] MEDS: BUDESONIDE INH SCH (06:17)
[2021-07-13] MEDS: FORMOTEROL INH SCH (06:17)
[2021-07-13 06:18] LABS: POTASSIUM,K 3.9 mmol/L (3.5-5.1)
[2021-07-13] MEDS: Furosemide 40 MG/4 ML VIAL IVPUSH SCH (08:30)
[2021-07-13] MEDS ORDERED: Azithromycin 250 MG Tab PO SCH (09:00)
[2021-07-13 11:19] VITALS: PULSE 75
--- NOTE | 2021-07-13 12:18 | PCM.DCSUM1 ---
Discharge Summary - Hospital Course Free Text/Narrative:: 65-year-old female with history of COPD and CHF presented to the ER with complaints of increased shortness of breath and decreased appetite. WBC was 15. Troponins negative. BNP over 37. Lactic acid 1.4. SARS-CoV-2 was negative. At home patient is on 4 L oxygen at baseline. Patient was admitted for acute hypoxic respiratory failure secondary to COPD exacerbation and CHF. He was treated with duo nebs, azithromycin, Lasix and Solu-Medrol. O2 saturation was maintained between 88 and 92%. Patient's wheezing improved. She did require BiPAP for a few hours on her first night but remained on nasal cannula thereafter. Patient was on 5 L NC and weaned down to 3 before discharge. Patient does continue to smoke 1 pack/day. During her stay, patient and her daughter spoke with palliative care. Considering her end-stage COPD and cardiac comorbidities, today the patient decided she would like to change her status to DNR/DNI. All benefits and risks were discussed by Dr. Nichole. Going forward patient stated she would like to be DNR/DNI. It was clarified that she may change her resuscitation status at any point during any admission. Patient will be discharged on home oxygen. - Discharge Data Discharge Date: 07/13/21 Discharge Disposition: Home, Self-Care 01 Condition: Stable - Referral to Home Health Primary Care Physician: Dave Metzger MD - Discharge Diagnosis/Problem(s) (1) Acute respiratory failure SNOMED Code(s): 90926130 ICD Code: J96.00 - ACUTE RESPIRATORY FAILURE, UNSP W HYPOXIA OR HYPERCAPNIA Status: Acute Current Visit: Yes Qualifiers: Respiratory failure complication: hypoxia and hypercapnia Qualified Code(s): J96.01 - Acute respiratory failure with hypoxia; J96.02 - Acute respiratory failure with hypercapnia (2) COPD exacerbation SNOMED Code(s): 869409089 ICD Code: J44.1 - CHRONIC OBSTRUCTIVE PULMONARY DISEASE W (ACUTE) EXACERBATION Status: Acute Current Visit: Yes (3) CHF exacerbation SNOMED Code(s): 672295553, 68050126926838 ICD Code: I50.9 - HEART FAILURE, UNSPECIFIED Status: Acute Current Visit: No - Patient Summary/Data Consults: Consultations 07/12/21 13:30 Consult to Hospice [CONS] Routine - Patient Instructions Diet: Heart Healthy Diet Fluid Restriction: 2000 mL Activity: As Tolerated Showering/Bathing: May Shower Other/Special Instructions: Please seek medical care if you experience sudden increase in oxygen requirements. If you experience fever, chest pain, palpitations, increased cough with increased sputum production please seek medical care. - Discharge Plan *PRESCRIPTION DRUG MONITORING PROGRAM REVIEWED*: Not Applicable *COPY OF PRESCRIPTION DRUG MONITORING REPORT IN PATIENT DAGMAR: Not Applicable Home Medications: Home Meds Furosemide [Lasix] 60 mg PO BIDDIURETIC 05/08/17 [History] Albuterol Sulfate [Proair Hfa] 8.5 gm IH BID PRN 10/27/19 [History] Albuterol/Ipratropium [DuoNeb 3.0-0.5 MG/3 ML] 3 ml NEB BID 10/27/19 [History] Glycopyrrolate/Formoterol Fum [Bevespi Aerosphere Inhaler] 1 puff BID 10/27/19 [History] Acetaminophen [Tylenol] 650 mg PO Q4H PRN #30 tablet 10/31/19 [Rx] Nicotine [Habitrol] 14 mg TRDERM DAILY #15 patch 10/31/19 [Rx] Budesonide/Formoterol Fumarate [Symbicort 160-4.5 Mcg Inhaler] 2 puff INH BID 04/23/20 [History] Oxygen Therapy Mode: Nasal Cannula Maintain SPO2% less than: 92 Maintain SpO2% greater than: 88 Forms: ED Department Discharge Referrals: Dave Metzger MD [Primary Care Provider] - - Discharge Summary/Plan Comment DC Time >30 min.: Yes Total # of Minutes for Discharge Time: 31 - General Info Admission Dx/Problem (Free Text: Admission Diagnosis/Problem Admission Diagnosis/Problem Hypoxia - Review of Systems General: Denies: Fever, Chills HEENT: Reports: No Symptoms Pulmonary: Denies: Shortness of Breath, Cough, Sputum, Wheezing Cardiovascular: Reports: Dyspnea on Exertion. Denies: Chest Pain, Palpitations Gastrointestinal: Reports: No Symptoms Genitourinary: Reports: No Symptoms Musculoskeletal: Reports: No Symptoms Skin: Reports: Rash Neurological: Reports: No Symptoms - Patient Data Vitals - Most Recent: Last Vital Signs Temp 97.9 F 07/13/21 08:00 Pulse 75 07/13/21 11:00 Resp 22 H 07/13/21 11:00 BP 131/81 07/13/21 11:00 Pulse Ox 89 L 07/13/21 11:00 Weight - Most Recent: 266 lb 3 oz I&O - Last 24 hours: Intake & Output 07/12/21 07/13/21 07/13/21 22:59 06:59 14:59 Intake Total 750 800 Output Total 1750 500 Balance -1000 300 Lab Results - Last 24 hrs: Laboratory Results - last 24 hr 07/13/21 07/13/21 Range/Units 05:00 05:00 WBC 16.00 H (4.0-11.0) K/uL RBC 4.54 (4.30-5.90) M/uL Hgb 13.3 (12.0-16.0) g/dL Hct 42.9 (36.0-46.0) % MCV 94.5 (80.0-98.0) fL MCH 29.3 (27.0-32.0) pg MCHC 31.0 (31.0-37.0) g/dL RDW Std Deviation 57.0 (28.0-62.0) fl RDW Coeff of Misty 16 H (11.0-15.0) % Plt Count 262 (150-400) K/uL MPV 9.60 (7.40-12.00) fL Nucleated RBC % 0.0 /100WBC Nucleated RBCs # 0 K/uL Sodium 140 (136-145) mmol/L Potassium 3.9 (3.5-5.1) mmol/L Chloride 100 (98-107) mmol/L Carbon Dioxide 34.0 H (21.0-32.0) mmol/L BUN 29 H (7.0-18.0) mg/dL Creatinine 1.1 H (0.6-1.0) mg/dL Est Cr Clr Drug Dosing 49.27 mL/min Estimated GFR (MDRD) 50.2 ml/min Glucose 200 H (74-106) mg/dL Calcium 8.4 L (8.5-10.1) mg/dL Total Bilirubin 0.2 (0.2-1.0) mg/dL AST 12 L (15-37) IU/L ALT 34 (14-63) IU/L Alkaline Phosphatase 94 (46-116) U/L Total Protein 6.6 (6.4-8.2) g/dL Albumin 3.2 L (3.4-5.0) g/dL Globulin 3.4 (2.6-4.0) g/dL Albumin/Globulin Ratio 0.9 (0.9-1.6) Med Orders - Current: Current Medications Albuterol/Ipratropium (Albuterol/Ipratropium 3.0-0.5 Mg/3 Ml Neb Soln) 3 ml NEB Q6HRRT [facility] Last Admin: 07/13/21 11:33 Dose: 3 ml Documented by: Azithromycin (Azithromycin 250 Mg Tab) 500 mg PO Q24H [facility] Last Admin: 07/12/21 13:23 Dose: 500 mg Documented by: Furosemide (Furosemide 40 Mg/4 Ml Vial) 40 mg IVPUSH BIDDIURETIC [facility] Last Admin: 07/13/21 08:30 Dose: 40 mg Documented by: Heparin Sodium (Porcine) (Heparin Sodium 5,000 Units/Ml Vial) 5,000 units SUBCUT Q8H [facility] Last Admin: 07/13/21 09:03 Dose: 5,000 units Documented by: Methylprednisolone Sodium Succinate (Methylprednisolone Sodium Succinate 40 Mg/1 Ml Sdv) 40 mg IVPUSH Q8H [facility] Last Admin: 07/13/21 05:22 Dose: 40 mg Documented by: Nystatin (Nystatin Topical Powder 15 Gm Bottle) 0 gm TOP TID [facility] Last Admin: 07/13/21 05:52 Dose: 1 applic Documented by: Budesonide/Formoterol 160-4.5 Mcg/Puff 6 Gm Inhaler *Ptom* 0 each INH BIDRT [facility] Last Admin: 07/13/21 06:17 Dose: 2 each Documented by: Sodium Chloride (Sodium Chloride 0.9% 10 Ml Syringe) 10 ml FLUSH ASDIRECTED PRN PRN Reason: Keep Vein Open Last Admin: 07/11/21 19:03 Dose: 10 ml Documented by: Sodium Chloride (Sodium Chloride 0.9% 2.5 Ml Syringe) 2.5 ml FLUSH ASDIRECTED PRN PRN Reason: Keep Vein Open Last Admin: 07/11/21 19:02 Dose: 2.5 ml Documented by: Discontinued Medications Albuterol/Ipratropium (Albuterol/Ipratropium 3.0-0.5 Mg/3 Ml Neb Soln) 3 ml NEB ONETIME ONE Stop: 07/11/21 18:56 Last Admin: 07/11/21 19:02 Dose: 3 ml Documented by: Albuterol/Ipratropium (Albuterol/Ipratropium 3.0-0.5 Mg/3 Ml Neb Soln) 3 ml NEB ONETIME ONE Stop: 07/11/21 19:37 Last Admin: 07/11/21 19:47 Dose: 3 ml Documented by: Albuterol/Ipratropium (Albuterol/Ipratropium 3.0-0.5 Mg/3 Ml Neb Soln) 3 ml NEB ONETIME ONE Stop: 07/11/21 19:37 Last Admin: 07/11/21 19:47 Dose: 3 ml Documented by: Azithromycin (Azithromycin 250 Mg Tab) 500 mg PO Q24H [facility] Furosemide (Furosemide 40 Mg/4 Ml Vial) 40 mg IVPUSH NOW ONE Stop: 07/11/21 19:37 Last Admin: 07/11/21 19:47 Dose: 40 mg Documented by: Methylprednisolone Sodium Succinate (Methylprednisolone Sodium Succinate 125 Mg/2 Ml Sdv) 125 mg IVPUSH ONETIME ONE Stop: 07/11/21 18:56 Last Admin: 07/11/21 19:02 Dose: 125 mg Documented by: Methylprednisolone Sodium Succinate (Methylprednisolone Sodium Succinate 40 Mg/1 Ml Sdv) 40 mg IVPUSH Q8H [facility] Last Admin: 07/12/21 00:20 Dose: Not Given Documented by: Budesonide/Formoterol 160-4.5 Mcg/Puff 6 Gm Inhaler 2 each INH BIDRT [facility] Last Admin: 07/12/21 20:02 Dose: Not Given Documented by: - Exam General: Reports: Alert, Oriented, Cooperative, No Acute Distress HEENT: Reports: Pupils Equal Neck: Reports: Supple, No JVD Lungs: Reports: Clear to Auscultation, Decreased Breath Sounds. Denies: Wheezing Cardiovascular: Reports: Regular Rate, Regular Rhythm GI/Abdominal Exam: Normal Bowel Sounds, Soft, Non-Tender Back Exam: Reports: Normal Inspection Extremities: No Pedal Edema, Other (Chronic venous stasis changes). No: Pedal Edema, Kristin's Sign Neurological: Reports: No New Focal Deficit
[2021-07-13 12:20] VITALS: BP 123/94
--- NOTE | 2021-07-13 19:11 | PCM.EKG ---
#1 Interpretation EKG Date: 07/11/21 Time: 18:50 Rhythm: A-Fib Rate (Beats/Min): 95 ST-T: Normal
== END 2021-07-13 12:45 | disposition home or self-care (01) | DRG 291 ==
LOC: MW.ED 18:35 → MW.ICU 21:03
PROVIDERS: ADMIT Internal Medicine; ATTEND Internal Medicine
DX: I50.9 Heart failure, unspecified (principal); J96.01 Acute respiratory failure with hypoxia; J96.02 Acute respiratory failure with hypercapnia; J44.1 Chronic obstructive pulmonary disease with (acute) exacerbation; Z68.41 Body mass index [BMI] 40.0-44.9, adult; Z66 Do not resuscitate; Z20.822 Contact with and (suspected) exposure to COVID-19; F17.210 Nicotine dependence, cigarettes, uncomplicated; F32.9 Major depressive disorder, single episode, unspecified; Z90.710 Acquired absence of both cervix and uterus; E66.01 Morbid (severe) obesity due to excess calories; Z91.040 Latex allergy status; Z79.899 Other long term (current) drug therapy; Z98.51 Tubal ligation status; Z86.16 Personal history of COVID-19; Z79.52 Long term (current) use of systemic steroids; Z90.10 Acquired absence of unspecified breast and nipple
CPT/HCPCS: 36415; 36600; 71045; 71045-26; 80048; 80053; 82803; 83605; 83735; 83880; 84100; 84484; 85025; 85027; 85379; 93005; 94640; 94660; 96374; 96375; 99291; A9270-GY; J1644; J1940; J2920; J2930; J7620-GY; U0002

== ENCOUNTER 2021-11-28 10:18 | Observation (INO) | payer MEDICAID ==
[2021-11-28] MEDS ORDERED: Sodium Chloride 0.9% 10 ML Syringe FLUSH PRN (10:24)
[2021-11-28] MEDS ORDERED: Sodium Chloride 0.9% 2.5 ML Syringe FLUSH PRN (10:24)
[2021-11-28] MEDS ORDERED: methylPREDNISolone Sodium Succinate 125 MG/2 ML SDV IVPUSH ONE (10:25)
[2021-11-28] MEDS ORDERED: Albuterol/Ipratropium 3.0-0.5 MG/3 ML Neb Soln NEB ONE (10:25)
--- NOTE | 2021-11-28 10:35 | EDM.PDOC ---
ED HPI GENERAL MEDICAL PROBLEM - General Chief Complaint: Respiratory Problem Stated Complaint: SOB/CHEST PAIN/LOW OXYGEN STATS Time Seen by Provider: 11/28/21 10:20 Bilateral Leg Pain Score (Numeric/FACES): 7 Headache Pain Score (Numeric/FACES): 3 - Related Data Allergies Allergy/AdvReac Type Severity Reaction Status Date / Time latex Allergy Mild Rash Verified 11/28/21 18:20 Home Meds: Home Meds Furosemide [Lasix] 60 mg PO BIDDIURETIC 05/08/17 [History] Albuterol Sulfate [Proair Hfa] 8.5 gm IH BID PRN 10/27/19 [History] Albuterol/Ipratropium [DuoNeb 3.0-0.5 MG/3 ML] 3 ml NEB BID 10/27/19 [History] Acetaminophen [Tylenol] 650 mg PO Q4H PRN #30 tablet 10/31/19 [Rx] Budesonide/Formoterol Fumarate [Symbicort 160-4.5 Mcg Inhaler] 2 puff INH BID 04/23/20 [History] Anastrozole [Arimidex] 1 mg PO 11/28/21 [History] Past Medical History HEENT History: Reports: Other (See Below) Other HEENT History: uses reading glasses Cardiovascular History: Reports: Heart Failure, PVD, SOB on Exertion Respiratory History: Reports: COPD, Other (See Below) Other Respiratory History: home O2 3-4 L via [place] Gastrointestinal History: Reports: None Genitourinary History: Reports: UTI, Recurrent [employer] History: Reports: Other [employer] History: tubali ligation, 3 pregnancies Musculoskeletal History: Reports: None Neurological History: Reports: None Psychiatric History: Reports: Depression Endocrine/Metabolic History: Reports: Obesity/BMI 30+, Other (See Below) Other Endocrine/Metabolic History: lymphedema Hematologic History: Reports: None Immunologic History: Reports: None Oncologic (Cancer) History: Reports: Breast Dermatologic History: Reports: Other (See Below) Other Dermatologic History: lower leg open ulcers, redness on abdominal folds and groin - Infectious Disease History Infectious Disease History: Reports: [id number] Enterobacteriaceae, Measles, Mumps, Rubella - Past Surgical History Head Surgeries/Procedures: Reports: None Cardiovascular Surgical History: Reports: None Respiratory Surgical History: Reports: None Female Surgical History: Reports: Hysterectomy, Mastectomy, Salpingo- Oophorectomy, Tubal Ligation Endocrine Surgical History: Reports: None Oncologic Surgical History: Reports: Mastectomy Social & Family History - Family History Family Medical History: No Pertinent Family History HEENT: Reports: None Cardiac: Reports: None Respiratory: Reports: None Other Respiratory Family Hisory: Aunt, hardening of the lungs. GI: Reports: None : Reports: None OBGYN: Reports: None Musculoskeletal: Reports: None Other Musculoskeletal Family History: Mother, aunt Neurological: Reports: None Psychiatric: Reports: None Endocrine/Metabolic: Reports: None Hematologic: Reports: None Immunologic: Reports: None Dermatologic: Reports: None Oncologic: Reports: None - Caffeine Use Caffeine Use: Reports: Coffee, Soda, Tea Other Caffeine Use: 3 cups - Living Situation & Occupation Living situation: Reports: #1 Interpretation EKG Interpretation Comments: EKG done 11/28/2021 at 10:16 AM shows a sinus rhythm with a heart rate 77 SC 105 QT duration 391 axis 74 normal QRS there are premature atrial complexes. Normal ST and T compared to 07/11/2021 no acute change but more frequent PAC impression no acute injury Course - Vital Signs Last Recorded V/S: Last Vital Signs Temp 36.1 C 11/29/21 04:00 Pulse 85 11/29/21 04:00 Resp 20 11/29/21 04:00 BP 131/61 11/29/21 04:00 Pulse Ox 91 L 11/29/21 04:00 - Orders/Labs/Meds Orders: Active Orders 24 hr Category Date Time Status RT Aerosol Therapy [RC] ASDIRECTED Care 11/28/21 10:25 Active CULTURE BLOOD [BC] Stat Lab 11/28/21 12:08 Received CULTURE BLOOD [BC] Stat Lab 11/28/21 12:21 Results Azithromycin [Zithromax] 500 mg Med 11/28/21 12:45 Active Sodium Chloride 0.9% [Normal Saline AdvBag] 250 ml IV ONETIME Sodium Chloride 0.9% [Saline Flush] Med 11/28/21 10:24 Active 10 ml FLUSH ASDIRECTED PRN Sodium Chloride 0.9% [Saline Flush] Med 11/28/21 10:24 Active 2.5 ml FLUSH ASDIRECTED PRN Blood Culture x2 Reflex Set [OM.PC] Stat Oth 11/28/21 11:34 Ordered Saline Lock Insert [OM.PC] Stat Ot 11/28/21 10:24 Ordered Medication Orders Acetaminophen (Acetaminophen 325 Mg Tab) 650 mg PO Q4H PRN PRN Reason: Pain (Mild 1-3)/fever Albuterol/Ipratropium (Albuterol/Ipratropium 3.0-0.5 Mg/3 Ml Neb Soln) 3 ml NEB Q4HRRT [facility] Last Admin: 11/29/21 06:06 Dose: 3 ml Documented by: Admin: 11/29/21 02:36 Dose: 3 ml Documented by: Admin: 11/28/21 21:10 Dose: 3 ml Documented by: Admin: 11/28/21 19:02 Dose: 3 ml Documented by: AYDIN Enoxaparin Sodium (Enoxaparin 40 Mg/0.4 Ml Syringe) 40 mg SUBCUT Q12HR [facility] Last Admin: 11/28/21 22:04 Dose: Not Given Documented by: SARAVANAN Furosemide (Furosemide 20 Mg Tab) 60 mg PO BIDDIURETIC [facility] Azithromycin 500 mg/ Sodium (Chloride) 250 mls @ 250 mls/hr IV ONETIME [facility] Last Admin: 11/28/21 19:03 Dose: 250 mls/hr Documented by: Infusion: 11/28/21 15:28 Dose: 250 mls/hr Documented by: Admin: 11/28/21 14:28 Dose: 250 mls/hr Documented by: PAT Azithromycin 500 mg/ Sodium (Chloride) 250 mls @ 250 mls/hr IV DAILY [facility] Last Admin: 11/28/21 19:56 Dose: 250 mls/hr Documented by: SARAVANAN Ceftriaxone Sodium/Dextrose 2 (gm/ Premix) 50 mls @ 100 mls/hr IV Q24H [facility] Last Admin: 11/28/21 19:03 Dose: 100 mls/hr Documented by: AYDIN Methylprednisolone Sodium Succinate (Methylprednisolone Sodium Succinate 125 Mg/2 Ml Sdv) 125 mg IVPUSH Q12H [facility] Last Admin: 11/29/21 06:06 Dose: 125 mg Documented by: Admin: 11/28/21 17:11 Dose: 125 mg Documented by: KIMBERLY Nicotine (Nicotine 14 Mg/24 Hr Patch) 14 mg TRDERM DAILY [facility] Last Admin: 11/28/21 17:10 Dose: 14 mg Documented by: KIMBERLY Pantoprazole Sodium (Pantoprazole 40 Mg Tab.Cr) 40 mg PO DAILY [facility] Budesonide/Formoterol 160-4.5 Mcg/Puff 6 Gm Inhaler 2 each INH BID [facility] Last Admin: 11/28/21 21:10 Dose: 2 each Documented by: SARAVANAN Sodium Chloride (Sodium Chloride 0.9% 10 Ml Syringe) 10 ml FLUSH ASDIRECTED PRN PRN Reason: Keep Vein Open Last Admin: 11/28/21 10:40 Dose: 10 ml Documented by: PAT Sodium Chloride (Sodium Chloride 0.9% 2.5 Ml Syringe) 2.5 ml FLUSH ASDIRECTED PRN PRN Reason: Keep Vein Open Last Admin: 11/28/21 10:40 Dose: 2.5 ml Documented by: PAT Labs: Laboratory Tests 11/28/21 11/28/21 11/28/21 Range/Units 11:02 11:02 11:02 WBC 16.30 H (4.0-11.0) K/uL RBC 4.20 L (4.30-5.90) M/uL Hgb 12.0 (12.0-16.0) g/dL Hct 39.0 (36.0-46.0) % MCV 92.9 (80.0-98.0) fL MCH 28.6 (27.0-32.0) pg MCHC 30.8 L (31.0-37.0) g/dL RDW Std Deviation 58.5 (28.0-62.0) fl RDW Coeff of Misty 17 H (11.0-15.0) % Plt Count 269 (150-400) K/uL MPV 9.60 (7.40-12.00) fL Neut % (Auto) 79.7 (48.0-80.0) % Lymph % (Auto) 11.5 L (16.0-40.0) % Millard % (Auto) 8.4 (0.0-15.0) % Eos % (Auto) 0.2 (0.0-7.0) % Baso % (Auto) 0.2 (0.0-1.5) % Neut # (Auto) 13.0 H (1.4-5.7) K/uL Lymph # (Auto) 1.9 (0.6-2.4) K/uL Millard # (Auto) 1.4 H (0.0-0.8) K/uL Eos # (Auto) 0.0 (0.0-0.7) K/uL Baso # (Auto) 0.0 (0.0-0.1) K/uL Nucleated RBC % 0.0 /100WBC Nucleated RBCs # 0 K/uL Sodium 139 (136-145) mmol/L Potassium 4.2 (3.5-5.1) mmol/L Chloride 97 L (98-107) mmol/L Carbon Dioxide 36.1 H (21.0-32.0) mmol/L BUN 23 H (7.0-18.0) mg/dL Creatinine 1.2 H (0.6-1.0) mg/dL Est Cr Clr Drug Dosing 41.44 mL/min Estimated GFR (MDRD) 45.4 ml/min Glucose 105 (74-106) mg/dL Lactic Acid (0.4-2.0) mmol/L Calcium 8.9 (8.5-10.1) mg/dL Total Bilirubin 0.7 (0.2-1.0) mg/dL AST 37 (15-37) IU/L ALT 31 (14-63) IU/L Alkaline Phosphatase 89 (46-116) U/L Troponin I < 0.050 (0.000-0.056) ng/mL B-Natriuretic Peptide 64 (<100) PG/ML Total Protein 6.7 (6.4-8.2) g/dL Albumin 2.2 L (3.4-5.0) g/dL Globulin 4.5 H (2.6-4.0) g/dL Albumin/Globulin Ratio 0.5 L (0.9-1.6) 11/28/21 Range/Units 12:08 WBC (4.0-11.0) K/uL RBC (4.30-5.90) M/uL Hgb (12.0-16.0) g/dL Hct (36.0-46.0) % MCV (80.0-98.0) fL MCH (27.0-32.0) pg MCHC (31.0-37.0) g/dL RDW Std Deviation (28.0-62.0) fl RDW Coeff of Misty (11.0-15.0) % Plt Count (150-400) K/uL MPV (7.40-12.00) fL Neut % (Auto) (48.0-80.0) % Lymph % (Auto) (16.0-40.0) % Millard % (Auto) (0.0-15.0) % Eos % (Auto) (0.0-7.0) % Baso % (Auto) (0.0-1.5) % Neut # (Auto) (1.4-5.7) K/uL Lymph # (Auto) (0.6-2.4) K/uL Millard # (Auto) (0.0-0.8) K/uL Eos # (Auto) (0.0-0.7) K/uL Baso # (Auto) (0.0-0.1) K/uL Nucleated RBC % /100WBC Nucleated RBCs # K/uL Sodium (136-145) mmol/L Potassium (3.5-5.1) mmol/L Chloride (98-107) mmol/L Carbon Dioxide (21.0-32.0) mmol/L BUN (7.0-18.0) mg/dL Creatinine (0.6-1.0) mg/dL Est Cr Clr Drug Dosing mL/min Estimated GFR (MDRD) ml/min Glucose (74-106) mg/dL Lactic Acid 1.7 (0.4-2.0) mmol/L Calcium (8.5-10.1) mg/dL Total Bilirubin (0.2-1.0) mg/dL AST (15-37) IU/L ALT (14-63) IU/L Alkaline Phosphatase (46-116) U/L Troponin I (0.000-0.056) ng/mL B-Natriuretic Peptide (<100) PG/ML Total Protein (6.4-8.2) g/dL Albumin (3.4-5.0) g/dL Globulin (2.6-4.0) g/dL Albumin/Globulin Ratio (0.9-1.6) Meds: Medications Generic Name Dose Route Start Last Admin Trade Name Freq PRN Reason Stop Dose Admin Acetaminophen 650 mg 11/28/21 17:10 Acetaminophen 325 Mg Tab PO Q4H PRN Pain (Mild 1-3)/fever Albuterol/Ipratropium 3 ml 11/28/21 18:00 11/29/21 06:06 Albuterol/Ipratropium 3.0-0.5 Mg/3 Ml Neb Soln NEB 3 ml Q4HRRT [facility] Administration Enoxaparin Sodium 40 mg 11/28/21 21:00 11/28/21 22:04 Enoxaparin 40 Mg/0.4 Ml Syringe SUBCUT Not Given Q12HR [facility] Furosemide 60 mg 11/29/21 08:00 Furosemide 20 Mg Tab PO BIDDIURETIC [facility] Azithromycin 500 mg/ Sodium 250 mls @ 250 mls/hr 11/28/21 12:45 11/28/21 19:03 Chloride IV 250 mls/hr ONETIME [facility] Administration Azithromycin 500 mg/ Sodium 250 mls @ 250 mls/hr 11/28/21 18:00 11/28/21 19:56 Chloride IV 250 mls/hr DAILY [facility] Administration Ceftriaxone Sodium/Dextrose 2 50 mls @ 100 mls/hr 11/28/21 18:00 11/28/21 19:03 gm/ Premix IV 100 mls/hr Q24H [facility] Administration Methylprednisolone Sodium Succinate 125 mg 11/28/21 17:00 11/29/21 06:06 Methylprednisolone Sodium Succinate 125 Mg/2 Ml Sdv IVPUSH 125 mg Q12H [facility] Administration Nicotine 14 mg 11/28/21 17:00 11/28/21 17:10 Nicotine 14 Mg/24 Hr Patch TRDERM 14 mg DAILY [facility] Administration Pantoprazole Sodium 40 mg 11/29/21 09:00 Pantoprazole 40 Mg Tab.Cr PO DAILY [facility] Budesonide/ 2 each 11/28/21 21:00 11/28/21 21:10 Formoterol 160-4.5 INH 2 each Mcg/Puff 6 Gm BID [facility] Administration Inhaler Sodium Chloride 10 ml 11/28/21 10:24 11/28/21 10:40 Sodium Chloride 0.9% 10 Ml Syringe FLUSH 10 ml ASDIRECTED PRN Administration Keep Vein Open Sodium Chloride 2.5 ml 11/28/21 10:24 11/28/21 10:40 Sodium Chloride 0.9% 2.5 Ml Syringe FLUSH 2.5 ml ASDIRECTED PRN Administration Keep Vein Open Discontinued Medications Generic Name Dose Route Start Last Admin Trade Name Freq PRN Reason Stop Dose Admin Albuterol/Ipratropium 9 ml 11/28/21 10:25 11/28/21 10:40 Albuterol/Ipratropium 3.0-0.5 Mg/3 Ml Neb Soln NEB 11/28/21 10:26 9 ml ONETIME ONE Administration Enoxaparin Sodium 40 mg 11/28/21 16:45 11/28/21 17:10 Enoxaparin 40 Mg/0.4 Ml Syringe SUBCUT 40 mg Q24H [facility] Administration Sodium Chloride 1,000 mls @ 999 mls/hr 11/28/21 11:33 11/28/21 11:44 Normal Saline IV 11/28/21 12:33 999 mls/hr STAT ONE Administration Piperacillin Sod/Tazobactam 50 mls @ 100 mls/hr 11/28/21 11:35 11/28/21 11:42 Sod 3.375 gm/ Sodium Chloride IV 11/28/21 12:04 100 mls/hr ONETIME ONE Administration Ibuprofen 800 mg 11/28/21 17:05 11/28/21 17:11 Ibuprofen 800 Mg Tab PO 11/28/21 17:06 800 mg ONETIME ONE Administration Iopamidol 100 ml 11/28/21 15:27 11/28/21 15:27 Iopamidol 755 Mg/Ml 500 Ml Multipack Bottle IVPUSH 11/28/21 15:28 100 ml ONETIME [facility] Administration Methylprednisolone Sodium Succinate 125 mg 11/28/21 10:25 11/28/21 10:42 Methylprednisolone Sodium Succinate 125 Mg/2 Ml Sdv IVPUSH 11/28/21 10:26 125 mg ONETIME ONE Administration Departure - Departure Disposition: Refer to Observation Clinical Impression: COPD exacerbation, Hypoxia, Head injury - Discharge Information Sepsis Event Note (ED) - Evaluation Sepsis Screening Result: No Definite Risk
[2021-11-28] MEDS ORDERED: Sodium Chloride 0.9% 1,000 ML IV ONE (11:33)
--- NOTE | 2021-11-28 11:33 | CR ---
INDICATION: Hypoxia and shortness of breath. COMPARISON: 07/11/2021. TECHNIQUE: Single portable AP view of the chest. FINDINGS: The lungs are adequately inflated. There are bilateral patchy opacities. Mild diffuse vascular congestion. No pneumothorax or significant effusion. Cardiac silhouette is enlarged, likely excreted by AP technique. No acute osseous findings. IMPRESSION: Bilateral patchy opacities. Differential includes edema and infection. Dictated by Hernan Hernadez MD @ 11/28/2021 11:31:59 AM Dictated by: Hernan Hernadez MD @ 11/28/2021 11:32:10 (Electronically Signed)
[2021-11-28] MEDS ORDERED: Piperacillin/Tazobactam 3.375 GM in Sodium Chloride 0.9% 50 ML IV ONE (11:35)
[2021-11-28 11:53] LABS: BLOOD UREA NITROGEN,BUN 23 mg/dL (7.0-18.0); CARBON DIOXIDE,CO2 36.1 mmol/L (21.0-32.0); CHLORIDE,CL 97 mmol/L (98-107); GLUCOSE RANDOM 105 mg/dL (74-106); POTASSIUM,K 4.2 mmol/L (3.5-5.1); SODIUM,NA 139 mmol/L (136-145)
--- NOTE | 2021-11-28 12:51 | EDM.PDOC ---
ED HPI GENERAL MEDICAL PROBLEM - General Chief Complaint: Respiratory Problem Stated Complaint: SOB/CHEST PAIN/LOW OXYGEN STATS Time Seen by Provider: 11/28/21 10:20 Source of Information: Reports: Patient History Limitations: Reports: No Limitations - History of Present Illness INITIAL COMMENTS - FREE TEXT/NARRATIVE: HISTORY AND PHYSICAL: History of present illness: Patient is a 65-year-old female that presents to the ED complaining of shortness of breath x 1 month. Patient has a history of severe COPD, congestive heart failure, and Covid roughly a month ago. Patient reports since having Covid shortness of breath has increased over the last month. Patient is on 4-1/2 L of oxygen at home per baseline but is inconsistent about wearing it. Patient reports fatigue dry cough and decreased appetite. Patient was poor historian and HPI is limited due to this. She does report worsening SOB with laying flat and does not sleep laying flat due to this for "quite some time". Patient denies fever, chills, chest pain. Denies headache, neck stiff ness, change in vision, syncope, or near syncope. Denies nausea, vomiting, abdominal pain, diarrhea, constipation, or dysuria. Has not noted any blood in urine or stool. Patient has been eating and drinking appropriately. Review of systems: As per history of present illness and below otherwise all systems reviewed and negative. Past medical history: As per history of present illness and as reviewed below otherwise noncontributory. Surgical history: As per history of present illness and as reviewed below otherwise n oncontributory. Social history: See social history for further information Family history: As per history of present illness and as reviewed below otherwise noncontributory. Physical exam: General: Patient is alert, oriented, and in no acute distress. Patient sitting comfortably on exam table. Vitals were reviewed by me, patient was hypoxic to 85%on 4.5 L, blood pressure is soft at 97 over 50s. HEENT: Atraumatic, normocephalic, pupils equal and reactive bilaterally, negative for conjunctival pallor or scleral icterus, mucous membranes moist, throat clear, neck supple, nontender, trachea midline. No drooling or trismus noted. No meningeal signs. No hot potato voice noted. Lungs: Fine crackles to bilateral lower lobes, breath sounds equal bilaterally, chest nontender. Patient speaking 3-4 words with mild breathlessness Heart: S1S2, regular rate and rhythm without overt murmur Abdomen: Soft, nondistended, nontender. Negative for masses or hepatosplenomegaly. Negative for costovertebral tenderness. Pelvis: Stable nontender. Genitourinary: Incontinent to urine, deferred. Rectal: Deferred. Skin: Intact, warm, dry. No lesions or rashes noted. Extremities: Atraumatic, negative for cords or calf pain. Neurovascular unremarkable. Neuro: Awake, alert, oriented. Cranial nerves II through XII unremarkable. Cerebellum unremarkable. Motor and sensory unremarkable throughout. Exam nonf ocal. Medical Decision Making: Patient is a 65-year-old female with a history of severe COPD and congestive heart failure presents to the ED for progressive shortness of breath over the last month following diagnosis of Covid 19. On arrival to the ED, patient was not wearing oxygen (note patient supposed be on 4-1/2 L but " is not good with giving her oxygen"). Patient was placed on 4.5 L of oxygen but was hypoxic at 85%. Patient was increased to 6 L of oxygen statting at 93%. Blood pressures were soft at 90s over 50s. Patient reports blood pressures usually lower we will continue to monitor. On physical exam, patient could speak in 3-4 word increments with mild breathlessness. Auscultation of lungs bilateral crackles are heard in lower lobes. Patient was also noted to be incontinent of urine upon arrival. She does pivot transfer with one assist with poor mobility. According to patient for mobility and urinary incontinence is per her baseline. Due to patient's increased need of oxygen will obtain further cardiac evaluation. Patient is at high risk for pulmonary embolism due to poor mobility, hypoxia, and recent Covid infection. Daughter at bedside mentioned that patient fell and hit her head yesterday. Head CT w/o contrast and a 1 view pelvis have been ordered to evaluate. No obvious abnormality noted on physical exam. See Dr. Rodriguez's dictation for specific EKG interpretation. Otherwise, normal sinus rhythm without STEMI or acute changes. CBC remarkable for leukocytosis with a white blood cell count of 16.3 (will obtain blood cultures x 2 and lactic acid). Other mild derangements unremarkable. CMP does show a mild elevation of BUN and creatinine with 23 and 1.2 respectively. In comparison to previous lab results, BUN and creatinine are at baseline. COVID/Flu negative. Chest X-ray shows bilateral patchy opacities with mild diffuse vascular congestion. Edema vs infection. Given leukocytosis, worsening hypoxia with concern of infection on chest x-ray, will give antibiotics at this time while awaiting angiography of chest completion. Impression of head CT states somewhat limited by motion but no visible acute intracranial posttraumatic findings. The 1 view pelvis x-ray also showed no signs of acute injury. Angiography showed that no acute pulmonary embolism was identified. Impression also shows mild diffuse bronchial wall thickening suggestive of bronchitis. It was noted to stable small noncalcified pulmonary nodules measuring up to 5 mm. There is also stable prominent mediastinal and bilateral hilar lymph nodes which are likely reactive. Upon reevaluation of patient, she remains vitally stable is on 6 L nasal cannula and satting about 93%. She is otherwise comfortable and is able to speak now 4- 5 word sentences without breathlessness. I did call and speak to the hospitalist on-call, Dr. Zendejas, and thoroughly discussed patient's case. Will admit to observation to Dr. Zendejas on telemetry. Voices understanding and is agreeable to plan of care. Denies any further questions or concerns at this time. Diagnostics: CBC, CMP, COVID, chest x-ray, angiography, troponin, EKG, head CT, 1 view pelvis, lactate, blood cultures influenza Therapeutics: Saline DuoNeb x3, Solu-Medrol, Zosyn, and azithromycin Impression: COPD exacerbation with hypoxia Head injury Plan: Admit to observation of Dr. Zendejas on telemetry Definitive disposition and diagnosis as appropriate pending reevaluation and review of above. Bilateral Leg Pain Score (Numeric/FACES): 7 Headache Pain Score (Numeric/FACES): 3 - Related Data Allergies Allergy/AdvReac Type Severity Reaction Status Date / Time latex Allergy Mild Rash Verified 11/28/21 18:20 Home Meds: Home Meds Furosemide [Lasix] 60 mg PO BIDDIURETIC 05/08/17 [History] Albuterol Sulfate [Proair Hfa] 8.5 gm IH BID PRN 10/27/19 [History] Albuterol/Ipratropium [DuoNeb 3.0-0.5 MG/3 ML] 3 ml NEB BID 10/27/19 [History] Acetaminophen [Tylenol] 650 mg PO Q4H PRN #30 tablet 10/31/19 [Rx] Budesonide/Formoterol Fumarate [Symbicort 160-4.5 Mcg Inhaler] 2 puff INH BID 04/23/20 [History] Anastrozole [Arimidex] 1 mg PO 11/28/21 [History] Past Medical History HEENT History: Reports: Other (See Below) Other HEENT History: uses reading glasses Cardiovascular History: Reports: Heart Failure, PVD, SOB on Exertion Respiratory History: Reports: COPD, Other (See Below) Other Respiratory History: home O2 3-4 L via [place] Gastrointestinal History: Reports: None Genitourinary History: Reports: UTI, Recurrent MEDICINE TECHNOLOGIST History: Reports: Other MEDICINE TECHNOLOGIST History: tubali ligation, 3 pregnancies Musculoskeletal History: Reports: None Neurological History: Reports: None Psychiatric History: Reports: Depression Endocrine/Metabolic History: Reports: Obesity/BMI 30+, Other (See Below) Other Endocrine/Metabolic History: lymphedema Hematologic History: Reports: None Immunologic History: Reports: None Oncologic (Cancer) History: Reports: Breast Dermatologic History: Reports: Other (See Below) Other Dermatologic History: lower leg open ulcers, redness on abdominal folds and groin - Infectious Disease History Infectious Disease History: Reports: [id number]-[id number] Enterobacteriaceae, Measles, Mumps, Rubella - Past Surgical History Head Surgeries/Procedures: Reports: None HEENT Surgical History: Reports: None Cardiovascular Surgical History: Reports: None Respiratory Surgical History: Reports: None Female Surgical History: Reports: Hysterectomy, Mastectomy, Salpingo- Oophorectomy, Tubal Ligation Endocrine Surgical History: Reports: None Oncologic Surgical History: Reports: Mastectomy Dermatological Surgical History: Reports: None Social & Family History - Family History Family Medical History: No Pertinent Family History HEENT: Reports: None Cardiac: Reports: None Respiratory: Reports: None Other Respiratory Family Hisory: Aunt, hardening of the lungs. GI: Reports: None : Reports: None OBGYN: Reports: None Musculoskeletal: Reports: None Other Musculoskeletal Family History: Mother, aunt Neurological: Reports: None Psychiatric: Reports: None Endocrine/Metabolic: Reports: None Hematologic: Reports: None Immunologic: Reports: None Dermatologic: Reports: None Oncologic: Reports: None - Tobacco Use Tobacco Use Status *Q: Current Every Day Tobacco User Years of Tobacco use: 45 Packs/Tins Daily: 1 - Caffeine Use Caffeine Use: Reports: Soda, Tea Other Caffeine Use: 3 cups - Recreational Drug Use Recreational Drug Use: No - Living Situation & Occupation Living situation: Reports: ED ROS GENERAL - Review of Systems Review Of Systems: Comprehensive ROS is negative, except as noted in HPI. ED EXAM, GENERAL - Physical Exam Exam: See Below (see dictation) Course - Vital Signs Last Recorded V/S: Last Vital Signs Temp 96.8 F L 11/28/21 18:37 Pulse 77 11/28/21 18:37 Resp 17 11/28/21 18:37 BP 126/55 L 11/28/21 18:37 Pulse Ox 93 L 11/28/21 18:37 - Orders/Labs/Meds Orders: Active Orders 24 hr Category Date Time Status RT Aerosol Therapy [RC] ASDIRECTED Care 11/28/21 10:25 Active CULTURE BLOOD [BC] Stat Lab 11/28/21 12:08 Received CULTURE BLOOD [BC] Stat Lab 11/28/21 12:21 Results Azithromycin [Zithromax] 500 mg Med 11/28/21 12:45 Active Sodium Chloride 0.9% [Normal Saline AdvBag] 250 ml IV ONETIME Sodium Chloride 0.9% [Saline Flush] Med 11/28/21 10:24 Active 10 ml FLUSH ASDIRECTED PRN Sodium Chloride 0.9% [Saline Flush] Med 11/28/21 10:24 Active 2.5 ml FLUSH ASDIRECTED PRN Blood Culture x2 Reflex Set [OM.PC] Stat Oth 11/28/21 11:34 Ordered Saline Lock Insert [OM.PC] Stat Oth 11/28/21 10:24 Ordered Medication Orders Acetaminophen (Acetaminophen 325 Mg Tab) 650 mg PO Q4H PRN PRN Reason: Pain (Mild 1-3)/fever Albuterol/Ipratropium (Albuterol/Ipratropium 3.0-0.5 Mg/3 Ml Neb Soln) 3 ml NEB Q4HRRT [facility] Last Admin: 11/28/21 21:10 Dose: 3 ml Documented by: Admin: 11/28/21 19:02 Dose: 3 ml Documented by: AYDIN Enoxaparin Sodium (Enoxaparin 40 Mg/0.4 Ml Syringe) 40 mg SUBCUT Q12HR [facility] Last Admin: 11/28/21 22:04 Dose: Not Given Documented by: SARAVANAN Furosemide (Furosemide 20 Mg Tab) 60 mg PO BIDDIURETIC MADAI Azithromycin 500 mg/ Sodium (Chloride) 250 mls @ 250 mls/hr IV ONETIME [facility]AD[facility] Last Admin: 11/28/21 19:03 Dose: 250 mls/hr Documented by: Infusion: 11/28/21 15:28 Dose: 250 mls/hr Documented by: Admin: 11/28/21 14:28 Dose: 250 mls/hr Documented by: PAT Azithromycin 500 mg/ Sodium (Chloride) 250 mls @ 250 mls/hr IV DAILY [facility]ADAI Last Admin: 11/28/21 19:56 Dose: 250 mls/hr Documented by: SARAVANAN Ceftriaxone Sodium/Dextrose 2 (gm/ Premix) 50 mls @ 100 mls/hr IV Q24H [facility]AD[facility] Last Admin: 11/28/21 19:03 Dose: 100 mls/hr Documented by: AYDIN Methylprednisolone Sodium Succinate (Methylprednisolone Sodium Succinate 125 Mg/2 Ml Sdv) 125 mg IVPUSH Q12H [facility] Last Admin: 11/28/21 17:11 Dose: 125 mg Documented by: KIMBERLY Nicotine (Nicotine 14 Mg/24 Hr Patch) 14 mg TRDERM DAILY [facility] Last Admin: 11/28/21 17:10 Dose: 14 mg Documented by: KIMBERLY Pantoprazole Sodium (Pantoprazole 40 Mg Tab.Cr) 40 mg PO DAILY [facility] Budesonide/Formoterol 160-4.5 Mcg/Puff 6 Gm Inhaler 2 each INH BID [facility] Last Admin: 11/28/21 21:10 Dose: 2 each Documented by: SARAVANAN Sodium Chloride (Sodium Chloride 0.9% 10 Ml Syringe) 10 ml FLUSH ASDIRECTED PRN PRN Reason: Keep Vein Open Last Admin: 11/28/21 10:40 Dose: 10 ml Documented by: PAT Sodium Chloride (Sodium Chloride 0.9% 2.5 Ml Syringe) 2.5 ml FLUSH ASDIRECTED PRN PRN Reason: Keep Vein Open Last Admin: 11/28/21 10:40 Dose: 2.5 ml Documented by: PAT Labs: Laboratory Tests 11/28/21 11/28/21 11/28/21 Range/Units 11:02 11:02 11:02 WBC 16.30 H (4.0-11.0) K/uL RBC 4.20 L (4.30-5.90) M/uL Hgb 12.0 (12.0-16.0) g/dL Hct 39.0 (36.0-46.0) % MCV 92.9 (80.0-98.0) fL MCH 28.6 (27.0-32.0) pg MCHC 30.8 L (31.0-37.0) g/dL RDW Std Deviation 58.5 (28.0-62.0) fl RDW Coeff of Misty 17 H (11.0-15.0) % Plt Count 269 (150-400) K/uL MPV 9.60 (7.40-12.00) fL Neut % (Auto) 79.7 (48.0-80.0) % Lymph % (Auto) 11.5 L (16.0-40.0) % Latimer % (Auto) 8.4 (0.0-15.0) % Eos % (Auto) 0.2 (0.0-7.0) % Baso % (Auto) 0.2 (0.0-1.5) % Neut # (Auto) 13.0 H (1.4-5.7) K/uL Lymph # (Auto) 1.9 (0.6-2.4) K/uL Latimer # (Auto) 1.4 H (0.0-0.8) K/uL Eos # (Auto) 0.0 (0.0-0.7) K/uL Baso # (Auto) 0.0 (0.0-0.1) K/uL Nucleated RBC % 0.0 /100WBC Nucleated RBCs # 0 K/uL Sodium 139 (136-145) mmol/L Potassium 4.2 (3.5-5.1) mmol/L Chloride 97 L (98-107) mmol/L Carbon Dioxide 36.1 H (21.0-32.0) mmol/L BUN 23 H (7.0-18.0) mg/dL Creatinine 1.2 H (0.6-1.0) mg/dL Est Cr Clr Drug Dosing 41.44 mL/min Estimated GFR (MDRD) 45.4 ml/min Glucose 105 (74-106) mg/dL Lactic Acid (0.4-2.0) mmol/L Calcium 8.9 (8.5-10.1) mg/dL Total Bilirubin 0.7 (0.2-1.0) mg/dL AST 37 (15-37) IU/L ALT 31 (14-63) IU/L Alkaline Phosphatase 89 (46-116) U/L Troponin I < 0.050 (0.000-0.056) ng/mL B-Natriuretic Peptide 64 (<100) PG/ML Total Protein 6.7 (6.4-8.2) g/dL Albumin 2.2 L (3.4-5.0) g/dL Globulin 4.5 H (2.6-4.0) g/dL Albumin/Globulin Ratio 0.5 L (0.9-1.6) 11/28/21 Range/Units 12:08 WBC (4.0-11.0) K/uL RBC (4.30-5.90) M/uL Hgb (12.0-16.0) g/dL Hct (36.0-46.0) % MCV (80.0-98.0) fL MCH (27.0-32.0) pg MCHC (31.0-37.0) g/dL RDW Std Deviation (28.0-62.0) fl RDW Coeff of Misty (11.0-15.0) % Plt Count (150-400) K/uL MPV (7.40-12.00) fL Neut % (Auto) (48.0-80.0) % Lymph % (Auto) (16.0-40.0) % Latimer % (Auto) (0.0-15.0) % Eos % (Auto) (0.0-7.0) % Baso % (Auto) (0.0-1.5) % Neut # (Auto) (1.4-5.7) K/uL Lymph # (Auto) (0.6-2.4) K/uL Latimer # (Auto) (0.0-0.8) K/uL Eos # (Auto) (0.0-0.7) K/uL Baso # (Auto) (0.0-0.1) K/uL Nucleated RBC % /100WBC Nucleated RBCs # K/uL Sodium (136-145) mmol/L Potassium (3.5-5.1) mmol/L Chloride (98-107) mmol/L Carbon Dioxide (21.0-32.0) mmol/L BUN (7.0-18.0) mg/dL Creatinine (0.6-1.0) mg/dL Est Cr Clr Drug Dosing mL/min Estimated GFR (MDRD) ml/min Glucose (74-106) mg/dL Lactic Acid 1.7 (0.4-2.0) mmol/L Calcium (8.5-10.1) mg/dL Total Bilirubin (0.2-1.0) mg/dL AST (15-37) IU/L ALT (14-63) IU/L Alkaline Phosphatase (46-116) U/L Troponin I (0.000-0.056) ng/mL B-Natriuretic Peptide (<100) PG/ML Total Protein (6.4-8.2) g/dL Albumin (3.4-5.0) g/dL Globulin (2.6-4.0) g/dL Albumin/Globulin Ratio (0.9-1.6) Meds: Medications Generic Name Dose Route Start Last Admin Trade Name Freq PRN Reason Stop Dose Admin Acetaminophen 650 mg 11/28/21 17:10 Acetaminophen 325 Mg Tab PO Q4H PRN Pain (Mild 1-3)/fever Albuterol/Ipratropium 3 ml 11/28/21 18:00 11/28/21 21:10 Albuterol/Ipratropium 3.0-0.5 Mg/3 Ml Neb Soln NEB 3 ml Q4HRRT MADAI Administration Enoxaparin Sodium 40 mg 11/28/21 21:00 11/28/21 22:04 Enoxaparin 40 Mg/0.4 Ml Syringe SUBCUT Not Given Q12HR MADAI Furosemide 60 mg 11/29/21 08:00 Furosemide 20 Mg Tab PO BIDDIURETIC MADAI Azithromycin 500 mg/ Sodium 250 mls @ 250 mls/hr 11/28/21 12:45 11/28/21 19:03 Chloride IV 250 mls/hr ONETIME MADAI Administration Azithromycin 500 mg/ Sodium 250 mls @ 250 mls/hr 11/28/21 18:00 11/28/21 19:56 Chloride IV 250 mls/hr DAILY MADAI Administration Ceftriaxone Sodium/Dextrose 2 50 mls @ 100 mls/hr 11/28/21 18:00 11/28/21 19:03 gm/ Premix IV 100 mls/hr Q24H MADAI Administration Methylprednisolone Sodium Succinate 125 mg 11/28/21 17:00 11/28/21 17:11 Methylprednisolone Sodium Succinate 125 Mg/2 Ml Sdv IVPUSH 125 mg Q12H MADAI Administration Nicotine 14 mg 11/28/21 17:00 11/28/21 17:10 Nicotine 14 Mg/24 Hr Patch TRDERM 14 mg DAILY MADAI Administration Pantoprazole Sodium 40 mg 11/29/21 09:00 Pantoprazole 40 Mg Tab.Cr PO DAILY [facility]ADAI Budesonide/ 2 each 11/28/21 21:00 11/28/21 21:10 Formoterol 160-4.5 INH 2 each Mcg/Puff 6 Gm BID MADAI Administration Inhaler Sodium Chloride 10 ml 11/28/21 10:24 11/28/21 10:40 Sodium Chloride 0.9% 10 Ml Syringe FLUSH 10 ml ASDIRECTED PRN Administration Keep Vein Open Sodium Chloride 2.5 ml 11/28/21 10:24 11/28/21 10:40 Sodium Chloride 0.9% 2.5 Ml Syringe FLUSH 2.5 ml ASDIRECTED PRN Administration Keep Vein Open Discontinued Medications Generic Name Dose Route Start Last Admin Trade Name Freq PRN Reason Stop Dose Admin Albuterol/Ipratropium 9 ml 11/28/21 10:25 11/28/21 10:40 Albuterol/Ipratropium 3.0-0.5 Mg/3 Ml Neb Soln NEB 11/28/21 10:26 9 ml ONETIME ONE Administration Enoxaparin Sodium 40 mg 11/28/21 16:45 11/28/21 17:10 Enoxaparin 40 Mg/0.4 Ml Syringe SUBCUT 40 mg Q24H MADAI Administration Sodium Chloride 1,000 mls @ 999 mls/hr 11/28/21 11:33 11/28/21 11:44 Normal Saline IV 11/28/21 12:33 999 mls/hr STAT ONE Administration Piperacillin Sod/Tazobactam 50 mls @ 100 mls/hr 11/28/21 11:35 11/28/21 11:42 Sod 3.375 gm/ Sodium Chloride IV 11/28/21 12:04 100 mls/hr ONETIME ONE Administration Ibuprofen 800 mg 11/28/21 17:05 11/28/21 17:11 Ibuprofen 800 Mg Tab PO 11/28/21 17:06 800 mg ONETIME ONE Administration Iopamidol 100 ml 11/28/21 15:27 11/28/21 15:27 Iopamidol 755 Mg/Ml 500 Ml Multipack Bottle IVPUSH 11/28/21 15:28 100 ml ONETIME STA Administration Methylprednisolone Sodium Succinate 125 mg 11/28/21 10:25 11/28/21 10:42 Methylprednisolone Sodium Succinate 125 Mg/2 Ml Sdv IVPUSH 11/28/21 10:26 125 mg ONETIME ONE Administration Departure - Departure Time of Disposition: 15:26 Disposition: Refer to Observation Clinical Impression: COPD exacerbation, Hypoxia Head injury Qualifiers: Encounter type: initial encounter Qualified Code(s): S09.90XA - Unspecified injury of head, initial encounter - Discharge Information Sepsis Event Note (ED) - Evaluation Sepsis Screening Result: No Definite Risk - Focused Exam Vital Signs: Vital Signs Pulse Resp BP Pulse Ox 11/28/21 14:37 74 111/47 L 93 L 11/28/21 13:45 82 20 123/55 L 87 L 11/28/21 12:30 75 20 113/55 L 91 L 11/28/21 11:31 79 24 H 96/42 L 89 L - My Orders Last 24 Hours: My Active Orders 11/28/21 10:24 Sodium Chloride 0.9% [Saline Flush] 10 ml FLUSH ASDIRECTED PRN Sodium Chloride 0.9% [Saline Flush] 2.5 ml FLUSH ASDIRECTED PRN Saline Lock Insert [OM.PC] Stat 11/28/21 10:25 RT Aerosol Therapy [RC] ASDIRECTED 11/28/21 11:34 Blood Culture x2 Reflex Set [OM.PC] Stat 11/28/21 12:08 CULTURE BLOOD [BC] Stat 11/28/21 12:21 CULTURE BLOOD [BC] Stat 11/28/21 12:45 Azithromycin [Zithromax] 500 mg Sodium Chloride 0.9% [Normal Saline AdvBag] 250 ml IV ONETIME - Assessment/Plan Last 24 Hours: My Active Orders 11/28/21 10:24 Sodium Chloride 0.9% [Saline Flush] 10 ml FLUSH ASDIRECTED PRN Sodium Chloride 0.9% [Saline Flush] 2.5 ml FLUSH ASDIRECTED PRN Saline Lock Insert [OM.PC] Stat 11/28/21 10:25 RT Aerosol Therapy [RC] ASDIRECTED 11/28/21 11:34 Blood Culture x2 Reflex Set [OM.PC] Stat 11/28/21 12:08 CULTURE BLOOD [BC] Stat 11/28/21 12:21 CULTURE BLOOD [BC] Stat 11/28/21 12:45 Azithromycin [Zithromax] 500 mg Sodium Chloride 0.9% [Normal Saline AdvBag] 250 ml IV ONETIME
--- NOTE | 2021-11-28 14:22 | CT ---
INDICATION: Trauma COMPARISON: None TECHNIQUE: CT examination of the head was performed as axial sections without intravenous contrast. Images were obtained from the vertex of the skull through the skull base. Please note that all CT scans at this facility use dose modulation, iterative reconstruction, and/or weight-based dosing when appropriate to reduce radiation dose to as low as reasonably achievable. FINDINGS: Moderate technical limitations imposed by motion. The brain shows no sign of mass lesion, mass effect, hemorrhage, or edema. There are involutional changes. There is mild cortical atrophy and there is mild white matter disease. There is no hydrocephalus. The visualized portions of the orbits are normal in appearance. The osseous structures are normal in appearance with no sign of abnormality in the skull base or calvarium. IMPRESSION: Somewhat limited by motion but no visible acute intracranial posttraumatic findings. Please note that all CT scans at this facility use dose modulation, iterative reconstruction, and/or weight-based dosing when appropriate to reduce radiation dose to as low as reasonably achievable. Dictated by Austin Lawson MD @ 11/28/2021 2:21:22 PM (Electronically Signed)
[2021-11-28] MEDS: Azithromycin 500 MG in Sodium Chloride 0.9% 250 ML IV SCH ×3 (14:28→19:56)
--- NOTE | 2021-11-28 14:39 | CT ---
INDICATION: Hypoxia, recent COVID, CHF, COPD. COMPARISON: Chest radiograph 11/28/2021. CT chest 06/01/2021. TECHNIQUE: CT of the chest with 100 cc of Isovue 370 IV contrast. Coronal and sagittal reconstructions. 3D post processing was performed. FINDINGS: Normal heart size. Normal caliber thoracic aorta and central pulmonary arteries. Mild coronary artery calcifications. There is suboptimal opacification of the pulmonary arteries which limits evaluation of the distal branches. Within these limitations, no acute pulmonary embolism is identified. No evidence of right heart strain. Multiple stable mildly prominent mediastinal and bilateral hilar lymph nodes likely reactive. Mild bibasilar atelectasis, greater on the right. No suspicious focal infiltrate. No pleural effusion or pneumothorax. There are subtle hazy bilateral perihilar ground-glass opacities which may be due to atelectasis or air trapping. There are two stable noncalcified pulmonary nodules in the left lung apex measuring 2 mm and 5 mm in size (series 402, image 24). Mild diffuse bronchial wall thickening. No central endobronchial lesion. The thyroid gland is normal in appearance. Probable hepatic steatosis. Stable 3.8 cm left adrenal nodule which measures 2 HU compatible with a benign adenoma. The visualized upper abdomen is otherwise unremarkable. Degenerative changes of the spine. IMPRESSION: 1. No acute pulmonary embolism identified, however exam is suboptimal. 2. Mild diffuse bronchial wall thickening suggesting bronchitis. 3. Two stable small noncalcified pulmonary nodules measuring up to 5 mm. Please see follow-up guidelines below. 4. Stable prominent mediastinal and bilateral hilar lymph nodes which are likely reactive. [employer] GUID[employer]INES - SOLID NODULES: : MULTIPLE LOW RISK - nodule less than 6 mm: No routine follow-up. - nodule 6-8 mm: CT at 3-6 months, then consider CT at 18-24 months. - nodule greater than 8 mm: CT at 3-6 months, then consider CT at 18-24 months. MULTIPLE HIGH RISK - nodule less than 6 mm: Optional CT at 12 months. - nodule 6-8 mm: CT at 3-6 months, then at 18-24 months. - nodule greater than 8 mm: CT at 3-6 months, then at 18-24 months. Please note that all CT scans at this facility use dose modulation, iterative reconstruction, and/or weight-based dosing when appropriate to reduce radiation dose to as low as reasonably achievable. Dictated by Aida Porter MD @ 11/28/2021 2:37:51 PM (Electronically Signed)
--- NOTE | 2021-11-28 14:49 | CR ---
Indication: Fall with pain. Technique: Pelvis AP 1 views. Comparison: None. Findings: Bones: Alignment is normal. No fractures or bone lesions. Joint spaces: Moderate arthritic changes in the hip joints. Soft tissues: Excreted IV contrast present in the ureters and urinary bladder. Otherwise unremarkable soft tissues. Impression: No sign of acute injury. Dictated by Dominick Araujo MD @ 11/28/2021 2:48:36 PM (Electronically Signed)
[2021-11-28] MEDS ORDERED: Iopamidol 755 MG/ML 500 ML Multipack Bottle IVPUSH STA (15:27)
[2021-11-28 16:01] LABS: CORONAVIRUS COVID-19 NAA NEGATIVE (NEGATIVE); INFLUENZA A NAA NEGATIVE (NEGATIVE); INFLUENZA B NAA NEGATIVE (NEGATIVE)
[2021-11-28] MEDS ORDERED: Enoxaparin 40 MG/0.4 ML Syringe SUBCUT SCH (16:45)
--- NOTE | 2021-11-28 16:59 | PCM.HP.2 ---
H&P History of Present Illness - General Date of Service: 11/28/21 Admit Problem/Dx: Admission Diagnosis/Problem Admission Diagnosis/Problem Hypoxia - History of Present Illness Initial Comments - Free Text/Narative: The patient is a 65-year-old obese female, on day 1 of service, who has a significant past medical history of chronic obstructive pulmonary disease on 4.5 L of oxygen at home, congestive heart failure, and previous COVID-19 infection 1 month ago, who was admitted to the medical floor due to a COPD exacerbation. Upon interview with the patient today she admits that for the past 3 weeks she has had increasing shortness of breath which has gotten to the point where now it is at rest and not only at exertion. She is also complaining of a dry cough devoid of any blood or mucus. The patient's body habitus makes it difficult for her to sleep declined and as a result we will likely sit in a chair or up on her bed with pillows in the inclined position in order to rest. She also admits to decreased appetite for the past 2 weeks. She denies fever, chills, nausea, vomiting, recent sick contacts, or any issues with urination and/or defecation. She admits to falling last night off her toilet onto her butt and lower back and that this is causing pain which is 5 out of 10 in intens ity, dull in nature, and nonradiating. She had a head CT, pelvic x-ray, and CT angiogram which were all negative. She has allergies to latex. Her family history is noncontributory. Her social history is significant for a 40+ year pack history of smoking, but she denies recreational drug use and alcohol consumption. She has no other health concerns at this time. On CBC, her white blood cell count is 16.3, hemoglobin is 12, hematocrit is 39, and platelet count is 269. On CMP, her sodium is 139, potassium is 4.2, chloride is 97, carbon dioxide is 36.1, BUN is 23, creatinine is 1.2. Her chest x-ray shows bilateral patchy opacities with vascular congestion. Her head CT, pelvic x-ray, CTA were all negative In the emergency department, she received azithromycin 500 mg per IV route once, she had 2 blood cultures drawn, received duo nebulizer treatments, Solu-Medrol once, and had a normal saline bolus of 1000 mL. Bilateral Leg Pain Score (Numeric/FACES): 7 - Related Data Allergies/Adverse Reactions: Allergies Allergy/AdvReac Type Severity Reaction Status Date / Time latex Allergy Mild Rash Verified 11/28/21 10:20 Home Medications: Home Meds Furosemide [Lasix] 60 mg PO BIDDIURETIC 05/08/17 [History] Albuterol Sulfate [Proair Hfa] 8.5 gm IH BID PRN 10/27/19 [History] Albuterol/Ipratropium [DuoNeb 3.0-0.5 MG/3 ML] 3 ml NEB BID 10/27/19 [History] Acetaminophen [Tylenol] 650 mg PO Q4H PRN #30 tablet 10/31/19 [Rx] Budesonide/Formoterol Fumarate [Symbicort 160-4.5 Mcg Inhaler] 2 puff INH BID 04/23/20 [History] Anastrozole [Arimidex] 1 mg PO 11/28/21 [History] Past Medical History HEENT History: Reports: Other (See Below) Other HEENT History: uses reading glasses Cardiovascular History: Reports: Heart Failure, PVD, SOB on Exertion Respiratory History: Reports: COPD, Other (See Below) Other Respiratory History: home O2 3-4 L via [place] Gastrointestinal History: Reports: None Genitourinary History: Reports: UTI, Recurrent [employer] History: Reports: Other OB/BYN History: tubali ligation, 3 pregnancies Musculoskeletal History: Reports: None Neurological History: Reports: None Psychiatric History: Reports: Depression Endocrine/Metabolic History: Reports: Obesity/BMI 30+, Other (See Below) Other Endocrine/Metabolic History: lymphedema Hematologic History: Reports: None Immunologic History: Reports: None Oncologic (Cancer) History: Reports: Breast Dermatologic History: Reports: Other (See Below) Other Dermatologic History: lower leg open ulcers, redness on abdominal folds and groin - Infectious Disease History Infectious Disease History: Reports: HNZ-Hnrgdipqbm-Mjexxchzr Enterobacteriaceae, Measles, Mumps, Rubella - Past Surgical History Head Surgeries/Procedures: Reports: None HEENT Surgical History: Reports: None Cardiovascular Surgical History: Reports: None Respiratory Surgical History: Reports: None Female Surgical History: Reports: Hysterectomy, Mastectomy, Salpingo-Oophore ctomy, Tubal Ligation Endocrine Surgical History: Reports: None Oncologic Surgical History: Reports: Mastectomy Dermatological Surgical History: Reports: None Social & Family History - Family History Family Medical History: No Pertinent Family History HEENT: Reports: None Cardiac: Reports: None Respiratory: Reports: None Other Respiratory Family Hisory: Aunt, hardening of the lungs. GI: Reports: None : Reports: None OBGYN: Reports: None Musculoskeletal: Reports: None Other Musculoskeletal Family History: Mother, aunt Neurological: Reports: None Psychiatric: Reports: None Endocrine/Metabolic: Reports: None Hematologic: Reports: None Immunologic: Reports: None Dermatologic: Reports: None Oncologic: Reports: None - Tobacco Use Tobacco Use Status *Q: Current Every Day Tobacco User Years of Tobacco use: 45 Packs/Tins Daily: 1 - Caffeine Use Caffeine Use: Reports: Soda, Tea Other Caffeine Use: 3 cups - Recreational Drug Use Recreational Drug Use: No - Living Situation & Occupation Living situation: Reports: H&P Review of Systems - Review of Systems: Review Of Systems: See Below General: Reports: Weakness, Fatigue. Denies: Fever, Chills HEENT: Denies: Headaches, Sore Throat Pulmonary: Reports: Shortness of Breath, Wheezing, Cough. Denies: Sputum Cardiovascular: Denies: Chest Pain, Palpitations Gastrointestinal: Denies: Abdominal Pain, Nausea, Vomiting Genitourinary: Denies: Dysuria, Frequency Musculoskeletal: Reports: Back Pain Exam - Exam Exam: See Below - Vital Signs Vital Signs: Last Vital Signs Temp 97.1 F 11/28/21 10:23 Pulse 79 11/28/21 16:23 Resp 20 11/28/21 13:45 BP 109/44 L 11/28/21 16:23 Pulse Ox 92 L 11/28/21 16:23 Weight: 272 lb - Exam General: Alert, Oriented, Cooperative HEENT: Mucosa Moist & [place] Neck: Trachea Midline Lungs: Wheezing Cardiovascular: Regular Rate, Regular Rhythm GI/Abdominal Exam: Normal Bowel Sounds, Soft Extremities: Pedal Edema, Other (Stasis dermatitis of bilateral lower extremities) - Patient Data Lab Results Last 24 hrs: Laboratory Results - last 24 hr 11/28/21 11/28/21 11/28/21 Range/Units 11:02 11:02 11:02 WBC 16.30 H (4.0-11.0) K/uL RBC 4.20 L (4.30-5.90) M/uL Hgb 12.0 (12.0-16.0) g/dL Hct 39.0 (36.0-46.0) % MCV 92.9 (80.0-98.0) fL MCH 28.6 (27.0-32.0) pg MCHC 30.8 L (31.0-37.0) g/dL RDW Std Deviation 58.5 (28.0-62.0) fl RDW Coeff of Misty 17 H (11.0-15.0) % Plt Count 269 (150-400) K/uL MPV 9.60 (7.40-12.00) fL Neut % (Auto) 79.7 (48.0-80.0) % Lymph % (Auto) 11.5 L (16.0-40.0) % [place] % (Auto) 8.4 (0.0-15.0) % Eos % (Auto) 0.2 (0.0-7.0) % Baso % (Auto) 0.2 (0.0-1.5) % Neut # (Auto) 13.0 H (1.4-5.7) K/uL Lymph # (Auto) 1.9 (0.6-2.4) K/uL [place] # (Auto) 1.4 H (0.0-0.8) K/uL Eos # (Auto) 0.0 (0.0-0.7) K/uL Baso # (Auto) 0.0 (0.0-0.1) K/uL Nucleated RBC % 0.0 /100WBC Nucleated RBCs # 0 K/uL Sodium 139 (136-145) mmol/L Potassium 4.2 (3.5-5.1) mmol/L Chloride 97 L (98-107) mmol/L Carbon Dioxide 36.1 H (21.0-32.0) mmol/L BUN 23 H (7.0-18.0) mg/dL Creatinine 1.2 H (0.6-1.0) mg/dL Est Cr Clr Drug Dosing 41.44 mL/min Estimated GFR (MDRD) 45.4 ml/min Glucose 105 (74-106) mg/dL Lactic Acid (0.4-2.0) mmol/L Calcium 8.9 (8.5-10.1) mg/dL Total Bilirubin 0.7 (0.2-1.0) mg/dL AST 37 (15-37) IU/L ALT 31 (14-63) IU/L Alkaline Phosphatase 89 (46-116) U/L Troponin I < 0.050 (0.000-0.056) ng/mL B-Natriuretic Peptide 64 (<100) PG/ML Total Protein 6.7 (6.4-8.2) g/dL Albumin 2.2 L (3.4-5.0) g/dL Globulin 4.5 H (2.6-4.0) g/dL Albumin/Globulin Ratio 0.5 L (0.9-1.6) Influenza Type A RNA (NEGATIVE) Influenza Type B RNA (NEGATIVE) SARS-CoV-2 RNA (WENDY) (NEGATIVE) 11/28/21 11/28/21 Range/Units 12:08 15:07 WBC (4.0-11.0) K/uL RBC (4.30-5.90) M/uL Hgb (12.0-16.0) g/dL Hct (36.0-46.0) % MCV (80.0-98.0) fL MCH (27.0-32.0) pg MCHC (31.0-37.0) g/dL RDW Std Deviation (28.0-62.0) fl RDW Coeff of Misty (11.0-15.0) % Plt Count (150-400) K/uL MPV (7.40-12.00) fL Neut % (Auto) (48.0-80.0) % Lymph % (Auto) (16.0-40.0) % [place] % (Auto) (0.0-15.0) % Eos % (Auto) (0.0-7.0) % Baso % (Auto) (0.0-1.5) % Neut # (Auto) (1.4-5.7) K/uL Lymph # (Auto) (0.6-2.4) K/uL [place] # (Auto) (0.0-0.8) K/uL Eos # (Auto) (0.0-0.7) K/uL Baso # (Auto) (0.0-0.1) K/uL Nucleated RBC % /100WBC Nucleated RBCs # K/uL Sodium (136-145) mmol/L Potassium (3.5-5.1) mmol/L Chloride (98-107) mmol/L Carbon Dioxide (21.0-32.0) mmol/L BUN (7.0-18.0) mg/dL Creatinine (0.6-1.0) mg/dL Est Cr Clr Drug Dosing mL/min Estimated GFR (MDRD) ml/min Glucose (74-106) mg/dL Lactic Acid 1.7 (0.4-2.0) mmol/L Calcium (8.5-10.1) mg/dL Total Bilirubin (0.2-1.0) mg/dL AST (15-37) IU/L ALT (14-63) IU/L Alkaline Phosphatase (46-116) U/L Troponin I (0.000-0.056) ng/mL B-Natriuretic Peptide (<100) PG/ML Total Protein (6.4-8.2) g/dL Albumin (3.4-5.0) g/dL Globulin (2.6-4.0) g/dL Albumin/Globulin Ratio (0.9-1.6) Influenza Type A RNA NEGATIVE (NEGATIVE) Influenza Type B RNA NEGATIVE (NEGATIVE) SARS-CoV-2 RNA (WENDY) NEGATIVE (NEGATIVE) Result Diagrams: 11/28/21 11:02 11/28/21 11:02 Joe Results Last 24 hrs: Microbiology 11/28/21 12:21 Anaerobic Blood Culture - Final Blood - Venous - Lab Draw Sepsis Event Note - Evaluation Sepsis Screening Result: No Definite Risk - Focused Exam Vital Signs: Vital Signs Temp Pulse Resp BP Pulse Ox 11/28/21 16:23 79 109/44 L 92 L 11/28/21 15:24 85 102/36 L 94 L 11/28/21 14:37 74 111/47 L 93 L 11/28/21 13:45 82 20 123/55 L 87 L 11/28/21 12:30 75 20 113/55 L 91 L 11/28/21 11:31 79 24 H 96/42 L 89 L 11/28/21 10:23 97.1 F 85 24 H 111/49 L 93 L - Problem List (1) Fall SNOMED Code(s): 0306515, 006960385 ICD Code: W19.XXXA - UNSPECIFIED FALL, INITIAL ENCOUNTER Status: Acute Current Visit: Yes (2) MATT (acute kidney injury) SNOMED Code(s): 34206411, 94259040 ICD Code: N17.9 - ACUTE KIDNEY FAILURE, UNSPECIFIED Status: Acute Current Visit: Yes (3) COPD exacerbation SNOMED Code(s): 674449792 ICD Code: J44.1 - CHRONIC OBSTRUCTIVE PULMONARY DISEASE W (ACUTE) EXACERBATION Status: Acute Current Visit: Yes (4) Hypoxia SNOMED Code(s): 546531556 ICD Code: R09.02 - HYPOXEMIA Status: Acute Current Visit: Yes (5) History of CHF (congestive heart failure) SNOMED Code(s): 633508629 ICD Code: Z86.79 - PERSONAL HISTORY OF OTHER DISEASES OF THE CIRCULATORY SYSTEM Status: Acute Current Visit: No (6) Obesity SNOMED Code(s): 263982592, 201905149 ICD Code: E66.9 - OBESITY, UNSPECIFIED Status: Chronic Current Visit: No (7) Tobacco dependence SNOMED Code(s): 63454476 ICD Code: F17.200 - NICOTINE DEPENDENCE, UNSPECIFIED, UNCOMPLICATED Status: Chronic Current Visit: No Problem List Initiated/Reviewed/Updated: Yes Orders Last 24hrs: Active Orders 24 hr Category Date Time Status Admission Status [Patient Status] [ADT] Stat ADT 11/28/21 15:02 Active RT Aerosol Therapy [RC] ASDIRECTED Care 11/28/21 10:25 Active RT Aerosol Therapy [RC] ASDIRECTED Care 11/28/21 16:49 Ordered Regular Diet [DIET] Diet 11/28/21 Dinner Ordered CBC WITH AUTO DIFF [HEME] AM Lab 12/01/21 05:11 Ordered CBC WITH AUTO DIFF [HEME] AM Lab 11/29/21 05:11 Ordered CBC WITH AUTO DIFF [HEME] AM Lab 11/30/21 05:11 Ordered CMP [COMPREHENSIVE METABOLIC PN,CMP] [CHEM] AM Lab 12/01/21 05:11 Ordered CMP [COMPREHENSIVE METABOLIC PN,CMP] [CHEM] AM Lab 11/29/21 05:11 Ordered CMP [COMPREHENSIVE METABOLIC PN,CMP] [CHEM] AM Lab 11/30/21 05:11 Ordered CULTURE BLOOD [BC] Stat Lab 11/28/21 12:08 Received CULTURE BLOOD [BC] Stat Lab 11/28/21 12:21 Results Albuterol/Ipratropium [DuoNeb 3.0-0.5 MG/3 ML] Med 11/28/21 18:00 Ordered 3 ml NEB Q4HRRT Azithromycin [Zithromax] 500 mg Med 11/28/21 18:00 Ordered Sodium Chloride 0.9% [Normal Saline AdvBag] 250 ml IV DAILY Azithromycin [Zithromax] 500 mg Med 11/28/21 12:45 Active Sodium Chloride 0.9% [Normal Saline AdvBag] 250 ml IV ONETIME Enoxaparin [Lovenox] Med 11/28/21 16:45 Ordered 40 mg SUBCUT Q24H Nicotine [Habitrol] Med 11/28/21 17:00 Ordered 14 mg TRDERM DAILY Pantoprazole [ProTONIX] Med 11/29/21 09:00 Ordered 40 mg PO DAILY Sodium Chloride 0.9% [Saline Flush] Med 11/28/21 10:24 Active 10 ml FLUSH ASDIRECTED PRN Sodium Chloride 0.9% [Saline Flush] Med 11/28/21 10:24 Active 2.5 ml FLUSH ASDIRECTED PRN cefTRIAXone [Rocephin in Dextrose,Iso-Osm 2 GM/50 ML] 2 Med 11/28/21 18:00 Ord ered gm Premix Bag 1 bag IV Q24H methylPREDNISolone Sod Succ [Solu-MEDROL] Med 11/28/21 17:00 Ordered 125 mg IVPUSH Q12H Blood Culture x2 Reflex Set [OM.PC] Stat Oth 11/28/21 11:34 Ordered Saline Lock Insert [OM.PC] Stat Oth 11/28/21 10:24 Ordered Code Status [Resuscitation Status] Stat Resus Stat 11/28/21 16:41 Ordered Medication Orders Albuterol/Ipratropium (Albuterol/Ipratropium 3.0-0.5 Mg/3 Ml Neb Soln) 3 ml NEB Q4HRRT MADAI Enoxaparin Sodium (Enoxaparin 40 Mg/0.4 Ml Syringe) 40 mg SUBCUT Q24H MADAI Azithromycin 500 mg/ Sodium (Chloride) 250 mls @ 250 mls/hr IV ONETIME MADAI Last Admin: 11/28/21 14:28 Dose: 250 mls/hr Documented by: PAT Azithromycin 500 mg/ Sodium (Chloride) 250 mls @ 250 mls/hr IV DAILY MADAI Ceftriaxone Sodium/Dextrose 2 (gm/ Premix) 50 mls @ 100 mls/hr IV Q24H MADAI Methylprednisolone Sodium Succinate (Methylprednisolone Sodium Succinate 125 Mg/2 Ml Sdv) 125 mg IVPUSH Q12H MADAI Nicotine (Nicotine 14 Mg/24 Hr Patch) 14 mg TRDERM DAILY MADAI Pantoprazole Sodium (Pantoprazole 40 Mg Tab.Cr) 40 mg PO DAILY MADAI Sodium Chloride (Sodium Chloride 0.9% 10 Ml Syringe) 10 ml FLUSH ASDIRECTED PRN PRN Reason: Keep Vein Open Last Admin: 11/28/21 10:40 Dose: 10 ml Documented by: PAT Sodium Chloride (Sodium Chloride 0.9% 2.5 Ml Syringe) 2.5 ml FLUSH ASDIRECTED PRN PRN Reason: Keep Vein Open Last Admin: 11/28/21 10:40 Dose: 2.5 ml Documented by: PAT Assessment/Plan Comment:: Admit the patient to the medical floor, vitals per unit routine, activity up ad cecilia., regular diet, DVT prophylaxis with Lovenox 40 mg subcutaneously twice a day, GI prophylaxis with pantoprazole 40 mg per oral route once a day, the patient is DNI/DNR 1. COPD exacerbation -Start ceftriaxone 2 g every 24 hours and azithromycin 500 mg every 24 hours for antibiotic coverage -Supply oxygen as needed, patient is currently on nasal cannula saturating 92% on 6 L -Give Solu-Medrol 125 mg every 12 hours to decrease inflammation -Duo nebulizer treatments for shortness of breath -Daily CBC to check for white blood cell status 2. Fall -For the patient's back pain associated with the fall, we will use Tylenol -Head CT/pelvic x-ray were negative 3. Tobacco dependence -We will use a daily nicotine patch -Patient has been counseled on smoking cessation 4. MATT -Patient was given a normal saline bolus in the emergency department -Continue to monitor with daily CMP 5. CHF history -Continue Lasix home dosage
[2021-11-28] MEDS ORDERED: Ibuprofen 800 MG Tab PO ONE (17:05)
[2021-11-28] MEDS: Nicotine 14 MG/24 Hr Patch TRDERM SCH (17:10)
[2021-11-28] MEDS ORDERED: Acetaminophen 325 MG Tab PO PRN (17:10)
[2021-11-28] MEDS: methylPREDNISolone Sodium Succinate 125 MG/2 ML SDV IVPUSH SCH (17:11)
[2021-11-28] MEDS: Albuterol/Ipratropium 3.0-0.5 MG/3 ML Neb Soln NEB SCH ×2 (19:02→21:10)
[2021-11-28] MEDS: cefTRIAXone 2 GM in Premix Bag 1 BAG IV SCH (19:03)
[2021-11-28] MEDS: Budesonide/Formoterol 160-4.5 MCG/Puff 6 GM Inhaler INH SCH (21:10)
[2021-11-28] MEDS: Enoxaparin 40 MG/0.4 ML Syringe SUBCUT SCH (22:04)
[2021-11-29] MEDS: Albuterol/Ipratropium 3.0-0.5 MG/3 ML Neb Soln NEB SCH ×6 (02:36→21:34)
[2021-11-29] MEDS: methylPREDNISolone Sodium Succinate 125 MG/2 ML SDV IVPUSH SCH ×2 (06:06→17:23)
[2021-11-29 06:59] LABS: POTASSIUM,K 3.9 mmol/L (3.5-5.1)
[2021-11-29] MEDS: Furosemide 20 MG Tab PO SCH ×3 (07:17→14:48)
[2021-11-29] MEDS: Pantoprazole 40 MG Tab.CR PO SCH (08:56)
[2021-11-29] MEDS: Azithromycin 500 MG in Sodium Chloride 0.9% 250 ML IV SCH ×3 (08:56→09:08)
[2021-11-29] MEDS: Enoxaparin 40 MG/0.4 ML Syringe SUBCUT SCH ×2 (08:57→21:34)
[2021-11-29] MEDS: Nicotine 14 MG/24 Hr Patch TRDERM SCH (09:05)
[2021-11-29] MEDS: Budesonide/Formoterol 160-4.5 MCG/Puff 6 GM Inhaler INH SCH ×2 (09:06→21:34)
--- NOTE | 2021-11-29 11:19 | PCM.PN ---
- General Info Date of Service: 11/29/21 Subjective Update: The patient is a 65-year-old obese female, on day 2 of service, who has a significant past medical history of chronic obstructive pulmonary disease on 4.5 L of oxygen at home, congestive heart failure, and previous COVID-19 infection 1 month ago, who was admitted to the medical floor due to a COPD exacerbation. The patient admits that her shortness of breath has significantly improved since yesterday but she is still on 6 L of oxygen and saturating over 90%. We anticipate that her requirement will fall in the next 24 hours and should be back at her baseline of 4.5 L at home. She was refusing her Lasix dosage this morning because she always takes potassium supplementation with it at home. It was explained to her that her potassium level is within the normal range and that the benefits of Lasix outweigh the risk of not taking it. As a result she took her Lasix. She continues to complain of back and buttock pain from her fall and as a result we made sure that she received her Tylenol dosage. She denies chest pain, palpitations, nausea, vomiting, fever, chills, and has no issues with urination and/or defecation. There are no other health concerns at this time. Anticipated discharge tomorrow. - Review of Systems General: Denies: Fever, Weakness, Fatigue Pulmonary: Reports: Shortness of Breath, Cough Cardiovascular: Denies: Chest Pain, Palpitations Gastrointestinal: Denies: Abdominal Pain Genitourinary: Denies: Dysuria Musculoskeletal: Reports: Back Pain - Patient Data Vitals - Most Recent: Last Vital Signs Temp 97.2 F 11/29/21 08:00 Pulse 70 11/29/21 08:00 Resp 20 11/29/21 08:00 BP 110/52 L 11/29/21 08:00 Pulse Ox 93 L 11/29/21 08:00 Weight - Most Recent: 277 lb 3.2 oz I&O - Last 24 Hours: Intake & Output 11/28/21 11/29/21 11/29/21 22:59 06:59 14:59 Intake Total 591 Output Total 100 Balance 491 Lab Results Last 24 Hours: Laboratory Results - last 24 hr 11/28/21 11/28/21 11/28/21 Range/Units 11:02 11:02 11:02 WBC 16.30 H (4.0-11.0) K/uL RBC 4.20 L (4.30-5.90) M/uL Hgb 12.0 (12.0-16.0) g/dL Hct 39.0 (36.0-46.0) % MCV 92.9 (80.0-98.0) fL MCH 28.6 (27.0-32.0) pg MCHC 30.8 L (31.0-37.0) g/dL RDW Std Deviation 58.5 (28.0-62.0) fl RDW Coeff of Misty 17 H (11.0-15.0) % Plt Count 269 (150-400) K/uL MPV 9.60 (7.40-12.00) fL Neut % (Auto) 79.7 (48.0-80.0) % Lymph % (Auto) 11.5 L (16.0-40.0) % [place] % (Auto) 8.4 (0.0-15.0) % Eos % (Auto) 0.2 (0.0-7.0) % Baso % (Auto) 0.2 (0.0-1.5) % Neut # (Auto) 13.0 H (1.4-5.7) K/uL Lymph # (Auto) 1.9 (0.6-2.4) K/uL [place] # (Auto) 1.4 H (0.0-0.8) K/uL Eos # (Auto) 0.0 (0.0-0.7) K/uL Baso # (Auto) 0.0 (0.0-0.1) K/uL Nucleated RBC % 0.0 /100WBC Nucleated RBCs # 0 K/uL Sodium 139 (136-145) mmol/L Potassium 4.2 (3.5-5.1) mmol/L Chloride 97 L (98-107) mmol/L Carbon Dioxide 36.1 H (21.0-32.0) mmol/L BUN 23 H (7.0-18.0) mg/dL Creatinine 1.2 H (0.6-1.0) mg/dL Est Cr Clr Drug Dosing 41.44 mL/min Estimated GFR (MDRD) 45.4 ml/min Glucose 105 (74-106) mg/dL Lactic Acid (0.4-2.0) mmol/L Calcium 8.9 (8.5-10.1) mg/dL Total Bilirubin 0.7 (0.2-1.0) mg/dL AST 37 (15-37) IU/L ALT 31 (14-63) IU/L Alkaline Phosphatase 89 (46-116) U/L Troponin I < 0.050 (0.000-0.056) ng/mL B-Natriuretic Peptide 64 (<100) PG/ML Total Protein 6.7 (6.4-8.2) g/dL Albumin 2.2 L (3.4-5.0) g/dL Globulin 4.5 H (2.6-4.0) g/dL Albumin/Globulin Ratio 0.5 L (0.9-1.6) Influenza Type A RNA (NEGATIVE) Influenza Type B RNA (NEGATIVE) SARS-CoV-2 RNA (WENDY) (NEGATIVE) 11/28/21 11/28/21 11/29/21 Range/Units 12:08 15:07 05:41 WBC 16.32 H (4.0-11.0) K/uL RBC 4.32 (4.30-5.90) M/uL Hgb 12.5 (12.0-16.0) g/dL Hct 41.3 (36.0-46.0) % MCV 95.6 (80.0-98.0) fL MCH 28.9 (27.0-32.0) pg MCHC 30.3 L (31.0-37.0) g/dL RDW Std Deviation 61.0 (28.0-62.0) fl RDW Coeff of Misty 17 H (11.0-15.0) % Plt Count 337 (150-400) K/uL MPV 10.00 (7.40-12.00) fL Neut % (Auto) 90.6 H (48.0-80.0) % Lymph % (Auto) 5.8 L (16.0-40.0) % [place] % (Auto) 3.5 (0.0-15.0) % Eos % (Auto) 0.0 (0.0-7.0) % Baso % (Auto) 0.1 (0.0-1.5) % Neut # (Auto) 14.8 H (1.4-5.7) K/uL Lymph # (Auto) 0.9 (0.6-2.4) K/uL [place] # (Auto) 0.6 (0.0-0.8) K/uL Eos # (Auto) 0.0 (0.0-0.7) K/uL Baso # (Auto) 0.0 (0.0-0.1) K/uL Nucleated RBC % 0.0 /100WBC Nucleated RBCs # 0 K/uL Sodium (136-145) mmol/L Potassium (3.5-5.1) mmol/L Chloride (98-107) mmol/L Carbon Dioxide (21.0-32.0) mmol/L BUN (7.0-18.0) mg/dL Creatinine (0.6-1.0) mg/dL Est Cr Clr Drug Dosing mL/min Estimated GFR (MDRD) ml/min Glucose (74-106) mg/dL Lactic Acid 1.7 (0.4-2.0) mmol/L Calcium (8.5-10.1) mg/dL Total Bilirubin (0.2-1.0) mg/dL AST (15-37) IU/L ALT (14-63) IU/L Alkaline Phosphatase (46-116) U/L Troponin I (0.000-0.056) ng/mL B-Natriuretic Peptide (<100) PG/ML Total Protein (6.4-8.2) g/dL Albumin (3.4-5.0) g/dL Globulin (2.6-4.0) g/dL Albumin/Globulin Ratio (0.9-1.6) Influenza Type A RNA NEGATIVE (NEGATIVE) Influenza Type B RNA NEGATIVE (NEGATIVE) SARS-CoV-2 RNA (WENDY) NEGATIVE (NEGATIVE) 11/29/21 Range/Units 05:41 WBC (4.0-11.0) K/uL RBC (4.30-5.90) M/uL Hgb (12.0-16.0) g/dL Hct (36.0-46.0) % MCV (80.0-98.0) fL MCH (27.0-32.0) pg MCHC (31.0-37.0) g/dL RDW Std Deviation (28.0-62.0) fl RDW Coeff of Misty (11.0-15.0) % Plt Count (150-400) K/uL MPV (7.40-12.00) fL Neut % (Auto) (48.0-80.0) % Lymph % (Auto) (16.0-40.0) % [place] % (Auto) (0.0-15.0) % Eos % (Auto) (0.0-7.0) % Baso % (Auto) (0.0-1.5) % Neut # (Auto) (1.4-5.7) K/uL Lymph # (Auto) (0.6-2.4) K/uL [place] # (Auto) (0.0-0.8) K/uL Eos # (Auto) (0.0-0.7) K/uL Baso # (Auto) (0.0-0.1) K/uL Nucleated RBC % /100WBC Nucleated RBCs # K/uL Sodium 141 (136-145) mmol/L Potassium 3.9 (3.5-5.1) mmol/L Chloride 100 (98-107) mmol/L Carbon Dioxide 34.0 H (21.0-32.0) mmol/L BUN 33 H (7.0-18.0) mg/dL Creatinine 1.3 H (0.6-1.0) mg/dL Est Cr Clr Drug Dosing 38.25 mL/min Estimated GFR (MDRD) 41.4 ml/min Glucose 161 H (74-106) mg/dL Lactic Acid (0.4-2.0) mmol/L Calcium 9.4 (8.5-10.1) mg/dL Total Bilirubin 0.3 (0.2-1.0) mg/dL AST 26 (15-37) IU/L ALT 38 (14-63) IU/L Alkaline Phosphatase 113 (46-116) U/L Troponin I (0.000-0.056) ng/mL B-Natriuretic Peptide (<100) PG/ML Total Protein 7.6 (6.4-8.2) g/dL Albumin 2.4 L (3.4-5.0) g/dL Globulin 5.2 H (2.6-4.0) g/dL Albumin/Globulin Ratio 0.5 L (0.9-1.6) Influenza Type A RNA (NEGATIVE) Influenza Type B RNA (NEGATIVE) SARS-CoV-2 RNA (WENDY) (NEGATIVE) Joe Results Last 24 Hours: Microbiology 11/28/21 12:21 Anaerobic Blood Culture - Final Blood - Venous - Lab Draw Med Orders - Current: Current Medications Acetaminophen (Acetaminophen 325 Mg Tab) 650 mg PO Q4H PRN PRN Reason: Pain (Mild 1-3)/fever Last Admin: 11/29/21 08:56 Dose: 650 mg Documented by: Albuterol/Ipratropium (Albuterol/Ipratropium 3.0-0.5 Mg/3 Ml Neb Soln) 3 ml NEB Q4HRRT [facility] Last Admin: 11/29/21 06:06 Dose: 3 ml Documented by: Enoxaparin Sodium (Enoxaparin 40 Mg/0.4 Ml Syringe) 40 mg SUBCUT Q12HR [facility] Last Admin: 11/29/21 08:57 Dose: 40 mg Documented by: Furosemide (Furosemide 20 Mg Tab) 60 mg PO BIDDIURETIC [facility] Last Admin: 11/29/21 08:56 Dose: 60 mg Documented by: Azithromycin 500 mg/ Sodium (Chloride) 250 mls @ 250 mls/hr IV ONETIME MADAI Last Admin: 11/29/21 09:07 Dose: 250 mls/hr Documented by: Azithromycin 500 mg/ Sodium (Chloride) 250 mls @ 250 mls/hr IV DAILY [facility] Last Admin: 11/29/21 09:08 Dose: 250 mls/hr Documented by: Ceftriaxone Sodium/Dextrose 2 (gm/ Premix) 50 mls @ 100 mls/hr IV Q24H [facility] Last Admin: 11/28/21 19:03 Dose: 100 mls/hr Documented by: Methylprednisolone Sodium Succinate (Methylprednisolone Sodium Succinate 125 Mg/2 Ml Sdv) 125 mg IVPUSH Q12H [facility] Last Admin: 11/29/21 06:06 Dose: 125 mg Documented by: Nicotine (Nicotine 14 Mg/24 Hr Patch) 14 mg TRDERM DAILY [facility] Last Admin: 11/29/21 09:05 Dose: 14 mg Documented by: Pantoprazole Sodium (Pantoprazole 40 Mg Tab.Cr) 40 mg PO DAILY [facility] Last Admin: 11/29/21 08:56 Dose: 40 mg Documented by: Budesonide/Formoterol 160-4.5 Mcg/Puff 6 Gm Inhaler 2 each INH BID MADAI Last Admin: 11/29/21 09:06 Dose: 2 each Documented by: Sodium Chloride (Sodium Chloride 0.9% 10 Ml Syringe) 10 ml FLUSH ASDIRECTED PRN PRN Reason: Keep Vein Open Last Admin: 11/28/21 10:40 Dose: 10 ml Documented by: Sodium Chloride (Sodium Chloride 0.9% 2.5 Ml Syringe) 2.5 ml FLUSH ASDIRECTED PRN PRN Reason: Keep Vein Open Last Admin: 11/28/21 10:40 Dose: 2.5 ml Documented by: Discontinued Medications Albuterol/Ipratropium (Albuterol/Ipratropium 3.0-0.5 Mg/3 Ml Neb Soln) 9 ml NEB ONETIME ONE Stop: 11/28/21 10:26 Last Admin: 11/28/21 10:40 Dose: 9 ml Documented by: Enoxaparin Sodium (Enoxaparin 40 Mg/0.4 Ml Syringe) 40 mg SUBCUT Q24H [facility] Last Admin: 11/28/21 17:10 Dose: 40 mg Documented by: Sodium Chloride (Normal Saline) 1,000 mls @ 999 mls/hr IV STAT ONE Stop: 11/28/21 12:33 Last Admin: 11/28/21 11:44 Dose: 999 mls/hr Documented by: Piperacillin Sod/Tazobactam (Sod 3.375 gm/ Sodium Chloride) 50 mls @ 100 mls/hr IV ONETIME ONE Stop: 11/28/21 12:04 Last Admin: 11/28/21 11:42 Dose: 100 mls/hr Documented by: Ibuprofen (Ibuprofen 800 Mg Tab) 800 mg PO ONETIME ONE Stop: 11/28/21 17:06 Last Admin: 11/28/21 17:11 Dose: 800 mg Documented by: Iopamidol (Iopamidol 755 Mg/Ml 500 Ml Multipack Bottle) 100 ml IVPUSH ONETIME STA Stop: 11/28/21 15:28 Last Admin: 11/28/21 15:27 Dose: 100 ml Documented by: Methylprednisolone Sodium Succinate (Methylprednisolone Sodium Succinate 125 Mg/2 Ml Sdv) 125 mg IVPUSH ONETIME ONE Stop: 11/28/21 10:26 Last Admin: 12/29/21 10:42 Dose: 125 mg Documented by: - Exam General: Alert, Oriented, Cooperative HEENT: No: Mucous Membr. Moist/[place] Neck: Trachea Midline Lungs: Wheezing Cardiovascular: Regular Rate, Regular Rhythm GI/Abdominal Exam: Normal Bowel Sounds, Soft, Non-Tender Back Exam: Other (Tenderness to palpation of lower back) - Patient Data Lab Results Last 24 hrs: Laboratory Results - last 24 hr 11/28/21 11/28/21 11/28/21 Range/Units 11:02 11:02 11:02 WBC 16.30 H (4.0-11.0) K/uL RBC 4.20 L (4.30-5.90) M/uL Hgb 12.0 (12.0-16.0) g/dL Hct 39.0 (36.0-46.0) % MCV 92.9 (80.0-98.0) fL MCH 28.6 (27.0-32.0) pg MCHC 30.8 L (31.0-37.0) g/dL RDW Std Deviation 58.5 (28.0-62.0) fl RDW Coeff of Misty 17 H (11.0-15.0) % Plt Count 269 (150-400) K/uL MPV 9.60 (7.40-12.00) fL Neut % (Auto) 79.7 (48.0-80.0) % Lymph % (Auto) 11.5 L (16.0-40.0) % [place] % (Auto) 8.4 (0.0-15.0) % Eos % (Auto) 0.2 (0.0-7.0) % Baso % (Auto) 0.2 (0.0-1.5) % Neut # (Auto) 13.0 H (1.4-5.7) K/uL Lymph # (Auto) 1.9 (0.6-2.4) K/uL [place] # (Auto) 1.4 H (0.0-0.8) K/uL Eos # (Auto) 0.0 (0.0-0.7) K/uL Baso # (Auto) 0.0 (0.0-0.1) K/uL Nucleated RBC % 0.0 /100WBC Nucleated RBCs # 0 K/uL Sodium 139 (136-145) mmol/L Potassium 4.2 (3.5-5.1) mmol/L Chloride 97 L (98-107) mmol/L Carbon Dioxide 36.1 H (21.0-32.0) mmol/L BUN 23 H (7.0-18.0) mg/dL Creatinine 1.2 H (0.6-1.0) mg/dL Est Cr Clr Drug Dosing 41.44 mL/min Estimated GFR (MDRD) 45.4 ml/min Glucose 105 (74-106) mg/dL Lactic Acid (0.4-2.0) mmol/L Calcium 8.9 (8.5-10.1) mg/dL Total Bilirubin 0.7 (0.2-1.0) mg/dL AST 37 (15-37) IU/L ALT 31 (14-63) IU/L Alkaline Phosphatase 89 (46-116) U/L Troponin I < 0.050 (0.000-0.056) ng/mL B-Natriuretic Peptide 64 (<100) PG/ML Total Protein 6.7 (6.4-8.2) g/dL Albumin 2.2 L (3.4-5.0) g/dL Globulin 4.5 H (2.6-4.0) g/dL Albumin/Globulin Ratio 0.5 L (0.9-1.6) Influenza Type A RNA (NEGATIVE) Influenza Type B RNA (NEGATIVE) SARS-CoV-2 RNA (WENDY) (NEGATIVE) 11/28/21 11/28/21 11/29/21 Range/Units 12:08 15:07 05:41 WBC 16.32 H (4.0-11.0) K/uL RBC 4.32 (4.30-5.90) M/uL Hgb 12.5 (12.0-16.0) g/dL Hct 41.3 (36.0-46.0) % MCV 95.6 (80.0-98.0) fL MCH 28.9 (27.0-32.0) pg MCHC 30.3 L (31.0-37.0) g/dL RDW Std Deviation 61.0 (28.0-62.0) fl RDW Coeff of Misty 17 H (11.0-15.0) % Plt Count 337 (150-400) K/uL MPV 10.00 (7.40-12.00) fL Neut % (Auto) 90.6 H (48.0-80.0) % Lymph % (Auto) 5.8 L (16.0-40.0) % [place] % (Auto) 3.5 (0.0-15.0) % Eos % (Auto) 0.0 (0.0-7.0) % Baso % (Auto) 0.1 (0.0-1.5) % Neut # (Auto) 14.8 H (1.4-5.7) K/uL Lymph # (Auto) 0.9 (0.6-2.4) K/uL [place] # (Auto) 0.6 (0.0-0.8) K/uL Eos # (Auto) 0.0 (0.0-0.7) K/uL Baso # (Auto) 0.0 (0.0-0.1) K/uL Nucleated RBC % 0.0 /100WBC Nucleated RBCs # 0 K/uL Sodium (136-145) mmol/L Potassium (3.5-5.1) mmol/L Chloride (98-107) mmol/L Carbon Dioxide (21.0-32.0) mmol/L BUN (7.0-18.0) mg/dL Creatinine (0.6-1.0) mg/dL Est Cr Clr Drug Dosing mL/min Estimated GFR (MDRD) ml/min Glucose (74-106) mg/dL Lactic Acid 1.7 (0.4-2.0) mmol/L Calcium (8.5-10.1) mg/dL Total Bilirubin (0.2-1.0) mg/dL AST (15-37) IU/L ALT (14-63) IU/L Alkaline Phosphatase (46-116) U/L Troponin I (0.000-0.056) ng/mL B-Natriuretic Peptide (<100) PG/ML Total Protein (6.4-8.2) g/dL Albumin (3.4-5.0) g/dL Globulin (2.6-4.0) g/dL Albumin/Globulin Ratio (0.9-1.6) Influenza Type A RNA NEGATIVE (NEGATIVE) Influenza Type B RNA NEGATIVE (NEGATIVE) SARS-CoV-2 RNA (WENDY) NEGATIVE (NEGATIVE) 11/29/21 Range/Units 05:41 WBC (4.0-11.0) K/uL RBC (4.30-5.90) M/uL Hgb (12.0-16.0) g/dL Hct (36.0-46.0) % MCV (80.0-98.0) fL MCH (27.0-32.0) pg MCHC (31.0-37.0) g/dL RDW Std Deviation (28.0-62.0) fl RDW Coeff of Misty (11.0-15.0) % Plt Count (150-400) K/uL MPV (7.40-12.00) fL Neut % (Auto) (48.0-80.0) % Lymph % (Auto) (16.0-40.0) % [place] % (Auto) (0.0-15.0) % Eos % (Auto) (0.0-7.0) % Baso % (Auto) (0.0-1.5) % Neut # (Auto) (1.4-5.7) K/uL Lymph # (Auto) (0.6-2.4) K/uL [place] # (Auto) (0.0-0.8) K/uL Eos # (Auto) (0.0-0.7) K/uL Baso # (Auto) (0.0-0.1) K/uL Nucleated RBC % /100WBC Nucleated RBCs # K/uL Sodium 141 (136-145) mmol/L Potassium 3.9 (3.5-5.1) mmol/L Chloride 100 (98-107) mmol/L Carbon Dioxide 34.0 H (21.0-32.0) mmol/L BUN 33 H (7.0-18.0) mg/dL Creatinine 1.3 H (0.6-1.0) mg/dL Est Cr Clr Drug Dosing 38.25 mL/min Estimated GFR (MDRD) 41.4 ml/min Glucose 161 H (74-106) mg/dL Lactic Acid (0.4-2.0) mmol/L Calcium 9.4 (8.5-10.1) mg/dL Total Bilirubin 0.3 (0.2-1.0) mg/dL AST 26 (15-37) IU/L ALT 38 (14-63) IU/L Alkaline Phosphatase 113 (46-116) U/L Troponin I (0.000-0.056) ng/mL B-Natriuretic Peptide (<100) PG/ML Total Protein 7.6 (6.4-8.2) g/dL Albumin 2.4 L (3.4-5.0) g/dL Globulin 5.2 H (2.6-4.0) g/dL Albumin/Globulin Ratio 0.5 L (0.9-1.6) Influenza Type A RNA (NEGATIVE) Influenza Type B RNA (NEGATIVE) SARS-CoV-2 RNA (WENDY) (NEGATIVE) Result Diagrams: 11/29/21 05:41 11/29/21 05:41 Joe Results Last 24 hrs: Microbiology 11/28/21 12:21 Anaerobic Blood Culture - Final Blood - Venous - Lab Draw Sepsis Event Note - Evaluation Sepsis Screening Result: No Definite Risk - Focused Exam Vital Signs: Vital Signs Temp Pulse Resp BP Pulse Ox 11/29/21 08:00 97.2 F 70 20 110/52 L 93 L 11/29/21 04:00 96.9 F 85 20 131/61 91 L 11/29/21 00:00 97.7 F 85 14 131/70 88 L - Problem List & Annotations (1) Fall SNOMED Code(s): 0959327, 598481199 Code(s): W19.XXXA - UNSPECIFIED FALL, INITIAL ENCOUNTER Status: Acute Current Visit: Yes (2) MATT (acute kidney injury) SNOMED Code(s): 06538914, 83926528 Code(s): N17.9 - ACUTE KIDNEY FAILURE, UNSPECIFIED Status: Acute Current Visit: Yes (3) COPD exacerbation SNOMED Code(s): 095209720 Code(s): J44.1 - CHRONIC OBSTRUCTIVE PULMONARY DISEASE W (ACUTE) EXACERBATION Status: Acute Current Visit: Yes (4) Hypoxia SNOMED Code(s): 167472185 Code(s): R09.02 - HYPOXEMIA Status: Acute Current Visit: Yes (5) History of CHF (congestive heart failure) SNOMED Code(s): 985754163 Code(s): Z86.79 - PERSONAL HISTORY OF OTHER DISEASES OF THE CIRCULATORY SYSTEM Status: Acute Current Visit: No (6) Obesity SNOMED Code(s): 429674385, 521305426 Code(s): E66.9 - OBESITY, UNSPECIFIED Status: Chronic Current Visit: No (7) Tobacco dependence SNOMED Code(s): 31345292 Code(s): F17.200 - NICOTINE DEPENDENCE, UNSPECIFIED, UNCOMPLICATED Status: Chronic Current Visit: No - Problem List Review Problem List Initiated/Reviewed/Updated: Yes - My Orders Last 24 Hours: My Active Orders 11/28/21 Dinner Regular Diet [DIET] 11/28/21 16:41 Code Status [Resuscitation Status] Stat 11/28/21 16:49 RT Aerosol Therapy [RC] ASDIRECTED 11/28/21 17:00 Nicotine [Habitrol] 14 mg TRDERM DAILY methylPREDNISolone Sod Succ [Solu-MEDROL] 125 mg IVPUSH Q12H 11/28/21 17:10 Acetaminophen [TylenoL] 650 mg PO Q4H PRN 11/28/21 18:00 Albuterol/Ipratropium [DuoNeb 3.0-0.5 MG/3 ML] 3 ml NEB Q4HRRT Azithromycin [Zithromax] 500 mg Sodium Chloride 0.9% [Normal Saline AdvBag] 250 ml IV DAILY cefTRIAXone [Rocephin in Dextrose,Iso-Osm 2 GM/50 ML] 2 gm Premix Bag 1 bag IV Q24H 11/28/21 21:00 Enoxaparin [Lovenox] 40 mg SUBCUT Q12HR 11/29/21 08:00 Furosemide [Lasix] 60 mg PO BIDDIURETIC 11/29/21 09:00 Pantoprazole [ProTONIX] 40 mg PO DAILY 11/30/21 05:11 CBC WITH AUTO DIFF [HEME] AM CMP [COMPREHENSIVE METABOLIC PN,CMP] [CHEM] AM 12/01/21 05:11 CBC WITH AUTO DIFF [HEME] AM CMP [COMPREHENSIVE METABOLIC PN,CMP] [CHEM] AM - Plan Plan:: 1. COPD exacerbation -Continue ceftriaxone 2 g every 24 hours and azithromycin 500 mg every 24 hours for antibiotic coverage -Supply oxygen as needed, patient is currently on nasal cannula saturating above 90% on 6 L -Continue Solu-Medrol 125 mg every 12 hours -Duo nebulizer treatments for shortness of breath -Daily CBC to check for white blood cell status 2. Back pain due to fall -Continue Tylenol for pain relief 3. Tobacco dependence -Continue daily nicotine patch 4. MATT -Continue to monitor with daily CMP 5. CHF history -Continue Lasix home dosage
[2021-11-29] MEDS: Nystatin Topical Powder 15 GM Bottle TOP SCH ×2 (14:48→21:35)
[2021-11-29] MEDS: cefTRIAXone 2 GM in Premix Bag 1 BAG IV SCH (17:23)
[2021-11-30] MEDS: Albuterol/Ipratropium 3.0-0.5 MG/3 ML Neb Soln NEB SCH ×6 (01:26→21:00)
[2021-11-30] MEDS: methylPREDNISolone Sodium Succinate 125 MG/2 ML SDV IVPUSH SCH ×2 (04:32→16:02)
[2021-11-30] MEDS: Nystatin Topical Powder 15 GM Bottle TOP SCH ×3 (06:28→21:23)
[2021-11-30 06:52] LABS: CARBON DIOXIDE,CO2 35.5 mmol/L (21.0-32.0); POTASSIUM,K 4.3 mmol/L (3.5-5.1)
[2021-11-30] MEDS: Furosemide 20 MG Tab PO SCH (08:30)
[2021-11-30] MEDS: Furosemide 40 MG/4 ML VIAL IVPUSH SCH ×2 (09:10→21:00)
[2021-11-30] MEDS: Azithromycin 500 MG in Sodium Chloride 0.9% 250 ML IV SCH (09:10)
[2021-11-30] MEDS: Nicotine 14 MG/24 Hr Patch TRDERM SCH (09:11)
[2021-11-30] MEDS: Budesonide/Formoterol 160-4.5 MCG/Puff 6 GM Inhaler INH SCH ×2 (09:11→21:18)
[2021-11-30] MEDS: Pantoprazole 40 MG Tab.CR PO SCH (09:11)
[2021-11-30] MEDS: Enoxaparin 40 MG/0.4 ML Syringe SUBCUT SCH ×2 (09:12→21:00)
[2021-11-30] MEDS ORDERED: Potassium Chloride 10 MEQ Tab.ER PO ONE (15:03)
--- NOTE | 2021-11-30 15:32 | PCM.PN ---
- General Info Date of Service: 11/30/21 Subjective Update: The patient is a 65-year-old obese female, on day 3 of service, who has a significant past medical history of chronic obstructive pulmonary disease on 4.5 L of oxygen at home, congestive heart failure, and previous COVID-19 infection 1 month ago, who was admitted to the medical floor due to a COPD exacerbation. Upon interview with the patient today, she has not urinated as much as she is used to and as a result we will switch her oral Lasix to IV 40 mg to be taken twice a day. We will also supply her with potassium chloride 10 mEq in order to prevent hypokalemia. She admits that her breathing is much better and she is less short of breath. She continues to have a cough productive of clear sputum devoid of any blood or mucus. She is eating her meals to completion and has a healthy appetite. She denies chest pain, palpitations, nausea, vomiting, or any issues with defecation. She is currently saturating 92% on 6 L of oxygen. Once she is at her baseline of 4.5 L she will be discharged. She has no other health concerns at this time. - Review of Systems General: Denies: Fever, Weakness, Fatigue HEENT: Denies: Headaches, Sore Throat Pulmonary: Reports: Shortness of Breath, Cough Cardiovascular: Denies: Chest Pain, Palpitations Gastrointestinal: Denies: Abdominal Pain Genitourinary: Reports: Retention Musculoskeletal: Reports: Back Pain - Patient Data Vitals - Most Recent: Last Vital Signs Temp 97.7 F 11/30/21 08:00 Pulse 74 11/30/21 08:00 Resp 18 11/30/21 08:00 BP 128/58 L 11/30/21 08:00 Pulse Ox 92 L 11/30/21 08:00 Weight - Most Recent: 280 lb 0.16 oz I&O - Last 24 Hours: Intake & Output 11/30/21 11/30/21 11/30/21 06:59 14:59 22:59 Intake Total 900 Output Total 750 Balance 150 Lab Results Last 24 Hours: Laboratory Results - last 24 hr 11/30/21 11/30/21 Range/Units 05:34 05:34 WBC 15.04 H (4.0-11.0) K/uL RBC 4.26 L (4.30-5.90) M/uL Hgb 12.2 (12.0-16.0) g/dL Hct 40.5 (36.0-46.0) % MCV 95.1 (80.0-98.0) fL MCH 28.6 (27.0-32.0) pg MCHC 30.1 L (31.0-37.0) g/dL RDW Std Deviation 58.8 (28.0-62.0) fl RDW Coeff of Misty 17 H (11.0-15.0) % Plt Count 344 (150-400) K/uL MPV 10.00 (7.40-12.00) fL Neut % (Auto) 88.3 H (48.0-80.0) % Lymph % (Auto) 6.5 L (16.0-40.0) % Bee % (Auto) 5.1 (0.0-15.0) % Eos % (Auto) 0.0 (0.0-7.0) % Baso % (Auto) 0.1 (0.0-1.5) % Neut # (Auto) 13.3 H (1.4-5.7) K/uL Lymph # (Auto) 1.0 (0.6-2.4) K/uL Bee # (Auto) 0.8 (0.0-0.8) K/uL Eos # (Auto) 0.0 (0.0-0.7) K/uL Baso # (Auto) 0.0 (0.0-0.1) K/uL Nucleated RBC % 0.3 /100WBC Nucleated RBCs # 0 K/uL Sodium 141 (136-145) mmol/L Potassium 4.3 (3.5-5.1) mmol/L Chloride 101 (98-107) mmol/L Carbon Dioxide 35.5 H (21.0-32.0) mmol/L BUN 38 H (7.0-18.0) mg/dL Creatinine 1.3 H (0.6-1.0) mg/dL Est Cr Clr Drug Dosing 38.25 mL/min Estimated GFR (MDRD) 41.4 ml/min Glucose 210 H (74-106) mg/dL Calcium 8.9 (8.5-10.1) mg/dL Total Bilirubin 0.2 (0.2-1.0) mg/dL AST 20 (15-37) IU/L ALT 45 (14-63) IU/L Alkaline Phosphatase 104 (46-116) U/L Total Protein 6.9 (6.4-8.2) g/dL Albumin 2.3 L (3.4-5.0) g/dL Globulin 4.6 H (2.6-4.0) g/dL Albumin/Globulin Ratio 0.5 L (0.9-1.6) Joe Results Last 24 Hours: Microbiology 11/28/21 12:21 Aerobic Blood Culture - Preliminary Blood - Venous - Lab Draw NO GROWTH AFTER 2 DAYS Anaerobic Blood Culture - Final 11/28/21 12:08 Aerobic Blood Culture - Preliminary Blood - Venous NO GROWTH AFTER 2 DAYS Anaerobic Blood Culture - Preliminary NO GROWTH AFTER 2 DAYS Med Orders - Current: Current Medications Acetaminophen (Acetaminophen 325 Mg Tab) 650 mg PO Q4H PRN PRN Reason: Pain (Mild 1-3)/fever Last Admin: 11/29/21 08:56 Dose: 650 mg Documented by: Albuterol/Ipratropium (Albuterol/Ipratropium 3.0-0.5 Mg/3 Ml Neb Soln) 3 ml NEB Q4HRRT [facility] Last Admin: 11/30/21 14:29 Dose: 3 ml Documented by: Enoxaparin Sodium (Enoxaparin 40 Mg/0.4 Ml Syringe) 40 mg SUBCUT Q12HR [facility] Last Admin: 11/30/21 09:12 Dose: 40 mg Documented by: Furosemide (Furosemide 40 Mg/4 Ml Vial) 40 mg IVPUSH BID [facility] Last Admin: 11/30/21 09:10 Dose: 40 mg Documented by: Azithromycin 500 mg/ Sodium (Chloride) 250 mls @ 250 mls/hr IV DAILY [facility] Last Admin: 11/30/21 09:10 Dose: 250 mls/hr Documented by: Ceftriaxone Sodium/Dextrose 2 (gm/ Premix) 50 mls @ 100 mls/hr IV Q24H [facility] Last Admin: 11/29/21 17:23 Dose: 100 mls/hr Documented by: Methylprednisolone Sodium Succinate (Methylprednisolone Sodium Succinate 125 Mg/2 Ml Sdv) 125 mg IVPUSH Q12H [facility] Last Admin: 11/30/21 04:32 Dose: 125 mg Documented by: Nicotine (Nicotine 14 Mg/24 Hr Patch) 14 mg TRDERM DAILY [facility] Last Admin: 11/30/21 09:11 Dose: 14 mg Documented by: Nystatin (Nystatin Topical Powder 15 Gm Bottle) 0 gm TOP TID [facility] Last Admin: 11/30/21 14:29 Dose: 1 applic Documented by: Pantoprazole Sodium (Pantoprazole 40 Mg Tab.Cr) 40 mg PO DAILY [facility] Last Admin: 11/30/21 09:11 Dose: 40 mg Documented by: Budesonide/Formoterol 160-4.5 Mcg/Puff 6 Gm Inhaler 2 each INH BID [facility] Last Admin: 11/30/21 09:11 Dose: 2 each Documented by: Sodium Chloride (Sodium Chloride 0.9% 10 Ml Syringe) 10 ml FLUSH ASDIRECTED PRN PRN Reason: Keep Vein Open Last Admin: 11/28/21 10:40 Dose: 10 ml Documented by: Sodium Chloride (Sodium Chloride 0.9% 2.5 Ml Syringe) 2.5 ml FLUSH ASDIRECTED PRN PRN Reason: Keep Vein Open Last Admin: 11/28/21 10:40 Dose: 2.5 ml Documented by: Discontinued Medications Albuterol/Ipratropium (Albuterol/Ipratropium 3.0-0.5 Mg/3 Ml Neb Soln) 9 ml NEB ONETIME ONE Stop: 11/28/21 10:26 Last Admin: 11/28/21 10:40 Dose: 9 ml Documented by: Enoxaparin Sodium (Enoxaparin 40 Mg/0.4 Ml Syringe) 40 mg SUBCUT Q24H [facility] Last Admin: 11/28/21 17:10 Dose: 40 mg Documented by: Furosemide (Furosemide 20 Mg Tab) 60 mg PO BIDDIURETIC [facility] Last Admin: 11/30/21 08:30 Dose: Not Given Documented by: Sodium Chloride (Normal Saline) 1,000 mls @ 999 mls/hr IV STAT ONE Stop: 11/28/21 12:33 Last Admin: 11/28/21 11:44 Dose: 999 mls/hr Documented by: Piperacillin Sod/Tazobactam (Sod 3.375 gm/ Sodium Chloride) 50 mls @ 100 mls/hr IV ONETIME ONE Stop: 11/28/21 12:04 Last Admin: 11/28/21 11:42 Dose: 100 mls/hr Documented by: Azithromycin 500 mg/ Sodium (Chloride) 250 mls @ 250 mls/hr IV ONETIME [facility] Last Admin: 11/29/21 09:07 Dose: 250 mls/hr Documented by: Ibuprofen (Ibuprofen 800 Mg Tab) 800 mg PO ONETIME ONE Stop: 11/28/21 17:06 Last Admin: 11/28/21 17:11 Dose: 800 mg Documented by: Iopamidol (Iopamidol 755 Mg/Ml 500 Ml Multipack Bottle) 100 ml IVPUSH ONETIME STA Stop: 11/28/21 15:28 Last Admin: 11/28/21 15:27 Dose: 100 ml Documented by: Methylprednisolone Sodium Succinate (Methylprednisolone Sodium Succinate 125 Mg/2 Ml Sdv) 125 mg IVPUSH ONETIME ONE Stop: 11/28/21 10:26 Last Admin: 11/28/21 10:42 Dose: 125 mg Documented by: Potassium Chloride (Potassium Chloride 10 Meq Tab.Er) 10 meq PO ONETIME ONE Stop: 11/30/21 15:04 - Exam General: Alert, Oriented, Cooperative HEENT: Mucous Membr. Moist/[place] Neck: Trachea Midline Lungs: Rhonchi Cardiovascular: Regular Rate, Regular Rhythm GI/Abdominal Exam: Normal Bowel Sounds, Soft, Non-Tender Back Exam: Other (Lumbar tenderness to palpation) - Patient Data Lab Results Last 24 hrs: Laboratory Results - last 24 hr 11/30/21 11/30/21 Range/Units 05:34 05:34 WBC 15.04 H (4.0-11.0) K/uL RBC 4.26 L (4.30-5.90) M/uL Hgb 12.2 (12.0-16.0) g/dL Hct 40.5 (36.0-46.0) % MCV 95.1 (80.0-98.0) fL MCH 28.6 (27.0-32.0) pg MCHC 30.1 L (31.0-37.0) g/dL RDW Std Deviation 58.8 (28.0-62.0) fl RDW Coeff of Misty 17 H (11.0-15.0) % Plt Count 344 (150-400) K/uL MPV 10.00 (7.40-12.00) fL Neut % (Auto) 88.3 H (48.0-80.0) % Lymph % (Auto) 6.5 L (16.0-40.0) % Bee % (Auto) 5.1 (0.0-15.0) % Eos % (Auto) 0.0 (0.0-7.0) % Baso % (Auto) 0.1 (0.0-1.5) % Neut # (Auto) 13.3 H (1.4-5.7) K/uL Lymph # (Auto) 1.0 (0.6-2.4) K/uL Bee # (Auto) 0.8 (0.0-0.8) K/uL Eos # (Auto) 0.0 (0.0-0.7) K/uL Baso # (Auto) 0.0 (0.0-0.1) K/uL Nucleated RBC % 0.3 /100WBC Nucleated RBCs # 0 K/uL Sodium 141 (136-145) mmol/L Potassium 4.3 (3.5-5.1) mmol/L Chloride 101 (98-107) mmol/L Carbon Dioxide 35.5 H (21.0-32.0) mmol/L BUN 38 H (7.0-18.0) mg/dL Creatinine 1.3 H (0.6-1.0) mg/dL Est Cr Clr Drug Dosing 38.25 mL/min Estimated GFR (MDRD) 41.4 ml/min Glucose 210 H (74-106) mg/dL Calcium 8.9 (8.5-10.1) mg/dL Total Bilirubin 0.2 (0.2-1.0) mg/dL AST 20 (15-37) IU/L ALT 45 (14-63) IU/L Alkaline Phosphatase 104 (46-116) U/L Total Protein 6.9 (6.4-8.2) g/dL Albumin 2.3 L (3.4-5.0) g/dL Globulin 4.6 H (2.6-4.0) g/dL Albumin/Globulin Ratio 0.5 L (0.9-1.6) Result Diagrams: 11/30/21 05:34 11/30/21 05:34 Joe Results Last 24 hrs: Microbiology 11/28/21 12:21 Aerobic Blood Culture - Preliminary Blood - Venous - Lab Draw NO GROWTH AFTER 2 DAYS Anaerobic Blood Culture - Final 11/28/21 12:08 Aerobic Blood Culture - Preliminary Blood - Venous NO GROWTH AFTER 2 DAYS Anaerobic Blood Culture - Preliminary NO GROWTH AFTER 2 DAYS Sepsis Event Note - Evaluation Sepsis Screening Result: No Definite Risk - Focused Exam Vital Signs: Vital Signs Temp Pulse Resp BP Pulse Ox 11/30/21 08:00 97.7 F 74 18 128/58 L 92 L 11/30/21 04:31 97.0 F 74 20 108/51 L 92 L - Problem List & Annotations (1) Fall SNOMED Code(s): 8504677, 014119461 Code(s): W19.XXXA - UNSPECIFIED FALL, INITIAL ENCOUNTER Status: Acute Current Visit: Yes (2) MATT (acute kidney injury) SNOMED Code(s): 02886772, 56181810 Code(s): N17.9 - ACUTE KIDNEY FAILURE, UNSPECIFIED Status: Acute Current Visit: Yes (3) COPD exacerbation SNOMED Code(s): 062832739 Code(s): J44.1 - CHRONIC OBSTRUCTIVE PULMONARY DISEASE W (ACUTE) EXACERBATION Status: Acute Current Visit: Yes (4) Hypoxia SNOMED Code(s): 313639827 Code(s): R09.02 - HYPOXEMIA Status: Acute Current Visit: Yes (5) History of CHF (congestive heart failure) SNOMED Code(s): 791447301 Code(s): Z86.79 - PERSONAL HISTORY OF OTHER DISEASES OF THE CIRCULATORY SYSTEM Status: Acute Current Visit: No (6) Obesity SNOMED Code(s): 256107979, 737831295 Code(s): E66.9 - OBESITY, UNSPECIFIED Status: Chronic Current Visit: No (7) Tobacco dependence SNOMED Code(s): 98440576 Code(s): F17.200 - NICOTINE DEPENDENCE, UNSPECIFIED, UNCOMPLICATED Status: Chronic Current Visit: No (8) Urinary retention SNOMED Code(s): 776309912 Code(s): R33.9 - RETENTION OF URINE, UNSPECIFIED Status: Acute Current Visit: Yes - Problem List Review Problem List Initiated/Reviewed/Updated: Yes - My Orders Last 24 Hours: My Active Orders 12/01/21 05:11 CBC WITH AUTO DIFF [HEME] AM CMP [COMPREHENSIVE METABOLIC PN,CMP] [CHEM] AM - Plan Plan:: 1. COPD exacerbation -Continue ceftriaxone 2 g every 24 hours/azithromycin 500 mg every 24 hours for antibiotic coverage -Supply oxygen as needed, patient is currently on nasal cannula saturating 92% on 6 L, the goal is to have her at baseline of 4.5 L before discharge -Continue Solu-Medrol 125 mg every 12 hours -Duo nebulizer treatments for shortness of breath -Daily CBC 2. Urinary retention -The patient's oral Lasix has been stopped, we will progress to IV Lasix 40 mg twice daily and 10 mEq of potassium will be given to prevent hypokalemia -Continue to monitor I's and O's 3. Back pain due to fall -Continue Tylenol for pain relief 4. Tobacco dependence -Continue daily nicotine patch 5. MATT -Monitor daily CMP 6. CHF history -Treat as in #2
[2021-11-30] MEDS: cefTRIAXone 2 GM in Premix Bag 1 BAG IV SCH (17:52)
[2021-12-01] MEDS: Albuterol/Ipratropium 3.0-0.5 MG/3 ML Neb Soln NEB SCH ×4 (03:18→14:18)
[2021-12-01] MEDS: Nystatin Topical Powder 15 GM Bottle TOP SCH (05:19)
[2021-12-01] MEDS: methylPREDNISolone Sodium Succinate 125 MG/2 ML SDV IVPUSH SCH (05:19)
[2021-12-01 07:35] LABS: CARBON DIOXIDE,CO2 35.2 mmol/L (21.0-32.0); POTASSIUM,K 4.6 mmol/L (3.5-5.1)
[2021-12-01] MEDS: Enoxaparin 40 MG/0.4 ML Syringe SUBCUT SCH (08:47)
[2021-12-01] MEDS: Pantoprazole 40 MG Tab.CR PO SCH (08:47)
[2021-12-01] MEDS: Furosemide 40 MG/4 ML VIAL IVPUSH SCH (08:47)
[2021-12-01] MEDS: Azithromycin 500 MG in Sodium Chloride 0.9% 250 ML IV SCH (08:48)
[2021-12-01] MEDS: Nicotine 14 MG/24 Hr Patch TRDERM SCH (08:49)
[2021-12-01] MEDS: Budesonide/Formoterol 160-4.5 MCG/Puff 6 GM Inhaler INH SCH (09:07)
--- NOTE | 2021-12-01 12:06 | PCM.DCSUM1 ---
Discharge Summary - Discharge Data Discharge Date: 12/01/21 Discharge Disposition: Home, Self-Care 01 Condition: Good - Referral to Home Health Primary Care Physician: Dave Metzger MD - Patient Summary/Data Hospital Course: The patient is a 65-year-old obese female, who was admitted for COPD and CHF exacerbation. She was presented with worsening shortness of breath and generalized weakness. She was requring 6 L NC up from her usual 4 L NC for supplemental oxygen. On CBC, her white blood cell count is 16.3, hemoglobin is 12, hematocrit is 39, and platelet count is 269, On CMP, her sodium is 139, potassium is 4.2, chloride is 97, carbon dioxide is 36.1, BUN is 23, creatinine is 1.2. Her chest x-ray shows bilateral patchy opacities with vascular congestion. Her head CT, pelvic x-ray, were negative, CTA was negative for PE but suggestive of bronchitis. She was treated with solumedrol, duonebs, Rocephen, azithromycin and Lasix. She did have improvement in her strength and oxygenation and is requesting discharge home today. She is to follow up with Dr. Metzger. - Patient Instructions Diet: Heart Healthy Diet, Low Sodium Fluid Restriction: 2000 mL Activity: As Tolerated - Discharge Plan Prescriptions/Med Rec: RX: Azithromycin 500 mg PO DAILY #4 tablet cephALEXin [Keflex] 500 mg PO Q12H #8 cap predniSONE [Prednisone] 50 mg PO DAILY #4 tablet Home Medications: Home Meds RX: Furosemide [Lasix] 60 mg PO BIDDIURETIC 05/08/17 [History] RX: Albuterol Sulfate [Proair Hfa] 8.5 gm IH BID PRN 10/27/19 [History] RX: Albuterol/Ipratropium [DuoNeb 3.0-0.5 MG/3 ML] 3 ml NEB BID 10/27/19 [History] RX: Acetaminophen [Tylenol] 650 mg PO Q4H PRN #30 tablet 10/31/19 [Rx] RX: Budesonide/Formoterol Fumarate [Symbicort 160-4.5 Mcg Inhaler] 2 puff INH BID 04/23/20 [History] RX: Anastrozole [Arimidex] 1 mg PO 11/28/21 [History] RX: Azithromycin 500 mg PO DAILY #4 tablet 12/01/21 [Rx] cephALEXin [Keflex] 500 mg PO Q12H #8 cap 12/01/21 [Rx] predniSONE [Prednisone] 50 mg PO DAILY #4 tablet 12/01/21 [Rx] Oxygen Therapy Mode: Nasal Cannula Oxygen Flow Rate (L/min): 4 Patient Handouts: Chronic Obstructive Pulmonary Disease Exacerbation, Easy-to- Read, Acute Kidney Injury, Adult, Hypoxia, Fall Prevention in the Home, Adult, [id number], Understanding Your Risk for Falls, Head Injury, Adult, [id number], COPD and Physical Activity Referrals: Dave Metzger MD [Primary Care Provider] - 12/06/21 10:30 am (Please arrive 15 minutes early with your ID and wearing a face covering.) - Discharge Summary/Plan Comment DC Time >30 min.: No Total # of Minutes for Discharge Time: 20 - Patient Data Vitals - Most Recent: Last Vital Signs Temp 36.3 C 12/01/21 07:39 Pulse 73 12/01/21 07:39 Resp 18 12/01/21 07:39 BP 135/79 12/01/21 07:39 Pulse Ox 92 L 12/01/21 07:39 Weight - Most Recent: 127.01 kg I&O - Last 24 hours: Intake & Output 11/30/21 12/01/21 12/01/21 22:59 06:59 14:59 Intake Total 1100 890 Output Total 1450 1150 Balance -350 -260 Lab Results - Last 24 hrs: Laboratory Results - last 24 hr 12/01/21 12/01/21 Range/Units 06:25 06:25 WBC 9.80 (4.0-11.0) K/uL RBC 4.28 L (4.30-5.90) M/uL Hgb 12.1 (12.0-16.0) g/dL Hct 40.4 (36.0-46.0) % MCV 94.4 (80.0-98.0) fL MCH 28.3 (27.0-32.0) pg MCHC 30.0 L (31.0-37.0) g/dL RDW Std Deviation 58.6 (28.0-62.0) fl RDW Coeff of Misty 17 H (11.0-15.0) % Plt Count 365 (150-400) K/uL MPV 9.80 (7.40-12.00) fL Neut % (Auto) 76.4 (48.0-80.0) % Lymph % (Auto) 15.4 L (16.0-40.0) % [place] % (Auto) 8.0 (0.0-15.0) % Eos % (Auto) 0.1 (0.0-7.0) % Baso % (Auto) 0.1 (0.0-1.5) % Neut # (Auto) 7.5 H (1.4-5.7) K/uL Lymph # (Auto) 1.5 (0.6-2.4) K/uL [place] # (Auto) 0.8 (0.0-0.8) K/uL Eos # (Auto) 0.0 (0.0-0.7) K/uL Baso # (Auto) 0.0 (0.0-0.1) K/uL Nucleated RBC % 0.0 /100WBC Nucleated RBCs # 0 K/uL Sodium 143 (136-145) mmol/L Potassium 4.6 (3.5-5.1) mmol/L Chloride 100 (98-107) mmol/L Carbon Dioxide 35.2 H (21.0-32.0) mmol/L BUN 35 H (7.0-18.0) mg/dL Creatinine 1.2 H (0.6-1.0) mg/dL Est Cr Clr Drug Dosing 41.44 mL/min Estimated GFR (MDRD) 45.4 ml/min Glucose 229 H (74-106) mg/dL Calcium 8.8 (8.5-10.1) mg/dL Total Bilirubin 0.2 (0.2-1.0) mg/dL AST 15 (15-37) IU/L ALT 36 (14-63) IU/L Alkaline Phosphatase 107 (46-116) U/L Total Protein 5.9 L (6.4-8.2) g/dL Albumin 2.4 L (3.4-5.0) g/dL Globulin 3.5 (2.6-4.0) g/dL Albumin/Globulin Ratio 0.7 L (0.9-1.6) MELI Results - Last 24 hrs: Microbiology 11/28/21 12:21 Aerobic Blood Culture - Preliminary Blood - Venous - Lab Draw NO GROWTH AFTER 2 DAYS Anaerobic Blood Culture - Final 11/28/21 12:08 Aerobic Blood Culture - Preliminary Blood - Venous NO GROWTH AFTER 2 DAYS Anaerobic Blood Culture - Preliminary NO GROWTH AFTER 2 DAYS Med Orders - Current: Current Medications Acetaminophen (Acetaminophen 325 Mg Tab) 650 mg PO Q4H PRN PRN Reason: Pain (Mild 1-3)/fever Last Admin: 11/29/21 08:56 Dose: 650 mg Documented by: Albuterol/Ipratropium (Albuterol/Ipratropium 3.0-0.5 Mg/3 Ml Neb Soln) 3 ml NEB Q4HRRT [facility] Last Admin: 12/01/21 09:01 Dose: 3 ml Documented by: Enoxaparin Sodium (Enoxaparin 40 Mg/0.4 Ml Syringe) 40 mg SUBCUT Q12HR [facility] Last Admin: 12/01/21 08:47 Dose: 40 mg Documented by: Furosemide (Furosemide 40 Mg/4 Ml Vial) 40 mg IVPUSH BID [facility] Last Admin: 12/01/21 08:47 Dose: 40 mg Documented by: Azithromycin 500 mg/ Sodium (Chloride) 250 mls @ 250 mls/hr IV DAILY [facility] Last Admin: 12/01/21 08:48 Dose: 250 mls/hr Documented by: Ceftriaxone Sodium/Dextrose 2 (gm/ Premix) 50 mls @ 100 mls/hr IV Q24H [facility] Last Admin: 11/30/21 17:52 Dose: 100 mls/hr Documented by: Methylprednisolone Sodium Succinate (Methylprednisolone Sodium Succinate 125 Mg/2 Ml Sdv) 125 mg IVPUSH Q12H [facility] Last Admin: 12/01/21 05:19 Dose: 125 mg Documented by: Nicotine (Nicotine 14 Mg/24 Hr Patch) 14 mg TRDERM DAILY [facility] Last Admin: 12/01/21 08:49 Dose: 14 mg Documented by: Nystatin (Nystatin Topical Powder 15 Gm Bottle) 0 gm TOP TID [facility] Last Admin: 12/01/21 05:19 Dose: 1 applic Documented by: Pantoprazole Sodium (Pantoprazole 40 Mg Tab.Cr) 40 mg PO DAILY [facility] Last Admin: 12/01/21 08:47 Dose: 40 mg Documented by: Budesonide/Formoterol 160-4.5 Mcg/Puff 6 Gm Inhaler 2 each INH BID [facility] Last Admin: 12/01/21 09:07 Dose: 2 each Documented by: Sodium Chloride (Sodium Chloride 0.9% 10 Ml Syringe) 10 ml FLUSH ASDIRECTED PRN PRN Reason: Keep Vein Open Last Admin: 11/28/21 10:40 Dose: 10 ml Documented by: Sodium Chloride (Sodium Chloride 0.9% 2.5 Ml Syringe) 2.5 ml FLUSH ASDIRECTED PRN PRN Reason: Keep Vein Open Last Admin: 11/28/21 10:40 Dose: 2.5 ml Documented by: Discontinued Medications Albuterol/Ipratropium (Albuterol/Ipratropium 3.0-0.5 Mg/3 Ml Neb Soln) 9 ml NEB ONETIME ONE Stop: 11/28/21 10:26 Last Admin: 11/28/21 10:40 Dose: 9 ml Documented by: Enoxaparin Sodium (Enoxaparin 40 Mg/0.4 Ml Syringe) 40 mg SUBCUT Q24H [facility] Last Admin: 11/28/21 17:10 Dose: 40 mg Documented by: Furosemide (Furosemide 20 Mg Tab) 60 mg PO BIDDIURETIC [facility] Last Admin: 11/30/21 08:30 Dose: Not Given Documented by: Sodium Chloride (Normal Saline) 1,000 mls @ 999 mls/hr IV STAT ONE Stop: 11/28/21 12:33 Last Admin: 11/28/21 11:44 Dose: 999 mls/hr Documented by: Piperacillin Sod/Tazobactam (Sod 3.375 gm/ Sodium Chloride) 50 mls @ 100 mls/hr IV ONETIME ONE Stop: 11/28/21 12:04 Last Admin: 11/28/21 11:42 Dose: 100 mls/hr Documented by: Azithromycin 500 mg/ Sodium (Chloride) 250 mls @ 250 mls/hr IV ONETIME [facility] Last Admin: 11/29/21 09:07 Dose: 250 mls/hr Documented by: Ibuprofen (Ibuprofen 800 Mg Tab) 800 mg PO ONETIME ONE Stop: 11/28/21 17:06 Last Admin: 11/28/21 17:11 Dose: 800 mg Documented by: Iopamidol (Iopamidol 755 Mg/Ml 500 Ml Multipack Bottle) 100 ml IVPUSH ONETIME [facility]A Stop: 11/28/21 15:28 Last Admin: 11/28/21 15:27 Dose: 100 ml Documented by: Methylprednisolone Sodium Succinate (Methylprednisolone Sodium Succinate 125 Mg/2 Ml Sdv) 125 mg IVPUSH ONETIME ONE Stop: 11/28/21 10:26 Last Admin: 11/28/21 10:42 Dose: 125 mg Documented by: Potassium Chloride (Potassium Chloride 10 Meq Tab.Er) 10 meq PO ONETIME ONE Stop: 11/30/21 15:04 Last Admin: 11/30/21 16:01 Dose: 10 meq Documented by:
[2021-12-01 12:12] VITALS: BP 127/59; PULSE 83
[2021-12-01] MEDS ORDERED: Azithromycin 250 MG Tab PO ONE (12:40)
[2021-12-01] MEDS ORDERED: predniSONE 20 MG Tab PO SCH (14:30)
[2021-12-01] MEDS ORDERED: predniSONE 10 MG Tab PO SCH ×2 (14:30)
[2021-12-01] MEDS ORDERED: Cephalexin 500 MG Cap PO SCH (14:30)
--- NOTE | 2021-12-05 05:38 | PCM.EKG ---
#1 Interpretation EKG Interpretation Comments: EKG done 11/28/2021 at 10:16 AM - sinus rhythm, rate 77, SD 105, QT dureation 391, axis 74, PAC noted and short SD - interpreatation - no acute injury
== END 2021-12-01 14:57 | disposition home or self-care (01) ==
LOC: MW.ED 10:18 → MW.MS 15:02
PROVIDERS: ADMIT Internal Medicine; ATTEND Internal Medicine
DX: J44.1 Chronic obstructive pulmonary disease with (acute) exacerbation (principal); E66.9 Obesity, unspecified; I50.9 Heart failure, unspecified; F17.210 Nicotine dependence, cigarettes, uncomplicated; N17.9 Acute kidney failure, unspecified; R09.02 Hypoxemia; Z20.822 Contact with and (suspected) exposure to COVID-19; Z99.81 Dependence on supplemental oxygen; Z91.040 Latex allergy status; Z79.899 Other long term (current) drug therapy; Z98.890 Other specified postprocedural states; W19.XXXA Unspecified fall, initial encounter; Z68.42 Body mass index [BMI] 45.0-49.9, adult
CPT/HCPCS: 0240U; 36415; 70450; 71045; 71275; 72170; 80053; 83605; 83880; 84484; 85025; 87040; 93005; 94640; 96365; 96367; 96375; 99285; A9270; J0456; J0696; J1650; J1940; J2543; J2930; J7030; J7050; Q9967; J7620-GY

== ENCOUNTER 2022-10-03 12:38 | Observation (INO) | payer MEDICARE, MEDICAID ==
[2022-10-03] MEDS ORDERED: Dexamethasone 4 MG/ML SDV ONE (12:49)
[2022-10-03] MEDS ORDERED: Albuterol/Ipratropium 3.0-0.5 MG/3 ML Neb Soln ONE (12:49)
[2022-10-03] MEDS ORDERED: Sodium Chloride 0.9% 10 ML Syringe FLUSH PRN (12:51)
[2022-10-03] MEDS ORDERED: Sodium Chloride 0.9% 2.5 ML Syringe FLUSH PRN (12:51)
[2022-10-03] MEDS ORDERED: Dexamethasone 10 MG/ML SDV IVPUSH ONE (12:52)
[2022-10-03] MEDS ORDERED: Albuterol/Ipratropium 3.0-0.5 MG/3 ML Neb Soln NEB ONE (12:52)
[2022-10-03 15:21] LABS: CARBON DIOXIDE,CO2 32.6 mmol/L (21.0-32.0); POTASSIUM,K 4.6 mmol/L (3.5-5.1)
[2022-10-03 15:25] LABS: CORONAVIRUS COVID-19 NAA NEGATIVE (NEGATIVE); INFLUENZA A NAA NEGATIVE (NEGATIVE); INFLUENZA B NAA NEGATIVE (NEGATIVE)
[2022-10-03] MEDS ORDERED: Azithromycin 500 MG in Sodium Chloride 0.9% 250 ML IV ONE (16:27)
[2022-10-03] MEDS ORDERED: Acetaminophen 325 MG Tab PO PRN (20:35)
[2022-10-03] MEDS ORDERED: Ondansetron 4 MG/2 ML SDV IVPUSH PRN (20:35)
[2022-10-03] MEDS ORDERED: Lactated Ringers 1,000 ML IV ONE (20:35)
[2022-10-03] MEDS: Heparin Sodium 5,000 Units/ML Vial SUBCUT SCH (21:49)
[2022-10-03] MEDS: Pantoprazole 40 MG in Sodium Chloride 0.9% 10 ML IVPUSH SCH (21:55)
[2022-10-03] MEDS: Albuterol/Ipratropium 3.0-0.5 MG/3 ML Neb Soln NEB SCH (21:56)
[2022-10-03] MEDS: methylPREDNISolone Sodium Succinate 40 MG/1 ML SDV IVPUSH SCH (21:56)
[2022-10-03] MEDS ORDERED: Furosemide 40 MG/4 ML VIAL IVPUSH ONE (23:43)
[2022-10-04] MEDS: Albuterol/Ipratropium 3.0-0.5 MG/3 ML Neb Soln NEB SCH ×3 (02:16→09:35)
[2022-10-04] MEDS: Heparin Sodium 5,000 Units/ML Vial SUBCUT SCH ×3 (05:29→21:03)
[2022-10-04] MEDS: methylPREDNISolone Sodium Succinate 40 MG/1 ML SDV IVPUSH SCH ×3 (05:29→21:03)
[2022-10-04 07:48] LABS: CARBON DIOXIDE,CO2 30.9 mmol/L (21.0-32.0); POTASSIUM,K 4.9 mmol/L (3.5-5.1)
[2022-10-04] MEDS ORDERED: Budesonide/Formoterol 160-4.5 MCG/Puff 6 GM Inhaler INH SCH (09:00)
[2022-10-04] MEDS ORDERED: Azithromycin 250 MG Tab PO SCH ×2 (09:00→17:00)
[2022-10-04] MEDS: Furosemide 40 MG/4 ML VIAL IVPUSH SCH ×2 (09:22→20:48)
[2022-10-04] MEDS: Anastrozole 1 MG Tab PO SCH (10:26)
[2022-10-04] MEDS ORDERED: Albuterol/Ipratropium 3.0-0.5 MG/3 ML Neb Soln NEB PRN (14:00)
[2022-10-04] MEDS: Pantoprazole 40 MG in Sodium Chloride 0.9% 10 ML IVPUSH SCH (21:03)
[2022-10-05] MEDS: methylPREDNISolone Sodium Succinate 40 MG/1 ML SDV IVPUSH SCH (06:31)
[2022-10-05] MEDS: Heparin Sodium 5,000 Units/ML Vial SUBCUT SCH (06:31)
[2022-10-05 07:20] LABS: CARBON DIOXIDE,CO2 35.8 mmol/L (21.0-32.0); POTASSIUM,K 4.7 mmol/L (3.5-5.1)
[2022-10-05] MEDS: Furosemide 40 MG/4 ML VIAL IVPUSH SCH (08:34)
[2022-10-05] MEDS: Anastrozole 1 MG Tab PO SCH (08:35)
[2022-10-05] MEDS ORDERED: predniSONE 20 MG Tab PO SCH (09:00)
[2022-10-05] MEDS ORDERED: Potassium Chloride 20 MEQ Tab.ER PO SCH (09:00)
[2022-10-05 10:32] VITALS: BP 110/56; PULSE 66
== END 2022-10-05 13:20 | disposition home or self-care (01) ==
LOC: MW.ED 12:38 → MW.MS 16:25
PROVIDERS: ADMIT Student in an Organized Health Care Education/Training Program; ATTEND Student in an Organized Health Care Education/Training Program
DX: J44.1 Chronic obstructive pulmonary disease with (acute) exacerbation (principal); R09.02 Hypoxemia; I50.9 Heart failure, unspecified; I89.0 Lymphedema, not elsewhere classified; E66.9 Obesity, unspecified; R06.02 Shortness of breath; F17.210 Nicotine dependence, cigarettes, uncomplicated; J98.11 Atelectasis; Z79.899 Other long term (current) drug therapy; Z86.79 Personal history of other diseases of the circulatory system; Z90.710 Acquired absence of both cervix and uterus; Z98.890 Other specified postprocedural states; Z20.822 Contact with and (suspected) exposure to COVID-19; Z91.040 Latex allergy status; Z68.42 Body mass index [BMI] 45.0-49.9, adult
CPT/HCPCS: 0240U; 36415; 71045; 80048; 80053; 83735; 84100; 84484; 85025; 85379; 93005; 93306; 94640; A9270; C9113; J0456; J1100; J1644; J1940; J2920; J3490; J7050; J7120; J7620-GY

== ENCOUNTER 2022-11-06 07:21 | Observation (INO) | payer MEDICAID ==
[2022-11-06] MEDS ORDERED: cefTRIAXone 1 GM in Sodium Chloride 0.9% 50 ML IV ONE (07:26)
[2022-11-06] MEDS ORDERED: Acetaminophen 325 MG Tab PO ONE (07:27)
[2022-11-06] MEDS ORDERED: Albuterol/Ipratropium 3.0-0.5 MG/3 ML Neb Soln NEB ONE (07:36)
[2022-11-06] MEDS ORDERED: Furosemide 40 MG/4 ML VIAL IVPUSH ONE (07:37)
[2022-11-06] MEDS ORDERED: methylPREDNISolone Sodium Succinate 125 MG/2 ML SDV IVPUSH ONE (07:52)
[2022-11-06 08:15] LABS: CARBON DIOXIDE,CO2 30.8 mmol/L (21.0-32.0); POTASSIUM,K 4.3 mmol/L (3.5-5.1)
[2022-11-06 08:23] LABS: CORONAVIRUS COVID-19 NAA NEGATIVE (NEGATIVE); INFLUENZA A NAA NEGATIVE (NEGATIVE); INFLUENZA B NAA NEGATIVE (NEGATIVE); RESPIRATORY SYNCYTIAL VIR NAA NEGATIVE (NEGATIVE)
[2022-11-06] MEDS ORDERED: Azithromycin 500 MG in Sodium Chloride 0.9% 250 ML IV ONE (09:32)
[2022-11-06] MEDS ORDERED: Ondansetron 4 MG/2 ML SDV IVPUSH PRN (13:55)
[2022-11-06] MEDS ORDERED: Polyethylene Glycol 3350 Powder 17 GM Packet PO PRN (13:55)
[2022-11-06] MEDS ORDERED: Albuterol/Ipratropium 3.0-0.5 MG/3 ML Neb Soln NEB SCH (14:00)
[2022-11-06] MEDS ORDERED: methylPREDNISolone Sodium Succinate 40 MG/1 ML SDV IVPUSH SCH (14:00)
[2022-11-06] MEDS ORDERED: Acetaminophen 325 MG Tab PO PRN (14:06)
[2022-11-06] MEDS ORDERED: Furosemide 40 MG/4 ML VIAL IVPUSH SCH (14:10)
[2022-11-06] MEDS: methylPREDNISolone Sodium Succinate 40 MG/1 ML SDV IVPUSH SCH (17:46)
[2022-11-06] MEDS: Furosemide 40 MG/4 ML VIAL IVPUSH SCH (17:47)
[2022-11-06] MEDS: Albuterol/Ipratropium 3.0-0.5 MG/3 ML Neb Soln NEB SCH ×2 (17:48→23:22)
[2022-11-06] MEDS: Enoxaparin 40 MG/0.4 ML Syringe SUBCUT SCH ×2 (21:05→21:09)
[2022-11-07] MEDS: methylPREDNISolone Sodium Succinate 40 MG/1 ML SDV IVPUSH SCH ×2 (05:23→17:30)
[2022-11-07] MEDS: Albuterol/Ipratropium 3.0-0.5 MG/3 ML Neb Soln NEB SCH ×4 (06:47→23:45)
[2022-11-07 06:50] LABS: CARBON DIOXIDE,CO2 29.6 mmol/L (21.0-32.0); POTASSIUM,K 3.5 mmol/L (3.5-5.1)
[2022-11-07] MEDS ORDERED: Azithromycin 500 MG in Sodium Chloride 0.9% 250 ML IV SCH (07:30)
[2022-11-07] MEDS ORDERED: cefTRIAXone 1 GM in Sodium Chloride 0.9% 50 ML IV SCH (07:30)
[2022-11-07] MEDS: Furosemide 40 MG/4 ML VIAL IVPUSH SCH ×2 (07:57→14:31)
[2022-11-07] MEDS: Enoxaparin 40 MG/0.4 ML Syringe SUBCUT SCH ×2 (08:16→20:36)
[2022-11-07] MEDS ORDERED: Sertraline 25 MG Tab PO SCH (09:00)
[2022-11-08] MEDS: methylPREDNISolone Sodium Succinate 40 MG/1 ML SDV IVPUSH SCH (05:38)
[2022-11-08] MEDS: Albuterol/Ipratropium 3.0-0.5 MG/3 ML Neb Soln NEB SCH (06:30)
[2022-11-08 07:47] LABS: CARBON DIOXIDE,CO2 33.5 mmol/L (21.0-32.0); POTASSIUM,K 3.6 mmol/L (3.5-5.1)
[2022-11-08] MEDS ORDERED: Sertraline 100 MG Tab PO SCH ×2 (09:00)
[2022-11-08] MEDS: Enoxaparin 40 MG/0.4 ML Syringe SUBCUT SCH (09:04)
[2022-11-08] MEDS: Furosemide 40 MG/4 ML VIAL IVPUSH SCH (09:06)
[2022-11-08 10:07] LABS: BORDETELLA PARAPERT IS1001 Not Detected (Not Detected)
[2022-11-08] MEDS ORDERED: Furosemide 40 MG/4 ML VIAL IVPUSH ONE (10:55)
[2022-11-08] MEDS ORDERED: Levofloxacin 750 MG Tab PO SCH (11:00)
[2022-11-08 11:38] VITALS: BP 120/75; PULSE 70
== END 2022-11-08 12:50 | disposition home or self-care (01) ==
LOC: MW.ED 07:21 → MW.MS 09:41
PROVIDERS: ADMIT Internal Medicine; ATTEND Internal Medicine
DX: J44.0 Chronic obstructive pulmonary disease with (acute) lower respiratory infection (principal); N39.0 Urinary tract infection, site not specified; R31.9 Hematuria, unspecified; D72.829 Elevated white blood cell count, unspecified; J44.9 Chronic obstructive pulmonary disease, unspecified; F32.A Depression, unspecified; E66.9 Obesity, unspecified; F17.210 Nicotine dependence, cigarettes, uncomplicated; Z86.79 Personal history of other diseases of the circulatory system; Z79.899 Other long term (current) drug therapy; Z20.822 Contact with and (suspected) exposure to COVID-19; Z91.040 Latex allergy status; Z98.890 Other specified postprocedural states; Z90.710 Acquired absence of both cervix and uterus
CPT/HCPCS: 0241U; 36415; 36600; 71045; 80053; 81001; 82803; 83605; 83735; 85025; 85610; 85730; 87040; 87086; 87088; 87186; 87486; 87581; 87633; 87798; 94640; 96365; 96367; 96372; 96375; 96376; 97161; 97530; 99285; A9270; G0378; J0456; J0696; J1650; J1940; J2920; J2930; J7050; J7620-GY

== ENCOUNTER 2023-01-08 18:42 | Emergency (ER) | payer MEDICARE, MEDICAID ==
[2023-01-08] MEDS ORDERED: cefTRIAXone 1 GM in Sodium Chloride 0.9% 50 ML IV ONE (18:46)
[2023-01-08] MEDS ORDERED: Sodium Chloride 0.9% 10 ML Syringe FLUSH PRN (18:46)
[2023-01-08] MEDS ORDERED: Sodium Chloride 0.9% 2.5 ML Syringe FLUSH PRN (18:46)
[2023-01-08] MEDS ORDERED: Albuterol/Ipratropium 3.0-0.5 MG/3 ML Neb Soln NEB ONE ×2 (18:46→19:42)
[2023-01-08] MEDS ORDERED: Nitroglycerin 0.4 MG Tab.SL SL STA (18:46)
[2023-01-08] MEDS ORDERED: Albuterol/Ipratropium 3.0-0.5 MG/3 ML Neb Soln ONE (18:48)
[2023-01-08] MEDS ORDERED: Nitroglycerin 0.4 MG Tab.SL ONE (18:48)
[2023-01-08] MEDS ORDERED: Furosemide 40 MG/4 ML VIAL IVPUSH ONE (18:49)
[2023-01-08] MEDS ORDERED: methylPREDNISolone Sodium Succinate 125 MG/2 ML SDV IVPUSH ONE (18:50)
[2023-01-08 18:57] VITALS: PULSE 106
[2023-01-08 19:01] VITALS: BP 153/92
[2023-01-08 19:37] LABS: BLOOD UREA NITROGEN,BUN 14 mg/dL (7.0-18.0); CARBON DIOXIDE,CO2 32.5 mmol/L (21.0-32.0); CHLORIDE,CL 100 mmol/L (98-107); GLUCOSE RANDOM 204 mg/dL (74-106); LIPASE 26 U/L (73-393); POTASSIUM,K 4.6 mmol/L (3.5-5.1); SODIUM,NA 138 mmol/L (136-145)
[2023-01-08 19:49] LABS: ESTIMATED GFR 56 mL/min (>60)
[2023-01-08 19:51] LABS: CORONAVIRUS COVID-19 NAA NEGATIVE (NEGATIVE); INFLUENZA A NAA NEGATIVE (NEGATIVE); INFLUENZA B NAA NEGATIVE (NEGATIVE)
[2023-01-08] MEDS ORDERED: Azithromycin 500 MG in Sodium Chloride 0.9% 250 ML IV ONE (20:07)
[2023-01-08] MEDS ORDERED: Sodium Chloride 0.9% 500 ML IV SCH (20:15)
[2023-01-08] MEDS ORDERED: Ketamine 500 mg/10 ML MDV IV ONE (20:25)
[2023-01-08] MEDS ORDERED: Propofol 200 MG/20 ML SDV ONE ×2 (20:55→21:08)
[2023-01-08] MEDS ORDERED: Succinylcholine 200 MG/10 ML MDV IV ONE (20:56)
[2023-01-08] MEDS ORDERED: propofoL 100 ML ONE (20:56)
[2023-01-08] MEDS ORDERED: Propofol 200 MG/20 ML SDV IVPUSH ONE ×3 (21:03→21:17)
[2023-01-08] MEDS ORDERED: fentaNYL 100 MCG/2 ML SDV IVPUSH ONE (21:14)
[2023-01-08] MEDS ORDERED: Rocuronium 100 MG/10 ML MDV IVPUSH ONE (21:15)
[2023-01-08] MEDS ORDERED: propofoL 100 ML IV SCH (21:30)
== END 2023-01-08 22:22 ==
LOC: MW.ED 18:42
DX: J18.9 Pneumonia, unspecified organism (principal); J96.90 Respiratory failure, unspecified, unspecified whether with hypoxia or hypercapnia; J44.9 Chronic obstructive pulmonary disease, unspecified; E66.9 Obesity, unspecified; Z68.42 Body mass index [BMI] 45.0-49.9, adult; Z91.040 Latex allergy status; Z20.822 Contact with and (suspected) exposure to COVID-19
CPT/HCPCS: 0240U; 31500; 36415; 36600; 51702; 71045; 71045-26; 80053; 80305-QW; 80307; 81001; 82803; 83605; 83690; 83880; 84484; 85025; 85610; 87040; 93005; 93010; 94660; 96365; 96375; 99291; 99292; A9270-GY; J0330; J0696; J1940; J2704; J2930; J3010; J3490; J7050; J7620-GY

== ENCOUNTER 2023-03-19 10:02 | Emergency (ER) | payer MEDICARE, MEDICAID ==
[2023-03-19] MEDS ORDERED: Albuterol 0.083% 2.5 MG/3 ML Neb Soln NEB ONE (10:28)
[2023-03-19] MEDS ORDERED: methylPREDNISolone Sodium Succinate 125 MG/2 ML SDV IVPUSH ONE (10:28)
[2023-03-19] MEDS ORDERED: Ipratropium 0.02% 0.5 MG/2.5 ML Neb Soln NEB ONE (10:30)
[2023-03-19] MEDS ORDERED: Ipratropium 0.02% 0.5 MG/2.5 ML Neb Soln ONE (10:49)
[2023-03-19 10:58] LABS: CORONAVIRUS COVID-19 NAA NEGATIVE (NEGATIVE); INFLUENZA A NAA NEGATIVE (NEGATIVE); INFLUENZA B NAA NEGATIVE (NEGATIVE); RESPIRATORY SYNCYTIAL VIR NAA NEGATIVE (NEGATIVE)
[2023-03-19 11:04] LABS: CARBON DIOXIDE,CO2 31.1 mmol/L (21.0-32.0); POTASSIUM,K 3.3 mmol/L (3.5-5.1)
[2023-03-19 19:03] VITALS: BP 129/66; PULSE 70
== END 2023-03-19 19:54 ==
LOC: MW.ED 10:02
DX: J44.1 Chronic obstructive pulmonary disease with (acute) exacerbation (principal); J96.90 Respiratory failure, unspecified, unspecified whether with hypoxia or hypercapnia; E66.9 Obesity, unspecified; Z68.41 Body mass index [BMI] 40.0-44.9, adult; Z72.0 Tobacco use; Z91.040 Latex allergy status; Z20.822 Contact with and (suspected) exposure to COVID-19
CPT/HCPCS: 0241U; 36415; 36600; 71045; 80048; 82803; 83880; 84484; 85025; 87651; 93005; 94640; 96374; 99285; J2930; 93010; 99284; J3490; J7620-GY

== ENCOUNTER 2023-05-17 22:26 | Emergency (ER) | payer MEDICARE, MEDICAID ==
[2023-05-17] MEDS ORDERED: Albuterol/Ipratropium 3.0-0.5 MG/3 ML Neb Soln NEB ONE (22:58)
[2023-05-17] MEDS ORDERED: methylPREDNISolone Sodium Succinate 125 MG/2 ML SDV IVPUSH ONE (22:58)
[2023-05-17 23:21] LABS: BASE EXCESS VENOUS 7.1 (-2.0-3.0); BASOPHILS PERCENT AUTO 0.2 % (0.0-1.5); EOSINOPHILS ABSOLUTE AUTO 0.2 K/uL (0.0-0.7); EOSINOPHILS PERCENT AUTO 1.3 % (0.0-7.0); HEMATOCRIT 36.8 % (36.0-46.0); HEMOGLOBIN 11.2 g/dL (12.0-16.0); LYMPHOCYTES ABSOLUTE AUTO 1.2 K/uL (0.6-2.4); LYMPHOCYTES PERCENT AUTO 10.2 % (16.0-40.0); MEAN CORPUSCULAR HEMOGLOBIN 27.1 pg (27.0-32.0); MEAN CORPUSCULAR HGB CONC 30.4 g/dL (31.0-37.0); MEAN CORPUSCULAR VOLUME 89.1 fL (80.0-98.0); MONOCYTES ABSOLUTE AUTO 0.6 K/uL (0.0-0.8); MONOCYTES PERCENT AUTO 5.3 % (0.0-15.0); NEUTROPHILS ABSOLUTE AUTO 9.5 K/uL (1.4-5.7); NRBC ABSOLUTE 0 K/uL; PH,VENOUS 7.35 (7.31-7.41); PLATELET COUNT,PLT 234 K/uL (150-400); RED BLOOD CELL COUNT 4.13 M/uL (4.30-5.90); WHITE BLOOD CELL COUNT,WBC 11.41 K/uL (4.0-11.0)
[2023-05-17 23:50] LABS: A/G RATIO 0.8 (0.9-1.6); ALBUMIN 2.8 g/dL (3.4-5.0); BILIRUBIN TOTAL 0.3 mg/dL (0.2-1.0); CALCIUM 9.5 mg/dL (8.5-10.1); CARBON DIOXIDE,CO2 33.6 mmol/L (21.0-32.0); CREATININE 1.1 mg/dL (0.6-1.0); EST CRCL DRUG DOSING (CG) 44.03 mL/min; POTASSIUM,K 3.8 mmol/L (3.5-5.1); PROTEIN TOTAL,TP 6.5 g/dL (6.4-8.2)
[2023-05-18] MEDS ORDERED: Azithromycin 250 MG Tab PO STA (00:01)
[2023-05-18 00:53] VITALS: BP 121/50; PULSE 73
== END 2023-05-18 00:53 | disposition home or self-care (01) ==
LOC: MW.ED 22:26
DX: J44.9 Chronic obstructive pulmonary disease, unspecified (principal); I50.9 Heart failure, unspecified; N18.9 Chronic kidney disease, unspecified; E66.9 Obesity, unspecified; F17.210 Nicotine dependence, cigarettes, uncomplicated; Z20.822 Contact with and (suspected) exposure to COVID-19; Z91.040 Latex allergy status; Z79.899 Other long term (current) drug therapy
CPT/HCPCS: 36415; 71045; 80053; 82803; 83880; 84484; 85025; 93005; 96374; 99285; A9270; J2930; U0002; 93010; 99283; J7620-GY

== ENCOUNTER 2023-08-09 16:48 | Inpatient (IN) | payer MEDICARE, MEDICAID ==
[2023-08-09] MEDS ORDERED: Sodium Chloride 0.9% 2.5 ML Syringe FLUSH PRN ×2 (17:37→22:53)
[2023-08-09] MEDS ORDERED: Albuterol 0.083% 2.5 MG/3 ML Neb Soln NEB ONE ×2 (17:37→17:42)
[2023-08-09] MEDS ORDERED: Sodium Chloride 0.9% 10 ML Syringe FLUSH PRN ×2 (17:37→22:53)
[2023-08-09] MEDS ORDERED: Dexamethasone 10 MG/ML SDV IVPUSH ONE (17:37)
[2023-08-09] MEDS ORDERED: Albuterol/Ipratropium 3.0-0.5 MG/3 ML Neb Soln NEB ONE (17:37)
[2023-08-09] MEDS ORDERED: Magnesium Sulfate/Water 2 GM in Premix Bag 1 BAG IV ONE (17:43)
[2023-08-09 19:09] LABS: BASE EXCESS VENOUS 9.6 (-2.0-3.0); BICARBONATE,VENOUS 38 mEq/L (23-28); PCO2 VENOUS 73 mmHG (41-51); PH,VENOUS 7.33 (7.31-7.41)
[2023-08-09 19:12] LABS: PO2 VENOUS < 30 mmHG
[2023-08-09 19:21] LABS: HEMATOCRIT 42.5 % (36.0-46.0); HEMOGLOBIN 12.9 g/dL (12.0-16.0); MEAN CORPUSCULAR HEMOGLOBIN 27.2 pg (27.0-32.0); MEAN CORPUSCULAR HGB CONC 30.4 g/dL (31.0-37.0); MEAN CORPUSCULAR VOLUME 89.5 fL (80.0-98.0); PLATELET COUNT,PLT 285 K/uL (150-400); RED BLOOD CELL COUNT 4.75 M/uL (4.30-5.90); WHITE BLOOD CELL COUNT,WBC 13.46 K/uL (4.0-11.0)
[2023-08-09 19:28] LABS: INR 0.99 (0.86-1.11); PTT,PARTIAL THROMBOPLSTIN TIME 26.6 SEC (23.9-30.7)
[2023-08-09 19:37] LABS: A/G RATIO 0.8 (0.9-1.6); ALBUMIN 3.1 g/dL (3.4-5.0); BILIRUBIN TOTAL 0.3 mg/dL (0.2-1.0); CALCIUM 8.9 mg/dL (8.5-10.1); CARBON DIOXIDE,CO2 38.9 mmol/L (21.0-32.0); CREATININE 1.1 mg/dL (0.6-1.0); EST CRCL DRUG DOSING (CG) 44.03 mL/min; MAGNESIUM 2.3 mg/dL (1.8-2.4); POTASSIUM,K 3.4 mmol/L (3.5-5.1)
[2023-08-09 19:38] LABS: LACTIC ACID 1.7 mmol/L (0.4-2.0)
[2023-08-09] MEDS ORDERED: Azithromycin 500 MG in Sodium Chloride 0.9% 250 ML IV ONE (20:28)
[2023-08-09] MEDS ORDERED: cefTRIAXone 1 GM in Sodium Chloride 0.9% 50 ML IV ONE (20:28)
[2023-08-09 20:48] LABS: LYMPHOCYTES ABSOLUTE MAN 2.4 (0.6-2.4); LYMPHOCYTES PERCENT MAN 18 % (16.0-40.0); SEG NEUTROPHILS ABSOLUTE MAN 9.4 (1.4-5.7); SEG NEUTROPHILS PERCENT MAN 70 % (48.0-80.0)
[2023-08-09 20:49] LABS: EOSINOPHILS ABSOLUTE MAN 0.5 (0.0-0.7); EOSINOPHILS PERCENT MAN 4 % (0.0-7.0); METAMYELOCYTE ABSOLUTE MAN 0.1; METAMYELOCYTE PERCENT MAN 1 %; MONOCYTES ABSOLUTE MAN 0.9 (0.0-0.8); MONOCYTES PERCENT MAN 7 % (0.0-15.0)
[2023-08-09] MEDS ORDERED: Acetaminophen 325 MG Tab PO PRN (22:53)
[2023-08-09] MEDS ORDERED: Polyethylene Glycol 3350 Powder 17 GM Packet PO PRN (22:53)
[2023-08-09] MEDS ORDERED: Ondansetron 4 MG/2 ML SDV IVPUSH PRN (22:53)
[2023-08-09] MEDS ORDERED: Sodium Chloride 0.9% 20 ML SDV IV PRN (22:53)
[2023-08-09] MEDS ORDERED: Albuterol/Ipratropium 3.0-0.5 MG/3 ML Neb Soln NEB PRN (22:53)
[2023-08-09] MEDS: Enoxaparin 40 MG/0.4 ML Syringe SUBCUT SCH (23:41)
[2023-08-09] MEDS: Albuterol/Ipratropium 3.0-0.5 MG/3 ML Neb Soln NEB SCH (23:42)
[2023-08-09] MEDS: methylPREDNISolone Sodium Succinate 40 MG/1 ML SDV IVPUSH SCH (23:42)
[2023-08-10] MEDS: Albuterol/Ipratropium 3.0-0.5 MG/3 ML Neb Soln NEB SCH ×6 (01:13→22:56)
[2023-08-10 06:12] LABS: HEMATOCRIT 43.2 % (36.0-46.0); HEMOGLOBIN 12.8 g/dL (12.0-16.0); MEAN CORPUSCULAR HGB CONC 29.6 g/dL (31.0-37.0); MEAN CORPUSCULAR VOLUME 91.1 fL (80.0-98.0); PLATELET COUNT,PLT 256 K/uL (150-400); RED BLOOD CELL COUNT 4.74 M/uL (4.30-5.90); WHITE BLOOD CELL COUNT,WBC 12.15 K/uL (4.0-11.0)
[2023-08-10 06:15] LABS: CARBON DIOXIDE,CO2 36.5 mmol/L (21.0-32.0); CREATININE 1.4 mg/dL (0.6-1.0); EST CRCL DRUG DOSING (CG) 34.59 mL/min; PHOSPHORUS 4.8 mg/dL (2.6-4.7); POTASSIUM,K 4.2 mmol/L (3.5-5.1)
[2023-08-10 07:09] LABS: BAND ABSOLUTE MAN 1.6; BAND PERCENT MAN 13 %; LYMPHOCYTES % ATYPICAL MANUAL 1; LYMPHOCYTES ABSOLUTE MAN 0.4 (0.6-2.4); LYMPHOCYTES PERCENT MAN 3 % (16.0-40.0)
[2023-08-10 07:10] LABS: EOSINOPHILS ABSOLUTE MAN 0.1 (0.0-0.7); EOSINOPHILS PERCENT MAN 1 % (0.0-7.0); METAMYELOCYTE ABSOLUTE MAN 0.4; METAMYELOCYTE PERCENT MAN 3 %; MYELOCYTE ABSOLUTE MAN 0.2; MYELOCYTE PERCENT MAN 2 %
[2023-08-10 07:11] LABS: SEG NEUTROPHILS ABSOLUTE MAN 9.4 (1.4-5.7); SEG NEUTROPHILS PERCENT MAN 77 % (48.0-80.0)
[2023-08-10] MEDS: Sertraline 100 MG Tab PO SCH (09:19)
[2023-08-10] MEDS ORDERED: Tiotropium Bromide 4 GM Inhalation Spray (2.5mcg/1 dose; 10 doses) INH SCH (11:00)
[2023-08-10] MEDS: methylPREDNISolone Sodium Succinate 40 MG/1 ML SDV IVPUSH SCH ×2 (11:49→23:00)
[2023-08-10] MEDS: Furosemide 40 MG Tab PO SCH (11:49)
[2023-08-10] MEDS: Tiotropium Bromide 4 GM Inhalation Spray (2.5mcg/1 dose; 10 doses) INH SCH (11:50)
[2023-08-10] MEDS: SALMETEROL INH SCH (11:54)
[2023-08-10] MEDS: [UNRECOGNIZED DRUG - OTHER] INH SCH (11:54)
[2023-08-10] MEDS: cefTRIAXone 2 GM in Sodium Chloride 0.9% 50 ML IV SCH (22:48)
[2023-08-10] MEDS: Enoxaparin 40 MG/0.4 ML Syringe SUBCUT SCH (22:56)
[2023-08-10] MEDS: Azithromycin 500 MG in Sodium Chloride 0.9% 250 ML IV SCH (22:56)
[2023-08-11] MEDS: Albuterol/Ipratropium 3.0-0.5 MG/3 ML Neb Soln NEB SCH ×6 (02:02→22:44)
[2023-08-11 06:18] LABS: HEMATOCRIT 42.2 % (36.0-46.0); HEMOGLOBIN 12.6 g/dL (12.0-16.0); MEAN CORPUSCULAR HEMOGLOBIN 27.2 pg (27.0-32.0); MEAN CORPUSCULAR HGB CONC 29.9 g/dL (31.0-37.0); MEAN CORPUSCULAR VOLUME 91.1 fL (80.0-98.0); PLATELET COUNT,PLT 289 K/uL (150-400); RED BLOOD CELL COUNT 4.63 M/uL (4.30-5.90); WHITE BLOOD CELL COUNT,WBC 13.97 K/uL (4.0-11.0)
[2023-08-11 06:29] LABS: CALCIUM 8.4 mg/dL (8.5-10.1); CARBON DIOXIDE,CO2 33.4 mmol/L (21.0-32.0); CREATININE 1.3 mg/dL (0.6-1.0); EST CRCL DRUG DOSING (CG) 37.26 mL/min; MAGNESIUM 2.4 mg/dL (1.8-2.4); POTASSIUM,K 4.1 mmol/L (3.5-5.1)
[2023-08-11 06:57] LABS: BAND ABSOLUTE MAN 0.6; BAND PERCENT MAN 4 %; LYMPHOCYTES ABSOLUTE MAN 1.1 (0.6-2.4); LYMPHOCYTES PERCENT MAN 8 % (16.0-40.0); MONOCYTES ABSOLUTE MAN 0.6 (0.0-0.8); MONOCYTES PERCENT MAN 4 % (0.0-15.0); SEG NEUTROPHILS ABSOLUTE MAN 10.9 (1.4-5.7); SEG NEUTROPHILS PERCENT MAN 78 % (48.0-80.0)
[2023-08-11 06:58] LABS: BASOPHILS ABSOLUTE MAN 0.1 (0.0-0.1); BASOPHILS PERCENT MAN 1 % (0.0-1.5); METAMYELOCYTE ABSOLUTE MAN 0.3; METAMYELOCYTE PERCENT MAN 2 %; MYELOCYTE ABSOLUTE MAN 0.4; MYELOCYTE PERCENT MAN 3 %
[2023-08-11] MEDS: Sertraline 100 MG Tab PO SCH (08:25)
[2023-08-11] MEDS: Furosemide 40 MG Tab PO SCH (08:25)
[2023-08-11] MEDS: Tiotropium Bromide 4 GM Inhalation Spray (2.5mcg/1 dose; 10 doses) INH SCH (08:26)
[2023-08-11] MEDS ORDERED: Furosemide 40 MG/4 ML VIAL IVPUSH ONE (09:19)
[2023-08-11] MEDS: [UNRECOGNIZED DRUG - OTHER] INH SCH (09:29)
[2023-08-11] MEDS: SALMETEROL INH SCH (09:29)
[2023-08-11] MEDS ORDERED: Famotidine 20 MG Tab PO SCH (09:45)
[2023-08-11] MEDS: Enoxaparin 40 MG/0.4 ML Syringe SUBCUT SCH ×2 (10:43→23:00)
[2023-08-11] MEDS: methylPREDNISolone Sodium Succinate 40 MG/1 ML SDV IVPUSH SCH ×2 (10:43→22:36)
[2023-08-11] MEDS ORDERED: Sucralfate 1 GM Tab PO SCH (11:30)
[2023-08-11] MEDS: cefTRIAXone 2 GM in Sodium Chloride 0.9% 50 ML IV SCH (20:27)
[2023-08-11] MEDS: Azithromycin 500 MG in Sodium Chloride 0.9% 250 ML IV SCH (21:05)
[2023-08-12] MEDS: Albuterol/Ipratropium 3.0-0.5 MG/3 ML Neb Soln NEB SCH ×3 (03:17→10:14)
[2023-08-12 05:31] LABS: HEMATOCRIT 42.6 % (36.0-46.0); HEMOGLOBIN 12.8 g/dL (12.0-16.0); MEAN CORPUSCULAR HEMOGLOBIN 26.7 pg (27.0-32.0); MEAN CORPUSCULAR VOLUME 88.8 fL (80.0-98.0); NRBC ABSOLUTE 0 K/uL; PLATELET COUNT,PLT 298 K/uL (150-400); WHITE BLOOD CELL COUNT,WBC 11.55 K/uL (4.0-11.0)
[2023-08-12 05:55] LABS: A/G RATIO 0.8 (0.9-1.6); BILIRUBIN TOTAL 0.2 mg/dL (0.2-1.0); CALCIUM 7.9 mg/dL (8.5-10.1); CARBON DIOXIDE,CO2 34.7 mmol/L (21.0-32.0); CREATININE 1.2 mg/dL (0.6-1.0); EST CRCL DRUG DOSING (CG) 40.36 mL/min; POTASSIUM,K 4.3 mmol/L (3.5-5.1); PROTEIN TOTAL,TP 6.6 g/dL (6.4-8.2)
[2023-08-12 05:59] LABS: BAND ABSOLUTE MAN 0.1; BAND PERCENT MAN 1 %; LYMPHOCYTES ABSOLUTE MAN 1.5 (0.6-2.4); LYMPHOCYTES PERCENT MAN 13 % (16.0-40.0); MONOCYTES ABSOLUTE MAN 0.3 (0.0-0.8); MONOCYTES PERCENT MAN 3 % (0.0-15.0); SEG NEUTROPHILS ABSOLUTE MAN 9.6 (1.4-5.7); SEG NEUTROPHILS PERCENT MAN 83 % (48.0-80.0)
[2023-08-12] MEDS: Sertraline 100 MG Tab PO SCH (09:58)
[2023-08-12] MEDS: Furosemide 40 MG Tab PO SCH (09:58)
[2023-08-12] MEDS: Tiotropium Bromide 4 GM Inhalation Spray (2.5mcg/1 dose; 10 doses) INH SCH (09:59)
[2023-08-12] MEDS: SALMETEROL INH SCH (10:00)
[2023-08-12] MEDS: [UNRECOGNIZED DRUG - OTHER] INH SCH (10:00)
[2023-08-12] MEDS: Enoxaparin 40 MG/0.4 ML Syringe SUBCUT SCH (10:01)
[2023-08-12] MEDS: methylPREDNISolone Sodium Succinate 40 MG/1 ML SDV IVPUSH SCH (10:40)
[2023-08-12 11:39] VITALS: BP 143/67; PULSE 86
== END 2023-08-12 11:50 | disposition home or self-care (01) | DRG 190 ==
LOC: MW.ED 16:48 → MW.MS 20:40 → OBSVTOIN 08-11 09:20 → MW.MS 08-11 13:42
PROVIDERS: ADMIT Family Medicine; ATTEND Family Medicine
PROC: 4A033R1 Measurement of Arterial Saturation, Peripheral, Percutaneous Approach (ICD-10-PCS; principal; 2023-08-11)
DX: J44.1 Chronic obstructive pulmonary disease with (acute) exacerbation (principal); J96.01 Acute respiratory failure with hypoxia; I11.0 Hypertensive heart disease with heart failure; J96.02 Acute respiratory failure with hypercapnia; N17.9 Acute kidney failure, unspecified; Z68.42 Body mass index [BMI] 45.0-49.9, adult; E66.9 Obesity, unspecified; I50.9 Heart failure, unspecified; F32.A Depression, unspecified; Z20.822 Contact with and (suspected) exposure to COVID-19; M81.0 Age-related osteoporosis without current pathological fracture; Z91.040 Latex allergy status; Z90.710 Acquired absence of both cervix and uterus; Z98.51 Tubal ligation status; Z90.10 Acquired absence of unspecified breast and nipple; Z99.81 Dependence on supplemental oxygen; Z79.899 Other long term (current) drug therapy; Z90.721 Acquired absence of ovaries, unilateral
CPT/HCPCS: 36415 ×3; 71045; 80048 ×2; 80053; 82803; 82947 ×2; 83605; 83735 ×3; 84100; 84484; 85025 ×3; 85610; 85730; 93005; 94640 ×2; 96365; 96367; 96368; 96375; 99285; A9270 ×5; J0456 ×2; J0696 ×2; J1100; J2920 ×3; J3475; J3490 ×3; J7050 ×2; U0002; 93010; 96366; 96376; 99291; G0378; J1940; J7620-GY

== ENCOUNTER 2024-02-20 10:07 | Inpatient (IN) | payer MEDICARE, MEDICAID ==
[2024-02-20 10:41] LABS: BASOPHILS ABSOLUTE AUTO 0.06 K/uL (0.00-0.20); BASOPHILS PERCENT AUTO 0.4 % (0.0-1.0); EOSINOPHILS ABSOLUTE AUTO 0.04 K/uL (0.00-0.45); EOSINOPHILS PERCENT AUTO 0.3 % (0.0-6.0); HEMATOCRIT 46.2 % (37.0-47.0); IMMATURE GRAN PERCENT AUTO 1.3 % (0.0-0.4); LYMPHOCYTES ABSOLUTE AUTO 2.72 K/uL (1.00-4.80); LYMPHOCYTES PERCENT AUTO 17.8 % (24.0-44.0); MEAN CORPUSCULAR HEMOGLOBIN 26.4 pg (28.0-32.0); MEAN CORPUSCULAR HGB CONC 30.3 g/dL (32.0-36.0); MEAN PLATELET VOLUME 8.8 fL (9.4-12.3); MONOCYTES ABSOLUTE AUTO 0.66 K/uL (0.00-0.80); MONOCYTES PERCENT AUTO 4.3 % (0.0-8.0); NEUTROPHILS ABSOLUTE AUTO 11.58 K/uL (1.80-7.70); NEUTROPHILS PERCENT AUTO 75.9 % (41.0-71.0); PLATELET COUNT,PLT 287 K/uL (150-400); RED BLOOD CELL COUNT 5.31 M/uL (4.10-5.30); WHITE BLOOD CELL COUNT,WBC 15.26 K/uL (3.9-11.3)
[2024-02-20 11:11] LABS: A/G RATIO 0.7 (0.9-1.6); ALBUMIN 2.9 g/dL (3.4-5.0); BILIRUBIN TOTAL 0.2 mg/dL (0.2-1.0); CALCIUM 9.7 mg/dL (8.5-10.1); CARBON DIOXIDE,CO2 37.3 mmol/L (21.0-32.0); CREATININE 1.1 mg/dL (0.6-1.0); EST CRCL DRUG DOSING (CG) 43.44 mL/min; MAGNESIUM 2.1 mg/dL (1.8-2.4); POTASSIUM,K 4.3 mmol/L (3.5-5.1)
[2024-02-20 11:12] LABS: LACTIC ACID 1.7 mmol/L (0.4-2.0)
[2024-02-20] MEDS: cefTRIAXone 1 GM in Sodium Chloride 0.9% 50 ML IV ONE (11:16)
[2024-02-20 11:25] LABS: CORONAVIRUS COVID-19 NAA NEGATIVE (NEGATIVE); INFLUENZA A NAA NEGATIVE (NEGATIVE); INFLUENZA B NAA NEGATIVE (NEGATIVE); RESPIRATORY SYNCYTIAL VIR NAA NEGATIVE (NEGATIVE)
[2024-02-20] MEDS: Azithromycin 500 MG in Sodium Chloride 0.9% 250 ML IV ONE (12:16)
[2024-02-20] MEDS ORDERED: Albuterol 0.083% 2.5 MG/3 ML Neb Soln NEB PRN (12:20)
[2024-02-20] MEDS ORDERED: Sodium Chloride 0.9% 10 ML Syringe FLUSH PRN (12:20)
[2024-02-20] MEDS ORDERED: Sodium Chloride 0.9% 2.5 ML Syringe FLUSH PRN (12:20)
[2024-02-20] MEDS ORDERED: Ondansetron 4 MG/2 ML SDV IVPUSH PRN (12:20)
[2024-02-20] MEDS ORDERED: Acetaminophen 325 MG Tab PO PRN (12:20)
[2024-02-20] MEDS ORDERED: Docusate Sodium 100 MG Cap PO PRN (12:20)
[2024-02-20] MEDS: Albuterol/Ipratropium 3.0-0.5 MG/3 ML Neb Soln NEB SCH (14:37)
[2024-02-20] MEDS: Heparin Sodium 5,000 Units/ML Vial SUBCUT SCH (14:37)
[2024-02-20] MEDS: Furosemide 100 MG/10 ML SDV IVPUSH SCH (14:37)
[2024-02-20] MEDS: methylPREDNISolone Sodium Succinate 40 MG/1 ML SDV IVPUSH SCH (17:51)
[2024-02-20] MEDS: SALMETEROL INH SCH (21:47)
[2024-02-20] MEDS: FLUTICASONE PROPION INH SCH (21:47)
[2024-02-21 07:04] LABS: BASOPHILS ABSOLUTE AUTO 0.04 K/uL (0.00-0.20); BASOPHILS PERCENT AUTO 0.2 % (0.0-1.0); EOSINOPHILS ABSOLUTE AUTO 0.01 K/uL (0.00-0.45); EOSINOPHILS PERCENT AUTO 0.1 % (0.0-6.0); HEMATOCRIT 48.2 % (37.0-47.0); HEMOGLOBIN 14.3 g/dL (12.0-16.0); IMMATURE GRAN ABSOLUTE AUTO 0.23 K/uL (0.00-0.05); IMMATURE GRAN PERCENT AUTO 1.4 % (0.0-0.4); LYMPHOCYTES ABSOLUTE AUTO 2.79 K/uL (1.00-4.80); LYMPHOCYTES PERCENT AUTO 17.1 % (24.0-44.0); MEAN CORPUSCULAR HEMOGLOBIN 26.3 pg (28.0-32.0); MEAN CORPUSCULAR HGB CONC 29.7 g/dL (32.0-36.0); MEAN CORPUSCULAR VOLUME 88.6 fL (83.0-99.0); MEAN PLATELET VOLUME 8.8 fL (9.4-12.3); MONOCYTES ABSOLUTE AUTO 0.92 K/uL (0.00-0.80); MONOCYTES PERCENT AUTO 5.6 % (0.0-8.0); NEUTROPHILS ABSOLUTE AUTO 12.31 K/uL (1.80-7.70); NEUTROPHILS PERCENT AUTO 75.6 % (41.0-71.0); PLATELET COUNT,PLT 276 K/uL (150-400); RED BLOOD CELL COUNT 5.44 M/uL (4.10-5.30)
[2024-02-21 07:26] LABS: CALCIUM 9.4 mg/dL (8.5-10.1); CARBON DIOXIDE,CO2 35.9 mmol/L (21.0-32.0); CREATININE 1.2 mg/dL (0.6-1.0); EST CRCL DRUG DOSING (CG) 39.82 mL/min; MAGNESIUM 2.6 mg/dL (1.8-2.4); POTASSIUM,K 3.6 mmol/L (3.5-5.1)
[2024-02-21] MEDS: Azithromycin 250 MG Tab PO SCH (08:04)
[2024-02-21] MEDS: Sertraline 100 MG Tab PO SCH (08:04)
[2024-02-21] MEDS: cefTRIAXone 1 GM in Sodium Chloride 0.9% 50 ML IV SCH (08:05)
[2024-02-21] MEDS: TIOTROPIUM BROMIDE INH SCH (08:13)
[2024-02-21] MEDS: [UNRECOGNIZED DRUG - OTHER] INH SCH (08:13)
[2024-02-21] MEDS: Furosemide 40 MG/4 ML VIAL IVPUSH SCH (19:46)
[2024-02-21] MEDS: Heparin Sodium 5,000 Units/ML Vial SUBCUT SCH (23:04)
[2024-02-22 06:04] LABS: BASOPHILS ABSOLUTE AUTO 0.04 K/uL (0.00-0.20); BASOPHILS PERCENT AUTO 0.3 % (0.0-1.0); EOSINOPHILS ABSOLUTE AUTO 0.01 K/uL (0.00-0.45); EOSINOPHILS PERCENT AUTO 0.1 % (0.0-6.0); HEMATOCRIT 43.3 % (37.0-47.0); HEMOGLOBIN 13.3 g/dL (12.0-16.0); IMMATURE GRAN ABSOLUTE AUTO 0.15 K/uL (0.00-0.05); IMMATURE GRAN PERCENT AUTO 1.1 % (0.0-0.4); LYMPHOCYTES ABSOLUTE AUTO 2.13 K/uL (1.00-4.80); LYMPHOCYTES PERCENT AUTO 15.7 % (24.0-44.0); MEAN CORPUSCULAR HEMOGLOBIN 26.4 pg (28.0-32.0); MEAN CORPUSCULAR HGB CONC 30.7 g/dL (32.0-36.0); MEAN CORPUSCULAR VOLUME 86.1 fL (83.0-99.0); MEAN PLATELET VOLUME 8.8 fL (9.4-12.3); MONOCYTES ABSOLUTE AUTO 0.69 K/uL (0.00-0.80); MONOCYTES PERCENT AUTO 5.1 % (0.0-8.0); NEUTROPHILS ABSOLUTE AUTO 10.57 K/uL (1.80-7.70); NEUTROPHILS PERCENT AUTO 77.7 % (41.0-71.0); PLATELET COUNT,PLT 276 K/uL (150-400); RED BLOOD CELL COUNT 5.03 M/uL (4.10-5.30); WHITE BLOOD CELL COUNT,WBC 13.59 K/uL (3.9-11.3)
[2024-02-22 06:29] LABS: CALCIUM 8.9 mg/dL (8.5-10.1); CARBON DIOXIDE,CO2 35.9 mmol/L (21.0-32.0); EST CRCL DRUG DOSING (CG) 47.79 mL/min; MAGNESIUM 2.6 mg/dL (1.8-2.4); POTASSIUM,K 3.8 mmol/L (3.5-5.1)
[2024-02-23 09:03] LABS: BASOPHILS ABSOLUTE AUTO 0.04 K/uL (0.00-0.20); BASOPHILS PERCENT AUTO 0.3 % (0.0-1.0); HEMATOCRIT 47.5 % (37.0-47.0); HEMOGLOBIN 14.7 g/dL (12.0-16.0); IMMATURE GRAN ABSOLUTE AUTO 0.21 K/uL (0.00-0.05); IMMATURE GRAN PERCENT AUTO 1.3 % (0.0-0.4); LYMPHOCYTES ABSOLUTE AUTO 1.14 K/uL (1.00-4.80); LYMPHOCYTES PERCENT AUTO 7.2 % (24.0-44.0); MEAN CORPUSCULAR HEMOGLOBIN 26.7 pg (28.0-32.0); MEAN CORPUSCULAR HGB CONC 30.9 g/dL (32.0-36.0); MEAN CORPUSCULAR VOLUME 86.4 fL (83.0-99.0); MEAN PLATELET VOLUME 8.5 fL (9.4-12.3); MONOCYTES ABSOLUTE AUTO 0.59 K/uL (0.00-0.80); MONOCYTES PERCENT AUTO 3.7 % (0.0-8.0); NEUTROPHILS ABSOLUTE AUTO 13.85 K/uL (1.80-7.70); NEUTROPHILS PERCENT AUTO 87.5 % (41.0-71.0); PLATELET COUNT,PLT 274 K/uL (150-400); WHITE BLOOD CELL COUNT,WBC 15.83 K/uL (3.9-11.3)
[2024-02-23 09:20] LABS: CALCIUM 8.8 mg/dL (8.5-10.1); CARBON DIOXIDE,CO2 34.3 mmol/L (21.0-32.0); CREATININE 1.1 mg/dL (0.6-1.0); EST CRCL DRUG DOSING (CG) 43.44 mL/min; POTASSIUM,K 4.3 mmol/L (3.5-5.1)
[2024-02-23 12:21] VITALS: BP 143/63; PULSE 78
== END 2024-02-23 12:10 | disposition home or self-care (01) | DRG 193 ==
LOC: MW.ED 10:07 → MW.MS 12:00
PROVIDERS: ADMIT Family Medicine; ATTEND Family Medicine
DX: J18.9 Pneumonia, unspecified organism (principal); I50.9 Heart failure, unspecified; I50.33 Acute on chronic diastolic (congestive) heart failure; J96.21 Acute and chronic respiratory failure with hypoxia; J44.1 Chronic obstructive pulmonary disease with (acute) exacerbation; J44.0 Chronic obstructive pulmonary disease with (acute) lower respiratory infection; Z68.42 Body mass index [BMI] 45.0-49.9, adult; G47.30 Sleep apnea, unspecified; M19.042 Primary osteoarthritis, left hand; M19.041 Primary osteoarthritis, right hand; F32.A Depression, unspecified; F17.210 Nicotine dependence, cigarettes, uncomplicated; I89.0 Lymphedema, not elsewhere classified; E66.01 Morbid (severe) obesity due to excess calories; D72.829 Elevated white blood cell count, unspecified; Z99.81 Dependence on supplemental oxygen; Z91.040 Latex allergy status; Z79.51 Long term (current) use of inhaled steroids; Z79.2 Long term (current) use of antibiotics; Z79.899 Other long term (current) drug therapy; Z87.440 Personal history of urinary (tract) infections; Z85.3 Personal history of malignant neoplasm of breast; Z90.710 Acquired absence of both cervix and uterus; Z90.10 Acquired absence of unspecified breast and nipple; Z90.722 Acquired absence of ovaries, bilateral; Z90.79 Acquired absence of other genital organ(s); Z98.51 Tubal ligation status
CPT/HCPCS: 0241U; 36415; 51701; 71045; 80048; 80053; 83605; 83735; 83880; 84484; 85025; 93005; 93306; 94640; 96365; 99285; 93010; A9270-GY; J0456; J0696; J1940; J2920; J3490; J7050; J7620-GY

== ENCOUNTER 2024-06-17 16:20 | Inpatient (IN) | payer MEDICARE, MEDICAID ==
[2024-06-17 16:53] LABS: BASOPHILS ABSOLUTE AUTO 0.06 K/uL (0.00-0.20); BASOPHILS PERCENT AUTO 0.4 % (0.0-1.0); EOSINOPHILS ABSOLUTE AUTO 0.14 K/uL (0.00-0.45); HEMATOCRIT 45.4 % (37.0-47.0); HEMOGLOBIN 14.1 g/dL (12.0-16.0); IMMATURE GRAN ABSOLUTE AUTO 0.26 K/uL (0.00-0.05); IMMATURE GRAN PERCENT AUTO 1.9 % (0.0-0.4); LYMPHOCYTES ABSOLUTE AUTO 1.97 K/uL (1.00-4.80); LYMPHOCYTES PERCENT AUTO 14.7 % (24.0-44.0); MEAN CORPUSCULAR HEMOGLOBIN 28.2 pg (28.0-32.0); MEAN CORPUSCULAR HGB CONC 31.1 g/dL (32.0-36.0); MEAN CORPUSCULAR VOLUME 90.8 fL (83.0-99.0); MEAN PLATELET VOLUME 8.8 fL (9.4-12.3); MONOCYTES ABSOLUTE AUTO 0.59 K/uL (0.00-0.80); MONOCYTES PERCENT AUTO 4.4 % (0.0-8.0); NEUTROPHILS PERCENT AUTO 77.6 % (41.0-71.0); PLATELET COUNT,PLT 252 K/uL (150-400); WHITE BLOOD CELL COUNT,WBC 13.42 K/uL (3.9-11.3)
[2024-06-17 17:11] LABS: BASE EXCESS VENOUS 9.4 (-2.0-3.0); PH,VENOUS 7.38 (7.31-7.41)
[2024-06-17] MEDS: Albuterol 0.083% 2.5 MG/3 ML Neb Soln NEB ONE (17:11)
[2024-06-17] MEDS: Sodium Chloride 0.9% 2.5 ML Syringe FLUSH PRN (17:12)
[2024-06-17] MEDS: Sodium Chloride 0.9% 10 ML Syringe FLUSH PRN (17:12)
[2024-06-17] MEDS: Ipratropium 0.02% 0.5 MG/2.5 ML Neb Soln NEB ONE (17:12)
[2024-06-17 17:34] LABS: CORONAVIRUS COVID-19 NAA NEGATIVE (NEGATIVE); INFLUENZA A NAA NEGATIVE (NEGATIVE); INFLUENZA B NAA NEGATIVE (NEGATIVE); RESPIRATORY SYNCYTIAL VIR NAA NEGATIVE (NEGATIVE)
[2024-06-17 17:51] LABS: A/G RATIO 0.9 (0.9-1.6); ALBUMIN 2.9 g/dL (3.4-5.0); BILIRUBIN TOTAL 0.3 mg/dL (0.2-1.0); CALCIUM 8.8 mg/dL (8.5-10.1); CARBON DIOXIDE,CO2 35.9 mmol/L (21.0-32.0); CREATININE 1.1 mg/dL (0.6-1.0); EST CRCL DRUG DOSING (CG) 43.44 mL/min; POTASSIUM,K 3.7 mmol/L (3.5-5.1); PROTEIN TOTAL,TP 6.2 g/dL (6.4-8.2)
[2024-06-17] MEDS: Furosemide 40 MG/4 ML VIAL IVPUSH ONE (18:39)
[2024-06-17] MEDS ORDERED: Albuterol/Ipratropium 3.0-0.5 MG/3 ML Neb Soln NEB PRN (19:14)
[2024-06-17] MEDS ORDERED: Ondansetron 4 MG Tab.DIS PO PRN (19:14)
[2024-06-17] MEDS ORDERED: Polyethylene Glycol 3350 Powder 17 GM Packet PO PRN (19:14)
[2024-06-17] MEDS ORDERED: Acetaminophen 325 MG Tab PO PRN (19:14)
[2024-06-17] MEDS ORDERED: Glucagon,Human Recombinant 1 MG Vial IM PRN (19:24)
[2024-06-17] MEDS ORDERED: 50% Dextrose in Water 50 ML Syringe IVPUSH PRN (19:24)
[2024-06-17] MEDS ORDERED: traMADol 50 MG Tab PO SCH (19:30)
[2024-06-17] MEDS ORDERED: Non-Formulary Medication 1 Each (Fluticasone Propion/Salmeterol [Fluticasone-Salmeterol 25 INH SCH (21:00)
[2024-06-17] MEDS: Enoxaparin 40 MG/0.4 ML Syringe SUBCUT SCH (21:03)
[2024-06-17] MEDS: Insulin Aspart 100 Units/ML 3 ML Pen SUBCUT SCH (21:04)
[2024-06-17] MEDS: Ketorolac 30 MG/ML SDV IVPUSH PRN (21:13)
[2024-06-17] MEDS: Potassium Chloride 20 MEQ Tab.ER PO ONE (21:17)
[2024-06-17] MEDS: Formoterol/Mometasone 200-5 MCG 8.8 GM Inhaler INH SCH (21:18)
[2024-06-18] MEDS ORDERED: Insulin Aspart 100 Units/ML 3 ML Pen SUBCUT SCH (07:30)
[2024-06-18 16:16] LABS: A/G RATIO 0.9 (0.9-1.6); BILIRUBIN TOTAL 0.3 mg/dL (0.2-1.0); CALCIUM 8.5 mg/dL (8.5-10.1); CARBON DIOXIDE,CO2 36.6 mmol/L (21.0-32.0); CREATININE 1.2 mg/dL (0.6-1.0); EST CRCL DRUG DOSING (CG) 39.82 mL/min; MAGNESIUM 2.1 mg/dL (1.8-2.4); PHOSPHORUS 4.7 mg/dL (2.6-4.7); POTASSIUM,K 3.8 mmol/L (3.5-5.1); PROTEIN TOTAL,TP 6.4 g/dL (6.4-8.2)
[2024-06-18 18:00] LABS: BASOPHILS ABSOLUTE AUTO 0.06 K/uL (0.00-0.20); BASOPHILS PERCENT AUTO 0.5 % (0.0-1.0); EOSINOPHILS ABSOLUTE AUTO 0.14 K/uL (0.00-0.45); EOSINOPHILS PERCENT AUTO 1.3 % (0.0-6.0); HEMATOCRIT 45.9 % (37.0-47.0); IMMATURE GRAN ABSOLUTE AUTO 0.21 K/uL (0.00-0.05); IMMATURE GRAN PERCENT AUTO 1.9 % (0.0-0.4); LYMPHOCYTES ABSOLUTE AUTO 2.05 K/uL (1.00-4.80); LYMPHOCYTES PERCENT AUTO 18.6 % (24.0-44.0); MEAN CORPUSCULAR HGB CONC 30.5 g/dL (32.0-36.0); MEAN CORPUSCULAR VOLUME 91.8 fL (83.0-99.0); MONOCYTES ABSOLUTE AUTO 0.62 K/uL (0.00-0.80); MONOCYTES PERCENT AUTO 5.6 % (0.0-8.0); NEUTROPHILS ABSOLUTE AUTO 7.93 K/uL (1.80-7.70); NEUTROPHILS PERCENT AUTO 72.1 % (41.0-71.0); PLATELET COUNT,PLT 249 K/uL (150-400); WHITE BLOOD CELL COUNT,WBC 11.01 K/uL (3.9-11.3)
[2024-06-18] MEDS: Sertraline 50 MG Tab PO SCH (21:48)
[2024-06-18] MEDS: Tiotropium Bromide 4 GM Inhalation Spray (2.5mcg/1 dose; 10 doses) ONE (21:48)
[2024-06-18] MEDS: Furosemide 40 MG/4 ML VIAL IVPUSH SCH (21:48)
[2024-06-19] MEDS ORDERED: Albuterol 8 GM Inhaler INH PRN (01:05)
[2024-06-19 06:57] LABS: BASOPHILS ABSOLUTE AUTO 0.04 K/uL (0.00-0.20); BASOPHILS PERCENT AUTO 0.4 % (0.0-1.0); EOSINOPHILS ABSOLUTE AUTO 0.23 K/uL (0.00-0.45); EOSINOPHILS PERCENT AUTO 2.1 % (0.0-6.0); HEMATOCRIT 45.4 % (37.0-47.0); HEMOGLOBIN 13.9 g/dL (12.0-16.0); IMMATURE GRAN PERCENT AUTO 0.9 % (0.0-0.4); LYMPHOCYTES ABSOLUTE AUTO 1.91 K/uL (1.00-4.80); LYMPHOCYTES PERCENT AUTO 17.8 % (24.0-44.0); MEAN CORPUSCULAR HEMOGLOBIN 28.4 pg (28.0-32.0); MEAN CORPUSCULAR HGB CONC 30.6 g/dL (32.0-36.0); MEAN CORPUSCULAR VOLUME 92.8 fL (83.0-99.0); MEAN PLATELET VOLUME 9.2 fL (9.4-12.3); MONOCYTES ABSOLUTE AUTO 0.46 K/uL (0.00-0.80); MONOCYTES PERCENT AUTO 4.3 % (0.0-8.0); NEUTROPHILS ABSOLUTE AUTO 7.97 K/uL (1.80-7.70); NEUTROPHILS PERCENT AUTO 74.5 % (41.0-71.0); PLATELET COUNT,PLT 237 K/uL (150-400); RED BLOOD CELL COUNT 4.89 M/uL (4.10-5.30); WHITE BLOOD CELL COUNT,WBC 10.71 K/uL (3.9-11.3)
[2024-06-19 07:31] LABS: A/G RATIO 0.9 (0.9-1.6); BILIRUBIN TOTAL 0.3 mg/dL (0.2-1.0); CALCIUM 8.8 mg/dL (8.5-10.1); CREATININE 1.2 mg/dL (0.6-1.0); EST CRCL DRUG DOSING (CG) 39.82 mL/min; POTASSIUM,K 3.9 mmol/L (3.5-5.1); PROTEIN TOTAL,TP 6.4 g/dL (6.4-8.2)
[2024-06-19] MEDS: Tiotropium Bromide 4 GM Inhalation Spray (2.5mcg/1 dose; 10 doses) INH SCH (09:02)
[2024-06-19] MEDS ORDERED: Furosemide 40 MG Tab PO SCH (13:00)
[2024-06-19 15:00] VITALS: BP 125/60; PULSE 68
== END 2024-06-19 12:00 | disposition home health service (06) | DRG 292 ==
LOC: MW.ED 16:20 → MW.MS 18:24
PROVIDERS: ADMIT Family Medicine; ATTEND Family Medicine
DX: I50.32 Chronic diastolic (congestive) heart failure (principal); J96.11 Chronic respiratory failure with hypoxia; R06.09 Other forms of dyspnea; R09.02 Hypoxemia; I50.30 Unspecified diastolic (congestive) heart failure; Z68.42 Body mass index [BMI] 45.0-49.9, adult; G47.30 Sleep apnea, unspecified; M19.90 Unspecified osteoarthritis, unspecified site; M81.0 Age-related osteoporosis without current pathological fracture; F32.A Depression, unspecified; J44.9 Chronic obstructive pulmonary disease, unspecified; E66.9 Obesity, unspecified; Z98.51 Tubal ligation status; Z90.10 Acquired absence of unspecified breast and nipple; Z90.710 Acquired absence of both cervix and uterus; Z90.721 Acquired absence of ovaries, unilateral; Z99.89 Dependence on other enabling machines and devices; Z99.81 Dependence on supplemental oxygen; Z79.899 Other long term (current) drug therapy; Z91.040 Latex allergy status; Z75.8 Other problems related to medical facilities and other health care
CPT/HCPCS: 0241U; 36415; 71045; 80053; 82803; 83735; 83880; 84100; 84145; 84484; 85025; 93005; 93306; 96374; 99285; A9270-GY; J1885; J1940; J3490; J7620-GY

== ENCOUNTER 2024-08-07 20:56 | Inpatient (IN) | payer MEDICARE, MEDICAID ==
[2024-08-07] MEDS: Sodium Chloride 0.9% 10 ML Syringe FLUSH PRN (21:12)
[2024-08-07] MEDS: Albuterol/Ipratropium 3.0-0.5 MG/3 ML Neb Soln NEB ONE (21:12)
[2024-08-07] MEDS: Sodium Chloride 0.9% 2.5 ML Syringe FLUSH PRN (21:12)
[2024-08-07] MEDS: methylPREDNISolone Sodium Succinate 125 MG/2 ML SDV IVPUSH ONE (21:12)
[2024-08-07 21:17] LABS: BASOPHILS ABSOLUTE AUTO 0.08 K/uL (0.00-0.20); BASOPHILS PERCENT AUTO 0.4 % (0.0-1.0); EOSINOPHILS ABSOLUTE AUTO 0.01 K/uL (0.00-0.45); HEMATOCRIT 50.3 % (37.0-47.0); HEMOGLOBIN 15.9 g/dL (12.0-16.0); LYMPHOCYTES ABSOLUTE AUTO 0.64 K/uL (1.00-4.80); LYMPHOCYTES PERCENT AUTO 3.2 % (24.0-44.0); MEAN CORPUSCULAR HEMOGLOBIN 27.7 pg (28.0-32.0); MEAN CORPUSCULAR HGB CONC 31.6 g/dL (32.0-36.0); MEAN CORPUSCULAR VOLUME 87.8 fL (83.0-99.0); MEAN PLATELET VOLUME 9.1 fL (9.4-12.3); MONOCYTES ABSOLUTE AUTO 0.22 K/uL (0.00-0.80); MONOCYTES PERCENT AUTO 1.1 % (0.0-8.0); NEUTROPHILS ABSOLUTE AUTO 19.11 K/uL (1.80-7.70); NEUTROPHILS PERCENT AUTO 94.3 % (41.0-71.0); PLATELET COUNT,PLT 207 K/uL (150-400); RED BLOOD CELL COUNT 5.73 M/uL (4.10-5.30); WHITE BLOOD CELL COUNT,WBC 20.26 K/uL (3.9-11.3)
[2024-08-07] MEDS: Ondansetron 4 MG/2 ML SDV IVPUSH STA (21:19)
[2024-08-07 21:32] LABS: INR 1.1 (0.86-1.11); PTT,PARTIAL THROMBOPLSTIN TIME 26.8 SEC (23.9-30.7)
[2024-08-07] MEDS: cefTRIAXone 2 GM in Sodium Chloride 0.9% 50 ML IV ONE (21:44)
[2024-08-07] MEDS: Azithromycin 500 MG in Sodium Chloride 0.9% 250 ML IV ONE (21:45)
[2024-08-07 22:04] LABS: CORONAVIRUS COVID-19 NAA NEGATIVE (NEGATIVE); INFLUENZA A NAA NEGATIVE (NEGATIVE); INFLUENZA B NAA NEGATIVE (NEGATIVE); RESPIRATORY SYNCYTIAL VIR NAA NEGATIVE (NEGATIVE)
[2024-08-07 22:09] LABS: BASE EXCESS ARTERIAL 7.8 (-2.0-3.0); BICARBONATE,ARTERIAL 35 mEq/L (22-26); PCO2 ARTERIAL 59 mmHG (35-45); PO2 ARTERIAL 79 mmHG (80-105)
[2024-08-07 22:32] LABS: APPEARANCE,URINE CLEAR; BILIRUBIN,URINE NEGATIVE (NEGATIVE); COLOR,URINE YELLOW; GLUCOSE,URINE >=1000 mg/dL (NEGATIVE); KETONES,URINE NEGATIVE (NEGATIVE); LEUKOCYTE ESTERASE,URINE NEGATIVE (NEGATIVE); NITRITE,URINE NEGATIVE (NEGATIVE); OCCULT BLOOD,URINE LARGE (NEGATIVE); PROTEIN,URINE TRACE mg/dL (NEGATIVE); UROBILINOGEN,URINE 0.2 EU/dL (<2.0)
[2024-08-07 22:37] LABS: LACTIC ACID 3.4 mmol/L (0.4-2.0)
[2024-08-07 22:41] LABS: A/G RATIO 0.8 (0.9-1.6); ALBUMIN 3.4 g/dL (3.4-5.0); BILIRUBIN TOTAL 0.5 mg/dL (0.2-1.0); CALCIUM 9.9 mg/dL (8.5-10.1); CARBON DIOXIDE,CO2 37.5 mmol/L (21.0-32.0); CREATININE 1.5 mg/dL (0.6-1.0); EST CRCL DRUG DOSING (CG) 33.2 mL/min; MAGNESIUM 2.2 mg/dL (1.8-2.4); PHOSPHORUS 3.6 mg/dL (2.6-4.7); POTASSIUM,K 3.3 mmol/L (3.5-5.1); PROTEIN TOTAL,TP 7.5 g/dL (6.4-8.2)
[2024-08-07 22:44] LABS: BACTERIA,URINE FEW (NEGATIVE); EPITHELIAL CELLS,URINE FEW (NONE-FEW); RBC,URINE 30-40 (0-2/HPF)
[2024-08-07] MEDS: Nystatin Crm 30 GM Tube TOP STA (23:32)
[2024-08-07] MEDS: Acetaminophen 650 MG Supp RECTAL ONE (23:32)
[2024-08-07] MEDS: VANCOmycin 2 GM/400 ML 2 GM in Premix Bag 1 BAG IV ONE (23:48)
[2024-08-08] MEDS ORDERED: Glucagon,Human Recombinant 1 MG Vial IM PRN (01:32)
[2024-08-08] MEDS ORDERED: 50% Dextrose in Water 50 ML Syringe IVPUSH PRN (01:32)
[2024-08-08] MEDS: Sodium Chloride 0.9% 1,000 ML IV SCH (02:01)
[2024-08-08] MEDS: Enoxaparin 40 MG/0.4 ML Syringe SUBCUT SCH (02:04)
[2024-08-08 06:51] LABS: HEMATOCRIT 44.8 % (37.0-47.0); HEMOGLOBIN 13.9 g/dL (12.0-16.0); MEAN CORPUSCULAR HEMOGLOBIN 27.5 pg (28.0-32.0); MEAN CORPUSCULAR VOLUME 88.7 fL (83.0-99.0); MEAN PLATELET VOLUME 9.7 fL (9.4-12.3); PLATELET COUNT,PLT 221 K/uL (150-400); RED BLOOD CELL COUNT 5.05 M/uL (4.10-5.30)
[2024-08-08] MEDS: Albuterol/Ipratropium 3.0-0.5 MG/3 ML Neb Soln NEB SCH (06:54)
[2024-08-08 07:10] LABS: A/G RATIO 0.7 (0.9-1.6); ALBUMIN 2.6 g/dL (3.4-5.0); BILIRUBIN TOTAL 0.4 mg/dL (0.2-1.0); CARBON DIOXIDE,CO2 35.5 mmol/L (21.0-32.0); CREATININE 1.6 mg/dL (0.6-1.0); EST CRCL DRUG DOSING (CG) 31.12 mL/min; POTASSIUM,K 3.3 mmol/L (3.5-5.1); PROTEIN TOTAL,TP 6.4 g/dL (6.4-8.2)
[2024-08-08 07:33] LABS: WHITE BLOOD CELL COUNT,WBC 33.33 K/uL (3.9-11.3)
[2024-08-08 07:34] LABS: LYMPHOCYTES ABSOLUTE MAN 1.67 K/uL (1.00-4.80); LYMPHOCYTES PERCENT MAN 5 % (24-44)
[2024-08-08 07:35] LABS: MONOCYTES ABSOLUTE MAN 1.33 K/uL (0.00-0.80); MONOCYTES PERCENT MAN 4 % (0-8)
[2024-08-08 07:36] LABS: BAND PERCENT MAN 9 %; SEG NEUTROPHILS ABSOLUTE MAN 27.33 K/uL (1.80-7.70); SEG NEUTROPHILS PERCENT MAN 82 % (41-71)
[2024-08-08] MEDS: Insulin Aspart 100 Units/ML 3 ML Pen SUBCUT SCH (08:00)
[2024-08-08] MEDS: methylPREDNISolone Sodium Succinate 40 MG/1 ML SDV IVPUSH SCH (08:24)
[2024-08-08] MEDS ORDERED: Cefepime 2 GM in Sodium Chloride 0.9% 50 ML IV SCH (10:30)
[2024-08-08] MEDS: Cefepime 2 GM in Sodium Chloride 0.9% 50 ML IV SCH (12:22)
[2024-08-08] MEDS ORDERED: cefTRIAXone 2 GM in Sodium Chloride 0.9% 50 ML IV SCH (21:00)
[2024-08-08] MEDS: Azithromycin 250 MG Tab PO ONE (21:25)
[2024-08-09] MEDS: Acetaminophen 500 MG Tab PO STA (04:45)
[2024-08-09] MEDS: Pantoprazole 40 MG in Sodium Chloride 0.9% 10 ML IVPUSH ONE (05:37)
[2024-08-09] MEDS: Ondansetron 4 MG/2 ML SDV IVPUSH ONE (05:37)
[2024-08-09 06:51] LABS: BASOPHILS ABSOLUTE AUTO 0.04 K/uL (0.00-0.20); BASOPHILS PERCENT AUTO 0.2 % (0.0-1.0); EOSINOPHILS ABSOLUTE AUTO 0.11 K/uL (0.00-0.45); EOSINOPHILS PERCENT AUTO 0.5 % (0.0-6.0); HEMATOCRIT 44.7 % (37.0-47.0); HEMOGLOBIN 13.5 g/dL (12.0-16.0); IMMATURE GRAN ABSOLUTE AUTO 0.15 K/uL (0.00-0.05); IMMATURE GRAN PERCENT AUTO 0.7 % (0.0-0.4); LYMPHOCYTES ABSOLUTE AUTO 1.54 K/uL (1.00-4.80); LYMPHOCYTES PERCENT AUTO 6.8 % (24.0-44.0); MEAN CORPUSCULAR HEMOGLOBIN 27.2 pg (28.0-32.0); MEAN CORPUSCULAR HGB CONC 30.2 g/dL (32.0-36.0); MEAN CORPUSCULAR VOLUME 89.9 fL (83.0-99.0); MEAN PLATELET VOLUME 9.7 fL (9.4-12.3); MONOCYTES ABSOLUTE AUTO 1.17 K/uL (0.00-0.80); MONOCYTES PERCENT AUTO 5.2 % (0.0-8.0); NEUTROPHILS ABSOLUTE AUTO 19.65 K/uL (1.80-7.70); NEUTROPHILS PERCENT AUTO 86.6 % (41.0-71.0); PLATELET COUNT,PLT 228 K/uL (150-400); RED BLOOD CELL COUNT 4.97 M/uL (4.10-5.30); WHITE BLOOD CELL COUNT,WBC 22.66 K/uL (3.9-11.3)
[2024-08-09 07:11] LABS: CALCIUM 8.6 mg/dL (8.5-10.1); CARBON DIOXIDE,CO2 35.3 mmol/L (21.0-32.0); CREATININE 1.3 mg/dL (0.6-1.0); EST CRCL DRUG DOSING (CG) 38.3 mL/min; MAGNESIUM 2.7 mg/dL (1.8-2.4); POTASSIUM,K 3.6 mmol/L (3.5-5.1)
[2024-08-09] MEDS: Nystatin Crm 30 GM Tube TOP SCH (08:08)
[2024-08-09 13:06] VITALS: PULSE 91
[2024-08-09 13:38] VITALS: BP 118/64
[2024-08-10] MEDS ORDERED: Pantoprazole 40 MG Tab.CR PO SCH (07:30)
== END 2024-08-09 13:20 | DRG 189 ==
LOC: MW.ED 20:56 → MW.ICU 23:18
PROVIDERS: ADMIT Internal Medicine; ATTEND Internal Medicine
DX: A41.9 Sepsis, unspecified organism (principal); J96.00 Acute respiratory failure, unspecified whether with hypoxia or hypercapnia; J96.21 Acute and chronic respiratory failure with hypoxia; I50.32 Chronic diastolic (congestive) heart failure; J44.1 Chronic obstructive pulmonary disease with (acute) exacerbation; L03.119 Cellulitis of unspecified part of limb; E87.20 Acidosis, unspecified; Z68.41 Body mass index [BMI] 40.0-44.9, adult; N13.2 Hydronephrosis with renal and ureteral calculous obstruction; G47.30 Sleep apnea, unspecified; E66.9 Obesity, unspecified; M19.90 Unspecified osteoarthritis, unspecified site; M81.0 Age-related osteoporosis without current pathological fracture; D72.829 Elevated white blood cell count, unspecified; F32.A Depression, unspecified; E86.0 Dehydration; I73.9 Peripheral vascular disease, unspecified; Z90.710 Acquired absence of both cervix and uterus; Z90.721 Acquired absence of ovaries, unilateral; Z98.51 Tubal ligation status; Z79.52 Long term (current) use of systemic steroids; Z90.10 Acquired absence of unspecified breast and nipple; Z91.040 Latex allergy status; Z79.899 Other long term (current) drug therapy
CPT/HCPCS: 0241U; 36415; 36600; 51702; 71045; 71250; 74176; 80048; 80053; 80202; 81001; 82803; 82947; 83605; 83735; 83880; 84100; 84484; 85025; 85610; 85730; 87040; 93005; 94640; 94660; 96365; 96367; 96375; 99285; 87077; 87186; 93010; 99222; 99239; A9270-GY; J0456; J0692; J0696; J1650; J1815-GY; J2405; J2470; J2919; J3370; J3372; J3490; J7030; J7050; J7620-GY

== ENCOUNTER 2024-08-19 11:56 | Inpatient (IN) | payer MEDICARE, MEDICAID ==
[2024-08-19] MEDS ORDERED: Sodium Chloride 0.9% 2.5 ML Syringe FLUSH PRN (12:30)
[2024-08-19] MEDS ORDERED: Sodium Chloride 0.9% 10 ML Syringe FLUSH PRN (12:30)
[2024-08-19 13:34] LABS: BASOPHILS ABSOLUTE AUTO 0.09 K/uL (0.00-0.20); BASOPHILS PERCENT AUTO 0.6 % (0.0-1.0); EOSINOPHILS PERCENT AUTO 1.3 % (0.0-6.0); HEMOGLOBIN 13.3 g/dL (12.0-16.0); IMMATURE GRAN ABSOLUTE AUTO 0.22 K/uL (0.00-0.05); IMMATURE GRAN PERCENT AUTO 1.4 % (0.0-0.4); LYMPHOCYTES ABSOLUTE AUTO 3.06 K/uL (1.00-4.80); LYMPHOCYTES PERCENT AUTO 20.1 % (24.0-44.0); MEAN CORPUSCULAR HEMOGLOBIN 27.3 pg (28.0-32.0); MEAN CORPUSCULAR HGB CONC 30.9 g/dL (32.0-36.0); MEAN CORPUSCULAR VOLUME 88.1 fL (83.0-99.0); MEAN PLATELET VOLUME 9.5 fL (9.4-12.3); MONOCYTES ABSOLUTE AUTO 1.18 K/uL (0.00-0.80); MONOCYTES PERCENT AUTO 7.8 % (0.0-8.0); NEUTROPHILS ABSOLUTE AUTO 10.46 K/uL (1.80-7.70); NEUTROPHILS PERCENT AUTO 68.8 % (41.0-71.0); PLATELET COUNT,PLT 280 K/uL (150-400); RED BLOOD CELL COUNT 4.88 M/uL (4.10-5.30); WHITE BLOOD CELL COUNT,WBC 15.21 K/uL (3.9-11.3)
[2024-08-19 13:46] LABS: INR 1.02 (0.86-1.11)
[2024-08-19 14:10] LABS: A/G RATIO 0.8 (0.9-1.6); ALBUMIN 2.8 g/dL (3.4-5.0); BILIRUBIN TOTAL 0.2 mg/dL (0.2-1.0); CALCIUM 9.5 mg/dL (8.5-10.1); CARBON DIOXIDE,CO2 38.2 mmol/L (21.0-32.0); CREATININE 1.4 mg/dL (0.6-1.0); EST CRCL DRUG DOSING (CG) 34.13 mL/min; POTASSIUM,K 3.3 mmol/L (3.5-5.1); PROTEIN TOTAL,TP 6.5 g/dL (6.4-8.2); TSH ULTRASENSITIVE 2.05 uIU/mL (0.36-3.74)
[2024-08-19] MEDS: Diltiazem 25 MG/5 ML SDV IVPUSH ONE (14:46)
[2024-08-19 14:55] LABS: APPEARANCE,URINE SLT CLOUDY; BILIRUBIN,URINE NEGATIVE (NEGATIVE); COLOR,URINE YELLOW; GLUCOSE,URINE NEGATIVE (NEGATIVE); KETONES,URINE NEGATIVE (NEGATIVE); LEUKOCYTE ESTERASE,URINE MODERATE (NEGATIVE); NITRITE,URINE NEGATIVE (NEGATIVE); OCCULT BLOOD,URINE SMALL (NEGATIVE); PROTEIN,URINE NEGATIVE (NEGATIVE); UROBILINOGEN,URINE 0.2 EU/dL (<2.0)
[2024-08-19 15:11] LABS: BACTERIA,URINE RARE (NEGATIVE); EPITHELIAL CELLS,URINE RARE (NONE-FEW); RBC,URINE 0-2 (0-2/HPF)
[2024-08-19] MEDS ORDERED: Albuterol/Ipratropium 3.0-0.5 MG/3 ML Neb Soln NEB PRN (16:06)
[2024-08-19] MEDS ORDERED: Glucagon,Human Recombinant 1 MG Vial IM PRN (16:10)
[2024-08-19] MEDS ORDERED: 50% Dextrose in Water 50 ML Syringe IVPUSH PRN (16:10)
[2024-08-19] MEDS: Insulin Aspart 100 Units/ML 3 ML Pen SUBCUT SCH (17:50)
[2024-08-19] MEDS: Pantoprazole 40 MG Tab.CR PO SCH (17:50)
[2024-08-19] MEDS: Apixaban 5 MG Tab PO SCH (17:50)
[2024-08-19] MEDS: Potassium Chloride 20 MEQ Tab.ER PO ONE (18:40)
[2024-08-19] MEDS: Formoterol/Mometasone 200-5 MCG 8.8 GM Inhaler INH SCH (20:22)
[2024-08-19] MEDS: Ciprofloxacin 500 MG Tab PO SCH (20:22)
[2024-08-20 05:49] LABS: BASOPHILS ABSOLUTE AUTO 0.07 K/uL (0.00-0.20); BASOPHILS PERCENT AUTO 0.5 % (0.0-1.0); EOSINOPHILS ABSOLUTE AUTO 0.27 K/uL (0.00-0.45); HEMATOCRIT 42.2 % (37.0-47.0); HEMOGLOBIN 12.9 g/dL (12.0-16.0); IMMATURE GRAN ABSOLUTE AUTO 0.13 K/uL (0.00-0.05); LYMPHOCYTES ABSOLUTE AUTO 2.39 K/uL (1.00-4.80); LYMPHOCYTES PERCENT AUTO 17.5 % (24.0-44.0); MEAN CORPUSCULAR HEMOGLOBIN 27.2 pg (28.0-32.0); MEAN CORPUSCULAR HGB CONC 30.6 g/dL (32.0-36.0); MEAN PLATELET VOLUME 9.6 fL (9.4-12.3); MONOCYTES ABSOLUTE AUTO 0.85 K/uL (0.00-0.80); MONOCYTES PERCENT AUTO 6.2 % (0.0-8.0); NEUTROPHILS ABSOLUTE AUTO 9.95 K/uL (1.80-7.70); NEUTROPHILS PERCENT AUTO 72.8 % (41.0-71.0); PLATELET COUNT,PLT 273 K/uL (150-400); RED BLOOD CELL COUNT 4.74 M/uL (4.10-5.30); WHITE BLOOD CELL COUNT,WBC 13.66 K/uL (3.9-11.3)
[2024-08-20 06:10] LABS: CALCIUM 8.8 mg/dL (8.5-10.1); CARBON DIOXIDE,CO2 35.7 mmol/L (21.0-32.0); CREATININE 1.2 mg/dL (0.6-1.0); EST CRCL DRUG DOSING (CG) 39.82 mL/min; POTASSIUM,K 3.1 mmol/L (3.5-5.1)
[2024-08-20] MEDS ORDERED: Potassium Chloride 20 MEQ Tab.ER PO ONE (07:06)
[2024-08-20] MEDS: Furosemide 40 MG Tab PO SCH (08:38)
[2024-08-20] MEDS: Sertraline 100 MG Tab PO SCH (08:39)
[2024-08-20] MEDS: predniSONE 10 MG Tab PO SCH (08:40)
[2024-08-20] MEDS: Tiotropium Bromide 4 GM Inhalation Spray (2.5mcg/1 dose; 10 doses) INH SCH (08:42)
[2024-08-20] MEDS ORDERED: Potassium Chloride 20 MEQ in Premix Bag 1 BAG IV SCH (09:30)
[2024-08-20] MEDS: Metoprolol Succinate 25 MG Tab.ER PO SCH (11:02)
[2024-08-20] MEDS: Potassium Chloride 20 MEQ Tab.ER PO ONE (11:02)
[2024-08-20] MEDS: Hyaluronidase, Human Recomb. 150 Unit/ML Vial SUBCUT ONE (13:37)
[2024-08-20] MEDS: Hydrocortisone 1% Crm 30 GM Tube TOP ONE (13:37)
[2024-08-20 19:08] LABS: CALCIUM 8.6 mg/dL (8.5-10.1); CARBON DIOXIDE,CO2 35.2 mmol/L (21.0-32.0); CREATININE 1.9 mg/dL (0.6-1.0); EST CRCL DRUG DOSING (CG) 25.15 mL/min; MAGNESIUM 1.8 mg/dL (1.8-2.4); POTASSIUM,K 3.7 mmol/L (3.5-5.1)
[2024-08-20] MEDS ORDERED: Albuterol/Ipratropium 3.0-0.5 MG/3 ML Neb Soln NEB PRN (20:55)
[2024-08-20] MEDS: Nicotine 14 MG/24 Hr Patch TRDERM SCH ×2 (21:15)
[2024-08-20] MEDS: Albuterol/Ipratropium 3.0-0.5 MG/3 ML Neb Soln NEB PRN (21:15)
[2024-08-20] MEDS: Nicotine 14 MG/24 Hr Patch ONE (21:22)
[2024-08-21 06:22] LABS: BASOPHILS ABSOLUTE AUTO 0.05 K/uL (0.00-0.20); BASOPHILS PERCENT AUTO 0.5 % (0.0-1.0); EOSINOPHILS ABSOLUTE AUTO 0.21 K/uL (0.00-0.45); EOSINOPHILS PERCENT AUTO 1.9 % (0.0-6.0); HEMATOCRIT 40.9 % (37.0-47.0); HEMOGLOBIN 12.6 g/dL (12.0-16.0); IMMATURE GRAN ABSOLUTE AUTO 0.15 K/uL (0.00-0.05); IMMATURE GRAN PERCENT AUTO 1.4 % (0.0-0.4); LYMPHOCYTES PERCENT AUTO 19.2 % (24.0-44.0); MEAN CORPUSCULAR HEMOGLOBIN 27.6 pg (28.0-32.0); MEAN CORPUSCULAR HGB CONC 30.8 g/dL (32.0-36.0); MEAN CORPUSCULAR VOLUME 89.5 fL (83.0-99.0); MEAN PLATELET VOLUME 9.2 fL (9.4-12.3); MONOCYTES ABSOLUTE AUTO 0.71 K/uL (0.00-0.80); MONOCYTES PERCENT AUTO 6.5 % (0.0-8.0); NEUTROPHILS ABSOLUTE AUTO 7.73 K/uL (1.80-7.70); NEUTROPHILS PERCENT AUTO 70.5 % (41.0-71.0); PLATELET COUNT,PLT 268 K/uL (150-400); RED BLOOD CELL COUNT 4.57 M/uL (4.10-5.30); WHITE BLOOD CELL COUNT,WBC 10.95 K/uL (3.9-11.3)
[2024-08-21 07:28] LABS: CALCIUM 8.6 mg/dL (8.5-10.1); CARBON DIOXIDE,CO2 36.7 mmol/L (21.0-32.0); CREATININE 1.3 mg/dL (0.6-1.0); EST CRCL DRUG DOSING (CG) 36.76 mL/min
[2024-08-21 08:14] LABS: POTASSIUM,K 3.3 mmol/L (3.5-5.1)
[2024-08-21] MEDS: predniSONE 5 MG Tab PO SCH (09:25)
[2024-08-21] MEDS: Potassium Chloride 20 MEQ Tab.ER PO ONE ×2 (10:42→14:35)
[2024-08-21] MEDS: Metoprolol Succinate 25 MG Tab.ER PO ONE (11:05)
[2024-08-21] MEDS: Magnesium Sulfate/Water Premix 1 GM in Premix Bag 1 BAG IV ONE (12:31)
[2024-08-21 18:48] LABS: CALCIUM 8.3 mg/dL (8.5-10.1); CARBON DIOXIDE,CO2 36.4 mmol/L (21.0-32.0); CREATININE 1.2 mg/dL (0.6-1.0); EST CRCL DRUG DOSING (CG) 39.82 mL/min; POTASSIUM,K 3.5 mmol/L (3.5-5.1)
[2024-08-21] MEDS: Amiodarone 200 MG Tab PO SCH (20:05)
[2024-08-22] MEDS: traMADol 50 MG Tab PO PRN (01:36)
[2024-08-22 06:46] LABS: BASOPHILS ABSOLUTE AUTO 0.07 K/uL (0.00-0.20); BASOPHILS PERCENT AUTO 0.7 % (0.0-1.0); EOSINOPHILS ABSOLUTE AUTO 0.28 K/uL (0.00-0.45); EOSINOPHILS PERCENT AUTO 2.9 % (0.0-6.0); HEMATOCRIT 43.5 % (37.0-47.0); HEMOGLOBIN 13.3 g/dL (12.0-16.0); IMMATURE GRAN ABSOLUTE AUTO 0.14 K/uL (0.00-0.05); IMMATURE GRAN PERCENT AUTO 1.4 % (0.0-0.4); LYMPHOCYTES ABSOLUTE AUTO 1.93 K/uL (1.00-4.80); LYMPHOCYTES PERCENT AUTO 19.9 % (24.0-44.0); MEAN CORPUSCULAR HEMOGLOBIN 27.5 pg (28.0-32.0); MEAN CORPUSCULAR HGB CONC 30.6 g/dL (32.0-36.0); MEAN CORPUSCULAR VOLUME 89.9 fL (83.0-99.0); MEAN PLATELET VOLUME 9.5 fL (9.4-12.3); MONOCYTES ABSOLUTE AUTO 0.65 K/uL (0.00-0.80); MONOCYTES PERCENT AUTO 6.7 % (0.0-8.0); NEUTROPHILS ABSOLUTE AUTO 6.65 K/uL (1.80-7.70); NEUTROPHILS PERCENT AUTO 68.4 % (41.0-71.0); PLATELET COUNT,PLT 266 K/uL (150-400); RED BLOOD CELL COUNT 4.84 M/uL (4.10-5.30); WHITE BLOOD CELL COUNT,WBC 9.72 K/uL (3.9-11.3)
[2024-08-22 07:04] LABS: CALCIUM 8.6 mg/dL (8.5-10.1); CREATININE 1.1 mg/dL (0.6-1.0); EST CRCL DRUG DOSING (CG) 43.44 mL/min; POTASSIUM,K 3.4 mmol/L (3.5-5.1)
[2024-08-22] MEDS: Metoprolol Succinate 50 MG Tab.ER PO SCH (08:23)
[2024-08-22 08:24] VITALS: PULSE 96
[2024-08-22 10:09] VITALS: BP 109/69
== END 2024-08-22 12:00 | disposition home or self-care (01) | DRG 309 ==
LOC: MW.ED 11:56 → MW.ICU 16:12
PROVIDERS: ADMIT Internal Medicine; ATTEND Family Medicine
DX: I48.92 Unspecified atrial flutter (principal); I50.9 Heart failure, unspecified; F17.210 Nicotine dependence, cigarettes, uncomplicated; I48.91 Unspecified atrial fibrillation; I50.32 Chronic diastolic (congestive) heart failure; Z79.899 Other long term (current) drug therapy; Z91.040 Latex allergy status; Z68.42 Body mass index [BMI] 45.0-49.9, adult; J44.9 Chronic obstructive pulmonary disease, unspecified; G47.30 Sleep apnea, unspecified; M19.90 Unspecified osteoarthritis, unspecified site; E66.9 Obesity, unspecified; Z99.81 Dependence on supplemental oxygen
CPT/HCPCS: 36415; 71045; 80053; 81001; 83880; 84443; 84484; 85025; 85610; 93005 ×2; J0282; J3490; 80048; 83605; 83735; 93010; 96374; 96375; 99222; 99232; 99239; 99285; 99285-25; A9270-GY; J3473; J3475; J3480; J7040; J7512; J7620-GY

== ENCOUNTER 2024-09-14 16:19 | Inpatient (IN) | payer MEDICARE, MEDICAID ==
[2024-09-14] MEDS: Sodium Chloride 0.9% 10 ML Syringe FLUSH PRN (17:28)
[2024-09-14] MEDS: Sodium Chloride 0.9% 2.5 ML Syringe FLUSH PRN (17:28)
[2024-09-14 18:01] LABS: BASOPHILS ABSOLUTE AUTO 0.07 K/uL (0.00-0.20); BASOPHILS PERCENT AUTO 0.6 % (0.0-1.0); EOSINOPHILS ABSOLUTE AUTO 0.12 K/uL (0.00-0.45); HEMATOCRIT 42.1 % (37.0-47.0); HEMOGLOBIN 12.2 g/dL (12.0-16.0); IMMATURE GRAN ABSOLUTE AUTO 0.32 K/uL (0.00-0.05); IMMATURE GRAN PERCENT AUTO 2.7 % (0.0-0.4); LYMPHOCYTES PERCENT AUTO 13.4 % (24.0-44.0); MEAN CORPUSCULAR HEMOGLOBIN 27.4 pg (28.0-32.0); MEAN CORPUSCULAR VOLUME 94.6 fL (83.0-99.0); MONOCYTES ABSOLUTE AUTO 0.61 K/uL (0.00-0.80); MONOCYTES PERCENT AUTO 5.1 % (0.0-8.0); NEUTROPHILS PERCENT AUTO 77.2 % (41.0-71.0); PLATELET COUNT,PLT 216 K/uL (150-400); RED BLOOD CELL COUNT 4.45 M/uL (4.10-5.30); WHITE BLOOD CELL COUNT,WBC 11.92 K/uL (3.9-11.3)
[2024-09-14 18:05] LABS: CORONAVIRUS COVID-19 NAA NEGATIVE (NEGATIVE); INFLUENZA A NAA NEGATIVE (NEGATIVE); INFLUENZA B NAA NEGATIVE (NEGATIVE); RESPIRATORY SYNCYTIAL VIR NAA NEGATIVE (NEGATIVE)
[2024-09-14 18:18] LABS: INR 1.01 (0.86-1.11)
[2024-09-14 18:27] LABS: A/G RATIO 0.8 (0.9-1.6); ALBUMIN 2.8 g/dL (3.4-5.0); BILIRUBIN TOTAL 0.3 mg/dL (0.2-1.0); CALCIUM 8.9 mg/dL (8.5-10.1); CARBON DIOXIDE,CO2 39.5 mmol/L (21.0-32.0); EST CRCL DRUG DOSING (CG) 49.8 mL/min; POTASSIUM,K 4.3 mmol/L (3.5-5.1); PROTEIN TOTAL,TP 6.3 g/dL (6.4-8.2)
[2024-09-14] MEDS: Albuterol/Ipratropium 3.0-0.5 MG/3 ML Neb Soln NEB ONE (18:44)
[2024-09-14] MEDS: Furosemide 40 MG/4 ML VIAL IVPUSH ONE (18:51)
[2024-09-14] MEDS: methylPREDNISolone Sodium Succinate 125 MG/2 ML SDV IVPUSH ONE (18:59)
[2024-09-14 19:09] LABS: BICARBONATE,ARTERIAL 37 mEq/L (22-26); PCO2 ARTERIAL 73 mmHG (35-45); PO2 ARTERIAL 62 mmHG (80-105)
[2024-09-14] MEDS: Apixaban 5 MG Tab PO ONE (19:35)
[2024-09-14] MEDS: ceFAZolin 1 GM in Sodium Chloride 0.9% 50 ML IV ONE (19:47)
[2024-09-14 20:12] LABS: LACTIC ACID 1.5 mmol/L (0.4-2.0)
[2024-09-14] MEDS: Albuterol/Ipratropium 3.0-0.5 MG/3 ML Neb Soln NEB SCH (23:37)
[2024-09-14] MEDS: cefTRIAXone 1 GM in Sodium Chloride 0.9% 50 ML IV SCH (23:42)
[2024-09-15] MEDS ORDERED: Albuterol/Ipratropium 3.0-0.5 MG/3 ML Neb Soln NEB SCH
[2024-09-15] MEDS: Diltiazem 25 MG/5 ML SDV IVPUSH ONE (01:22)
[2024-09-15] MEDS: Diltiazem 100 MG in Sodium Chloride 0.9% 100 ML IV SCH ×2 (02:24→08:15)
[2024-09-15] MEDS: Digoxin 500 MCG/2 ML Amp IVPUSH SCH (05:30)
[2024-09-15 07:25] LABS: BASOPHILS ABSOLUTE AUTO 0.06 K/uL (0.00-0.20); BASOPHILS PERCENT AUTO 0.5 % (0.0-1.0); HEMOGLOBIN 12.2 g/dL (12.0-16.0); IMMATURE GRAN ABSOLUTE AUTO 0.48 K/uL (0.00-0.05); LYMPHOCYTES PERCENT AUTO 6.7 % (24.0-44.0); MEAN CORPUSCULAR HEMOGLOBIN 27.9 pg (28.0-32.0); MEAN CORPUSCULAR HGB CONC 29.8 g/dL (32.0-36.0); MEAN CORPUSCULAR VOLUME 93.6 fL (83.0-99.0); MEAN PLATELET VOLUME 9.2 fL (9.4-12.3); MONOCYTES ABSOLUTE AUTO 0.18 K/uL (0.00-0.80); MONOCYTES PERCENT AUTO 1.5 % (0.0-8.0); NEUTROPHILS ABSOLUTE AUTO 10.35 K/uL (1.80-7.70); NEUTROPHILS PERCENT AUTO 87.3 % (41.0-71.0); PLATELET COUNT,PLT 208 K/uL (150-400); RED BLOOD CELL COUNT 4.38 M/uL (4.10-5.30); WHITE BLOOD CELL COUNT,WBC 11.87 K/uL (3.9-11.3)
[2024-09-15 07:39] LABS: A/G RATIO 0.7 (0.9-1.6); ALBUMIN 2.7 g/dL (3.4-5.0); BILIRUBIN TOTAL 0.3 mg/dL (0.2-1.0); CALCIUM 8.6 mg/dL (8.5-10.1); CARBON DIOXIDE,CO2 35.5 mmol/L (21.0-32.0); CREATININE 1.3 mg/dL (0.6-1.0); EST CRCL DRUG DOSING (CG) 38.3 mL/min; POTASSIUM,K 4.3 mmol/L (3.5-5.1); PROTEIN TOTAL,TP 6.5 g/dL (6.4-8.2)
[2024-09-15] MEDS: Sertraline 100 MG Tab PO SCH (08:16)
[2024-09-15] MEDS: methylPREDNISolone Sodium Succinate 40 MG/1 ML SDV IVPUSH SCH (08:16)
[2024-09-15] MEDS: Furosemide 40 MG/4 ML VIAL IVPUSH SCH (08:17)
[2024-09-15] MEDS: Apixaban 5 MG Tab PO SCH (08:17)
[2024-09-15] MEDS: Nicotine 14 MG/24 Hr Patch TRDERM SCH (08:17)
[2024-09-15] MEDS: Nystatin Topical Powder 15 GM Bottle TOP SCH (11:16)
[2024-09-15] MEDS: Diltiazem IR 60 MG Tab PO SCH (16:11)
[2024-09-15] MEDS: Diltiazem IR 30 MG Tab PO SCH (19:35)
[2024-09-16 05:08] LABS: BASOPHILS ABSOLUTE AUTO 0.04 K/uL (0.00-0.20); BASOPHILS PERCENT AUTO 0.3 % (0.0-1.0); EOSINOPHILS ABSOLUTE AUTO 0.01 K/uL (0.00-0.45); EOSINOPHILS PERCENT AUTO 0.1 % (0.0-6.0); HEMATOCRIT 37.7 % (37.0-47.0); HEMOGLOBIN 11.4 g/dL (12.0-16.0); IMMATURE GRAN ABSOLUTE AUTO 0.22 K/uL (0.00-0.05); IMMATURE GRAN PERCENT AUTO 1.8 % (0.0-0.4); LYMPHOCYTES ABSOLUTE AUTO 1.76 K/uL (1.00-4.80); LYMPHOCYTES PERCENT AUTO 14.1 % (24.0-44.0); MEAN CORPUSCULAR HEMOGLOBIN 27.9 pg (28.0-32.0); MEAN CORPUSCULAR HGB CONC 30.2 g/dL (32.0-36.0); MEAN CORPUSCULAR VOLUME 92.2 fL (83.0-99.0); MEAN PLATELET VOLUME 9.1 fL (9.4-12.3); MONOCYTES ABSOLUTE AUTO 0.86 K/uL (0.00-0.80); MONOCYTES PERCENT AUTO 6.9 % (0.0-8.0); NEUTROPHILS ABSOLUTE AUTO 9.58 K/uL (1.80-7.70); NEUTROPHILS PERCENT AUTO 76.8 % (41.0-71.0); PLATELET COUNT,PLT 218 K/uL (150-400); RED BLOOD CELL COUNT 4.09 M/uL (4.10-5.30); WHITE BLOOD CELL COUNT,WBC 12.47 K/uL (3.9-11.3)
[2024-09-16 05:41] LABS: A/G RATIO 0.8 (0.9-1.6); ALBUMIN 2.6 g/dL (3.4-5.0); BILIRUBIN TOTAL 0.3 mg/dL (0.2-1.0); CALCIUM 8.4 mg/dL (8.5-10.1); CARBON DIOXIDE,CO2 40.1 mmol/L (21.0-32.0); CREATININE 1.2 mg/dL (0.6-1.0); EST CRCL DRUG DOSING (CG) 41.5 mL/min; POTASSIUM,K 3.9 mmol/L (3.5-5.1)
[2024-09-16] MEDS: Furosemide 100 MG/10 ML SDV IVPUSH SCH (08:09)
[2024-09-16] MEDS: Amiodarone 200 MG Tab PO SCH (09:54)
[2024-09-16] MEDS: Digoxin 500 MCG/2 ML Amp IVPUSH ONE (10:16)
[2024-09-17 05:53] LABS: BASOPHILS ABSOLUTE AUTO 0.02 K/uL (0.00-0.20); BASOPHILS PERCENT AUTO 0.2 % (0.0-1.0); HEMATOCRIT 39.5 % (37.0-47.0); HEMOGLOBIN 11.9 g/dL (12.0-16.0); IMMATURE GRAN ABSOLUTE AUTO 0.22 K/uL (0.00-0.05); IMMATURE GRAN PERCENT AUTO 1.8 % (0.0-0.4); LYMPHOCYTES ABSOLUTE AUTO 1.31 K/uL (1.00-4.80); LYMPHOCYTES PERCENT AUTO 10.8 % (24.0-44.0); MEAN CORPUSCULAR HEMOGLOBIN 27.7 pg (28.0-32.0); MEAN CORPUSCULAR HGB CONC 30.1 g/dL (32.0-36.0); MEAN CORPUSCULAR VOLUME 92.1 fL (83.0-99.0); MONOCYTES ABSOLUTE AUTO 0.84 K/uL (0.00-0.80); MONOCYTES PERCENT AUTO 6.9 % (0.0-8.0); NEUTROPHILS ABSOLUTE AUTO 9.71 K/uL (1.80-7.70); NEUTROPHILS PERCENT AUTO 80.3 % (41.0-71.0); PLATELET COUNT,PLT 240 K/uL (150-400); RED BLOOD CELL COUNT 4.29 M/uL (4.10-5.30)
[2024-09-17 06:16] LABS: A/G RATIO 0.8 (0.9-1.6); ALBUMIN 2.7 g/dL (3.4-5.0); BILIRUBIN TOTAL 0.3 mg/dL (0.2-1.0); CALCIUM 7.9 mg/dL (8.5-10.1); CARBON DIOXIDE,CO2 40.4 mmol/L (21.0-32.0); EST CRCL DRUG DOSING (CG) 49.8 mL/min; MAGNESIUM 2.3 mg/dL (1.8-2.4); POTASSIUM,K 3.9 mmol/L (3.5-5.1); PROTEIN TOTAL,TP 6.1 g/dL (6.4-8.2)
[2024-09-17] MEDS: Diltiazem IR 60 MG Tab PO SCH ×2 (08:59→12:11)
[2024-09-17] MEDS: Furosemide 40 MG/4 ML VIAL IVPUSH ONE (09:00)
[2024-09-17] MEDS: Tiotropium Bromide 4 GM Inhalation Spray (2.5mcg/1 dose; 10 doses) INH SCH (09:01)
[2024-09-17] MEDS: Formoterol/Mometasone 200-5 MCG 8.8 GM Inhaler INH SCH (09:35)
[2024-09-17] MEDS: Silver Sulfadiazine 1% Crm 50 GM Tube TOP SCH (13:00)
[2024-09-17] MEDS: Furosemide 40 MG/4 ML VIAL IVPUSH SCH (14:38)
[2024-09-17] MEDS ORDERED: Albuterol/Ipratropium 3.0-0.5 MG/3 ML Neb Soln NEB PRN (15:24)
[2024-09-17] MEDS: Acetaminophen 325 MG Tab PO PRN (21:50)
[2024-09-18 06:40] LABS: BASOPHILS ABSOLUTE AUTO 0.05 K/uL (0.00-0.20); BASOPHILS PERCENT AUTO 0.4 % (0.0-1.0); HEMATOCRIT 41.7 % (37.0-47.0); HEMOGLOBIN 12.3 g/dL (12.0-16.0); IMMATURE GRAN ABSOLUTE AUTO 0.32 K/uL (0.00-0.05); IMMATURE GRAN PERCENT AUTO 2.7 % (0.0-0.4); LYMPHOCYTES ABSOLUTE AUTO 1.35 K/uL (1.00-4.80); LYMPHOCYTES PERCENT AUTO 11.4 % (24.0-44.0); MEAN CORPUSCULAR HEMOGLOBIN 27.6 pg (28.0-32.0); MEAN CORPUSCULAR HGB CONC 29.5 g/dL (32.0-36.0); MEAN CORPUSCULAR VOLUME 93.7 fL (83.0-99.0); MONOCYTES ABSOLUTE AUTO 0.72 K/uL (0.00-0.80); MONOCYTES PERCENT AUTO 6.1 % (0.0-8.0); NEUTROPHILS ABSOLUTE AUTO 9.41 K/uL (1.80-7.70); NEUTROPHILS PERCENT AUTO 79.4 % (41.0-71.0); PLATELET COUNT,PLT 261 K/uL (150-400); RED BLOOD CELL COUNT 4.45 M/uL (4.10-5.30); WHITE BLOOD CELL COUNT,WBC 11.85 K/uL (3.9-11.3)
[2024-09-18 07:02] LABS: A/G RATIO 0.8 (0.9-1.6); ALBUMIN 2.7 g/dL (3.4-5.0); BILIRUBIN TOTAL 0.3 mg/dL (0.2-1.0); CALCIUM 8.5 mg/dL (8.5-10.1); CARBON DIOXIDE,CO2 43.3 mmol/L (21.0-32.0); CREATININE 1.2 mg/dL (0.6-1.0); EST CRCL DRUG DOSING (CG) 41.5 mL/min; MAGNESIUM 2.4 mg/dL (1.8-2.4); POTASSIUM,K 4.1 mmol/L (3.5-5.1); PROTEIN TOTAL,TP 6.2 g/dL (6.4-8.2)
[2024-09-18] MEDS: predniSONE 20 MG Tab PO SCH (08:09)
[2024-09-19 06:19] LABS: BASOPHILS ABSOLUTE AUTO 0.04 K/uL (0.00-0.20); BASOPHILS PERCENT AUTO 0.4 % (0.0-1.0); EOSINOPHILS ABSOLUTE AUTO 0.02 K/uL (0.00-0.45); EOSINOPHILS PERCENT AUTO 0.2 % (0.0-6.0); HEMATOCRIT 43.7 % (37.0-47.0); HEMOGLOBIN 13.1 g/dL (12.0-16.0); IMMATURE GRAN ABSOLUTE AUTO 0.27 K/uL (0.00-0.05); IMMATURE GRAN PERCENT AUTO 2.5 % (0.0-0.4); LYMPHOCYTES ABSOLUTE AUTO 2.35 K/uL (1.00-4.80); LYMPHOCYTES PERCENT AUTO 22.1 % (24.0-44.0); MEAN CORPUSCULAR HEMOGLOBIN 27.9 pg (28.0-32.0); MEAN CORPUSCULAR VOLUME 93.2 fL (83.0-99.0); MEAN PLATELET VOLUME 8.8 fL (9.4-12.3); MONOCYTES ABSOLUTE AUTO 0.68 K/uL (0.00-0.80); MONOCYTES PERCENT AUTO 6.4 % (0.0-8.0); NEUTROPHILS ABSOLUTE AUTO 7.27 K/uL (1.80-7.70); NEUTROPHILS PERCENT AUTO 68.4 % (41.0-71.0); PLATELET COUNT,PLT 237 K/uL (150-400); RED BLOOD CELL COUNT 4.69 M/uL (4.10-5.30); WHITE BLOOD CELL COUNT,WBC 10.63 K/uL (3.9-11.3)
[2024-09-19 06:54] LABS: A/G RATIO 0.8 (0.9-1.6); ALBUMIN 2.8 g/dL (3.4-5.0); BILIRUBIN TOTAL 0.4 mg/dL (0.2-1.0); CALCIUM 9.1 mg/dL (8.5-10.1); CARBON DIOXIDE,CO2 40.7 mmol/L (21.0-32.0); CREATININE 1.1 mg/dL (0.6-1.0); EST CRCL DRUG DOSING (CG) 45.27 mL/min; MAGNESIUM 2.5 mg/dL (1.8-2.4); POTASSIUM,K 3.6 mmol/L (3.5-5.1); PROTEIN TOTAL,TP 6.2 g/dL (6.4-8.2)
[2024-09-19] MEDS: Metoprolol Succinate 50 MG Tab.ER PO SCH (10:46)
[2024-09-19] MEDS: Diltiazem 120 MG Cap.CD PO ONE (17:05)
[2024-09-20 06:35] LABS: BASOPHILS ABSOLUTE AUTO 0.05 K/uL (0.00-0.20); BASOPHILS PERCENT AUTO 0.4 % (0.0-1.0); EOSINOPHILS ABSOLUTE AUTO 0.06 K/uL (0.00-0.45); EOSINOPHILS PERCENT AUTO 0.5 % (0.0-6.0); HEMATOCRIT 42.2 % (37.0-47.0); HEMOGLOBIN 12.9 g/dL (12.0-16.0); IMMATURE GRAN ABSOLUTE AUTO 0.27 K/uL (0.00-0.05); IMMATURE GRAN PERCENT AUTO 2.4 % (0.0-0.4); LYMPHOCYTES ABSOLUTE AUTO 2.22 K/uL (1.00-4.80); LYMPHOCYTES PERCENT AUTO 19.9 % (24.0-44.0); MEAN CORPUSCULAR HEMOGLOBIN 28.1 pg (28.0-32.0); MEAN CORPUSCULAR HGB CONC 30.6 g/dL (32.0-36.0); MEAN CORPUSCULAR VOLUME 91.9 fL (83.0-99.0); MEAN PLATELET VOLUME 8.8 fL (9.4-12.3); MONOCYTES ABSOLUTE AUTO 0.74 K/uL (0.00-0.80); MONOCYTES PERCENT AUTO 6.6 % (0.0-8.0); NEUTROPHILS ABSOLUTE AUTO 7.82 K/uL (1.80-7.70); NEUTROPHILS PERCENT AUTO 70.2 % (41.0-71.0); PLATELET COUNT,PLT 239 K/uL (150-400); RED BLOOD CELL COUNT 4.59 M/uL (4.10-5.30); WHITE BLOOD CELL COUNT,WBC 11.16 K/uL (3.9-11.3)
[2024-09-20 07:05] LABS: A/G RATIO 0.8 (0.9-1.6); ALBUMIN 2.7 g/dL (3.4-5.0); BILIRUBIN TOTAL 0.4 mg/dL (0.2-1.0); CALCIUM 8.8 mg/dL (8.5-10.1); CARBON DIOXIDE,CO2 40.3 mmol/L (21.0-32.0); CREATININE 1.1 mg/dL (0.6-1.0); EST CRCL DRUG DOSING (CG) 45.27 mL/min; MAGNESIUM 2.3 mg/dL (1.8-2.4); POTASSIUM,K 3.5 mmol/L (3.5-5.1); PROTEIN TOTAL,TP 5.9 g/dL (6.4-8.2)
[2024-09-20 07:40] VITALS: PULSE 85
[2024-09-20] MEDS: Diltiazem 120 MG Cap.CD PO SCH (08:28)
[2024-09-20] MEDS ORDERED: Diltiazem 120 MG Cap.CD PO SCH (09:00)
[2024-09-20 13:13] VITALS: BP 126/79
== END 2024-09-20 12:30 | disposition home or self-care (01) | DRG 291 ==
LOC: MW.ED 16:19 → MW.ICU 19:00 → MW.MS 09-19 21:12
PROVIDERS: ADMIT Internal Medicine; ATTEND Internal Medicine
DX: J96.90 Respiratory failure, unspecified, unspecified whether with hypoxia or hypercapnia (principal); J44.9 Chronic obstructive pulmonary disease, unspecified; I50.9 Heart failure, unspecified; E66.9 Obesity, unspecified; I50.33 Acute on chronic diastolic (congestive) heart failure; J96.21 Acute and chronic respiratory failure with hypoxia; J44.1 Chronic obstructive pulmonary disease with (acute) exacerbation; Z75.8 Other problems related to medical facilities and other health care; L03.115 Cellulitis of right lower limb; Z68.42 Body mass index [BMI] 45.0-49.9, adult; I48.92 Unspecified atrial flutter; N17.9 Acute kidney failure, unspecified; E66.2 Morbid (severe) obesity with alveolar hypoventilation; I48.91 Unspecified atrial fibrillation; M19.90 Unspecified osteoarthritis, unspecified site; M81.0 Age-related osteoporosis without current pathological fracture; F41.9 Anxiety disorder, unspecified; F32.A Depression, unspecified; G89.29 Other chronic pain; M54.9 Dorsalgia, unspecified; R73.9 Hyperglycemia, unspecified; F17.210 Nicotine dependence, cigarettes, uncomplicated; Z97.3 Presence of spectacles and contact lenses; Z99.81 Dependence on supplemental oxygen; Z90.10 Acquired absence of unspecified breast and nipple; Z98.51 Tubal ligation status; Z79.01 Long term (current) use of anticoagulants; Z79.52 Long term (current) use of systemic steroids; Z91.040 Latex allergy status; Z79.899 Other long term (current) drug therapy; Z90.710 Acquired absence of both cervix and uterus; Z90.721 Acquired absence of ovaries, unilateral; Z91.148 Patient's other noncompliance with medication regimen for other reason; Z87.442 Personal history of urinary calculi
CPT/HCPCS: 0241U; 36415; 36600; 71045; 74176; 80053; 82803; 83605; 83735; 83880; 84484; 85025; 85610; 87040; 93005; 93306; 94640; 94660; 94667; 96374; 96375; 99285; 93010; A9270-GY; J0282; J0690; J0696; J1160; J1940; J2919; J3490; J7620-GY

== ENCOUNTER 2024-10-07 15:21 | Inpatient (IN) | payer MEDICARE, MEDICAID ==
[2024-10-07 16:21] LABS: BASE EXCESS VENOUS 28.6 (-2.0-3.0); BASOPHILS ABSOLUTE AUTO 0.04 K/uL (0.00-0.20); BASOPHILS PERCENT AUTO 0.3 % (0.0-1.0); BICARBONATE,VENOUS 60 mEQ/mL (22-28); EOSINOPHILS ABSOLUTE AUTO 0.12 K/uL (0.00-0.45); HEMATOCRIT 47.9 % (37.0-47.0); HEMOGLOBIN 15.1 g/dL (12.0-16.0); IMMATURE GRAN ABSOLUTE AUTO 0.11 K/uL (0.00-0.05); IMMATURE GRAN PERCENT AUTO 0.9 % (0.0-0.4); LYMPHOCYTES ABSOLUTE AUTO 1.91 K/uL (1.00-4.80); LYMPHOCYTES PERCENT AUTO 15.3 % (24.0-44.0); MEAN CORPUSCULAR HEMOGLOBIN 28.5 pg (28.0-32.0); MEAN CORPUSCULAR HGB CONC 31.5 g/dL (32.0-36.0); MEAN CORPUSCULAR VOLUME 90.5 fL (83.0-99.0); MEAN PLATELET VOLUME 9.4 fL (9.4-12.3); MONOCYTES ABSOLUTE AUTO 0.66 K/uL (0.00-0.80); MONOCYTES PERCENT AUTO 5.3 % (0.0-8.0); NEUTROPHILS ABSOLUTE AUTO 9.62 K/uL (1.80-7.70); NEUTROPHILS PERCENT AUTO 77.2 % (41.0-71.0); PCO2 VENOUS 91 mmHG (41-51); PH,VENOUS 7.43 (7.31-7.41); PLATELET COUNT,PLT 184 K/uL (150-400); RED BLOOD CELL COUNT 5.29 M/uL (4.10-5.30); WHITE BLOOD CELL COUNT,WBC 12.46 K/uL (3.9-11.3)
[2024-10-07 16:23] LABS: PO2 VENOUS < 30 mmHG (35-45)
[2024-10-07 16:44] LABS: INR 1.05 (0.86-1.11)
[2024-10-07 16:59] LABS: MAGNESIUM 2.1 mg/dL (1.8-2.4); TSH ULTRASENSITIVE 8.96 uIU/mL (0.36-3.74)
[2024-10-07 17:00] LABS: ALBUMIN 3.3 g/dL (3.4-5.0); BILIRUBIN TOTAL 0.5 mg/dL (0.2-1.0); CALCIUM 10.4 mg/dL (8.5-10.1); CREATININE 1.8 mg/dL (0.6-1.0); EST CRCL DRUG DOSING (CG) 27.66 mL/min; PROTEIN TOTAL,TP 7.2 g/dL (6.4-8.2)
[2024-10-07 17:01] LABS: A/G RATIO 0.9 (0.9-1.6)
[2024-10-07 17:19] LABS: T4 FREE 0.72 ng/dL (0.76-1.46)
[2024-10-07 17:27] LABS: CARBON DIOXIDE,CO2 52.1 mmol/L (21.0-32.0); POTASSIUM,K 2.4 mmol/L (3.5-5.1)
[2024-10-07] MEDS: Atropine 0.1 MG/ML 10 ML Syringe IVPUSH STA (17:29)
[2024-10-07] MEDS: Potassium Chloride 20 MEQ Tab.ER PO STA (17:32)
[2024-10-07] MEDS: Sodium Chloride 0.9% 1,000 ML IV STA (18:55)
[2024-10-07] MEDS ORDERED: 50% Dextrose in Water 50 ML Syringe IVPUSH PRN (22:54)
[2024-10-07] MEDS ORDERED: Glucagon,Human Recombinant 1 MG Vial IM PRN (22:54)
[2024-10-07 23:32] LABS: CALCIUM 9.8 mg/dL (8.5-10.1); CARBON DIOXIDE,CO2 51.1 mmol/L (21.0-32.0); CREATININE 1.9 mg/dL (0.6-1.0); EST CRCL DRUG DOSING (CG) 26.21 mL/min; POTASSIUM,K 2.7 mmol/L (3.5-5.1)
[2024-10-08] MEDS: Albuterol/Ipratropium 3.0-0.5 MG/3 ML Neb Soln NEB SCH (00:37)
[2024-10-08] MEDS: Potassium Chloride 20 MEQ Tab.ER PO ONE ×2 (02:01→23:26)
[2024-10-08 06:16] LABS: BASOPHILS ABSOLUTE AUTO 0.06 K/uL (0.00-0.20); BASOPHILS PERCENT AUTO 0.5 % (0.0-1.0); EOSINOPHILS ABSOLUTE AUTO 0.19 K/uL (0.00-0.45); EOSINOPHILS PERCENT AUTO 1.7 % (0.0-6.0); HEMATOCRIT 44.2 % (37.0-47.0); HEMOGLOBIN 13.7 g/dL (12.0-16.0); IMMATURE GRAN PERCENT AUTO 0.9 % (0.0-0.4); LYMPHOCYTES ABSOLUTE AUTO 2.08 K/uL (1.00-4.80); LYMPHOCYTES PERCENT AUTO 18.3 % (24.0-44.0); MEAN CORPUSCULAR HEMOGLOBIN 28.4 pg (28.0-32.0); MEAN CORPUSCULAR VOLUME 91.5 fL (83.0-99.0); MEAN PLATELET VOLUME 9.3 fL (9.4-12.3); MONOCYTES ABSOLUTE AUTO 0.75 K/uL (0.00-0.80); MONOCYTES PERCENT AUTO 6.6 % (0.0-8.0); NEUTROPHILS ABSOLUTE AUTO 8.16 K/uL (1.80-7.70); PLATELET COUNT,PLT 178 K/uL (150-400); RED BLOOD CELL COUNT 4.83 M/uL (4.10-5.30); WHITE BLOOD CELL COUNT,WBC 11.34 K/uL (3.9-11.3)
[2024-10-08 06:34] LABS: CALCIUM 9.8 mg/dL (8.5-10.1); CREATININE 1.7 mg/dL (0.6-1.0); EST CRCL DRUG DOSING (CG) 29.29 mL/min; POTASSIUM,K 2.9 mmol/L (3.5-5.1)
[2024-10-08 07:17] LABS: CARBON DIOXIDE,CO2 50.2 mmol/L (21.0-32.0)
[2024-10-08] MEDS: Insulin Aspart 100 Units/ML 3 ML Pen SUBCUT SCH (08:12)
[2024-10-08] MEDS: Apixaban 5 MG Tab PO SCH (08:32)
[2024-10-08] MEDS: Potassium Chloride 20 MEQ Tab.ER PO SCH (08:32)
[2024-10-08 11:13] LABS: HEMOGLOBIN A1C 5.9 %
[2024-10-08] MEDS ORDERED: traMADol 50 MG Tab PO PRN (15:34)
[2024-10-08] MEDS: Amiodarone 200 MG Tab PO ONE (17:35)
[2024-10-08] MEDS: Albuterol 8 GM Inhaler INH SCH (21:17)
[2024-10-08] MEDS: Formoterol/Mometasone 200-5 MCG 8.8 GM Inhaler INH SCH (21:18)
[2024-10-09] MEDS: Potassium Chloride 20 MEQ Tab.ER PO ONE (05:25)
[2024-10-09 05:57] LABS: BASOPHILS ABSOLUTE AUTO 0.05 K/uL (0.00-0.20); BASOPHILS PERCENT AUTO 0.5 % (0.0-1.0); EOSINOPHILS ABSOLUTE AUTO 0.21 K/uL (0.00-0.45); HEMOGLOBIN 13.3 g/dL (12.0-16.0); IMMATURE GRAN ABSOLUTE AUTO 0.15 K/uL (0.00-0.05); IMMATURE GRAN PERCENT AUTO 1.4 % (0.0-0.4); LYMPHOCYTES ABSOLUTE AUTO 2.44 K/uL (1.00-4.80); LYMPHOCYTES PERCENT AUTO 23.4 % (24.0-44.0); MEAN CORPUSCULAR HEMOGLOBIN 28.5 pg (28.0-32.0); MEAN CORPUSCULAR HGB CONC 30.9 g/dL (32.0-36.0); MEAN CORPUSCULAR VOLUME 92.1 fL (83.0-99.0); MEAN PLATELET VOLUME 9.3 fL (9.4-12.3); MONOCYTES ABSOLUTE AUTO 0.65 K/uL (0.00-0.80); MONOCYTES PERCENT AUTO 6.2 % (0.0-8.0); NEUTROPHILS ABSOLUTE AUTO 6.93 K/uL (1.80-7.70); NEUTROPHILS PERCENT AUTO 66.5 % (41.0-71.0); PLATELET COUNT,PLT 175 K/uL (150-400); RED BLOOD CELL COUNT 4.67 M/uL (4.10-5.30); WHITE BLOOD CELL COUNT,WBC 10.43 K/uL (3.9-11.3)
[2024-10-09 06:18] LABS: CALCIUM 9.8 mg/dL (8.5-10.1); CARBON DIOXIDE,CO2 44.4 mmol/L (21.0-32.0); CREATININE 1.3 mg/dL (0.6-1.0); EST CRCL DRUG DOSING (CG) 38.3 mL/min; POTASSIUM,K 3.8 mmol/L (3.5-5.1)
[2024-10-09] MEDS: Amiodarone 200 MG Tab PO SCH (08:16)
[2024-10-09] MEDS: Tiotropium Bromide 4 GM Inhalation Spray (2.5mcg/1 dose; 10 doses) INH SCH (11:13)
[2024-10-09 12:37] VITALS: BP 138/63; PULSE 59
== END 2024-10-09 11:58 | disposition home or self-care (01) | DRG 683 ==
LOC: MW.ED 15:21 → EEVIPCON 22:00 → MW.MS 22:00
PROVIDERS: ADMIT Internal Medicine; ATTEND Internal Medicine
DX: N17.9 Acute kidney failure, unspecified (principal); I50.32 Chronic diastolic (congestive) heart failure; Z68.41 Body mass index [BMI] 40.0-44.9, adult; I50.9 Heart failure, unspecified; R00.1 Bradycardia, unspecified; E11.9 Type 2 diabetes mellitus without complications; E66.9 Obesity, unspecified; I48.91 Unspecified atrial fibrillation; J44.9 Chronic obstructive pulmonary disease, unspecified; E87.6 Hypokalemia; E03.8 Other specified hypothyroidism; D72.829 Elevated white blood cell count, unspecified; M19.90 Unspecified osteoarthritis, unspecified site; F41.9 Anxiety disorder, unspecified; F32.A Depression, unspecified; M81.0 Age-related osteoporosis without current pathological fracture; G47.33 Obstructive sleep apnea (adult) (pediatric); R73.9 Hyperglycemia, unspecified; E66.01 Morbid (severe) obesity due to excess calories; I89.0 Lymphedema, not elsewhere classified; F17.210 Nicotine dependence, cigarettes, uncomplicated; Z91.040 Latex allergy status; Z79.51 Long term (current) use of inhaled steroids; Z79.899 Other long term (current) drug therapy; Z79.01 Long term (current) use of anticoagulants; Z79.2 Long term (current) use of antibiotics; Z85.3 Personal history of malignant neoplasm of breast; Z90.710 Acquired absence of both cervix and uterus; Z90.722 Acquired absence of ovaries, bilateral; Z90.79 Acquired absence of other genital organ(s); Z90.10 Acquired absence of unspecified breast and nipple; Z98.51 Tubal ligation status; Z99.81 Dependence on supplemental oxygen
CPT/HCPCS: 36415; 71045; 80053; 82803; 83735; 83880; 84439; 84443; 84484; 85025; 85610; 93005; A9270; J0461; J7030; 80048; 82947; 83036; 84132; 94640; 94660; J1815-GY; J7620-GY

== ENCOUNTER 2024-11-01 10:25 | Inpatient (IN) | payer MEDICARE, MEDICAID ==
[2024-11-01 10:42] LABS: BASE EXCESS VENOUS 18.8 (-2.0-3.0); PH,VENOUS 7.47 (7.31-7.41)
[2024-11-01 10:46] LABS: BASOPHILS ABSOLUTE AUTO 0.09 K/uL (0.00-0.20); BASOPHILS PERCENT AUTO 0.6 % (0.0-1.0); EOSINOPHILS PERCENT AUTO 0.6 % (0.0-6.0); HEMATOCRIT 42.6 % (37.0-47.0); HEMOGLOBIN 14.3 g/dL (12.0-16.0); IMMATURE GRAN ABSOLUTE AUTO 0.21 K/uL (0.00-0.05); IMMATURE GRAN PERCENT AUTO 1.3 % (0.0-0.4); LYMPHOCYTES ABSOLUTE AUTO 3.06 K/uL (1.00-4.80); LYMPHOCYTES PERCENT AUTO 19.4 % (24.0-44.0); MEAN CORPUSCULAR HEMOGLOBIN 29.4 pg (28.0-32.0); MEAN CORPUSCULAR HGB CONC 33.6 g/dL (32.0-36.0); MEAN CORPUSCULAR VOLUME 87.5 fL (83.0-99.0); MEAN PLATELET VOLUME 9.5 fL (9.4-12.3); MONOCYTES ABSOLUTE AUTO 0.82 K/uL (0.00-0.80); MONOCYTES PERCENT AUTO 5.2 % (0.0-8.0); NEUTROPHILS ABSOLUTE AUTO 11.51 K/uL (1.80-7.70); NEUTROPHILS PERCENT AUTO 72.9 % (41.0-71.0); PLATELET COUNT,PLT 227 K/uL (150-400); RED BLOOD CELL COUNT 4.87 M/uL (4.10-5.30); WHITE BLOOD CELL COUNT,WBC 15.79 K/uL (3.9-11.3)
[2024-11-01 11:27] LABS: ALBUMIN 3.3 g/dL (3.4-5.0); BILIRUBIN TOTAL 0.3 mg/dL (0.2-1.0); CALCIUM 10.2 mg/dL (8.5-10.1); CARBON DIOXIDE,CO2 43.7 mmol/L (21.0-32.0); CREATININE 1.9 mg/dL (0.6-1.0); EST CRCL DRUG DOSING (CG) 25.15 mL/min; MAGNESIUM 2.1 mg/dL (1.8-2.4); PROTEIN TOTAL,TP 6.5 g/dL (6.4-8.2); TSH ULTRASENSITIVE 12.33 uIU/mL (0.36-3.74)
[2024-11-01 11:29] LABS: APPEARANCE,URINE CLEAR; BILIRUBIN,URINE NEGATIVE (NEGATIVE); COLOR,URINE YELLOW; GLUCOSE,URINE 250 mg/dL (NEGATIVE); KETONES,URINE NEGATIVE (NEGATIVE); LEUKOCYTE ESTERASE,URINE TRACE (NEGATIVE); NITRITE,URINE NEGATIVE (NEGATIVE); OCCULT BLOOD,URINE NEGATIVE (NEGATIVE); PH,URINE 6.5 (5.0-8.0); PROTEIN,URINE NEGATIVE (NEGATIVE); UROBILINOGEN,URINE 0.2 EU/dL (<2.0)
[2024-11-01 11:38] LABS: POTASSIUM,K 2.4 mmol/L (3.5-5.1)
[2024-11-01 12:02] LABS: T3 FREE 2.21 pg/mL (2.18-3.98); T4 FREE 0.75 ng/dL (0.76-1.46)
[2024-11-01] MEDS: Sodium Chloride 0.9% 500 ML IV ONE (12:04)
[2024-11-01] MEDS: Potassium Chloride 10 MEQ in Premix Bag 1 BAG IV SCH (12:04)
[2024-11-01] MEDS: cefTRIAXone 1 GM in Sodium Chloride 0.9% 50 ML IV ONE (12:04)
[2024-11-01 12:06] LABS: RBC,URINE NONE SEEN (0-2/HPF); WBC,URINE 0-2 (0-5/HPF)
[2024-11-01 12:07] LABS: BACTERIA,URINE FEW (NEGATIVE); EPITHELIAL CELLS,URINE FEW (NONE-FEW); MUCUS,URINE LIGHT (NONE-MOD)
[2024-11-01 12:56] LABS: LACTIC ACID 1.5 mmol/L (0.4-2.0)
[2024-11-01 13:29] LABS: CORONAVIRUS COVID-19 NAA NEGATIVE (NEGATIVE); INFLUENZA A NAA NEGATIVE (NEGATIVE); INFLUENZA B NAA NEGATIVE (NEGATIVE)
[2024-11-01] MEDS ORDERED: Sodium Chloride 0.9% 10 ML Syringe FLUSH PRN (13:34)
[2024-11-01] MEDS ORDERED: Acetaminophen 325 MG Tab PO PRN (13:34)
[2024-11-01] MEDS ORDERED: Docusate Sodium 100 MG Cap PO PRN (13:34)
[2024-11-01] MEDS ORDERED: Sodium Chloride 0.9% 2.5 ML Syringe FLUSH PRN (13:34)
[2024-11-01] MEDS: Potassium Chloride 10 MEQ Tab.ER PO STA (14:03)
[2024-11-01] MEDS: Doxycycline 100 MG Cap PO SCH (14:03)
[2024-11-01] MEDS: traMADol 50 MG Tab PO PRN (14:36)
[2024-11-01] MEDS: Albuterol/Ipratropium 3.0-0.5 MG/3 ML Neb Soln NEB SCH (15:11)
[2024-11-01] MEDS ORDERED: Albuterol/Ipratropium 3.0-0.5 MG/3 ML Neb Soln NEB PRN (15:36)
[2024-11-01] MEDS: Potassium Chloride 10 MEQ Tab.ER PO ONE (18:21)
[2024-11-01] MEDS: Albuterol 8 GM Inhaler INH SCH (20:34)
[2024-11-01] MEDS: Formoterol/Mometasone 200-5 MCG 8.8 GM Inhaler INH SCH (20:34)
[2024-11-01] MEDS: Apixaban 5 MG Tab PO SCH (20:35)
[2024-11-02 05:57] LABS: BASOPHILS ABSOLUTE AUTO 0.07 K/uL (0.00-0.20); BASOPHILS PERCENT AUTO 0.6 % (0.0-1.0); EOSINOPHILS ABSOLUTE AUTO 0.13 K/uL (0.00-0.45); EOSINOPHILS PERCENT AUTO 1.1 % (0.0-6.0); HEMATOCRIT 42.4 % (37.0-47.0); HEMOGLOBIN 13.3 g/dL (12.0-16.0); IMMATURE GRAN PERCENT AUTO 1.6 % (0.0-0.4); LYMPHOCYTES ABSOLUTE AUTO 2.68 K/uL (1.00-4.80); LYMPHOCYTES PERCENT AUTO 21.9 % (24.0-44.0); MEAN CORPUSCULAR HEMOGLOBIN 28.4 pg (28.0-32.0); MEAN CORPUSCULAR HGB CONC 31.4 g/dL (32.0-36.0); MEAN CORPUSCULAR VOLUME 90.6 fL (83.0-99.0); MEAN PLATELET VOLUME 9.7 fL (9.4-12.3); MONOCYTES ABSOLUTE AUTO 0.73 K/uL (0.00-0.80); NEUTROPHILS ABSOLUTE AUTO 8.44 K/uL (1.80-7.70); NEUTROPHILS PERCENT AUTO 68.8 % (41.0-71.0); PLATELET COUNT,PLT 198 K/uL (150-400); RED BLOOD CELL COUNT 4.68 M/uL (4.10-5.30); WHITE BLOOD CELL COUNT,WBC 12.25 K/uL (3.9-11.3)
[2024-11-02] MEDS: VANCOmycin 1 GM in Sodium Chloride 0.9% 250 ML IV SCH (06:18)
[2024-11-02 06:19] LABS: CALCIUM 9.4 mg/dL (8.5-10.1); CARBON DIOXIDE,CO2 39.2 mmol/L (21.0-32.0); CREATININE 1.6 mg/dL (0.6-1.0); EST CRCL DRUG DOSING (CG) 29.87 mL/min; POTASSIUM,K 2.6 mmol/L (3.5-5.1)
[2024-11-02] MEDS: Hyaluronidase, Human Recomb. 150 Unit/ML Vial SUBCUT ONE (08:07)
[2024-11-02] MEDS: Empagliflozin 25 MG Tab PO SCH (08:52)
[2024-11-02] MEDS: Sertraline 100 MG Tab PO SCH (08:53)
[2024-11-02] MEDS: Amiodarone 200 MG Tab PO SCH (08:54)
[2024-11-02] MEDS: Tiotropium Bromide 4 GM Inhalation Spray (2.5mcg/1 dose; 10 doses) INH SCH (08:58)
[2024-11-02] MEDS ORDERED: ANASTROZOLE 1 MG PO SCH (09:00)
[2024-11-02] MEDS ORDERED: Amiodarone 200 MG Tab PO SCH (09:00)
[2024-11-02] MEDS: Potassium Chloride 10 MEQ Tab.ER PO SCH (09:46)
[2024-11-02] MEDS: cefTRIAXone 1 GM in Sodium Chloride 0.9% 50 ML IV SCH (09:48)
[2024-11-02] MEDS: Potassium Chloride 10 MEQ Tab.ER PO ONE (17:33)
[2024-11-03 05:47] LABS: BASOPHILS ABSOLUTE AUTO 0.09 K/uL (0.00-0.20); BASOPHILS PERCENT AUTO 0.8 % (0.0-1.0); EOSINOPHILS ABSOLUTE AUTO 0.15 K/uL (0.00-0.45); EOSINOPHILS PERCENT AUTO 1.3 % (0.0-6.0); HEMATOCRIT 39.4 % (37.0-47.0); HEMOGLOBIN 12.6 g/dL (12.0-16.0); IMMATURE GRAN ABSOLUTE AUTO 0.33 K/uL (0.00-0.05); IMMATURE GRAN PERCENT AUTO 2.9 % (0.0-0.4); LYMPHOCYTES ABSOLUTE AUTO 2.41 K/uL (1.00-4.80); LYMPHOCYTES PERCENT AUTO 20.9 % (24.0-44.0); MEAN CORPUSCULAR HEMOGLOBIN 29.1 pg (28.0-32.0); MEAN PLATELET VOLUME 9.5 fL (9.4-12.3); MONOCYTES ABSOLUTE AUTO 0.68 K/uL (0.00-0.80); MONOCYTES PERCENT AUTO 5.9 % (0.0-8.0); NEUTROPHILS ABSOLUTE AUTO 7.87 K/uL (1.80-7.70); NEUTROPHILS PERCENT AUTO 68.2 % (41.0-71.0); PLATELET COUNT,PLT 175 K/uL (150-400); RED BLOOD CELL COUNT 4.33 M/uL (4.10-5.30); WHITE BLOOD CELL COUNT,WBC 11.53 K/uL (3.9-11.3)
[2024-11-03 06:06] LABS: CALCIUM 8.8 mg/dL (8.5-10.1); CARBON DIOXIDE,CO2 35.2 mmol/L (21.0-32.0); CREATININE 1.6 mg/dL (0.6-1.0); EST CRCL DRUG DOSING (CG) 29.87 mL/min; POTASSIUM,K 3.6 mmol/L (3.5-5.1)
[2024-11-03] MEDS: Potassium Chloride 20 MEQ Tab.ER PO ONE (12:32)
[2024-11-04 05:52] LABS: BASOPHILS ABSOLUTE AUTO 0.09 K/uL (0.00-0.20); BASOPHILS PERCENT AUTO 0.8 % (0.0-1.0); EOSINOPHILS ABSOLUTE AUTO 0.16 K/uL (0.00-0.45); EOSINOPHILS PERCENT AUTO 1.4 % (0.0-6.0); HEMATOCRIT 40.2 % (37.0-47.0); HEMOGLOBIN 12.5 g/dL (12.0-16.0); IMMATURE GRAN ABSOLUTE AUTO 0.26 K/uL (0.00-0.05); IMMATURE GRAN PERCENT AUTO 2.3 % (0.0-0.4); LYMPHOCYTES ABSOLUTE AUTO 2.05 K/uL (1.00-4.80); LYMPHOCYTES PERCENT AUTO 18.3 % (24.0-44.0); MEAN CORPUSCULAR HEMOGLOBIN 28.7 pg (28.0-32.0); MEAN CORPUSCULAR HGB CONC 31.1 g/dL (32.0-36.0); MEAN CORPUSCULAR VOLUME 92.4 fL (83.0-99.0); MEAN PLATELET VOLUME 9.6 fL (9.4-12.3); MONOCYTES ABSOLUTE AUTO 0.67 K/uL (0.00-0.80); NEUTROPHILS ABSOLUTE AUTO 7.96 K/uL (1.80-7.70); NEUTROPHILS PERCENT AUTO 71.2 % (41.0-71.0); PLATELET COUNT,PLT 167 K/uL (150-400); RED BLOOD CELL COUNT 4.35 M/uL (4.10-5.30); WHITE BLOOD CELL COUNT,WBC 11.19 K/uL (3.9-11.3)
[2024-11-04 06:10] LABS: CALCIUM 8.7 mg/dL (8.5-10.1); CARBON DIOXIDE,CO2 34.5 mmol/L (21.0-32.0); CREATININE 1.4 mg/dL (0.6-1.0); EST CRCL DRUG DOSING (CG) 34.13 mL/min; POTASSIUM,K 3.7 mmol/L (3.5-5.1)
[2024-11-04] MEDS: Ondansetron 4 MG/2 ML SDV IVPUSH PRN (08:14)
[2024-11-04] MEDS: Furosemide 40 MG Tab PO SCH (09:02)
[2024-11-04] MEDS: Potassium Chloride 10 MEQ Tab.ER PO ONE (09:22)
[2024-11-04] MEDS: Pantoprazole 40 MG Tab.CR PO SCH (09:24)
[2024-11-04] MEDS: Calcium Carbonate 500 MG Tab.Chew PO PRN (09:24)
[2024-11-05 05:53] LABS: BASOPHILS ABSOLUTE AUTO 0.07 K/uL (0.00-0.20); BASOPHILS PERCENT AUTO 0.7 % (0.0-1.0); EOSINOPHILS ABSOLUTE AUTO 0.19 K/uL (0.00-0.45); EOSINOPHILS PERCENT AUTO 1.8 % (0.0-6.0); HEMATOCRIT 38.7 % (37.0-47.0); HEMOGLOBIN 11.9 g/dL (12.0-16.0); IMMATURE GRAN ABSOLUTE AUTO 0.31 K/uL (0.00-0.05); IMMATURE GRAN PERCENT AUTO 2.9 % (0.0-0.4); LYMPHOCYTES ABSOLUTE AUTO 2.06 K/uL (1.00-4.80); LYMPHOCYTES PERCENT AUTO 19.3 % (24.0-44.0); MEAN CORPUSCULAR HEMOGLOBIN 28.5 pg (28.0-32.0); MEAN CORPUSCULAR HGB CONC 30.7 g/dL (32.0-36.0); MEAN CORPUSCULAR VOLUME 92.8 fL (83.0-99.0); MEAN PLATELET VOLUME 9.3 fL (9.4-12.3); MONOCYTES ABSOLUTE AUTO 0.62 K/uL (0.00-0.80); MONOCYTES PERCENT AUTO 5.8 % (0.0-8.0); NEUTROPHILS ABSOLUTE AUTO 7.41 K/uL (1.80-7.70); NEUTROPHILS PERCENT AUTO 69.5 % (41.0-71.0); PLATELET COUNT,PLT 154 K/uL (150-400); RED BLOOD CELL COUNT 4.17 M/uL (4.10-5.30); WHITE BLOOD CELL COUNT,WBC 10.66 K/uL (3.9-11.3)
[2024-11-05 06:12] LABS: CALCIUM 8.5 mg/dL (8.5-10.1); CARBON DIOXIDE,CO2 35.3 mmol/L (21.0-32.0); CREATININE 1.3 mg/dL (0.6-1.0); EST CRCL DRUG DOSING (CG) 36.76 mL/min; POTASSIUM,K 3.4 mmol/L (3.5-5.1)
[2024-11-05] MEDS: Furosemide 40 MG Tab PO SCH (09:21)
[2024-11-05] MEDS: Potassium Chloride 10 MEQ Tab.ER PO SCH (09:23)
[2024-11-05 11:37] VITALS: BP 116/55; PULSE 75
== END 2024-11-05 11:59 | disposition home or self-care (01) | DRG 194 ==
LOC: MW.ED 10:25 → MW.MS 11:44
PROVIDERS: ADMIT Internal Medicine; ATTEND Internal Medicine
PROC: 02HV33Z Insertion of Infusion Device into Superior Vena Cava, Percutaneous Approach (ICD-10-PCS; principal; 2024-11-04)
DX: J18.9 Pneumonia, unspecified organism (principal); I50.32 Chronic diastolic (congestive) heart failure; J44.0 Chronic obstructive pulmonary disease with (acute) lower respiratory infection; Z68.41 Body mass index [BMI] 40.0-44.9, adult; N17.9 Acute kidney failure, unspecified; J96.11 Chronic respiratory failure with hypoxia; J96.12 Chronic respiratory failure with hypercapnia; R78.81 Bacteremia; E87.6 Hypokalemia; Z75.8 Other problems related to medical facilities and other health care; G47.30 Sleep apnea, unspecified; M19.90 Unspecified osteoarthritis, unspecified site; E66.9 Obesity, unspecified; I48.91 Unspecified atrial fibrillation; I73.9 Peripheral vascular disease, unspecified; M81.0 Age-related osteoporosis without current pathological fracture; F41.9 Anxiety disorder, unspecified; F32.A Depression, unspecified; F17.210 Nicotine dependence, cigarettes, uncomplicated; B95.62 Methicillin resistant Staphylococcus aureus infection as the cause of diseases classified elsewhere; K21.9 Gastro-esophageal reflux disease without esophagitis; Z99.81 Dependence on supplemental oxygen; Z91.040 Latex allergy status; Z79.51 Long term (current) use of inhaled steroids; Z79.899 Other long term (current) drug therapy; Z79.01 Long term (current) use of anticoagulants; Z85.3 Personal history of malignant neoplasm of breast; Z90.710 Acquired absence of both cervix and uterus; Z90.79 Acquired absence of other genital organ(s); Z90.722 Acquired absence of ovaries, bilateral; Z98.51 Tubal ligation status; Z90.10 Acquired absence of unspecified breast and nipple
CPT/HCPCS: 0240U; 36415; 36569; 71045; 80048; 80053; 80202; 81001; 82803; 83605; 83735; 83880; 84132; 84439; 84443; 84481; 84484; 85025; 87040; 87070; 87077; 87086; 87088; 87154; 87186; 87205; 87428; 93005; 93306; 94640; 94667; 99285; 93010; A9270-GY; J0696; J2405; J3473; J3480; J3490; J7040; J7050; J7620-GY

== ENCOUNTER 2024-11-14 15:35 | Emergency (ER) | payer MEDICARE, MEDICAID ==
[2024-11-14] MEDS: NS with KCl 40mEq 1,000 ML IV SCH (16:41)
[2024-11-14] MEDS: Potassium Chloride 10% 20 MEQ/15 ML Soln 15 ML UD Cup PO ONE (16:41)
[2024-11-14 17:15] LABS: A/G RATIO 0.8 (0.9-1.6); BILIRUBIN TOTAL 0.5 mg/dL (0.2-1.0); CARBON DIOXIDE,CO2 53.8 mmol/L (21.0-32.0); CREATININE 1.5 mg/dL (0.6-1.0); EST CRCL DRUG DOSING (CG) 31.86 mL/min; MAGNESIUM 1.9 mg/dL (1.8-2.4); POTASSIUM,K 2.5 mmol/L (3.5-5.1); PROTEIN TOTAL,TP 6.8 g/dL (6.4-8.2)
[2024-11-14 21:04] VITALS: BP 120/72; PULSE 62
== END 2024-11-14 21:05 | disposition home or self-care (01) ==
LOC: MW.ED 15:35
DX: E87.6 Hypokalemia (principal); J44.9 Chronic obstructive pulmonary disease, unspecified; E66.9 Obesity, unspecified; F17.210 Nicotine dependence, cigarettes, uncomplicated; Z90.710 Acquired absence of both cervix and uterus; Z79.51 Long term (current) use of inhaled steroids; Z79.01 Long term (current) use of anticoagulants; Z79.52 Long term (current) use of systemic steroids; Z79.899 Other long term (current) drug therapy; Z75.8 Other problems related to medical facilities and other health care; Z68.41 Body mass index [BMI] 40.0-44.9, adult
CPT/HCPCS: 36415; 80053; 83735; 96365; 96366; 99284; A9270; J3480

== ENCOUNTER 2025-02-22 03:08 | Inpatient (IN) | payer MEDICARE, MEDICAID ==
[2025-02-22 03:45] LABS: BASOPHILS ABSOLUTE AUTO 0.07 K/uL (0.00-0.20); BASOPHILS PERCENT AUTO 0.6 % (0.0-1.0); EOSINOPHILS ABSOLUTE AUTO 0.18 K/uL (0.00-0.45); EOSINOPHILS PERCENT AUTO 1.4 % (0.0-6.0); HEMATOCRIT 40.9 % (37.0-47.0); HEMOGLOBIN 12.7 g/dL (12.0-16.0); IMMATURE GRAN ABSOLUTE AUTO 0.15 K/uL (0.00-0.05); IMMATURE GRAN PERCENT AUTO 1.2 % (0.0-0.4); LYMPHOCYTES ABSOLUTE AUTO 2.12 K/uL (1.00-4.80); LYMPHOCYTES PERCENT AUTO 17.1 % (24.0-44.0); MEAN CORPUSCULAR HEMOGLOBIN 28.9 pg (28.0-32.0); MEAN CORPUSCULAR HGB CONC 31.1 g/dL (32.0-36.0); MEAN CORPUSCULAR VOLUME 93.2 fL (83.0-99.0); MEAN PLATELET VOLUME 8.8 fL (9.4-12.3); MONOCYTES ABSOLUTE AUTO 0.72 K/uL (0.00-0.80); MONOCYTES PERCENT AUTO 5.8 % (0.0-8.0); NEUTROPHILS ABSOLUTE AUTO 9.18 K/uL (1.80-7.70); NEUTROPHILS PERCENT AUTO 73.9 % (41.0-71.0); PLATELET COUNT,PLT 235 K/uL (150-400); RED BLOOD CELL COUNT 4.39 M/uL (4.10-5.30); WHITE BLOOD CELL COUNT,WBC 12.42 K/uL (3.9-11.3)
[2025-02-22] MEDS: Furosemide 40 MG/4 ML VIAL IVPUSH ONE (03:47)
[2025-02-22 04:03] LABS: A/G RATIO 0.8 (0.9-1.6); BILIRUBIN TOTAL 0.4 mg/dL (0.2-1.0); CALCIUM 9.5 mg/dL (8.5-10.1); CARBON DIOXIDE,CO2 42.9 mmol/L (21.0-32.0); CREATININE 1.3 mg/dL (0.6-1.0); EST CRCL DRUG DOSING (CG) 30.16 mL/min; PROTEIN TOTAL,TP 6.9 g/dL (6.4-8.2)
[2025-02-22 05:05] LABS: APPEARANCE,URINE CLEAR; BILIRUBIN,URINE NEGATIVE (NEGATIVE); COLOR,URINE YELLOW; GLUCOSE,URINE 500 mg/dL (NEGATIVE); KETONES,URINE NEGATIVE (NEGATIVE); LEUKOCYTE ESTERASE,URINE NEGATIVE (NEGATIVE); NITRITE,URINE NEGATIVE (NEGATIVE); OCCULT BLOOD,URINE NEGATIVE (NEGATIVE); PROTEIN,URINE NEGATIVE (NEGATIVE); UROBILINOGEN,URINE 0.2 EU/dL (<2.0)
[2025-02-22 05:14] LABS: RBC,URINE NONE SEEN (0-2/HPF); WBC,URINE NONE SEEN (0-5/HPF)
[2025-02-22 05:15] LABS: BACTERIA,URINE RARE (NEGATIVE); EPITHELIAL CELLS,URINE RARE (NONE-FEW)
[2025-02-22] MEDS: Iopamidol 755 MG/ML 500 ML Multipack Bottle IVPUSH ONE (06:12)
[2025-02-22] MEDS ORDERED: Polyethylene Glycol 3350 Powder 17 GM Packet PO PRN (10:56)
[2025-02-22] MEDS ORDERED: Albuterol/Ipratropium 3.0-0.5 MG/3 ML Neb Soln NEB PRN (11:29)
[2025-02-22] MEDS: Furosemide 40 MG/4 ML VIAL IVPUSH SCH (14:55)
[2025-02-22] MEDS: predniSONE 5 MG Tab PO SCH (21:39)
[2025-02-22] MEDS: Potassium Chloride 10 MEQ Tab.ER PO SCH (21:39)
[2025-02-22] MEDS: Formoterol/Mometasone 200-5 MCG 8.8 GM Inhaler INH SCH (21:39)
[2025-02-22] MEDS: Apixaban 5 MG Tab PO SCH (21:39)
[2025-02-23 06:05] LABS: BASOPHILS ABSOLUTE AUTO 0.05 K/uL (0.00-0.20); BASOPHILS PERCENT AUTO 0.4 % (0.0-1.0); EOSINOPHILS PERCENT AUTO 0.9 % (0.0-6.0); HEMATOCRIT 38.6 % (37.0-47.0); HEMOGLOBIN 11.8 g/dL (12.0-16.0); IMMATURE GRAN ABSOLUTE AUTO 0.16 K/uL (0.00-0.05); IMMATURE GRAN PERCENT AUTO 1.4 % (0.0-0.4); LYMPHOCYTES ABSOLUTE AUTO 1.72 K/uL (1.00-4.80); LYMPHOCYTES PERCENT AUTO 14.9 % (24.0-44.0); MEAN CORPUSCULAR HEMOGLOBIN 28.7 pg (28.0-32.0); MEAN CORPUSCULAR HGB CONC 30.6 g/dL (32.0-36.0); MEAN CORPUSCULAR VOLUME 93.9 fL (83.0-99.0); MEAN PLATELET VOLUME 9.3 fL (9.4-12.3); MONOCYTES PERCENT AUTO 5.2 % (0.0-8.0); NEUTROPHILS ABSOLUTE AUTO 8.95 K/uL (1.80-7.70); NEUTROPHILS PERCENT AUTO 77.2 % (41.0-71.0); PLATELET COUNT,PLT 234 K/uL (150-400); RED BLOOD CELL COUNT 4.11 M/uL (4.10-5.30); WHITE BLOOD CELL COUNT,WBC 11.58 K/uL (3.9-11.3)
[2025-02-23 06:50] LABS: A/G RATIO 0.8 (0.9-1.6); ALBUMIN 2.7 g/dL (3.4-5.0); BILIRUBIN TOTAL 0.3 mg/dL (0.2-1.0); CALCIUM 9.1 mg/dL (8.5-10.1); CARBON DIOXIDE,CO2 42.7 mmol/L (21.0-32.0); CREATININE 1.2 mg/dL (0.6-1.0); EST CRCL DRUG DOSING (CG) 39.28 mL/min; MAGNESIUM 2.2 mg/dL (1.8-2.4); POTASSIUM,K 3.8 mmol/L (3.5-5.1); PROTEIN TOTAL,TP 6.2 g/dL (6.4-8.2)
[2025-02-23] MEDS: Sertraline 100 MG Tab PO SCH (08:43)
[2025-02-23] MEDS: Amiodarone 200 MG Tab PO SCH (08:44)
[2025-02-23] MEDS: Empagliflozin 25 MG Tab PO SCH (08:45)
[2025-02-23] MEDS: predniSONE 10 MG Tab PO SCH (08:54)
[2025-02-23] MEDS: Tiotropium Bromide 4 GM Inhalation Spray (2.5mcg/1 dose; 10 doses) INH SCH (08:58)
[2025-02-23] MEDS ORDERED: predniSONE 10 MG Tab PO SCH (09:00)
[2025-02-23] MEDS: Albuterol/Ipratropium 3.0-0.5 MG/3 ML Neb Soln NEB SCH (12:04)
[2025-02-24 05:41] LABS: BASOPHILS ABSOLUTE AUTO 0.06 K/uL (0.00-0.20); BASOPHILS PERCENT AUTO 0.5 % (0.0-1.0); EOSINOPHILS ABSOLUTE AUTO 0.12 K/uL (0.00-0.45); EOSINOPHILS PERCENT AUTO 1.1 % (0.0-6.0); HEMATOCRIT 36.7 % (37.0-47.0); HEMOGLOBIN 11.3 g/dL (12.0-16.0); IMMATURE GRAN ABSOLUTE AUTO 0.19 K/uL (0.00-0.05); IMMATURE GRAN PERCENT AUTO 1.7 % (0.0-0.4); LYMPHOCYTES ABSOLUTE AUTO 1.86 K/uL (1.00-4.80); MEAN CORPUSCULAR HEMOGLOBIN 28.6 pg (28.0-32.0); MEAN CORPUSCULAR HGB CONC 30.8 g/dL (32.0-36.0); MEAN CORPUSCULAR VOLUME 92.9 fL (83.0-99.0); MEAN PLATELET VOLUME 9.2 fL (9.4-12.3); MONOCYTES ABSOLUTE AUTO 0.64 K/uL (0.00-0.80); MONOCYTES PERCENT AUTO 5.9 % (0.0-8.0); NEUTROPHILS ABSOLUTE AUTO 8.06 K/uL (1.80-7.70); NEUTROPHILS PERCENT AUTO 73.8 % (41.0-71.0); PLATELET COUNT,PLT 233 K/uL (150-400); RED BLOOD CELL COUNT 3.95 M/uL (4.10-5.30); WHITE BLOOD CELL COUNT,WBC 10.93 K/uL (3.9-11.3)
[2025-02-24 06:25] LABS: A/G RATIO 0.8 (0.9-1.6); ALBUMIN 2.7 g/dL (3.4-5.0); BILIRUBIN TOTAL 0.4 mg/dL (0.2-1.0); CARBON DIOXIDE,CO2 42.5 mmol/L (21.0-32.0); CREATININE 1.4 mg/dL (0.6-1.0); EST CRCL DRUG DOSING (CG) 33.67 mL/min; MAGNESIUM 2.4 mg/dL (1.8-2.4); POTASSIUM,K 3.4 mmol/L (3.5-5.1); PROTEIN TOTAL,TP 6.3 g/dL (6.4-8.2)
[2025-02-24] MEDS: Potassium Chloride 20 MEQ Tab.ER PO ONE (08:32)
[2025-02-24] MEDS: Tiotropium Bromide 4 GM Inhalation Spray (2.5mcg/1 dose; 10 doses) INH SCH (08:36)
[2025-02-24 12:14] VITALS: BP 116/58; PULSE 76
== END 2025-02-24 13:56 | disposition home or self-care (01) | DRG 291 ==
LOC: MW.ED 03:08 → MW.MS 07:40
PROVIDERS: ADMIT Internal Medicine; ATTEND Internal Medicine
PROC: 5A0935A Assistance with Respiratory Ventilation, Less than 24 Consecutive Hours, High Flow/Velocity Cannula (ICD-10-PCS; principal; 2025-02-23)
DX: I50.32 Chronic diastolic (congestive) heart failure (principal); J96.21 Acute and chronic respiratory failure with hypoxia; J96.22 Acute and chronic respiratory failure with hypercapnia; Z68.41 Body mass index [BMI] 40.0-44.9, adult; G47.33 Obstructive sleep apnea (adult) (pediatric); I48.0 Paroxysmal atrial fibrillation; I73.9 Peripheral vascular disease, unspecified; M19.90 Unspecified osteoarthritis, unspecified site; G89.29 Other chronic pain; M81.0 Age-related osteoporosis without current pathological fracture; E66.9 Obesity, unspecified; F17.210 Nicotine dependence, cigarettes, uncomplicated; F15.90 Other stimulant use, unspecified, uncomplicated; Z99.81 Dependence on supplemental oxygen; Z79.51 Long term (current) use of inhaled steroids; Z79.01 Long term (current) use of anticoagulants; Z79.899 Other long term (current) drug therapy; Z79.1 Long term (current) use of non-steroidal anti-inflammatories (NSAID); Z87.01 Personal history of pneumonia (recurrent); Z87.442 Personal history of urinary calculi; Z87.440 Personal history of urinary (tract) infections; Z90.710 Acquired absence of both cervix and uterus; Z90.10 Acquired absence of unspecified breast and nipple; Z98.51 Tubal ligation status; Z91.199 Patient's noncompliance with other medical treatment and regimen due to unspecified reason
CPT/HCPCS: 36415; 71045; 71045-26; 71275; 71275-26; 80053; 81001; 83735; 83880; 84484; 85025; 93005; 94640; 94660; 94664; A9270-GY; J1940; J7512; Q9967

== ENCOUNTER 2025-05-08 04:38 | Emergency (ER) | payer MEDICARE, MEDICAID ==
[2025-05-08] MEDS: Albuterol/Ipratropium 3.0-0.5 MG/3 ML Neb Soln NEB ONE (04:58)
[2025-05-08 05:00] LABS: BASOPHILS ABSOLUTE AUTO 0.07 K/uL (0.00-0.20); BASOPHILS PERCENT AUTO 0.6 % (0.0-1.0); EOSINOPHILS ABSOLUTE AUTO 0.12 K/uL (0.00-0.45); EOSINOPHILS PERCENT AUTO 1.1 % (0.0-6.0); HEMATOCRIT 43.3 % (37.0-47.0); HEMOGLOBIN 12.9 g/dL (12.0-16.0); IMMATURE GRAN ABSOLUTE AUTO 0.27 K/uL (0.00-0.05); IMMATURE GRAN PERCENT AUTO 2.4 % (0.0-0.4); LYMPHOCYTES PERCENT AUTO 12.6 % (24.0-44.0); MEAN CORPUSCULAR HEMOGLOBIN 27.4 pg (28.0-32.0); MEAN CORPUSCULAR HGB CONC 29.8 g/dL (32.0-36.0); MEAN CORPUSCULAR VOLUME 92.1 fL (83.0-99.0); MEAN PLATELET VOLUME 9.3 fL (9.4-12.3); MONOCYTES ABSOLUTE AUTO 0.48 K/uL (0.00-0.80); MONOCYTES PERCENT AUTO 4.3 % (0.0-8.0); NEUTROPHILS ABSOLUTE AUTO 8.77 K/uL (1.80-7.70); NRBC ABSOLUTE 0.02 K/uL (0.00-0.02); NRBC PERCENT 0.2 /100WBC (0.0-0.2); PLATELET COUNT,PLT 243 K/uL (150-400); WHITE BLOOD CELL COUNT,WBC 11.11 K/uL (3.9-11.3)
[2025-05-08 05:05] LABS: PH,VENOUS 7.34 (7.32-7.43)
[2025-05-08] MEDS: Furosemide 40 MG/4 ML VIAL IVPUSH ONE (05:06)
[2025-05-08 05:23] LABS: A/G RATIO 0.8 (0.9-1.6); ALBUMIN 2.9 g/dL (3.4-5.0); BILIRUBIN TOTAL 0.3 mg/dL (0.2-1.0); CARBON DIOXIDE,CO2 42.7 mmol/L (21.0-32.0); CREATININE 1.3 mg/dL (0.6-1.0); EST CRCL DRUG DOSING (CG) 36.26 mL/min; POTASSIUM,K 4.1 mmol/L (3.5-5.1); PROTEIN TOTAL,TP 6.4 g/dL (6.4-8.2)
[2025-05-08] MEDS: Apixaban 5 MG Tab PO ONE (06:09)
[2025-05-08] MEDS: Amiodarone 360 MG/200 ML 540 MG/300 ML BAG IV ONE (06:09)
[2025-05-08] MEDS: Amiodarone 150 MG/100 ML 100 ML IV ONE (06:10)
[2025-05-08 06:53] LABS: BASE EXCESS VENOUS 14.6 (-2.0-3.0); PH,VENOUS 7.38 (7.32-7.43)
[2025-05-08 08:54] VITALS: BP 106/66; PULSE 130
== END 2025-05-08 09:21 ==
LOC: MW.ED 04:38
DX: J96.21 Acute and chronic respiratory failure with hypoxia (principal); I48.91 Unspecified atrial fibrillation; R79.89 Other specified abnormal findings of blood chemistry; I50.9 Heart failure, unspecified; J44.9 Chronic obstructive pulmonary disease, unspecified; E66.9 Obesity, unspecified; Z68.41 Body mass index [BMI] 40.0-44.9, adult; Z90.710 Acquired absence of both cervix and uterus; Z79.899 Other long term (current) drug therapy
CPT/HCPCS: 36415; 71045; 80053; 82803; 83880; 84484; 85025; 93005; 94640; 94660; 96365; 96366; 99285; A9270; J0283; J1938; 93010

== ENCOUNTER 2025-09-07 05:03 | Emergency (ER) | payer MEDICARE, MEDICAID ==
[2025-09-07 06:37] VITALS: BP 119/75; PULSE 60
== END 2025-09-07 08:39 | disposition home or self-care (01) ==
LOC: MW.ED 05:03
DX: J44.9 Chronic obstructive pulmonary disease, unspecified (principal); I50.9 Heart failure, unspecified; Z79.899 Other long term (current) drug therapy; Z79.01 Long term (current) use of anticoagulants
CPT/HCPCS: 99285; A9270; 99283

== ENCOUNTER 2025-09-08 02:35 | Observation (INO) | payer MEDICARE, MEDICAID ==
[2025-09-08 02:56] LABS: MEAN PLATELET VOLUME 8.5 fL (9.4-12.3); NRBC ABSOLUTE 0.04 K/uL (0.00-0.02); NRBC PERCENT 0.5 /100WBC (0.0-0.2); PLATELET COUNT,PLT 203 K/uL (150-400); RED BLOOD CELL COUNT 3.94 M/uL (4.10-5.30); WHITE BLOOD CELL COUNT,WBC 8.48 K/uL (3.9-11.3)
[2025-09-08] MEDS: methylPREDNISolone Sodium Succinate 125 MG/2 ML SDV IVPUSH ONE (03:03)
[2025-09-08 03:04] LABS: INR 1.05 (0.86-1.11); PTT,PARTIAL THROMBOPLSTIN TIME 24.9 SEC (23.9-30.7)
[2025-09-08 03:17] LABS: A/G RATIO 0.7 (0.9-1.6); ALANINE AMINOTRANSFERASE,ALT 17 IU/L (14-63); ASPARTATE AMNIOTRANSFERASE,AST 16 IU/L (15-37); BILIRUBIN TOTAL 0.4 mg/dL (0.2-1.0); BLOOD UREA NITROGEN,BUN 14 mg/dL (7.0-18.0); CARBON DIOXIDE,CO2 44.8 mmol/L (21.0-32.0); CHLORIDE,CL 98 mmol/L (98-107); CREATININE 0.9 mg/dL (0.6-1.0); GLUCOSE RANDOM 134 mg/dL (74-106); POTASSIUM,K 2.9 mmol/L (3.5-5.1); PRO B-TYPE NATRIUR PEPT,BNPPRO 1257 pg/mL (0-125); PROTEIN TOTAL,TP 6.4 g/dL (6.4-8.2); SODIUM,NA 144 mmol/L (136-145)
[2025-09-08 03:18] LABS: ESTIMATED GFR 70 mL/min (>60)
[2025-09-08] MEDS: Budesonide 0.5 MG/2 ML Neb Susp NEB ONE (03:24)
[2025-09-08 03:44] LABS: EOSINOPHILS ABSOLUTE MAN 0.08 K/uL (0.00-0.45); EOSINOPHILS PERCENT MAN 1 % (0-6); LYMPHOCYTES ABSOLUTE MAN 2.63 K/uL (1.00-4.80); LYMPHOCYTES PERCENT MAN 31 % (24-44); MONOCYTES ABSOLUTE MAN 0.51 K/uL (0.00-0.80); MONOCYTES PERCENT MAN 6 % (0-8); SEG NEUTROPHILS ABSOLUTE MAN 5.26 K/uL (1.80-7.70); SEG NEUTROPHILS PERCENT MAN 62 % (41-71)
[2025-09-08 04:03] LABS: LACTIC ACID 0.7 mmol/L (0.4-2.0)
[2025-09-08] MEDS ORDERED: Furosemide 40 MG/4 ML VIAL IVPUSH ONE ×2 (05:16→05:18)
[2025-09-08] MEDS: Furosemide 40 MG/4 ML VIAL IVPUSH ONE (05:36)
[2025-09-08 07:12] LABS: APPEARANCE,URINE SLT CLOUDY; GLUCOSE,URINE NEGATIVE (NEGATIVE); OCCULT BLOOD,URINE SMALL (NEGATIVE)
[2025-09-08 07:22] LABS: EPITHELIAL CELLS,URINE FEW (NONE-FEW)
[2025-09-08] MEDS: Nitrofurantoin Monohydrate/Macrocrystalline 100 MG Cap PO SCH (10:05)
[2025-09-08] MEDS ORDERED: Non-Formulary Medication 1 Each (Albuterol 18 GM Inhaler) INH PRN (11:33)
[2025-09-08] MEDS: Potassium Chloride 20 MEQ Tab.ER PO ONE (12:09)
[2025-09-08] MEDS ORDERED: Sodium Chloride 0.9% 2.5 ML Syringe FLUSH PRN (12:54)
[2025-09-08] MEDS ORDERED: Sodium Chloride 0.9% 10 ML Syringe FLUSH PRN (12:54)
[2025-09-08 16:45] LABS: BLOOD UREA NITROGEN,BUN 17.0 mg/dL (7.0-18.0); CARBON DIOXIDE,CO2 44.0 mmol/L (21.0-32.0); CHLORIDE,CL 97.0 mmol/L (98-107); CREATININE 1.0 mg/dL (0.6-1.0); EST CRCL DRUG DOSING (CG) 47.14 mL/min; GLUCOSE RANDOM 161.0 mg/dL (74-106); POTASSIUM,K 3.5 mmol/L (3.5-5.1); SODIUM,NA 146.0 mmol/L (136-145)
[2025-09-08 16:53] LABS: ESTIMATED GFR 62.0 mL/min (>60)
[2025-09-08] MEDS: Potassium Chloride 10 MEQ Tab.ER PO SCH (18:28)
[2025-09-08] MEDS ORDERED: Potassium Chloride 10 MEQ Tab.ER PO SCH (21:00)
[2025-09-09 08:50] VITALS: BP 116/54
[2025-09-09 11:47] VITALS: PULSE 82
[2025-09-09] MEDS: Potassium Chloride 10 MEQ Tab.ER ONE (11:54)
== END 2025-09-09 13:52 | disposition hospice, home (50) ==
LOC: MW.ED 02:35 → MW.MS 11:31
PROVIDERS: ADMIT Internal Medicine; ATTEND Internal Medicine
DX: Z51.5 Encounter for palliative care (principal); J96.20 Acute and chronic respiratory failure, unspecified whether with hypoxia or hypercapnia; J44.1 Chronic obstructive pulmonary disease with (acute) exacerbation; I50.9 Heart failure, unspecified; E66.9 Obesity, unspecified; Z79.01 Long term (current) use of anticoagulants; Z68.30 Body mass index [BMI] 30.0-30.9, adult; Z20.822 Contact with and (suspected) exposure to COVID-19; Z79.899 Other long term (current) drug therapy
CPT/HCPCS: 36415; 71045; 80048; 80053; 81001; 83605; 83690; 83735; 83880; 84484; 85025; 85610; 85730; 87040; 87086; 87088; 87186; 87428; 93005; 96374; 96375; 99285; A9270; J1938; J2270; J2919; 96376; G0378; J3490